=== PATIENT | female | born 1975 | race Caucasian/White ===

== ENCOUNTER 2016-10-21 10:26 | Inpatient (IN) | payer MEDICAID ==
[2016-10-21] VITALS (8 sets, daily range): BP systolic 98–120; BP diastolic 57–79; PULSE 99–142; RESP 18–24; TEMP 97.8–98.2; O2SAT 96–100
[~2016-10-21] VITALS: Ht 165.1 cm; Wt 76.7 kg
[2016-10-21] MEDS ORDERED: SODIUM CHLORIDE 0.9% FLUSH 10 ML FLUSH IVF PRN (10:45)
[2016-10-21] MEDS ORDERED: SODIUM CHLOR 0.9% 1000 ML INJ 1,000 ML IV ONE (10:45)
[2016-10-21 11:18] LABS: AUTOMATED NEUTROPHIL # 5.9 TH/MM3 (1.8-7.7); BASOPHIL % 0.5 % (0.0-2.0); EOSINOPHIL % 0.1 % (0.0-4.0); HEMATOCRIT 29.3 % (35.0-46.0); LYMPH % 11.6 % (9.0-44.0); LYMPHOCYTE # 0.9 TH/MM3 (1.0-4.8); MEAN CELL VOLUME 89.3 FL (80.0-100.0); MEAN CORPUSCULAR HEMOGLOBIN 29.3 PG (27.0-34.0); MEAN CORPUSCULAR HGB CONC 32.8 % (32.0-36.0); MONO % 12.9 % (0.0-8.0); NEUT % 74.9 % (16.0-70.0); PLATELET COUNT 169 TH/MM3 (150-450); RED BLOOD COUNT 3.28 MIL/MM3 (4.00-5.30); RED CELL DISTRIBUTION WIDTH 20.1 % (11.6-17.2); WHITE BLOOD COUNT 7.9 TH/MM3 (4.0-11.0)
[2016-10-21 11:22] LABS: HEMO FLAGS AUTO DIFF
[2016-10-21 11:27] LABS: APTT (PATIENT) 23.6 SEC (24.3-30.1); INTERNATIONAL NORMALIZED RATIO 1.2 RATIO; PROTHROMBIN TIME - PATIENT 12.8 SEC (9.8-11.6)
[2016-10-21 11:35] LABS: BLOOD GAS VENOUS HCO3 27 mmol/L (22-26); BLOOD GAS VENOUS O2 CONTENT 2.9 Vol % (9.0-17.0); BLOOD GAS VENOUS O2 HGB SAT 26 % (70-76); BLOOD GAS VENOUS PCO2 36 mmHg (44-48); BLOOD GAS VENOUS PO2 22 mmHg (35-40); BLOOD GAS VENOUS pH 7.49 (7.360-7.400); TEMP CORR TO 98.6
[2016-10-21 11:36] LABS: DRAW SITE RAC; FIO2 21 %; OXYGEN DEVICE RA; STAT YES
[2016-10-21 11:41] LABS: ALKALINE PHOSPHATASE 251 U/L (45-117); ALT (GPT) 86 U/L (10-53); ANION GAP 22 MEQ/L (5-15); AST (GOT) 265 U/L (15-37); BICARBONATE 25.2 MEQ/L (21.0-32.0); BLOOD UREA NITROGEN 9 MG/DL (7-18); CHLORIDE 81 MEQ/L (98-107); GLOMERULAR FILTRATION RATE 72 ML/MIN (>89); MAGNESIUM 1.7 MG/DL (1.5-2.5); SODIUM (NA) 128 MEQ/L (136-145); TOTAL BILIRUBIN ADULT 5.3 MG/DL (0.2-1.0)
--- NOTE | 2016-10-21 11:41 | PD ---
HPI Chief Complaint: Medical Clearance Time Seen by Provider: 10:36 Travel History International Travel<30 days: No Contact w/Intl Traveler<30days: No Traveled to known affect area: No History of Present Illness HPI Patient is a 41-year-old female presents emergency Department with vague tremors nausea and dizziness after quitting drinking 2 days ago. Patient states that she is a long-time alcoholic never been an severe withdrawals before but has noticed her skin is started changing yellow as well. Denies any abdominal pain shortness of breath blood in the stool or hematemesis. States she's been very dehydrated and unable to tolerate by mouth liquids. PFSH Past Medical History Herniated Disk: Yes Hypertension: Yes Tetanus Vaccination: Unknown Influenza Vaccination: No ?: Not : 1 Para: 1 Past Surgical History Section: Yes Social History Alcohol Use: Yes (daily - last drink 2 days ago) Tobacco Use: Yes Substance Use: No Allergies-Medications (Allergen,Severity, Reaction): Coded Allergies: No Known Allergies (Unverified , 10/21/16) Reported Meds & Prescriptions Reported Meds & Active Scripts Active No Active Prescriptions or Reported Medications Review of Systems Except as stated in HPI: all other systems reviewed are Neg Physical Exam Narrative GENERAL: Well-developed, overweight jaundiced. SKIN: Focused skin assessment warm/dry. HEAD: Atraumatic. Normocephalic. EYES: Pupils equal and round. No scleral icterus. No injection or drainage. ENT: No nasal bleeding or discharge. Mucous membranes pink and moist. NECK: Trachea midline. No JVD. CARDIOVASCULAR: Regular rate and rhythm. No murmur appreciated. RESPIRATORY: No accessory muscle use. Clear to auscultation. Breath sounds equal bilaterally. GASTROINTESTINAL: Abdomen soft, non-tender, nondistended. Hepatic and splenic margins not palpable. MUSCULOSKELETAL: No obvious deformities. No clubbing. No cyanosis. No edema. NEUROLOGICAL: Awake and alert. No obvious cranial nerve deficits. Motor grossly within normal limits. Normal speech. Minimal tremor seen, alert and awake and oriented 4, no confusion. PSYCHIATRIC: Appropriate mood and affect; insight and judgment normal. Data Data Last Documented VS Vital Signs Date Time Temp Pulse Resp B/P Pulse Ox O2 Delivery O2 Flow Rate FiO2 10/21/16 13:00 110 18 120/79 96 Room Air 10/21/16 10:28 97.8 Orders Electrocardiogram (10/21/16 10:42) Ckmb (Isoenzyme) Profile (10/21/16 10:42) Complete Blood Count With Diff (10/21/16 10:42) Comprehensive Metabolic Panel (10/21/16 10:42) Magnesium (Mg) (10/21/16 10:42) Prothrombin Time / Inr (Pt) (10/21/16 10:42) Act Partial Throm Time (Ptt) (10/21/16 10:42) Troponin I (10/21/16 10:42) Ecg Monitoring (10/21/16 10:42) Iv Access Insert/Monitor (10/21/16 10:42) Oximetry (10/21/16 10:42) Oxygen Administration (10/21/16 10:42) Sodium Chloride 0.9% Flush (Ns Flush) (10/21/16 10:45) Sodium Chlor 0.9% 1000 Ml Inj (Ns 1000 M (10/21/16 10:45) Resp Blood Gas Venous (10/21/16 ) Phosphorus (Po4) (10/21/16 11:00) Blood Gas Venous (Vbg) (10/21/16 11:34) Potassium Chlor 20 Meq Premix (Kcl 20 Me (10/21/16 13:45) Lorazepam Inj (Ativan Inj) (10/21/16 13:45) Admit To Inpatient (10/21/16 ) Vital Signs (Adult) Q4H (10/21/16 13:41) Activity Bed Rest (10/21/16 13:41) Signal Constructor / Telemetry .CONTINUOUS (10/21/16 13:41) Intake + Output LUZ ELENA.QSHIFT (10/21/16 13:41) Diet Npo (10/21/16 Lunch) Sodium Chlor 0.9% 1000 Ml Inj (Ns 1000 M (10/21/16 14:00) Sodium Chloride 0.9% Flush (Ns Flush) (10/21/16 13:45) Sodium Chloride 0.9% Flush (Ns Flush) (10/21/16 21:00) Acetaminophen (Tylenol) (10/21/16 13:45) Ondansetron Inj (Zofran Inj) (10/21/16 13:45) Scd Bilateral/Knee High LUZ ELENA.BID (10/21/16 13:41) Lencho Bilateral/Knee High LUZ ELENA.QSHIFT (10/21/16 13:41) Naloxone Inj (Narcan Inj) (10/21/16 13:45) Docusate Sodium-Senna (Aylin-Colace) (10/21/16 21:00) Magnesium Hydroxide Liq (Milk Of Magnesi (10/21/16 13:45) Sennosides (Senokot) (10/21/16 13:45) Bisacodyl Supp (Dulcolax Supp) (10/21/16 13:45) Lactulose Liq (Lactulose Liq) (10/21/16 13:45) Inpatient Certification (10/21/16 ) Alcohol Withdrawal Asmt-Ciwa Q4HX18 (10/21/16 13:41) Flumazenil Inj (Romazicon Inj) (10/21/16 13:45) Lorazepam (Ativan) (10/21/16 13:45) Lorazepam Inj (Ativan Inj) (10/21/16 13:45) Lorazepam (Ativan) (10/21/16 13:45) Lorazepam Inj (Ativan Inj) (10/21/16 13:45) Lorazepam Inj (Ativan Inj) (10/21/16 13:45) Lorazepam Inj (Ativan Inj) (10/21/16 13:45) Folic Acid (Folate) (10/22/16 09:00) Thiamine (Vit B1) (Vitamin B1) (10/22/16 09:00) Multivitamins-Minerals Therap (Theragran (10/22/16 09:00) Potassium Chloride (Kcl) (10/21/16 14:15) Admit Order (Ed Use Only) (10/21/16 ) Labs Laboratory Tests Test 10/21/16 10/21/16 11:00 11:34 White Blood Count 7.9 TH/MM3 Red Blood Count 3.28 MIL/MM3 Hemoglobin 9.6 GM/DL Hematocrit 29.3 % Mean Corpuscular Volume 89.3 FL Mean Corpuscular Hemoglobin 29.3 PG Mean Corpuscular Hemoglobin 32.8 % Concent Red Cell Distribution Width 20.1 % Platelet Count 169 TH/MM3 Mean Platelet Volume 8.4 FL Neutrophils (%) (Auto) 74.9 % Lymphocytes (%) (Auto) 11.6 % Monocytes (%) (Auto) 12.9 % Eosinophils (%) (Auto) 0.1 % Basophils (%) (Auto) 0.5 % Neutrophils # (Auto) 5.9 TH/MM3 Lymphocytes # (Auto) 0.9 TH/MM3 Monocytes # (Auto) 1.0 TH/MM3 Eosinophils # (Auto) 0.0 TH/MM3 Basophils # (Auto) 0.0 TH/MM3 CBC Comment AUTO DIFF Differential Total Cells 100 Counted Neutrophils % (Manual) 68 % Band Neutrophils % 8 % Lymphocytes % 10 % Monocytes % 11 % Eosinophils % 2 % Basophils % 1 % Neutrophils # (Manual) 6.0 TH/MM3 Nucleated Red Blood Cells 8 /100 WBC Differential Comment FINAL DIFF MANUAL Platelet Estimate NORMAL Platelet Morphology Comment NORMAL Target Cells 1+ Stomatocytes 1+ Prothrombin Time 12.8 SEC Prothromb Time International 1.2 RATIO Ratio Activated Partial 23.6 SEC Thromboplast Time Sodium Level 128 MEQ/L Potassium Level 2.3 MEQ/L Chloride Level 81 MEQ/L Carbon Dioxide Level 25.2 MEQ/L Anion Gap 22 MEQ/L Blood Urea Nitrogen 9 MG/DL Creatinine 0.87 MG/DL Estimat Glomerular Filtration 72 ML/MIN Rate Random Glucose 138 MG/DL Calcium Level 10.6 MG/DL Phosphorus Level 1.9 MG/DL Magnesium Level 1.7 MG/DL Iron Level 235 MCG/DL Total Iron Binding Capacity 223 MCG/DL Percent Iron Saturation GREATER THAN 99.0 % Ferritin 6636 NG/ML Total Bilirubin 5.3 MG/DL Aspartate Amino Transf 265 U/L (AST/SGOT) Alanine Aminotransferase 86 U/L (ALT/SGPT) Alkaline Phosphatase 251 U/L Total Creatine Kinase 19 U/L Troponin I LESS THAN 0.02 NG/ML Total Protein 7.5 GM/DL Albumin 3.9 GM/DL Vitamin B12 Level 869 PG/ML Blood Gas Puncture Site RAC Blood Gas Patient Temperature 98.6 Venous Blood pH 7.49 Venous Blood Partial Pressure 36 mmHg CO2 Venous Blood Partial Pressure 22 mmHg O2 Venous Blood HCO3 27 mmol/L Venous Blood Oxygen Saturation 26 % Venous Blood Oxygen Content 2.9 Vol % Venous Blood Base Excess 4.0 mmol/L Oxygen Delivery Device RA Blood Gas Inspired Oxygen 21 % MDM Medical Decision Making Medical Screen Exam Complete: Yes Emergency Medical Condition: Yes Interpretation(s) EKG shows sinus tachycardia with normal axis normal R-wave progression. Non- concerning ST segment T-wave abnormality, appears to be nonischemic. Intervals other than rate appear to be within normal limits. This is the nonischemic tachycardic EKG. Differential Diagnosis Acute liver failure, mild alcohol withdrawals, dehydration, alcoholic ketoacidosis, multiple electrolyte abnormalities. Narrative Course Patient roomed in the emergency department, workup significant for multiple electrolyte abnormalities, concern for dehydration and acute liver failure the patient will be placed on observation status. Patient was cussed with Dr. Cardozo for admission who is agreeable. Diagnosis Primary Impression: Dehydration Additional Impressions: Liver failure Hypokalemia Admitting Information Admitting Physician Requests: Admit Scripts No Active Prescriptions or Reported Meds Condition: Stable Kyree Egan MD Oct 21, 2016 11:41
[2016-10-21 11:44] LABS: CREATINE KINASE 19 U/L (26-192)
[2016-10-21 11:50] LABS: POTASSIUM 2.2 MEQ/L (3.5-5.1)
[2016-10-21 11:59] LABS: BANDS 8 % (0-6); BASOPHILS 1 % (0-2); CORRECTED NUCLEATED RBC 8 /100 WBC (0-0); EOSINOPHILS 2 % (0-4); PLATELET ESTIMATE SMEAR NORMAL (NORMAL); PLATELET MORPHOLOGY NORMAL (NORMAL); POLYS (SEG NEUTROPHILS) 68 % (16-70); SCAN/DIFF FINAL DIFF MANUAL; STOMATOCYTES 1+ (NORMAL); TARGET CELLS 1+ (NORMAL); WBC DIFF SAMPLE 100
[2016-10-21] MEDS ORDERED: LORazepam 2 MG/ML VIAL IV PUSH PRN ×3 (13:45)
[2016-10-21] MEDS ORDERED: LACTULOSE SYRUP 20 GM/30 ML CUP PO PRN (13:45)
[2016-10-21] MEDS ORDERED: FLUMAZENIL 0.5 MG/5 ML VIAL IV PUSH PRN (13:45)
[2016-10-21] MEDS ORDERED: MAGNESIUM HYDROXIDE SUSP 30 ML CUP PO PRN (13:45)
[2016-10-21] MEDS ORDERED: NALOXONE HCL 0.4 MG/ML AMP IV PRN (13:45)
[2016-10-21] MEDS ORDERED: BISACODYL 10 MG SUPP RECTAL PRN (13:45)
[2016-10-21] MEDS ORDERED: POTASSIUM CHLOR 20 MEQ PREMIX 100 ML IV ONE ×2 (13:45→19:45)
[2016-10-21] MEDS ORDERED: SODIUM CHLORIDE 0.9% FLUSH 10 ML FLUSH IV FLUSH PRN (13:45)
[2016-10-21] MEDS ORDERED: ONDANSETRON HCL 4 MG/2 ML VIAL IVP PRN (13:45)
[2016-10-21] MEDS ORDERED: ACETAMINOPHEN 325 MG TAB PO PRN (13:45)
[2016-10-21] MEDS ORDERED: LORazepam 2 MG TAB PO PRN (13:45)
[2016-10-21] MEDS ORDERED: SENNOSIDES 8.6 MG TAB PO PRN (13:45)
[2016-10-21] MEDS ORDERED: LORazepam 1 MG TAB PO PRN (13:45)
[2016-10-21] MEDS ORDERED: LORazepam 2 MG/ML VIAL IV PUSH ONE (13:45)
[2016-10-21] MEDS ORDERED: SODIUM CHLOR 0.9% 1000 ML INJ 1,000 ML IV SCH (14:00)
[2016-10-21] MEDS ORDERED: POTASSIUM CHLORIDE 10 MEQ CONTROLLED RELEASE TAB PO ONE (14:15)
--- NOTE | 2016-10-21 16:22 | EKG ---
Date Performed: 10/21/2016 Time Performed: 10:47:19 PTAGE: 41 years EKG: SINUS TACHYCARDIA NONSPECIFIC ST & T-WAVE ABNORMALITY ABNORMAL RHYTHM ECG PREVIOUS TRACING : 08/15/2016 23.26 DOCTOR: Jersey Herrera Interpretating Date/Time 10/21/2016 16:20:17
--- NOTE | 2016-10-21 16:23 | HHI.HP ---
[facility] Service [facility] Primary Care Physician No Primary Care Physician Admission Diagnosis Hypokalemia, Dehydration, Mild withdrawal, acute liver failure. Diagnoses: Chief Complaint: Nausea, vomiting, abdominal pain Travel History International Travel<30 Days: No Contact w/Intl Traveler <30 Da: No Traveled to Known Affected Are: No History of Present Illness This is a 41-year-old female with alcoholism and tobacco abuse who presented with abdominal pain, nausea, vomiting, tremors, generalized weakness, loss of appetite and diarrhea after not drinking for 2 days. Patient stated that she is alcoholic and has been drinking about half a gallon of [place] every day. She stated that she wanted to detox herself so has been off of alcohol for the past 2 days. She didn't develop symptoms of abdominal pain, nausea/vomiting, tremors, and diarrhea so went to the emergency department. In the ED patient was found to have hypokalemia and elevated LFTs. Otherwise patient had no other complaints. She stated that she smokes tobacco 1 pack per day for 20+ years. Review of Systems Constitutional: COMPLAINS OF: Fatigue, Change in appetite, DENIES: Diaphoretic episodes, Fever, Weight gain, Weight loss, Chills, Dizziness, Night Sweats Endocrine: DENIES: Abnorml menstrual pattern, Heat/cold intolerance, Polydipsia , Polyuria, Polyphagia Eyes: COMPLAINS OF: Blurred vision, DENIES: Diplopia, Eye inflammation, Eye pain, Vision loss, Photosensitivity, Double Vision Ears, nose, mouth, throat: DENIES: Tinnitus, Hearing loss, Vertigo, Nasal discharge, Oral lesions, Throat pain, Hoarseness, Ear Pain, Running Nose, Epistaxis, Sinus Pain, Toothache, Odynophagia Respiratory: DENIES: Apneas, Cough, Snoring, Wheezing, Hemoptysis, Sputum production, Shortness of breath Cardiovascular: DENIES: Chest pain, Palpitations, Syncope, Dyspnea on Exertion , PND, Lower Extremity Edema, Orthopnea, Claudication Gastrointestinal: COMPLAINS OF: Abdominal pain, Diarrhea, Nausea, Vomiting, Anorexia, DENIES: Black stools, Bloody stools, Constipation, Difficulty Swallowing Genitourinary: DENIES: Abnormal vaginal bleeding, Dysmenorrhea, Dyspareunia, Sexual dysfunction, Urinary frequency, Urinary incontinence, Urgency, Hematuria , Dysuria, Nocturia, Vaginal discharge Musculoskeletal: DENIES: Joint pain, Muscle aches, Stiffness, Joint Swelling, Back pain, Neck pain Integumentary: DENIES: Abnormal pigmentation, Pruritus, Rash, Nail changes, Breast masses, Breast skin changes, Nipple discharge Hematologic/lymphatic: DENIES: Bruising, Lymphadenopathy Immunologic/allergic: DENIES: Eczema, Urticaria Neurologic: DENIES: Abnormal gait, Headache, Localized weakness, Paresthesias, Seizures, Speech Problems, Tremor, Poor Balance Psychiatric: DENIES: Anxiety, Confusion, Mood changes, Depression, Hallucinations, Agitation, Suicidal Ideation, Homicidal Ideation, Delusions Past Family Social History Past Medical History Alcoholism Tobacco abuse Past Surgical History Multiple back surgeries Reported Medications No Active Prescriptions or Reported Medications Allergies: Coded Allergies: No Known Allergies (Unverified , 10/21/16) Active Ordered Medications Current Medications Sodium Chloride 2 ml 2 ml UNSCH PRN IVF FLUSH AFTER USING IV ACCESS; Start 03/28 at 10:45; Stop 10/21/16 at 14:04; Status DC Sodium Chloride 1,000 ml @ 999 mls/hr BOLUS ONCE IV Last administered on 10/21 11:08; Start 10/21/16 at 10:45; Stop 10/21/16 at 11:45; Status DC Potassium Chloride (KCl 20 Meq Premix Inj) 100 ml @ 50 mls/hr ONCE ONCE IV Last administered on 10/21/16 14:49; Start 10/21/16 at 13:45; Stop 10/21/16 at 15:44; Status DC Lorazepam 0.5 mg 0.5 mg ONCE ONCE IV PUSH Last administered on 10/21/16 14:48 ; Start 10/21/16 at 13:45; Stop 10/21/16 at 13:46; Status DC Sodium Chloride (NS 1000 ml Inj) 1,000 ml @ 150 mls/hr Q6H40M IV Last administered on 10/21/16 14:48; Start 10/21/16 at 14:00 Sodium Chloride (NS Flush) 2 ml UNSCH PRN IV FLUSH FLUSH AFTER USING IV ACCESS ; Start 10/21/16 at 13:45 Sodium Chloride (NS Flush) 2 ml BID IV FLUSH ; Start 10/21/16 at 21:00 Acetaminophen (Tylenol) 650 mg Q4H PRN PO TEMP > 100.4; Start 10/21/16 at 13:45 Ondansetron HCl (Zofran Inj) 4 mg Q6H PRN IVP NAUSEA OR VOMITING; Start at 13:45 Naloxone HCl (Narcan Inj) 0.4 mg UNSCH PRN IV SEE LABEL COMMENTS; Start at 13:45 Senna/Docusate Sodium (Aylin-Colace) 1 tab BID PO ; Start 10/21/16 at 21:00 Magnesium Hydroxide (Milk Of Magnesia Liq) 30 ml Q12H PRN PO MILD - MODERATE CONSTIPATION; Start 10/21/16 at 13:45 Sennosides (Senokot) 17.2 mg Q12H PRN PO MODERATE - SEVERE CONSTIPATION; Start 10/21/16 at 13:45 Bisacodyl (Dulcolax Supp) 10 mg DAILY PRN RECTAL SEVERE CONSITIPATION; Start at 13:45 Lactulose (Lactulose Liq) 30 ml DAILY PRN PO SEVERE CONSITIPATION; Start at 13:45 Flumazenil (Romazicon Inj) 0.2 mg Q1M PRN IV PUSH SEE LABEL COMMENTS; Start 03/28 at 13:45 Lorazepam (Ativan) 1 mg Q4H PRN PO CIWA 8 - 10; Start 10/21/16 at 13:45 Lorazepam (Ativan Inj) 1 mg Q4H PRN IV PUSH CIWA 8 - 10; Start 10/21/16 at 13: 45 Lorazepam (Ativan) 2 mg Q2H PRN PO CIWA 11-14; Start 10/21/16 at 13:45 Lorazepam (Ativan Inj) 2 mg Q2H PRN IV PUSH CIWA 11-14; Start 10/21/16 at 13:45 Lorazepam (Ativan Inj) 2 mg Q1H PRN IV PUSH CIWA 15-20; Start 10/21/16 at 13:45 Lorazepam (Ativan Inj) 2 mg Q15M PRN IV PUSH CIWA > 20; Start 10/21/16 at 13:45 Folic Acid (Folate) 1 mg DAILY PO ; Start 10/22/16 at 09:00; Stop 10/27/16 at 08 :59 Thiamine HCl (Vitamin B1) 100 mg DAILY PO ; Start 10/22/16 at 09:00 Multivitamins/ Minerals Therapeutic (Theragran M Tab) 1 tab DAILY PO ; Start at 09:00; Stop 10/27/16 at 08:59 Potassium Chloride (KCl) 30 meq ONCE ONCE PO Last administered on 10/21/16t 14 :48; Start 10/21/16 at 14:15; Stop 10/21/16 at 14:16; Status DC Family History Mother had a history of MN. Father had history of MN. Social History Patient lives with her at home. Smokes tobacco 1 pack per day for 20+ years. Denies any illicit drug use or any history of IV drug use. Physical Exam Vital Signs Vital Signs Date Time Temp Pulse Resp B/P Pulse Ox O2 Delivery O2 Flow Rate FiO2 10/21/16 14:49 118 18 98/57 99 Room Air 10/21/16 14:32 105 20 118/78 98 10/21/16 13:00 110 18 120/79 96 Room Air 10/21/16 10:48 100 Room Air 10/21/16 10:48 109 19 109/66 100 Room Air 10/21/16 10:42 129 19 10/21/16 10:42 109 19 109/66 100 Room Air 10/21/16 10:28 97.8 142 24 108/64 100 Room Air Physical Exam GENERAL: This is a well-nourished, well-developed patient, in no apparent distress. SKIN: No rashes, ecchymoses or lesions. Cool and dry. HEAD: Atraumatic. Normocephalic. No temporal or scalp tenderness. EYES: Pupils equal round and reactive. Extraocular motions intact. mild scleral icterus. No injection or drainage. ENT: Nose without bleeding, purulent drainage or septal hematoma. Throat without erythema, tonsillar hypertrophy or exudate. Uvula midline. Airway patent. NECK: Trachea midline. No JVD or lymphadenopathy. Supple, nontender, no meningeal signs. CARDIOVASCULAR: Regular rate and rhythm without murmurs, gallops, or rubs. RESPIRATORY: Clear to auscultation. Breath sounds equal bilaterally. No wheezes , rales, or rhonchi. GASTROINTESTINAL: Abdomen soft,+ mild diffused TTP, nondistended. No hepato- splenomegaly, or palpable masses. No guarding. MUSCULOSKELETAL: Extremities without clubbing, cyanosis, or edema. No joint tenderness, effusion, or edema noted. No calf tenderness. Negative Homans sign bilaterally. NEUROLOGICAL: Awake and alert. Cranial nerves II through XII intact. Motor and sensory grossly within normal limits. Five out of 5 muscle strength in all muscle groups. Normal speech. Laboratory Laboratory Tests Test 10/21/16 10/21/16 11:00 11:34 White Blood Count 7.9 Red Blood Count 3.28 Hemoglobin 9.6 Hematocrit 29.3 Mean Corpuscular Volume 89.3 Mean Corpuscular Hemoglobin 29.3 Mean Corpuscular Hemoglobin 32.8 Concent Red Cell Distribution Width 20.1 Platelet Count 169 Mean Platelet Volume 8.4 Neutrophils (%) (Auto) 74.9 Lymphocytes (%) (Auto) 11.6 Monocytes (%) (Auto) 12.9 Eosinophils (%) (Auto) 0.1 Basophils (%) (Auto) 0.5 Neutrophils # (Auto) 5.9 Lymphocytes # (Auto) 0.9 Monocytes # (Auto) 1.0 Eosinophils # (Auto) 0.0 Basophils # (Auto) 0.0 CBC Comment AUTO DIFF Differential Total Cells 100 Counted Neutrophils % (Manual) 68 Band Neutrophils % 8 Lymphocytes % 10 Monocytes % 11 Eosinophils % 2 Basophils % 1 Neutrophils # (Manual) 6.0 Nucleated Red Blood Cells 8 Differential Comment FINAL DIFF MANUAL Platelet Estimate NORMAL Platelet Morphology Comment NORMAL Target Cells 1+ Stomatocytes 1+ Prothrombin Time 12.8 Prothromb Time International 1.2 Ratio Activated Partial 23.6 Thromboplast Time Sodium Level 128 Potassium Level 2.2 Chloride Level 81 Carbon Dioxide Level 25.2 Anion Gap 22 Blood Urea Nitrogen 9 Creatinine 0.87 Estimat Glomerular Filtration 72 Rate Random Glucose 138 Calcium Level 10.6 Phosphorus Level 1.9 Magnesium Level 1.7 Total Bilirubin 5.3 Aspartate Amino Transf 265 (AST/SGOT) Alanine Aminotransferase 86 (ALT/SGPT) Alkaline Phosphatase 251 Total Creatine Kinase 19 Troponin I LESS THAN 0.02 Total Protein 7.5 Albumin 3.9 Blood Gas Puncture Site RAC Blood Gas Patient Temperature 98.6 Venous Blood pH 7.49 Venous Blood Partial Pressure 36 CO2 Venous Blood Partial Pressure 22 O2 Venous Blood HCO3 27 Venous Blood Oxygen Saturation 26 Venous Blood Oxygen Content 2.9 Venous Blood Base Excess 4.0 Oxygen Delivery Device RA Blood Gas Inspired Oxygen 21 Result Diagram: 10/21/16 1100 10/21/16 1100 Assessment and Plan Assessment and Plan 48-year-old alcoholic who presented with abdominal pain, nausea/vomiting, and diarrhea Alcohol withdrawal -Patient was given Ativan in the ED which improved her heart rate. -Will start CIWA protocol. -Will place on IV fluids, multivitamin, thiamine and folic acid. -Continue to monitor closely and adjust medication as needed. Tachycardia -Most lightly secondary to alcohol withdrawals. -Improved with Ativan. Continue treatment as above. -Monitor on telemetry. Hypokalemia K 2.2 -Asymptomatic. No tall T waves on EKG. -Patient given 20 mEq potassium IV in the ED. Magnesium is 1.7. -Will give K 30 mEq by mouth once. Recheck potassium adjust accordingly. -Monitor over telemetry. Anemia -No signs of active bleeding. -Will do anemia workup. -Will treat empirically with Protonix since patient does have abdominal pain with emesis.. -Continue to trend hemoglobin and monitor clinically. Elevated liver enzymes -Most likely secondary to alcoholic hepatitis. -INR is 1.2 and patient looks mildly jaundiced, but she felt she looks normal. -Will get a hepatitis panel and liver ultrasound. -Continue to trend LFTs. DVT prophylaxis Code Status Full code Discussed Condition With [facility] Phys[facility] Certification 2 Midnight Certification Type: Admission for Inpatient Services Order for Inpatient Services The services are ordered in accordance with Medicare regulations or non- Medicare payer requirements, as applicable. In the case of services not specified as inpatient-only, they are appropriately provided as inpatient services in accordance with the 2-midnight benchmark. Estimated LOS (days): 3 3 days is the estimated time the patient will need to remain in the hospital, assuming treatment plan goals are met and no additional complications. Post-Hospital Plan: Maria Dolores Griffith MD Oct 21, 2016 16:23
--- NOTE | 2016-10-21 17:25 | RADRPT ---
EXAM DATE/TIME: 10/21/2016 16:49 [facility] COMPARISON: No previous studies available for comparison. INDICATIONS : Increased lab values. MEDICAL HISTORY : Hypertension. Abdominal pain. Diarrhea. Nausea. Alcohol abuse. SURGICAL HISTORY : section. Herniated disk repair. ENCOUNTER: Initial ACUITY: 2 weeks PAIN SCORE: 0/10 LOCATION: Right upper quadrant MEASUREMENTS: LIVER: 17.6 cm length COMMON DUCT: 5 mm RIGHT KIDNEY: 11.8 x 6.3 x 6.1 cm SPLEEN: 10.5 cm length FINDINGS: LIVER: Liver demonstrates diffusely increased echogenicity without evidence for volume loss, intrahepat ic ductal dilatation or focal mass. The vein is patent with hepatopedal flow. COMMON DUCT: No intraluminal mass or stone visualized. GALLBLADDER: Isoechoic layering sludge in the gallbladder. No significant gallbladder wall thickening, pericholecy stic fluid, or sonographic Trimble sign. PANCREAS: The visualized portions are within normal limits. RIGHT KIDNEY: No hydronephrosis, stone or mass. SPLEEN: No focal lesion. CONCLUSION: 1. Diffusely increased hepatic echogenicity without evidence for volume loss consistent with hepatic steatosis. 2. Gallbladder sludge without evidence for cholecystitis. Ricardo De La Torre MD on October 21, 2016 at 17:21 Board Certified Radiologist. This report was verified electronically.
[2016-10-21 17:54] LABS: FERRITIN 6636 NG/ML (8-252); TRANSFERRIN IRON PROFILE 159 MG/DL (200-360)
[2016-10-21 18:06] LABS: POTASSIUM 2.3 MEQ/L (3.5-5.1)
[2016-10-21] MEDS: SODIUM CHLORIDE 0.9% FLUSH 10 ML FLUSH IV FLUSH SCH (18:08)
[2016-10-21] MEDS: PANTOPRAZOLE SODIUM 40 MG VIAL IV PUSH SCH (18:09)
[2016-10-21] MEDS ORDERED: MAGNESIUM SULFATE 1 GM PREMIX 100 ML IV ONE (19:45)
[2016-10-21] MEDS: DOCUSATE SODIUM 50 MG/SENNA 8.6 MG TAB PO SCH (21:31)
[2016-10-21] MEDS: NS + KCL 40 MEQ INJ 1,000 ML IV SCH (21:36)
[2016-10-22] VITALS (7 sets, daily range): BP systolic 97–120; BP diastolic 65–79; PULSE 102–124; RESP 16–18; TEMP 97.9–98.6; O2SAT 99–100
[2016-10-22] MEDS: NS + KCL 40 MEQ INJ 1,000 ML IV SCH ×3 (03:45→21:15)
[2016-10-22] MEDS: MULTIVITAMINS/MINERALS THERAPEUTIC TAB PO SCH (08:10)
[2016-10-22] MEDS: DOCUSATE SODIUM 50 MG/SENNA 8.6 MG TAB PO SCH ×2 (08:10→21:15)
[2016-10-22] MEDS: THIAMINE HCL 100 MG TAB PO SCH (08:10)
[2016-10-22] MEDS: FOLIC ACID 1 MG TAB PO SCH (08:10)
[2016-10-22] MEDS: SODIUM CHLORIDE 0.9% FLUSH 10 ML FLUSH IV FLUSH SCH ×2 (08:11→21:15)
[2016-10-22 10:05] LABS: HEMATOCRIT 23.4 % (35.0-46.0); MEAN CELL VOLUME 90.4 FL (80.0-100.0); MEAN CORPUSCULAR HEMOGLOBIN 28.1 PG (27.0-34.0); MEAN CORPUSCULAR HGB CONC 31.1 % (32.0-36.0); PLATELET COUNT 129 TH/MM3 (150-450); RED BLOOD COUNT 2.59 MIL/MM3 (4.00-5.30); RED CELL DISTRIBUTION WIDTH 19.8 % (11.6-17.2); REVIEW FLAG FINAL; WHITE BLOOD COUNT 4.6 TH/MM3 (4.0-11.0)
[2016-10-22 10:41] LABS: ALKALINE PHOSPHATASE 174 U/L (45-117); ALT (GPT) 69 U/L (10-53); ANION GAP 14 MEQ/L (5-15); AST (GOT) 256 U/L (15-37); BICARBONATE 28.5 MEQ/L (21.0-32.0); BLOOD UREA NITROGEN 10 MG/DL (7-18); CHLORIDE 94 MEQ/L (98-107); GLOMERULAR FILTRATION RATE 188 ML/MIN (>89); SODIUM (NA) 136 MEQ/L (136-145); TOTAL BILIRUBIN ADULT 2.5 MG/DL (0.2-1.0)
[2016-10-22 10:48] LABS: POTASSIUM 2.6 MEQ/L (3.5-5.1)
--- NOTE | 2016-10-22 10:54 | HHI.PR ---
Subjective Remarks Pt tells me that she feels much better today. Wants to eat and asks for orange juice. She is hopeful to leave hospital soon. Pt also wants assistance to quit drinking. She is willing to go to counseling. Pt states that has no insurance and is interested in patient assistance. Objective Vitals Vital Signs Date Time Temp Pulse Resp B/P Pulse Ox O2 Delivery O2 Flow Rate FiO2 10/22/16 08:00 98.1 105 17 120/79 99 10/22/16 04:00 98.0 102 18 97/66 100 10/22/16 00:00 98.1 116 16 107/77 100 10/21/16 20:45 Room Air 10/21/16 20:00 98.2 101 18 116/76 100 10/21/16 20:00 99 10/21/16 18:30 Room Air 10/21/16 17:43 97.9 108 18 114/71 100 10/21/16 14:49 118 18 98/57 99 Room Air 10/21/16 14:32 105 20 118/78 98 10/21/16 13:00 110 18 120/79 96 Room Air 10/21/16 10:48 100 Room Air 10/21/16 10:48 109 19 109/66 100 Room Air 10/21/16 10:42 129 19 10/21/16 10:42 109 19 109/66 100 Room Air I/O 10/21/16 10/21/16 10/21/16 10/22/16 10/22/16 10/22/16 07:00 15:00 23:00 07:00 15:00 23:00 Intake Total 1000 ml 220 ml 120 ml Balance 1000 ml 220 ml 120 ml Intake Oral 120 ml 120 ml IV Total 1000 ml 100 ml # Voids 3 2 # Bowel Movements 0 0 Result Diagram: 10/22/16 0932 10/21/16 1100 Imaging Last Impressions Liver Ultrasound 10/21/16 0000 Signed Impressions: Service Date/Time: Friday, October 21, 2016 16:49 - CONCLUSION: 1. Diffusely increased hepatic echogenicity without evidence for volume loss consistent with hepatic steatosis. 2. Gallbladder sludge without evidence for cholecystitis. Ricardo De La Torre MD Objective Remarks GENERAL: This is a well-nourished, well-developed patient, in no apparent distress. SKIN: No rashes, ecchymoses or lesions. Cool and dry. HEAD: Atraumatic. Normocephalic. EYES: Extraocular motions intact. ENT: Nose without bleeding. Airway patent. NECK: Trachea midline. Supple CARDIOVASCULAR: mildly tachycardic but no murmurs RESPIRATORY: Clear to auscultation. Breath sounds equal bilaterally. No wheezes , rales, or rhonchi. GASTROINTESTINAL: Abdomen soft, non tender, nondistended. No guarding. MUSCULOSKELETAL: Extremities without edema. No joint tenderness, effusion, or edema noted. No calf tenderness. Negative Homans sign bilaterally. NEUROLOGICAL: Awake and alert. Cranial nerves II through XII intact. Motor and sensory grossly within normal limits. Normal speech. no tremors noted this morning A/P Assessment and Plan 48-year-old alcoholic who presented with abdominal pain, nausea/vomiting, and diarrhea Alcohol withdrawal -Patient was given Ativan in the ED which improved her heart rate. -on CIWA protocol. No tremors on exam today -on IV fluids, multivitamin, thiamine and folic acid. -Continue to monitor closely and adjust medication as needed. Tachycardia -Most lightly secondary to alcohol withdrawals. -Improved with Ativan. Continue treatment as above. Hypokalemia K 2.3. no repeat labs available this morning. -Asymptomatic. No tall T waves on EKG. -s/p potassium replacement. K level pending today. Magnesium is 1.7. -Monitor over telemetry. Anemia -No signs of active bleeding. initial Hb was 9.6 but repeat this morning shows hb of 7.3. Iron studies are concerning w ferritin levels of 6636 and %sat >99. I will place a Hematology consult. Will check transferrin levels as well. Appreciate assistance and recs from hematology -on Protonix empirically since patient did have abdominal pain with emesis.. -Continue to trend hemoglobin and monitor clinically. Elevated liver enzymes -Most likely secondary to alcoholic hepatitis. -INR is 1.2 and patient looks mildly jaundiced, but she felt she looks normal. -hepatitis panel pending and liver ultrasound shows: " Diffusely increased hepatic echogenicity without evidence for volume loss consistent with hepatic steatosis. Gallbladder sludge without evidence for cholecystitis". -Continue to trend LFTs. GI consult in place -Pt has been extensively counseled on the importance of quitting drinking. She is willing to do so. I have placed a CM consult so they can provide pt w resources available in the community for pt to f/u w. Pt also stressed to establish w PCP. CM to assist w this as well. DVT prophylaxis: SCDs Discharge Planning consults to GI and hematology in place advanced diet to low fat diet d/c pending further work-up and Celeste Sahu MD Oct 22, 2016 10:54
[2016-10-22] MEDS ORDERED: POTASSIUM CHLORIDE 20 MEQ CONTROLLED RELEASE TAB PO ONE (11:00)
[2016-10-22] MEDS: POTASSIUM CHLOR 20 MEQ PREMIX 100 ML IV SCH ×2 (11:49→13:32)
[2016-10-22] MEDS: PANTOPRAZOLE SODIUM 40 MG VIAL IV PUSH SCH ×2 (16:12→21:15)
--- NOTE | 2016-10-22 16:43 | PD.CONS ---
HPI History of Present Illness This is a 41 year old female with a history of alcohol abuse, who reports she was drinking half a gallon of [place] every 2 days when she decided to stop cold turkey to stop cold turkey and detox herself. Two days after she quit drinking she began having tremors, nausea, vomiting, diarrhea, and generalized weakness and therefore she presented to the ER for further evaluations. She was found to have severe electrolyte and balances with a sodium of 128, potassium 2.2, glucose 138, calcium 10.6, and elevated LFTs with total bilirubin 5.3, AST is 265, ALT 86, alkaline phosphatase 251. Liver Ultrasound (10/21/16)-----> 1. Diffusely increased hepatic echogenicity without evidence for volume loss consistent with hepatic steatosis. 2. Gallbladder sludge without evidence for cholecystitis. GI was consulted for further evaluation of elevated LFTs and GI symptoms. The patient tells me that she has never tried to stop drinking on her own and has never been through delirium tremors in the past. She was having nausea and vomiting consisting of yellow bilious material with no hematemesis when she stopped drinking, but states that this has completely resolved. At that time she was also having multiple loose dark stools and again reports that the loose stools have resolved although her bowel movements continue to be very dark and tarry at times. She was having some lower abdominal cramping associated with the diarrhea, but states that she has not had this since she arrived to the ER. She has had decreased appetite and has lost about 15 pounds over the past 3 weeks. She denies any heartburn or reflux, hematemesis, constipation, or hematochezia. She denies any history of known liver cirrhosis or other liver disease in herself or other family members. She denies any history of peptic ulcer disease or prior GI bleeding. She has never had an EGD or colonoscopy. PFS Past Medical History Alcohol abuse Tobacco abuse Past Surgical History Back surgery Coded Allergies: No Known Allergies (Unverified , 10/21/16) Medications Allergies Coded Allergies Type Severity Reaction Last Updated Verified No Known Allergies 10/21/16 No Active Scripts Medications Dose Route/Sig Days Date Category No Active Prescriptions or Reported Medications Rx Family History Mother had a history of CT. Father had history of CT. Social History Smokes tobacco 1 pack per day since age 16 Was drinking 1/2 Gallon [place] every two days up until two days prior to this admission. Denies any illicit drug use or any history of IV drug use. Review of Systems Constitutional: COMPLAINS OF: Fatigue, Weight loss, Change in appetite, DENIES : Fever, Chills Respiratory: DENIES: Cough, Shortness of breath Cardiovascular: DENIES: Chest pain Gastrointestinal: COMPLAINS OF: Abdominal pain, Black stools, Diarrhea, Nausea , Vomiting, DENIES: Bloody stools, Constipation, Swelling of Abdomen, Heartburn , Hematemesis Musculoskeletal: COMPLAINS OF: Back pain Integumentary: COMPLAINS OF: Jaundice, DENIES: Abnormal pigmentation Hematologic/lymphatic: DENIES: Bruising Neurologic: DENIES: Headache Psychiatric: COMPLAINS OF: Anxiety, DENIES: Confusion GI Exam Vitals I&O Vital Signs Date Time Temp Pulse Resp B/P Pulse Ox O2 Delivery O2 Flow Rate FiO2 10/22/16 15:22 99 Room Air 10/22/16 15:11 103 10/22/16 12:00 98.2 105 18 108/75 99 10/22/16 08:00 98.1 105 17 120/79 99 10/22/16 04:00 98.0 102 18 97/66 100 10/22/16 00:00 98.1 116 16 107/77 100 10/21/16 20:45 Room Air 10/21/16 20:00 98.2 101 18 116/76 100 10/21/16 20:00 99 10/21/16 18:30 Room Air 10/21/16 17:43 97.9 108 18 114/71 100 I/O 10/21/16 10/21/16 10/21/16 10/22/16 10/22/16 10/22/16 07:00 15:00 23:00 07:00 15:00 23:00 Intake Total 1000 ml 220 ml 120 ml Balance 1000 ml 220 ml 120 ml Intake Oral 120 ml 120 ml IV Total 1000 ml 100 ml # Voids 3 2 # Bowel Movements 0 0 Imaging Last Impressions Liver Ultrasound 10/21/16 0000 Signed Impressions: Service Date/Time: Friday, October 21, 2016 16:49 - CONCLUSION: 1. Diffusely increased hepatic echogenicity without evidence for volume loss consistent with hepatic steatosis. 2. Gallbladder sludge without evidence for cholecystitis. Ricardo De La Torre MD Laboratory Test 10/22/16 09:32 White Blood Count 4.6 TH/MM3 Red Blood Count 2.59 MIL/MM3 Hemoglobin 7.3 GM/DL Hematocrit 23.4 % Mean Corpuscular Volume 90.4 FL Mean Corpuscular Hemoglobin 28.1 PG Mean Corpuscular Hemoglobin 31.1 % Concent Red Cell Distribution Width 19.8 % Platelet Count 129 TH/MM3 Mean Platelet Volume 8.2 FL Sodium Level 136 MEQ/L Potassium Level 2.6 MEQ/L Chloride Level 94 MEQ/L Carbon Dioxide Level 28.5 MEQ/L Anion Gap 14 MEQ/L Blood Urea Nitrogen 10 MG/DL Creatinine 0.38 MG/DL Estimat Glomerular Filtration 188 ML/MIN Rate Random Glucose 89 MG/DL Calcium Level 8.3 MG/DL Transferrin 138 MG/DL Total Bilirubin 2.5 MG/DL Aspartate Amino Transf 256 U/L (AST/SGOT) Alanine Aminotransferase 69 U/L (ALT/SGPT) Alkaline Phosphatase 174 U/L Total Protein 6.0 GM/DL Albumin 2.9 GM/DL Hepatitis A IgM Antibody NEGATIVE Hepatitis B Surface Antigen NEGATIVE Hepatitis B Core IgM Antibody NEGATIVE Hepatitis C Antibody NEGATIVE Physical Examination HEENT: Normocephalic; atraumatic; + jaundice. CHEST: Resp even/unlabored CARDIAC: RRR ABDOMEN: Soft, nondistended, nontender; no hepatosplenomegaly; bowel sounds are present in all four quadrants. EXTREMITIES: No clubbing, cyanosis, or edema. SKIN: + jaundice. BOOTH MANAGER: No focal deficits; alert and oriented times three. Assessment and Plan Plan ASSESSMENT: - Upper GIB, Melena. Reports dark stool for several days. No hx of GIB/PUD. Never had EGD. HH dropped from 9.6/29.3 to 7.3/23.4. Part of this is likely dilutional, but given her history of ETOH abuse and melena, will plan for EGD in am. Protonix 40mg IV BID. - Anemia with drop in Hgb. HH dropped from 9.6/29.3 to 7.3/23.4. PPI - Elevated LFTs with ETOH abuse, alcoholic hepatitis. Has been drinking 1/2 gallon [place] every 2 days up until 2 days prior to this admission. On admission, Total bilirubin 5.3, AST is 265, ALT 86, alkaline phosphatase 251.Hepatitis negative. Liver Ultrasound (10/21/16)-----> 1. Diffusely increased hepatic echogenicity without evidence for volume loss consistent with hepatic steatosis. 2. Gallbladder sludge without evidence for cholecystitis. DF was 8.98 on admission. The CBD is not dilated at 5mm. Ferritin 6636. Iron Saturation 99%. - Elevated Ferritin, Iron Saturation. Hfe gene. - Abn. Wt. Loss 15 lbs over past 3 weeks. - N/V/D. RESOLVED. States this started after 2 days of not drinking along with associated tremors/weakness. Her symptoms have resolved. - Abdominal pain. RESOLVED. - Severe electrolyte abnormalities. Correction per attending. - ETOH Abuse, DT's. Folic acid, Thiamine, Theragran M tab, Ativan per attending. PLAN: - Plan for egd in am - Obtain consents - NPO after MN - Increase protonix to 40mg IV BID - Cont. Thiamine, Folate, MVI - Monitor HH - Transfuse as necessary - Monitor CMP - AFP - FANNIE, ASMA, AMA - Ceruloplasmin, Alpha 1 Antitrypsin - Hfe gene - DT precautions per primary - Supportive care - Further recommendations to follow based on resulst of above - PT seen and examined by Dr. Mckenzie and myself and this note is written on his behalf Stefany Hong Oct 22, 2016 16:43
[2016-10-22 19:21] LABS: MAGNESIUM 1.8 MG/DL (1.5-2.5); POTASSIUM 3.8 MEQ/L (3.5-5.1)
--- NOTE | 2016-10-22 19:33 | MB ---
cc: BHARATI CUADRA MD DATE OF CONSULTATION 10/22/16 REASON FOR CONSULTATION Anemia and elevated ferritin. PATIENT PROFILE The patient is a 41-year white female. She is x1. She has a son. She was born in [place]. She has lived in [place], [place] for the past eight months. She smokes a pack of cigarettes per day and has done this for 22 years. She has one-fifth of [place] whiskey per day and has done this since her teens. She currently is not working. In the past, she had worked in manufacturing. HISTORY OF PRESENT ILLNESS The patient is a 41-year-old alcoholic female who decided to stop drinking two days prior to her admission. She had been a long time alcoholic and had never had withdrawal because she never started stopped drinking. She noted that her skin had become yellow. 48 hours after stopping drinking she had symptoms of withdrawal and she went to the emergency room. She had the following laboratory studies: On 10/21 hemoglobin 9.6, white count 7900, platelets 169,000. She had eight nucleated red blood cells. She had target cells and stomatocytes. On the following day, 10/22 - hemoglobin 7.3, white count 4600 and platelets 129,000. PT is 12.8, PTT is 23.6. On 10/22 sodium 136, potassium 2.6, bilirubin is 2.5, AST 256, ALT 69, alk phos 174, albumin is 2.9. A serum iron is 235, TIBC is 223 and saturation is greater than 99%. A serum ferritin is 6636. Imaging studies include an ultrasound of the liver. The liver is 17 cm. It shows diffuse increased hepatic echogenicity without evidence for volume loss consistent with hepatic steatosis. There is no history of hepatitis. She has no history of hemochromatosis. There is no family history of hemochromatosis. There is no history of taking oral iron or blood transfusions. PAST SURGICAL HISTORY 1. Herniated disk lumbosacral spine 2014 2. . PAST MEDICAL HISTORY 1. Alcoholism 2. Tobacco use 3. Hypertension in the past. MEDICATIONS Prior to admission none ALLERGIES None. FAMILY HISTORY Father of congestive heart failure. Mother of an [place]. Sister and brother living. No known history of iron overload. REVIEW OF SYSTEMS No change in vision or hearing. No chest pain, palpitations, no shortness of breath or cough. No abdominal or pelvic pain. No melena or hematochezia. No dysuria or frequency. Major problem has been weakness, tremulousness. She has lost weight. She has been drinking and not eating. PHYSICAL EXAMINATION GENERAL: A mildly jaundiced female. She is articulate and able to give a good history. VITAL SIGNS: Blood pressure 110/60, respiratory rate 18, pulse 110 afebrile. O2 sat is 99%. HEENT: Head is normocephalic. Conjunctivae are normal. Sclerae revealed icterus. Oropharynx unremarkable. No adenopathy. HEART: Regular rhythm. LUNGS: Clear. ABDOMEN: Soft. I cannot feel the liver OR the spleen. EXTREMITIES: Trace edema. MUSCULOSKELETAL: No bone pain. NEUROLOGIC: No weakness. Cognition, affect normal. SKIN: Slightly jaundiced. There is no focal weakness. ASSESSMENT The patient is a 41-year old female. She is alcoholic. She drinks at least a fifth a day. She has been doing this for 20 years or more. I believe that the anemia is due to the alcohol. She has a markedly elevated ferritin and iron saturation. I suspect that the reason for the elevated ferritin is the acute alcohol related liver injury. This can result in significantly elevated ferritin levels. It is highly unlikely that she has hemochromatosis. I will check the HFE gene but believe that this is due to exposure to alcohol and injury to the liver. In addition, she is a woman. She has had menstrual periods until the past several months and this would make severe iron load extremely rare from primary hemochromatosis. RECOMMENDATIONS 1. I spoke to her about the fact that if she continues to drink she will not live a long time. 2. I spoke to her about the potential problems associated with tobacco. 3. I have ordered an evaluation for hemochromatosis with looking at the HFE gene. I believe that this will be negative. 4. I would recommend that when she stops drinking her ferritins be checked in several months' time and I suspect that they will come down. If this is not the case then I would very much like to see her again as I believe that if she stops drinking we will see a fall in the ferritin over the next several months. MD ALEXANDRIA Kaur/ /6:50 PM /7:22 PM MTDD
[2016-10-23] VITALS (7 sets, daily range): BP systolic 96–122; BP diastolic 63–86; PULSE 98–124; RESP 16–20; TEMP 98–98.5; O2SAT 98–100
[2016-10-23] MEDS: NS + KCL 40 MEQ INJ 1,000 ML IV SCH ×3 (04:24→19:45)
[2016-10-23] MEDS: PANTOPRAZOLE SODIUM 40 MG VIAL IV PUSH SCH ×2 (07:59→21:52)
[2016-10-23] MEDS: SODIUM CHLORIDE 0.9% FLUSH 10 ML FLUSH IV FLUSH SCH ×2 (07:59→21:52)
[2016-10-23 08:02] LABS: AUTOMATED NEUTROPHIL # 2.7 TH/MM3 (1.8-7.7); BASOPHIL % 0.6 % (0.0-2.0); EOSINOPHIL # 0.1 TH/MM3 (0-0.4); LYMPH % 31.6 % (9.0-44.0); LYMPHOCYTE # 1.5 TH/MM3 (1.0-4.8); MEAN CELL VOLUME 90.9 FL (80.0-100.0); MEAN CORPUSCULAR HEMOGLOBIN 27.7 PG (27.0-34.0); MEAN CORPUSCULAR HGB CONC 30.4 % (32.0-36.0); MONO % 10.4 % (0.0-8.0); NEUT % 56.4 % (16.0-70.0); PLATELET COUNT 145 TH/MM3 (150-450); RED BLOOD COUNT 2.46 MIL/MM3 (4.00-5.30); RED CELL DISTRIBUTION WIDTH 20.2 % (11.6-17.2); WHITE BLOOD COUNT 4.8 TH/MM3 (4.0-11.0)
[2016-10-23 08:03] LABS: RETIC % 1.2 % (0.4-3.0)
[2016-10-23 08:06] LABS: HEMO FLAGS DIFF FINAL; REVIEW FLAG FINAL
[2016-10-23 08:11] LABS: HEMATOCRIT 22.4 % (35.0-46.0)
[2016-10-23 08:16] LABS: INTERNATIONAL NORMALIZED RATIO 1.1 RATIO
[2016-10-23 08:41] LABS: ALKALINE PHOSPHATASE 183 U/L (45-117); ALT (GPT) 76 U/L (10-53); ANION GAP 11 MEQ/L (5-15); AST (GOT) 249 U/L (15-37); BICARBONATE 25.3 MEQ/L (21.0-32.0); BLOOD UREA NITROGEN 7 MG/DL (7-18); CHLORIDE 104 MEQ/L (98-107); GLOMERULAR FILTRATION RATE 256 ML/MIN (>89); SODIUM (NA) 140 MEQ/L (136-145); TOTAL BILIRUBIN ADULT 1.6 MG/DL (0.2-1.0)
--- NOTE | 2016-10-23 09:05 | HHI.GIFU ---
Subjective Remarks Immediate postop note: EGD with biopsy Indication: Anemia, nausea vomiting Meds: MAC Findings: Esophagus Normal Stomach: mild gastritis. Biopsies taken Duodenum: normal Objective Vitals I&O Vital Signs Date Time Temp Pulse Resp B/P Pulse Ox O2 Delivery O2 Flow Rate FiO2 10/23/16 08:00 98.3 103 18 120/81 100 10/23/16 00:00 98.0 110 16 96/63 98 10/22/16 20:00 Room Air 10/22/16 20:00 97.9 113 16 100/68 99 10/22/16 20:00 124 10/22/16 16:00 98.6 110 18 110/65 99 10/22/16 15:22 99 Room Air 10/22/16 15:11 103 10/22/16 12:00 98.2 105 18 108/75 99 I/O 10/22/16 10/22/16 10/22/16 10/23/16 10/23/16 10/23/16 07:00 15:00 23:00 07:00 15:00 23:00 Intake Total 120 ml 720 ml 3263 ml 1052 ml Balance 120 ml 720 ml 3263 ml 1052 ml Intake Oral 120 ml 720 ml 240 ml 0 ml IV Total 3023 ml 1052 ml # Voids 2 2 2 1 # Bowel Movements 0 1 0 0 Laboratory Laboratory Tests Test 10/22/16 10/22/16 10/23/16 09:32 18:21 06:57 White Blood Count 4.6 4.8 Red Blood Count 2.59 2.46 Hemoglobin 7.3 6.8 Hematocrit 23.4 22.4 Mean Corpuscular Volume 90.4 90.9 Mean Corpuscular Hemoglobin 28.1 27.7 Mean Corpuscular Hemoglobin 31.1 30.4 Concent Red Cell Distribution Width 19.8 20.2 Platelet Count 129 145 Mean Platelet Volume 8.2 8.0 Sodium Level 136 140 Potassium Level 2.6 3.8 4.0 Chloride Level 94 104 Carbon Dioxide Level 28.5 25.3 Anion Gap 14 11 Blood Urea Nitrogen 10 7 Creatinine 0.38 0.29 Estimat Glomerular Filtration 188 256 Rate Random Glucose 89 87 Calcium Level 8.3 8.6 Transferrin 138 Total Bilirubin 2.5 1.6 Aspartate Amino Transf 256 249 (AST/SGOT) Alanine Aminotransferase 69 76 (ALT/SGPT) Alkaline Phosphatase 174 183 Total Protein 6.0 5.6 Albumin 2.9 2.7 Hepatitis A IgM Antibody NEGATIVE Hepatitis B Surface Antigen NEGATIVE Hepatitis B Core IgM Antibody NEGATIVE Hepatitis C Antibody NEGATIVE Magnesium Level 1.8 Tumor Marker Alpha Fetoprotein 3.3 Neutrophils (%) (Auto) 56.4 Lymphocytes (%) (Auto) 31.6 Monocytes (%) (Auto) 10.4 Eosinophils (%) (Auto) 1.0 Basophils (%) (Auto) 0.6 Neutrophils # (Auto) 2.7 Lymphocytes # (Auto) 1.5 Monocytes # (Auto) 0.5 Eosinophils # (Auto) 0.1 Basophils # (Auto) 0.0 CBC Comment DIFF FINAL Differential Comment Reticulocyte Count 1.2 Absolute Reticulocyte Count 30.0 Prothrombin Time 12.0 Prothromb Time International 1.1 Ratio Physical Exam HEENT: Pupils round and reactive to light; normocephalic; atraumatic; no jaundice. Throat is clear. NECK: Neck is supple, no JVD, no lymphadenopathy. CHEST: Chest is clear to auscultation and percussion. CARDIAC: Regular rate and rhythm with no murmur gallop or rubs. ABDOMEN: Soft, nondistended, nontender; no hepatosplenomegaly; bowel sounds are present in all four quadrants. EXTREMITIES: No clubbing, cyanosis, or edema. SKIN: Normal; no rash; no jaundice. WIRE DRAWING DIE MAKER: No focal deficits; alert and oriented times three. Assessment and Plan Plan ASSESSMENT: - Upper GIB, Melena. Reports dark stool for several days. No hx of GIB/PUD. Never had EGD. HH dropped from 9.6/29.3 to 7.3/23.4. Part of this is likely dilutional, but given her history of ETOH abuse and melena, will plan for EGD in am. Protonix 40mg IV BID. - Anemia with drop in Hgb. HH dropped from 9.6/29.3 to 7.3/23.4. PPI - Elevated LFTs with ETOH abuse, alcoholic hepatitis. Has been drinking 1/2 gallon [employer] Hard[employer] every 2 days up until 2 days prior to this admission. On admission, Total bilirubin 5.3, AST is 265, ALT 86, alkaline phosphatase 251.Hepatitis negative. Liver Ultrasound (10/21/16)-----> 1. Diffusely increased hepatic echogenicity without evidence for volume loss consistent with hepatic steatosis. 2. Gallbladder sludge without evidence for cholecystitis. DF was 8.98 on admission. The CBD is not dilated at 5mm. Ferritin 6636. Iron Saturation 99%. - Elevated Ferritin, Iron Saturation. Hfe gene. - Abn. Wt. Loss 15 lbs over past 3 weeks. - N/V/D. RESOLVED. States this started after 2 days of not drinking along with associated tremors/weakness. Her symptoms have resolved. - Abdominal pain. RESOLVED. - Severe electrolyte abnormalities. Correction per attending. - ETOH Abuse, DT's. Folic acid, Thiamine, Theragran M tab, Ativan per attending. PLAN: - EGD today negative for bleeding lesions. Mild gastritis. Biopsy taken from antrum - Await biopsy result - STEPHEN - Increase protonix to 40mg IV BID - Cont. Thiamine, Folate, MVI - Monitor HH - Transfuse as necessary - Monitor CMP - AFP - FANNIE, ASMA, AMA - Ceruloplasmin, Alpha 1 Antitrypsin - Hfe gene - DT precautions per primary Juan A Mckenzie MD Oct 23, 2016 09:05
[2016-10-23] MEDS: DOCUSATE SODIUM 50 MG/SENNA 8.6 MG TAB PO SCH ×2 (09:32→21:00)
[2016-10-23] MEDS: THIAMINE HCL 100 MG TAB PO SCH (09:32)
[2016-10-23] MEDS: MULTIVITAMINS/MINERALS THERAPEUTIC TAB PO SCH (09:32)
[2016-10-23] MEDS: FOLIC ACID 1 MG TAB PO SCH (09:32)
[2016-10-23] MEDS ORDERED: PROPOFOL 200 MG/20 ML AMP IV ONE (10:16)
[2016-10-23] MEDS ORDERED: diphenhydrAMINE HCL 25 MG CAP PO PRN ×2 (10:30→18:45)
[2016-10-23] MEDS ORDERED: ACETAMINOPHEN 325 MG TAB PO PRN ×2 (10:30→18:30)
[2016-10-23] MEDS ORDERED: SODIUM CHLOR 0.9% 250 ML INJ 250 ML IV ONE (10:30)
--- NOTE | 2016-10-23 11:24 | MR ---
cc: MILLIE JIMÉNEZ,BRICE Anaya JR., MD DATE Esophagogastroduodenoscopy with biopsy. INDICATION Anemia, heme-positive stool, nausea and vomiting. REFERRING PHYSICIAN Dr. Jiménez PROCEDURE After informed consent was obtained, the patient was placed in left side down position. She was sedated by the anesthesia service. After adequate sedation was achieved, the [employer]ax video gastroscope was inserted in the oropharynx and advanced to the esophagus, stomach and duodenum. It was then slowly withdrawn examining the mucosal surfaces carefully. Retroflex exam was performed in the fundus and cardia. The scope was then straightened and two biopsies were obtained from the gastric antrum. The scope was then withdrawn out the mouth and the procedure was terminated. She tolerated the procedure well and was returned to the recovery area in good condition. FINDINGS 1. The esophagus was normal. 2. The stomach showed some mild gastritis and biopsies were taken from the antrum. 3. The duodenum was normal. IMPRESSION No upper GI source for GI bleed. RECOMMENDATIONS 1. The patient should have a colonoscopy probably on Wednesday. 2. Continue her detox and precautions against delirium tremens. 3. Await the lab results and biopsy results. MD KIANNA Mcfarlane/VANESSA /9:14 AM /11:16 AM
--- NOTE | 2016-10-23 13:02 | PD.ONC.PN ---
Subjective Subjective Remarks Afebrile overnight. patient resting in room in nad. Had EGD this morning. Denies dizziness or dyspnea. Objective Data Date Time Temp Pulse Resp B/P Pulse Ox O2 Delivery O2 Flow Rate FiO2 10/23/16 12:00 98.4 106 18 104/70 100 10/23/16 09:25 106 18 130/91 100 10/23/16 09:15 89 18 109/77 100 10/23/16 09:05 98.5 104 18 110/81 100 10/23/16 08:00 98.3 103 18 120/81 100 10/23/16 00:00 98.0 110 16 96/63 98 10/22/16 20:00 Room Air 10/22/16 20:00 97.9 113 16 100/68 99 10/22/16 20:00 124 10/22/16 16:00 98.6 110 18 110/65 99 10/22/16 15:22 99 Room Air 10/22/16 15:11 103 10/23/16 10/23/16 10/23/16 06:59 14:59 22:59 Intake Total 1052 ml 300 ml Balance 1052 ml 300 ml Result Diagram: 10/23/16 0657 10/23/16 0657 Laboratory Results Laboratory Tests Test 10/22/16 10/23/16 18:21 06:57 Potassium Level 3.8 MEQ/L 4.0 MEQ/L Magnesium Level 1.8 MG/DL Tumor Marker Alpha Fetoprotein 3.3 NG/ML White Blood Count 4.8 TH/MM3 Red Blood Count 2.46 MIL/MM3 Hemoglobin 6.8 GM/DL Hematocrit 22.4 % Mean Corpuscular Volume 90.9 FL Mean Corpuscular Hemoglobin 27.7 PG Mean Corpuscular Hemoglobin 30.4 % Concent Red Cell Distribution Width 20.2 % Platelet Count 145 TH/MM3 Mean Platelet Volume 8.0 FL Neutrophils (%) (Auto) 56.4 % Lymphocytes (%) (Auto) 31.6 % Monocytes (%) (Auto) 10.4 % Eosinophils (%) (Auto) 1.0 % Basophils (%) (Auto) 0.6 % Neutrophils # (Auto) 2.7 TH/MM3 Lymphocytes # (Auto) 1.5 TH/MM3 Monocytes # (Auto) 0.5 TH/MM3 Eosinophils # (Auto) 0.1 TH/MM3 Basophils # (Auto) 0.0 TH/MM3 CBC Comment DIFF FINAL Differential Comment Reticulocyte Count 1.2 % Absolute Reticulocyte Count 30.0 MIL/L Prothrombin Time 12.0 SEC Prothromb Time International 1.1 RATIO Ratio Sodium Level 140 MEQ/L Chloride Level 104 MEQ/L Carbon Dioxide Level 25.3 MEQ/L Anion Gap 11 MEQ/L Blood Urea Nitrogen 7 MG/DL Creatinine 0.29 MG/DL Estimat Glomerular Filtration 256 ML/MIN Rate Random Glucose 87 MG/DL Calcium Level 8.6 MG/DL Total Bilirubin 1.6 MG/DL Aspartate Amino Transf 249 U/L (AST/SGOT) Alanine Aminotransferase 76 U/L (ALT/SGPT) Alkaline Phosphatase 183 U/L Total Protein 5.6 GM/DL Albumin 2.7 GM/DL Administered Medications Medications (Trade) Dose Ordered Sig/Ata Route PRN Reason Start Time Stop Time Status Last Admin Dose Admin Sodium Chloride (NS Flush) 2 ml UNSCH PRN IV FLUSH FLUSH AFTER USING IV ACCESS 10/21/16 13:45 10/22/16 21:15 Sodium Chloride (NS Flush) 2 ml BID IV FLUSH 10/21/16 21:00 10/23/16 07:59 Senna/Docusate Sodium (Aylin-Colace) 1 tab BID PO 10/21/16 21:00 10/23/16 09:32 Folic Acid (Folate) 1 mg DAILY PO 10/22/16 09:00 10/27/16 08:59 10/23/16 09:32 Thiamine HCl (Vitamin B1) 100 mg DAILY PO 10/22/16 09:00 10/23/16 09:32 Multivitamins/ Minerals Therapeutic 1 tab 1 tab DAILY PO 10/22/16 09:00 10/27/16 08:59 10/23/16 09:32 Potassium Chloride/Sodium Chloride (NS + KCl 40 Meq Inj) 1,000 ml @ 125 mls/hr Q8H IV 10/21/16 19:45 10/23/16 04:24 Pantoprazole Sodium (Protonix Inj) 40 mg BID IV PUSH 10/22/16 21:00 10/23/16 07:59 Objective Remarks GENERAL: Pleasant female upright in bed in nad. SKIN: Warm and dry. HEAD: Normocephalic. EYES: No injection or drainage. NECK: Supple, trachea midline. CARDIOVASCULAR: Regular rate and rhythm RESPIRATORY: Breath sounds equal bilaterally. No accessory muscle use. GASTROINTESTINAL: Abdomen non-tender, +hepatomegaly EXTREMITIES: No cyanosis MUSCULOSKELETAL: Adequate muscle tone. NEUROLOGICAL: No obvious focal deficit. Awake, alert, and oriented x3. Assessment/Plan Assessment 41y/o female with elevated ferritin and anemia. Plan 1. give 1 unit pRBC 2. elevated ferritin levels likely due to alcohol related liver injury-->expect labs to improve with cessation of alcohol 3. will arrange follow up in clinic with Dr. Li in three weeks-->fs faxed to npr Attending Statement The exam, history, and the medical decision-making described in the above note were completed with the assistance of the mid-level provider. I reviewed and agree with the findings presented. I attest that I had a [id number] encounter with the patient on the same day, and personally performed and documented my assessment and findings in the medical record. in spite of low hemoglobin she looks well. will give 1 unit and if stable will be able to go home in several days. I will follow as outpatient and expect hemoglobin to increase and ferritin to fall as long as she does not drink. Manju Hill Oct 23, 2016 13:02 Zackary Li MD Oct 23, 2016 15:35
--- NOTE | 2016-10-23 14:34 | HHI.PR ---
Subjective Remarks Patient states she is feeling better. Tolerating the diet post-EGD. Denies any chest pain, shortness of breath, nausea or vomiting. Denies any lightheadedness or dizziness at this time. Objective Vitals Vital Signs Date Time Temp Pulse Resp B/P Pulse Ox O2 Delivery O2 Flow Rate FiO2 10/23/16 13:55 105 10/23/16 12:00 100 Room Air 10/23/16 12:00 98.4 106 18 104/70 100 10/23/16 09:25 106 18 130/91 100 10/23/16 09:15 89 18 109/77 100 10/23/16 09:05 98.5 104 18 110/81 100 10/23/16 08:00 100 Room Air 10/23/16 08:00 98.3 103 18 120/81 100 10/23/16 00:00 98.0 110 16 96/63 98 10/22/16 20:00 Room Air 10/22/16 20:00 97.9 113 16 100/68 99 10/22/16 20:00 124 10/22/16 16:00 98.6 110 18 110/65 99 10/22/16 15:22 99 Room Air 10/22/16 15:11 103 I/O 10/22/16 10/22/16 10/22/16 10/23/16 10/23/16 10/23/16 06:59 14:59 22:59 06:59 14:59 22:59 Intake Total 120 ml 720 ml 3263 ml 1052 ml 300 ml Balance 120 ml 720 ml 3263 ml 1052 ml 300 ml Intake Oral 120 ml 720 ml 240 ml 0 ml IV Total 3023 ml 1052 ml Other 300 ml # Voids 2 2 2 1 # Bowel Movements 0 1 0 0 Result Diagram: 10/23/16 0657 10/23/16 0657 Imaging Last Impressions Liver Ultrasound 10/21/16 0000 Signed Impressions: Service Date/Time: Friday, October 21, 2016 16:49 - CONCLUSION: 1. Diffusely increased hepatic echogenicity without evidence for volume loss consistent with hepatic steatosis. 2. Gallbladder sludge without evidence for cholecystitis. Ricardo De La Torre MD Objective Remarks GENERAL: This is a well-nourished, well-developed patient SKIN: No rashes, ecchymoses or lesions. Cool and dry. HEAD: Atraumatic. Normocephalic. EYES: Extraocular motions intact. ENT: Nose without bleeding. Airway patent. NECK: Trachea midline. Supple CARDIOVASCULAR: Regular rate and rhythm but no murmurs RESPIRATORY: Clear to auscultation. Breath sounds equal bilaterally. No wheezes GASTROINTESTINAL: Abdomen soft, non tender, nondistended. No guarding. MUSCULOSKELETAL: Extremities without edema. . NEUROLOGICAL: Awake and alert. Cranial nerves II through XII intact. Motor and sensory grossly within normal limits. Normal speech. no tremors noted this morning A/P Assessment and Plan 48-year-old alcoholic who presented with abdominal pain, nausea/vomiting, and diarrhea Alcohol withdrawal -Patient was given Ativan in the ED which improved her heart rate. -on CIWA protocol. No tremors on exam today -on IV fluids, multivitamin, thiamine and folic acid. -Continue to monitor closely and adjust medication as needed. Tachycardia -Improving. Most lightly secondary to alcohol withdrawals. -Improved with Ativan. Continue treatment as above. Hypokalemia K 2.3. Now resolved. -Asymptomatic. No tall T waves on EKG. -s/p potassium replacement. Anemia -No signs of active bleeding. initial Hb was 9.6 but repeat this morning shows hb of 6.8. Iron studies are concerning w ferritin levels of 6636 and %sat >99. Hematology following, suspect etiology is related to alcohol intake.Transferrin levels low. Appreciate assistance and recs from hematology. Follow up with hematology in 3 weeks. -on Protonix empirically since patient did have abdominal pain with emesis.. -Continue to trend hemoglobin and monitor clinically. -Status post EGD showing gastritis. No active bleeding. Patient to have a colonoscopy on Wednesday per GI -Transfuse 1 unit of packed red blood cells now. Hold another unit. Elevated liver enzymes -Most likely secondary to alcoholic hepatitis. -hepatitis panel negative and liver ultrasound shows: " Diffusely increased hepatic echogenicity without evidence for volume loss consistent with hepatic steatosis. Gallbladder sludge without evidence for cholecystitis". -Continue to trend LFTs. GI consult in place -Pt has been extensively counseled on the importance of quitting drinking. She is willing to do so. I have placed a CM consult so they can provide pt w resources available in the community for pt to f/u w. Pt also stressed to establish w PCP. CM to assist w this as well. DVT prophylaxis: SCDs Discharge Planning Status post EGD showing gastritis. Currently getting 1 unit of packed red blood cells. Follow-up H&H posttransfusion. Per GI, patient should have a colonoscopy on Wednesday. On a regular diet at this time. Patient to follow-up with hematology in 3 weeks Celeste Jiménez MD Oct 23, 2016 14:34
[2016-10-23 15:02] LABS: ANA SCREEN POS (NEG)
[2016-10-24] VITALS (7 sets, daily range): BP systolic 121–141; BP diastolic 77–95; PULSE 92–108; RESP 18–24; TEMP 98–98.7; O2SAT 97–100
[2016-10-24 02:04] LABS: HEMATOCRIT 23.4 % (35.0-46.0); REVIEW FLAG FINAL
[2016-10-24] MEDS: NS + KCL 40 MEQ INJ 1,000 ML IV SCH ×2 (03:23→11:38)
[2016-10-24] MEDS: MULTIVITAMINS/MINERALS THERAPEUTIC TAB PO SCH (09:11)
[2016-10-24] MEDS: FOLIC ACID 1 MG TAB PO SCH (09:11)
[2016-10-24] MEDS: THIAMINE HCL 100 MG TAB PO SCH (09:11)
[2016-10-24] MEDS: DOCUSATE SODIUM 50 MG/SENNA 8.6 MG TAB PO SCH ×2 (09:11→22:28)
[2016-10-24] MEDS: SODIUM CHLORIDE 0.9% FLUSH 10 ML FLUSH IV FLUSH SCH ×2 (09:12→22:27)
[2016-10-24] MEDS: PANTOPRAZOLE SODIUM 40 MG VIAL IV PUSH SCH ×2 (09:14→22:28)
--- NOTE | 2016-10-24 10:54 | EKG ---
Date Performed: 10/23/2016 Time Performed: 02:52:20 PTAGE: 41 years EKG: Sinus tachycardia Possible septal infarct - age undetermined Lateral ST-T changes are nonsp ecific Abnormal ECG PREVIOUS TRACING : 10/21/2016 10.47 DOCTOR: Davin Flores Interpretating Date/Time 10/24/2016 10:51:53
[2016-10-24 12:36] LABS: AUTOMATED NEUTROPHIL # 5.7 TH/MM3 (1.8-7.7); BASOPHIL # 0.1 TH/MM3 (0-0.2); BASOPHIL % 0.7 % (0.0-2.0); EOSINOPHIL # 0.1 TH/MM3 (0-0.4); EOSINOPHIL % 1.1 % (0.0-4.0); HEMATOCRIT 28.6 % (35.0-46.0); HEMO FLAGS DIFF FINAL; LYMPHOCYTE # 2.2 TH/MM3 (1.0-4.8); MEAN CELL VOLUME 90.7 FL (80.0-100.0); MEAN CORPUSCULAR HEMOGLOBIN 28.7 PG (27.0-34.0); MEAN CORPUSCULAR HGB CONC 31.7 % (32.0-36.0); MONO % 9.5 % (0.0-8.0); NEUT % 63.7 % (16.0-70.0); PLATELET COUNT 246 TH/MM3 (150-450); RED BLOOD COUNT 3.15 MIL/MM3 (4.00-5.30)
[2016-10-24 12:59] LABS: ALT (GPT) 110 U/L (10-53); ANION GAP 8 MEQ/L (5-15); AST (GOT) 241 U/L (15-37); BICARBONATE 22.9 MEQ/L (21.0-32.0); BLOOD UREA NITROGEN 3 MG/DL (7-18); CHLORIDE 105 MEQ/L (98-107); GLOMERULAR FILTRATION RATE 125 ML/MIN (>89); POTASSIUM 4.8 MEQ/L (3.5-5.1); SODIUM (NA) 136 MEQ/L (136-145)
[2016-10-24 13:02] LABS: ALKALINE PHOSPHATASE 205 U/L (45-117); TOTAL BILIRUBIN ADULT 2.1 MG/DL (0.2-1.0)
--- NOTE | 2016-10-24 13:56 | HHI.PR ---
Subjective Remarks Follow-up anemia, alcohol withdrawal. Patient states that she feels good today. No complaints at this time. Denies lightheadedness, dizziness, chest pain, dyspnea. No nausea or vomiting. Has not noticed any blood in her stool. Objective Vitals Vital Signs Date Time Temp Pulse Resp B/P Pulse Ox O2 Delivery O2 Flow Rate FiO2 10/24/16 08:00 98.3 106 24 141/95 98 10/24/16 05:57 98.6 108 18 125/90 97 10/24/16 00:00 98.7 108 18 125/90 97 10/23/16 20:15 100 Room Air 10/23/16 20:00 98.3 98 20 122/83 100 10/23/16 20:00 124 10/23/16 19:08 98.3 103 20 122/86 100 10/23/16 16:00 100 Room Air 10/23/16 16:00 98.5 105 18 119/66 100 10/23/16 13:55 105 I/O 10/23/16 10/23/16 10/23/16 10/24/16 10/24/16 10/24/16 07:00 15:00 23:00 07:00 15:00 23:00 Intake Total 1052 ml 780 ml 1012 ml Output Total 800 ml Balance 1052 ml -20 ml 1012 ml Intake Oral 0 ml 480 ml IV Total 1052 ml 1012 ml Other 300 ml Output Urine Total 800 ml # Voids 1 2 2 # Bowel Movements 0 2 1 Result Diagram: 10/24/16 1200 10/24/16 1200 Imaging Last Impressions Liver Ultrasound 10/21/16 0000 Signed Impressions: Service Date/Time: Friday, October 21, 2016 16:49 - CONCLUSION: 1. Diffusely increased hepatic echogenicity without evidence for volume loss consistent with hepatic steatosis. 2. Gallbladder sludge without evidence for cholecystitis. Ricardo De La Torre MD Objective Remarks General: No acute distress. Heart: Regular rate and rhythm. No murmur. Lungs: Clear to auscultation bilaterally. No wheezes, rales, or rhonchi. Breathing is nonlabored. Abdomen: Soft, nontender, nondistended. Extremities: No lower extremity edema. Psych: Alert and oriented. Procedures 10/23/16 EGD Urinary Catheter: No Vascular Central Line Catheter: No A/P Problem List: (1) Anemia ICD Code: D64.9 Status: Acute (2) Elevated LFTs ICD Code: R79.89 Status: Acute (3) Alcohol withdrawal ICD Code: F10.239 Status: Acute (4) Tachycardia ICD Code: R00.0 Status: Acute (5) Hypokalemia ICD Code: E87.6 Status: Acute Assessment and Plan 1. Anemia: No signs of active bleeding. Hemoglobin improved following transfusion of PRBCs. Appreciate hematology recommendations. Follow-up as outpatient in 3 weeks. EGD showed gastritis, but no active bleed. GI recommending colonoscopy on Wednesday. Continue Protonix. Follow H&H. 2. Alcohol withdrawal: Continue CIWA protocol. Clinically improving. Continue IV fluids, multivitamin, thiamine, folic acid. 3. Hypokalemia: Resolved. Adjust IV fluids. 4. Elevated LFTs: Likely secondary to alcoholic hepatitis. Patient has been counseled to quit drinking alcohol. 5. DVT prophylaxis: SCDs. Avoid chemical prophylaxis secondary to anemia, possible GI bleed. Tad oMrrison MD Oct 24, 2016 13:56
[2016-10-24] MEDS: NS + KCL 20 MEQ INJ 1,000 ML IV SCH ×2 (14:41→22:27)
--- NOTE | 2016-10-24 15:24 | PD.ONC.PN ---
Subjective Subjective Remarks Afebrile overnight Excited to go home, feeling much better. No bleeding noted Denies chest pain, SOB Objective Data Date Time Temp Pulse Resp B/P Pulse Ox O2 Delivery O2 Flow Rate FiO2 10/24/16 12:00 98.3 92 20 136/93 100 10/24/16 08:00 98.3 106 24 141/95 98 10/24/16 08:00 98.3 106 24 141/95 98 10/24/16 05:57 98.6 108 18 125/90 97 10/24/16 00:00 98.7 108 18 125/90 97 10/23/16 20:15 100 Room Air 10/23/16 20:00 98.3 98 20 122/83 100 10/23/16 20:00 124 10/23/16 19:08 98.3 103 20 122/86 100 10/23/16 16:00 100 Room Air 10/23/16 16:00 98.5 105 18 119/66 100 Result Diagram: 10/24/16 1200 10/24/16 1200 Laboratory Results Laboratory Tests Test 10/23/16 10/23/16 10/24/16 10/24/16 16:00 17:14 01:46 12:00 Blood Type A POSITIVE A POSITIVE Antibody Screen NEGATIVE Crossmatch Leukocyte-Reduced Red Blood Cells Blood Bank Comment Hemoglobin 7.6 GM/DL 9.0 GM/DL Hematocrit 23.4 % 28.6 % White Blood Count 9.0 TH/MM3 Red Blood Count 3.15 MIL/MM3 Mean Corpuscular Volume 90.7 FL Mean Corpuscular Hemoglobin 28.7 PG Mean Corpuscular Hemoglobin 31.7 % Concent Red Cell Distribution Width 21.0 % Platelet Count 246 TH/MM3 Mean Platelet Volume 7.3 FL Neutrophils (%) (Auto) 63.7 % Lymphocytes (%) (Auto) 25.0 % Monocytes (%) (Auto) 9.5 % Eosinophils (%) (Auto) 1.1 % Basophils (%) (Auto) 0.7 % Neutrophils # (Auto) 5.7 TH/MM3 Lymphocytes # (Auto) 2.2 TH/MM3 Monocytes # (Auto) 0.9 TH/MM3 Eosinophils # (Auto) 0.1 TH/MM3 Basophils # (Auto) 0.1 TH/MM3 CBC Comment DIFF FINAL Differential Comment Sodium Level 136 MEQ/L Potassium Level 4.8 MEQ/L Chloride Level 105 MEQ/L Carbon Dioxide Level 22.9 MEQ/L Anion Gap 8 MEQ/L Blood Urea Nitrogen 3 MG/DL Creatinine 0.54 MG/DL Estimat Glomerular Filtration 125 ML/MIN Rate Random Glucose 98 MG/DL Calcium Level 9.0 MG/DL Total Bilirubin 2.1 MG/DL Aspartate Amino Transf 241 U/L (AST/SGOT) Alanine Aminotransferase 110 U/L (ALT/SGPT) Alkaline Phosphatase 205 U/L Total Protein 6.5 GM/DL Albumin 3.2 GM/DL Administered Medications Medications (Trade) Dose Ordered Sig/Ata Route PRN Reason Start Time Stop Time Status Last Admin Dose Admin Sodium Chloride (NS Flush) 2 ml UNSCH PRN IV FLUSH FLUSH AFTER USING IV ACCESS 10/21/16 13:45 10/22/16 21:15 Sodium Chloride (NS Flush) 2 ml BID IV FLUSH 10/21/16 21:00 10/24/16 09:12 Acetaminophen (Tylenol) 650 mg Q4H PRN PO TEMP > 100.4 10/21/16 13:45 10/23/16 18:36 Senna/Docusate Sodium (Aylin-Colace) 1 tab BID PO 10/21/16 21:00 10/24/16 09:11 Folic Acid (Folate) 1 mg DAILY PO 10/22/16 09:00 10/27/16 08:59 10/24/16 09:11 Thiamine HCl (Vitamin B1) 100 mg DAILY PO 10/22/16 09:00 10/24/16 09:11 Multivitamins/ Minerals Therapeutic (Theragran M Tab) 1 tab DAILY PO 10/22/16 09:00 10/27/16 08:59 10/24/16 09:11 Pantoprazole Sodium 40 mg 40 mg BID IV PUSH 10/22/16 21:00 10/24/16 09:14 Potassium Chloride/Sodium Chloride (NS + KCl 20 Meq Inj) 1,000 ml @ 84 mls/hr [id number] IV 10/24/16 14:00 10/24/16 14:41 Objective Remarks GENERAL: Pleasant female sitting up in chair at bedside in no distress. SKIN: Warm and dry. HEAD: Normocephalic. EYES: No injection or drainage. NECK: Supple, trachea midline. CARDIOVASCULAR: +S1/S2. No murmur noted. RESPIRATORY: Breath sounds equal bilaterally. No accessory muscle use. GASTROINTESTINAL: Abdomen soft, non-tender. +Hepatomegaly EXTREMITIES: No cyanosis. No edema. MUSCULOSKELETAL: Adequate muscle tone. NEUROLOGICAL: No obvious focal deficit. Awake, alert, and oriented x3. Assessment/Plan Problem List: (1) Anemia Status: Acute Plan: -- Will check stool for occult blood. -- Iron studies abnormal due to alcoholism/liver disease. Assessment 41y/o female with elevated ferritin and anemia. Plan 1. Obtain stool for occult blood. 2. Monitor CBC 3. Monitor for hemochromatosis results, followup on repeat ferritin as outpatient. Attending Statement The exam, history, and the medical decision-making described in the above note were completed with the assistance of the mid-level provider. I reviewed and agree with the findings presented. I attest that I had a [id number] encounter with the patient on the same day, and personally performed and documented my assessment and findings in the medical record. Marylu Waldrop Oct 24, 2016 15:24 Cm Lindquist MD Oct 25, 2016 10:00
--- NOTE | 2016-10-24 16:14 | HHI.GIFU ---
Subjective Remarks Pt sitting up in bed, getting ready to eat lunch. No bleeding, no complaints. (Paige Marin) Objective Vitals I&O Vital Signs Date Time Temp Pulse Resp B/P Pulse Ox O2 Delivery O2 Flow Rate FiO2 10/24/16 12:00 98.3 92 20 136/93 100 10/24/16 08:00 98.3 106 24 141/95 98 10/24/16 08:00 98.3 106 24 141/95 98 10/24/16 05:57 98.6 108 18 125/90 97 10/24/16 00:00 98.7 108 18 125/90 97 10/23/16 20:15 100 Room Air 10/23/16 20:00 98.3 98 20 122/83 100 10/23/16 20:00 124 10/23/16 19:08 98.3 103 20 122/86 100 I/O 10/23/16 10/23/16 10/23/16 10/24/16 10/24/16 10/24/16 07:00 15:00 23:00 07:00 15:00 23:00 Intake Total 1052 ml 780 ml 1012 ml Output Total 800 ml Balance 1052 ml -20 ml 1012 ml Intake Oral 0 ml 480 ml IV Total 1052 ml 1012 ml Other 300 ml Output Urine Total 800 ml # Voids 1 2 2 # Bowel Movements 0 2 1 Laboratory Laboratory Tests Test 10/23/16 10/24/16 10/24/16 17:14 01:46 12:00 Blood Type A POSITIVE Hemoglobin 7.6 9.0 Hematocrit 23.4 28.6 White Blood Count 9.0 Red Blood Count 3.15 Mean Corpuscular Volume 90.7 Mean Corpuscular Hemoglobin 28.7 Mean Corpuscular Hemoglobin 31.7 Concent Red Cell Distribution Width 21.0 Platelet Count 246 Mean Platelet Volume 7.3 Neutrophils (%) (Auto) 63.7 Lymphocytes (%) (Auto) 25.0 Monocytes (%) (Auto) 9.5 Eosinophils (%) (Auto) 1.1 Basophils (%) (Auto) 0.7 Neutrophils # (Auto) 5.7 Lymphocytes # (Auto) 2.2 Monocytes # (Auto) 0.9 Eosinophils # (Auto) 0.1 Basophils # (Auto) 0.1 CBC Comment DIFF FINAL Differential Comment Sodium Level 136 Potassium Level 4.8 Chloride Level 105 Carbon Dioxide Level 22.9 Anion Gap 8 Blood Urea Nitrogen 3 Creatinine 0.54 Estimat Glomerular Filtration 125 Rate Random Glucose 98 Calcium Level 9.0 Total Bilirubin 2.1 Aspartate Amino Transf 241 (AST/SGOT) Alanine Aminotransferase 110 (ALT/SGPT) Alkaline Phosphatase 205 Total Protein 6.5 Albumin 3.2 Imaging Last Impressions Liver Ultrasound 10/21/16 0000 Signed Impressions: Service Date/Time: Friday, October 21, 2016 16:49 - CONCLUSION: 1. Diffusely increased hepatic echogenicity without evidence for volume loss consistent with hepatic steatosis. 2. Gallbladder sludge without evidence for cholecystitis. Ricardo De La Torre MD Physical Exam HEENT: PERRL; normocephalic; atraumatic; mild icterus CHEST: CTA CARDIAC: RRR ABDOMEN: Soft, nondistended, nontender; no hepatosplenomegaly; bowel sounds are present in all four quadrants. EXTREMITIES: No clubbing, cyanosis, or edema. SKIN: Normal; no rash; mild jaundice. HEALTH SERVICES COORDINATOR: No focal deficits; alert and oriented times three. (Paige Marin [facility]) Assessment and Plan Plan ASSESSMENT: - Upper GIB, Melena. Reports dark stool for several days. No hx of GIB/PUD. Never had EGD. HH dropped from 9.6/29.3 to 7.3/23.4. Part of this is likely dilutional, but given her history of ETOH abuse and melena. s/p EGD no UGI source of bleeding. Protonix 40mg IV BID. - Anemia with drop in Hgb. HH dropped from 9.6/29.3 to 7.3/23.4 but 9.0 on rck - Elevated LFTs with ETOH abuse, alcoholic hepatitis. Has been drinking 1/2 gallon [place] every 2 days up until 2 days prior to this admission. On admission, Total bilirubin 5.3, AST is 265, ALT 86, alkaline phosphatase 251.Hepatitis negative. Liver Ultrasound (10/21/16)-----> 1. Diffusely increased hepatic echogenicity without evidence for volume loss consistent with hepatic steatosis. 2. Gallbladder sludge without evidence for cholecystitis. DF was 8.98 on admission. The CBD is not dilated at 5mm. Ferritin 6636. Iron Saturation 99%. FANNIE pos. not alpha 1 antitrypsin deficient. AFP 3.3 - Elevated Ferritin, Iron Saturation. Hfe gene pending. - Abn. Wt. Loss 15 lbs over past 3 weeks. - N/V/D. RESOLVED. States this started after 2 days of not drinking along with associated tremors/weakness. Her symptoms have resolved. - Abdominal pain. RESOLVED. - Severe electrolyte abnormalities. Correction per attending. - ETOH Abuse, DT's. Folic acid, Thiamine, Theragran M tab, Ativan per attending. PLAN: - Await biopsy result - STEPHEN - Increase protonix to 40mg IV BID - Cont. Thiamine, Folate, MVI - Monitor HH - Transfuse as necessary - Monitor CMP - ASMA, AMA - Ceruloplasmin - Hfe gene - DT precautions per primary - This pt seen by myself and Dr Pritchett and this note is written on his behalf (Paige Marin) Physician Comments patient was seen and examined, agree with above note and plan, most likely ETOH induce hepatitis but still waiting for the rest of lab work. (Quan Pritchett MD) Paige Marin Oct 24, 2016 16:14 Quan Pritchett MD Oct 24, 2016 17:44
[2016-10-24 19:19] LABS: HEMATOCRIT 26.3 % (35.0-46.0); REVIEW FLAG FINAL
[2016-10-25] VITALS (8 sets, daily range): BP systolic 122–136; BP diastolic 78–93; PULSE 65–128; RESP 18–20; TEMP 98.1–98.9; O2SAT 96–100
[2016-10-25] MEDS: DOCUSATE SODIUM 50 MG/SENNA 8.6 MG TAB PO SCH ×2 (09:00→21:00)
[2016-10-25] MEDS: SODIUM CHLORIDE 0.9% FLUSH 10 ML FLUSH IV FLUSH SCH ×2 (09:00→21:07)
[2016-10-25] MEDS: MULTIVITAMINS/MINERALS THERAPEUTIC TAB PO SCH (10:40)
[2016-10-25] MEDS: PANTOPRAZOLE SODIUM 40 MG VIAL IV PUSH SCH ×2 (10:40→21:06)
[2016-10-25] MEDS: THIAMINE HCL 100 MG TAB PO SCH (10:40)
[2016-10-25] MEDS: FOLIC ACID 1 MG TAB PO SCH (10:41)
[2016-10-25] MEDS: LORazepam 2 MG/ML VIAL IV PUSH PRN ×2 (10:52→21:06)
--- NOTE | 2016-10-25 11:24 | HHI.PR ---
Subjective Remarks Follow-up anemia, alcohol withdrawal. Patient has had tachycardia following exertion. Denies chest pain, dyspnea. Denies anxiety attacks. Objective Vitals Vital Signs Date Time Temp Pulse Resp B/P Pulse Ox O2 Delivery O2 Flow Rate FiO2 10/25/16 08:00 98.6 116 20 132/93 99 10/25/16 04:34 98.5 110 18 122/83 100 10/25/16 00:48 110 10/24/16 21:10 98.2 102 18 129/85 100 10/24/16 20:44 108 10/24/16 16:00 98.0 107 20 121/77 100 10/24/16 12:00 98.3 92 20 136/93 100 I/O 10/24/16 10/24/16 10/24/16 10/25/16 10/25/16 10/25/16 07:00 15:00 23:00 07:00 15:00 23:00 Intake Total 480 ml 895 ml Balance 480 ml 895 ml Intake Oral 480 ml IV Total 895 ml # Voids 2 4 3 # Bowel Movements 1 2 1 Result Diagram: 10/24/16 1852 10/24/16 1200 Imaging Last Impressions Liver Ultrasound 10/21/16 0000 Signed Impressions: Service Date/Time: Friday, October 21, 2016 16:49 - CONCLUSION: 1. Diffusely increased hepatic echogenicity without evidence for volume loss consistent with hepatic steatosis. 2. Gallbladder sludge without evidence for cholecystitis. Ricardo De La Torre MD Objective Remarks General: No acute distress. Heart: Tachycardic. No murmur. Lungs: Clear to auscultation bilaterally. No wheezes, rales, or rhonchi. Breathing is nonlabored. Abdomen: Soft, nontender, nondistended. Extremities: No lower extremity edema. Psych: Alert and oriented. Procedures 10/23/16 EGD Urinary Catheter: No Vascular Central Line Catheter: No A/P Problem List: (1) Anemia ICD Code: D64.9 Status: Acute (2) Elevated LFTs ICD Code: R79.89 Status: Acute (3) Alcohol withdrawal ICD Code: F10.239 Status: Acute (4) Tachycardia ICD Code: R00.0 Status: Acute (5) Hypokalemia ICD Code: E87.6 Status: Acute Assessment and Plan 1. Anemia: No signs of active bleeding. Hemoglobin improved following transfusion of PRBCs. Appreciate hematology recommendations. Follow-up as outpatient in 3 weeks. EGD showed gastritis, but no active bleed. GI recommending colonoscopy tomorrow. Continue Protonix. Follow H&H. 2. Alcohol withdrawal: Continue CIWA protocol. Clinically improving. Continue IV fluids, multivitamin, thiamine, folic acid. 3. Hypokalemia: Resolved. Adjust IV fluids. 4. Elevated LFTs: Likely secondary to alcoholic hepatitis. Patient has been counseled to quit drinking alcohol. 5. DVT prophylaxis: SCDs. Avoid chemical prophylaxis secondary to anemia, possible GI bleed. Tad Morrison MD Oct 25, 2016 11:24
[2016-10-25 11:37] LABS: AUTOMATED NEUTROPHIL # 3.7 TH/MM3 (1.8-7.7); BASOPHIL % 0.5 % (0.0-2.0); EOSINOPHIL # 0.1 TH/MM3 (0-0.4); EOSINOPHIL % 1.2 % (0.0-4.0); HEMATOCRIT 24.5 % (35.0-46.0); HEMO FLAGS DIFF FINAL; LYMPH % 22.6 % (9.0-44.0); LYMPHOCYTE # 1.3 TH/MM3 (1.0-4.8); MEAN CELL VOLUME 90.6 FL (80.0-100.0); MEAN CORPUSCULAR HEMOGLOBIN 29.9 PG (27.0-34.0); MONO % 11.8 % (0.0-8.0); NEUT % 63.9 % (16.0-70.0); PLATELET COUNT 201 TH/MM3 (150-450); RED BLOOD COUNT 2.71 MIL/MM3 (4.00-5.30); RED CELL DISTRIBUTION WIDTH 21.1 % (11.6-17.2); WHITE BLOOD COUNT 5.8 TH/MM3 (4.0-11.0)
[2016-10-25 11:58] LABS: ALT (GPT) 90 U/L (10-53); ANION GAP 7 MEQ/L (5-15); AST (GOT) 142 U/L (15-37); BICARBONATE 21.3 MEQ/L (21.0-32.0); BLOOD UREA NITROGEN 3 MG/DL (7-18); CHLORIDE 109 MEQ/L (98-107); GLOMERULAR FILTRATION RATE 134 ML/MIN (>89); POTASSIUM 3.9 MEQ/L (3.5-5.1); SODIUM (NA) 137 MEQ/L (136-145)
[2016-10-25 12:01] LABS: ALKALINE PHOSPHATASE 175 U/L (45-117); TOTAL BILIRUBIN ADULT 1.2 MG/DL (0.2-1.0)
[2016-10-25] MEDS: NS + KCL 20 MEQ INJ 1,000 ML IV SCH ×2 (13:49→21:18)
--- NOTE | 2016-10-25 14:37 | HHI.GIFU ---
Subjective Remarks pt sitting up in bed. No complaints. Asking to go home. (Paige Marin) Objective Vitals I&O Vital Signs Date Time Temp Pulse Resp B/P Pulse Ox O2 Delivery O2 Flow Rate FiO2 10/25/16 12:00 98.1 128 20 136/88 100 10/25/16 08:00 98.6 116 20 132/93 99 10/25/16 04:34 98.5 110 18 122/83 100 10/25/16 00:48 110 10/24/16 21:10 98.2 102 18 129/85 100 10/24/16 20:44 108 10/24/16 16:00 98.0 107 20 121/77 100 I/O 10/24/16 10/24/16 10/24/16 10/25/16 10/25/16 10/25/16 07:00 15:00 23:00 07:00 15:00 23:00 Intake Total 480 ml 895 ml Balance 480 ml 895 ml Intake Oral 480 ml IV Total 895 ml # Voids 2 4 3 # Bowel Movements 1 2 1 Laboratory Laboratory Tests Test 10/24/16 10/25/16 18:52 11:12 Hemoglobin 8.6 8.1 Hematocrit 26.3 24.5 White Blood Count 5.8 Red Blood Count 2.71 Mean Corpuscular Volume 90.6 Mean Corpuscular Hemoglobin 29.9 Mean Corpuscular Hemoglobin 33.0 Concent Red Cell Distribution Width 21.1 Platelet Count 201 Mean Platelet Volume 7.6 Neutrophils (%) (Auto) 63.9 Lymphocytes (%) (Auto) 22.6 Monocytes (%) (Auto) 11.8 Eosinophils (%) (Auto) 1.2 Basophils (%) (Auto) 0.5 Neutrophils # (Auto) 3.7 Lymphocytes # (Auto) 1.3 Monocytes # (Auto) 0.7 Eosinophils # (Auto) 0.1 Basophils # (Auto) 0.0 CBC Comment DIFF FINAL Differential Comment Sodium Level 137 Potassium Level 3.9 Chloride Level 109 Carbon Dioxide Level 21.3 Anion Gap 7 Blood Urea Nitrogen 3 Creatinine 0.51 Estimat Glomerular Filtration 134 Rate Random Glucose 118 Calcium Level 8.7 Total Bilirubin 1.2 Aspartate Amino Transf 142 (AST/SGOT) Alanine Aminotransferase 90 (ALT/SGPT) Alkaline Phosphatase 175 Total Protein 5.4 Albumin 2.6 Date/Time Procedure Status Source Growth 10/25/16 00:45 Stool Occult Blood ([facility]) Received Stool Stool Pending Imaging Last Impressions Liver Ultrasound 10/21/16 0000 Signed Impressions: Service Date/Time: Friday, October 21, 2016 16:49 - CONCLUSION: 1. Diffusely increased hepatic echogenicity without evidence for volume loss consistent with hepatic steatosis. 2. Gallbladder sludge without evidence for cholecystitis. Ricardo De La Torre MD Physical Exam HEENT: PERRL; normocephalic; atraumatic; mild icterus CHEST: CTA CARDIAC: RRR ABDOMEN: Soft, nondistended, nontender; no hepatosplenomegaly; bowel sounds are present in all four quadrants. EXTREMITIES: No clubbing, cyanosis, or edema. SKIN: Normal; no rash; mild jaundice. 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 (Paige Marin) Assessment and Plan Plan ASSESSMENT: - Upper GIB, Melena. Reports dark stool for several days. No hx of GIB/PUD. Never had EGD. HH dropped from 9.6/29.3 to 7.3/23.4. Part of this is likely dilutional, but given her history of ETOH abuse and melena. s/p EGD no UGI source of bleeding. Protonix 40mg IV BID. - Anemia with drop in Hgb. HH dropped from 9.6/29.3 to 7.3/23.4 but 9.0 on rck hemoccult pending - Elevated LFTs with ETOH abuse, alcoholic hepatitis. Has been drinking 1/2 gallon Munchkin every 2 days up until 2 days prior to this admission. On admission, Total bilirubin 5.3, AST is 265, ALT 86, alkaline phosphatase 251.Hepatitis negative. Liver Ultrasound (10/21/16)-----> 1. Diffusely increased hepatic echogenicity without evidence for volume loss consistent with hepatic steatosis. 2. Gallbladder sludge without evidence for cholecystitis. DF was 8.98 on admission. The CBD is not dilated at 5mm. Ferritin 6636. Iron Saturation 99%. FANNIE pos. not alpha 1 antitrypsin deficient. AFP 3.3 - Elevated Ferritin, Iron Saturation. Hfe gene pending. - Abn. Wt. Loss 15 lbs over past 3 weeks. - N/V/D. RESOLVED. States this started after 2 days of not drinking along with associated tremors/weakness. Her symptoms have resolved. - Abdominal pain. RESOLVED. - Severe electrolyte abnormalities. Correction per attending. - ETOH Abuse, DT's. Folic acid, Thiamine, Theragran M tab, Ativan per attending. PLAN: - await hemoccult - Await biopsy result - STEPHEN - IV protonix - Cont. Thiamine, Folate, MVI - Monitor HH - Transfuse as necessary - Monitor CMP - ASMA, AMA - Hfe gene - DT precautions per primary - This pt seen by myself and Dr Pritchett and this note is written on his behalf (Paige Marin) Plan patient was seen and examined, agree with above note and plan, await bx result ( Quan Pritchett MD) Paige Marin Oct 25, 2016 14:37 Quan Pritchett MD Oct 25, 2016 19:13
[2016-10-26] VITALS: BP 117/72; PULSE 113; RESP 20; TEMP 98.5; O2SAT 98
[2016-10-26 04:00] VITALS: BP 141/92; PULSE 105; RESP 17; TEMP 98; O2SAT 98
[2016-10-26 08:00] VITALS: BP 142/98; PULSE 109; RESP 18; TEMP 98.2; O2SAT 98
[2016-10-26] MEDS: DOCUSATE SODIUM 50 MG/SENNA 8.6 MG TAB PO SCH (09:00)
[2016-10-26 09:23] VITALS: PULSE 111
[2016-10-26] MEDS: FOLIC ACID 1 MG TAB PO SCH (09:26)
[2016-10-26] MEDS: PANTOPRAZOLE SODIUM 40 MG VIAL IV PUSH SCH (09:26)
[2016-10-26] MEDS: SODIUM CHLORIDE 0.9% FLUSH 10 ML FLUSH IV FLUSH SCH (09:26)
[2016-10-26] MEDS: MULTIVITAMINS/MINERALS THERAPEUTIC TAB PO SCH (09:26)
[2016-10-26] MEDS: THIAMINE HCL 100 MG TAB PO SCH (09:26)
[2016-10-26] MEDS: NS + KCL 20 MEQ INJ 1,000 ML IV SCH (09:27)
[2016-10-26] MEDS: LORazepam 2 MG/ML VIAL IV PUSH PRN (09:31)
[2016-10-26 11:53] LABS: HEMATOCRIT 26.5 % (35.0-46.0); REVIEW FLAG FINAL
--- NOTE | 2016-10-26 11:59 | HHI.PR ---
Subjective Remarks Follow-up anemia. Patient has no complaints at this time. She would like to go home today. Denies abdominal pain, nausea, vomiting. Objective Vitals Vital Signs Date Time Temp Pulse Resp B/P Pulse Ox O2 Delivery O2 Flow Rate FiO2 10/26/16 09:23 Room Air 10/26/16 09:23 111 10/26/16 08:00 98.2 109 18 142/98 98 10/26/16 04:09 Room Air 10/26/16 04:00 98.0 105 17 141/92 98 10/26/16 00:00 98.5 113 20 117/72 98 10/26/16 00:00 Room Air 10/25/16 20:28 114 10/25/16 20:00 98.9 114 20 126/78 96 10/25/16 20:00 Room Air 10/25/16 16:00 98.4 113 20 123/84 100 10/25/16 14:46 65 10/25/16 12:00 98.1 128 20 136/88 100 I/O 10/25/16 10/25/16 10/25/16 10/26/16 10/26/16 10/26/16 07:00 15:00 23:00 07:00 15:00 23:00 Intake Total 895 ml 1503 ml 675 ml 675 ml Balance 895 ml 1503 ml 675 ml 675 ml Intake Oral 480 ml IV Total 895 ml 1023 ml 675 ml 675 ml # Voids 3 3 1 1 # Bowel Movements 1 2 0 0 Result Diagram: 10/26/16 1119 10/25/16 1112 Imaging Last Impressions Liver Ultrasound 10/21/16 0000 Signed Impressions: Service Date/Time: Friday, October 21, 2016 16:49 - CONCLUSION: 1. Diffusely increased hepatic echogenicity without evidence for volume loss consistent with hepatic steatosis. 2. Gallbladder sludge without evidence for cholecystitis. Ricardo De La Torre MD Objective Remarks General: No acute distress. Heart: Tachycardic. No murmur. Lungs: Clear to auscultation bilaterally. No wheezes, rales, or rhonchi. Breathing is nonlabored. Abdomen: Soft, nontender, nondistended. Extremities: No lower extremity edema. Psych: Alert and oriented. Procedures 10/23/16 EGD Urinary Catheter: No Vascular Central Line Catheter: No A/P Problem List: (1) Anemia ICD Code: D64.9 Status: Acute (2) Elevated LFTs ICD Code: R79.89 Status: Acute (3) Alcohol withdrawal ICD Code: F10.239 Status: Acute (4) Tachycardia ICD Code: R00.0 Status: Acute (5) Hypokalemia ICD Code: E87.6 Status: Acute Assessment and Plan 1. Anemia: No signs of active bleeding. Hemoglobin improved following transfusion of PRBCs. Appreciate hematology recommendations. Follow-up as outpatient in 3 weeks. EGD showed gastritis, but no active bleed. Continue Protonix. H&H are stable. 2. Alcohol withdrawal: Continue CIWA protocol. Clinically improving. Continue IV fluids, multivitamin, thiamine, folic acid. 3. Hypokalemia: Resolved. 4. Elevated LFTs: Likely secondary to alcoholic hepatitis. Patient has been counseled to quit drinking alcohol. 5. DVT prophylaxis: SCDs. Avoid chemical prophylaxis secondary to anemia, possible GI bleed. Discharge Planning Discharge home when cleared by gastroenterology. Tad Morrison MD Oct 26, 2016 11:59
[2016-10-26 12:00] VITALS: BP 133/86; PULSE 119; RESP 20; TEMP 97.9; O2SAT 98
[2016-10-26 16:00] VITALS: BP 134/93; PULSE 127; RESP 20; TEMP 99.4; O2SAT 100
[2016-10-26] MEDS ORDERED: FOLI1TAB6 PO (19:10)
[2016-10-26] MEDS ORDERED: GNP100TA3 PO (19:10)
[2016-10-26] MEDS ORDERED: THERM PO (19:10)
--- NOTE | 2016-10-26 19:11 | HHI.DCPOC ---
Discharge Care Plan Diagnosis: (1) Elevated LFTs (2) Alcohol withdrawal (3) Tachycardia (4) Anemia (5) Hypokalemia Goals to Promote Your Health * To prevent worsening of your condition and complications * To maintain your health at the optimal level Directions to Meet Your Goals Take your medications as prescribed Follow your dietary instruction Follow activity as directed Keep your appointments as scheduled Take your immunizations and boosters as scheduled If your symptoms worsen call your PCP, if no PCP go to Urgent Care Center or Emergency Room Smoking is Dangerous to Your Health. Avoid second hand smoke Call the 24-hour hour crisis hotline for domestic abuse at Tad Morrison MD Oct 26, 2016 19:11
[2016-10-28 12:29] LABS: CRITICAL VALUE YES
== END 2016-10-26 19:37 | disposition home or self-care (01) | DRG 433 ==
LOC: NEPE 10:26 → NEDH 13:46 → N04B 17:18
PROVIDERS: ADMIT Family Medicine; ATTEND Family Medicine
PROC: 30233N1 Transfusion of Nonautologous Red Blood Cells into Peripheral Vein, Percutaneous Approach (ICD-10-PCS; 2016-10-23)
PROC: 0DB68ZX Excision of Stomach, Via Natural or Artificial Opening Endoscopic, Diagnostic (ICD-10-PCS; principal; 2016-10-23 08:30)
DX: K70.9 Alcoholic liver disease, unspecified (principal); F10.231 Alcohol dependence with withdrawal delirium; K70.10 Alcoholic hepatitis without ascites; E87.1 Hypo-osmolality and hyponatremia; D64.9 Anemia, unspecified; K92.1 Melena; E86.0 Dehydration; K76.0 Fatty (change of) liver, not elsewhere classified; I10 Essential (primary) hypertension; E87.6 Hypokalemia; F17.210 Nicotine dependence, cigarettes, uncomplicated; K29.70 Gastritis, unspecified, without bleeding
CPT/HCPCS: 36430; 76705; 76937; 80053; 80074; 81256; 82103; 82105; 82272; 82390; 82550; 82607; 82728; 82805; 83540; 83550; 83735; 84100; 84132; 84466; 84484; 85007; 85014; 85018; 85025; 85027; 85044; 85610; 85730; 86038; 86039; 86255; 86850; 86900; 86901; 86920; 88305; 88312; 93005; 96360; C9113; J2060; J3475; J3480; J7030; J7050; P9016

== ENCOUNTER 2017-03-10 20:22 | Inpatient (IN) | payer MEDICAID ==
[~2017-03-10 20:22] MED LIST: FOLI1TAB6 PO; THERM PO; THIA100 PO
[2017-03-10 20:25] VITALS: BP 115/91; PULSE 139; RESP 16; TEMP 99; O2SAT 98
[2017-03-10 21:47] VITALS: BP 138/88; PULSE 119; RESP 20; O2SAT 100
--- NOTE | 2017-03-10 21:53 | PD ---
HPI Chief Complaint: Abdominal Pain Time Seen by Provider: 21:49 Travel History International Travel<30 days: No Contact w/Intl Traveler<30days: No Traveled to known affect area: No History of Present Illness HPI 41 YO F presents to the ED for evaluation of ~24 hour history of N/V, CP and abdominal pain. Onset gradual. Waxing and waning. Rated 8/10 maximally. No alleviating or exacerbating factors reported. Patient endorses chills, has not measured a fever at home. She endorses palpitations, anxiety. She endorses constipation 3 days. She endorses hematuria times "a couple days." Denies melena or hematochezia. She denies dysuria. She is a daily alcohol drinker. She is a current smoker since teenage years. She denies cardiac history. She endorses family history of [place] in mom at 46 and dad at 62. No treatment attempt at home. PFSH Past Medical History Cancer: No Endocrine: No Genitourinary: Yes Herniated Disk: Yes Hypertension: Yes Immune Disorder: No Musculoskeletal: No Neurologic: No Psychiatric: No Reproductive: No Respiratory: No Tetanus Vaccination: Unknown Influenza Vaccination: No ?: Not : 1 Para: 1 Past Surgical History Section: Yes Gynecologic Surgery: Yes (cesarian) Other Surgery: Yes Social History Alcohol Use: Yes (daily - last drink 2 days ago) Tobacco Use: Yes (1 pck/day) Substance Use: No Allergies-Medications (Allergen,Severity, Reaction): Coded Allergies: No Known Allergies (Unverified Adverse Reaction, Unknown, 03/10/17) Reported Meds & Prescriptions Reported Meds & Active Scripts Active Review of Systems Except as stated in HPI: all other systems reviewed are Neg Physical Exam Narrative GENERAL: Well-nourished, well-developed white female in no acute distress. SKIN: Focused skin assessment warm/dry. HEAD: Normocephalic. EYES: No scleral icterus. No injection or drainage. Pupils 4 mm and reactive bilaterally. NECK: Supple, trachea midline. No JVD or lymphadenopathy. CARDIOVASCULAR: Regular rate and rhythm without murmurs, gallops, or rubs. RESPIRATORY: Breath sounds equal bilaterally. No accessory muscle use. GASTROINTESTINAL: Abdomen soft, nondistended. Tender to palpation in the left upper quadrant and epigastric region. MUSCULOSKELETAL: No cyanosis, or edema. BACK: Nontender without obvious deformity. No CVA tenderness. Data Data Last Documented VS Vital Signs Date Time Temp Pulse Resp B/P (MAP) Pulse Ox O2 Delivery O2 Flow Rate FiO2 03/10/17 22:46 109 20 129/97 (108) 98 Room Air 03/10/17 20:25 99.0 Orders Orders Complete Blood Count With Diff (03/10/17 20:32) Comprehensive Metabolic Panel (03/10/17 20:32) Lipase (03/10/17 20:32) Prothrombin Time / Inr (Pt) (03/10/17 20:32) Act Partial Throm Time (Ptt) (03/10/17 20:32) Urinalysis - C+S If Indicated (03/10/17 20:32) Electrocardiogram (03/10/17 20:32) Ed Urine Pregnancytest Poc (03/10/17 20:32) Iv Access Insert/Monitor (03/10/17 21:54) Ecg Monitoring (03/10/17 21:54) Oximetry (03/10/17 21:54) Ondansetron Inj (Zofran Inj) (03/10/17 22:00) Sodium Chlor 0.9% 1000 Ml Inj (Ns 1000 M (03/10/17 21:54) Sodium Chloride 0.9% Flush (Ns Flush) (03/10/17 22:00) Morphine Inj (Morphine Inj) (03/10/17 22:00) Urine Culture (03/10/17 21:32) Potassium Chloride (Kcl) (03/10/17 23:15) Potassium Chlor 20 Meq Premix (Kcl 20 Me (03/10/17 23:15) Labs Laboratory Tests Test 03/10/17 21:32 White Blood Count 14.8 TH/MM3 Red Blood Count 4.16 MIL/MM3 Hemoglobin 14.7 GM/DL Hematocrit 41.9 % Mean Corpuscular Volume 100.8 FL Mean Corpuscular Hemoglobin 35.3 PG Mean Corpuscular Hemoglobin Concent 35.0 % Red Cell Distribution Width 15.7 % Platelet Count 243 TH/MM3 Mean Platelet Volume 9.2 FL Neutrophils (%) (Auto) 82.8 % Lymphocytes (%) (Auto) 4.1 % Monocytes (%) (Auto) 12.7 % Eosinophils (%) (Auto) 0.0 % Basophils (%) (Auto) 0.4 % Neutrophils # (Auto) 12.3 TH/MM3 Lymphocytes # (Auto) 0.6 TH/MM3 Monocytes # (Auto) 1.9 TH/MM3 Eosinophils # (Auto) 0.0 TH/MM3 Basophils # (Auto) 0.1 TH/MM3 CBC Comment DIFF FINAL Differential Comment Prothrombin Time 10.7 SEC Prothromb Time International Ratio 1.0 RATIO Activated Partial Thromboplast Time 26.0 SEC Urine Color ORANGE Urine Turbidity HAZY Urine pH 6.5 Urine Specific [place] 1.028 Urine Protein 300 mg/dL Urine Glucose (UA) TRACE mg/dL Urine Ketones 150 mg/dL Urine Occult Blood TRACE Urine Nitrite NEG Urine Bilirubin NEG Urine Urobilinogen 4.0 MG/DL Urine Leukocyte Esterase TRACE Urine RBC 4 /hpf Urine WBC 6 /hpf Urine Squamous Epithelial Cells 21 /hpf Urine Amorphous Sediment RARE Urine Bacteria MANY /hpf Urine Hyaline Casts 157 /lpf Urine Mucus MANY /lpf Microscopic Urinalysis Comment CULTURE INDICATED Blood Urea Nitrogen 11 MG/DL Creatinine 1.24 MG/DL Random Glucose 309 MG/DL Total Protein 8.9 GM/DL Albumin 4.9 GM/DL Calcium Level 10.4 MG/DL Alkaline Phosphatase 168 U/L Aspartate Amino Transf (AST/SGOT) 81 U/L Alanine Aminotransferase (ALT/SGPT) 55 U/L Total Bilirubin 2.9 MG/DL Sodium Level 126 MEQ/L Potassium Level 2.8 MEQ/L Chloride Level 81 MEQ/L Carbon Dioxide Level 21.7 MEQ/L Anion Gap 23 MEQ/L Estimat Glomerular Filtration Rate 48 ML/MIN Lipase 2939 U/L [facility] Medical Decision Making Medical Screen Exam Complete: Yes Emergency Medical Condition: Yes Differential Diagnosis Pancreatitis versus cystitis versus urinary tract infection versus chest pain versus ACS versus PNA versus other Narrative Course 41 YO F presents to the ED for evaluation of ~24 hour history of N/V, CP and abdominal pain. Onset gradual. Waxing and waning. Rated 8/10 maximally. She endorses palpitations, anxiety. She endorses constipation 3 days. She endorses hematuria times "a couple days." She is a current smoker since teenage years. She denies cardiac history. She endorses family history of [place] in mom at 46 and dad at 62. Patient is afebrile, tachycardic on presentation. Abdomen tender to palpation in epigastric and left upper quadrant. IV was established. Patient was administered IV morphine, Zofran and 1 L normal saline. Lab work ordered and pending. Patient signed out to Dr. Michelle at end of shift. Please see his note for disposition. Antonieta Navarro Mar 10, 2017 21:53
[2017-03-10] MEDS ORDERED: SODIUM CHLOR 0.9% 1000 ML INJ 1,000 ML IV SCH (21:54)
[2017-03-10] MEDS ORDERED: MORPHINE SULFATE 8 MG/ML INJ IV PUSH ONE (22:00)
[2017-03-10] MEDS ORDERED: SODIUM CHLORIDE 0.9% FLUSH 10 ML FLUSH IV FLUSH PRN (22:00)
[2017-03-10] MEDS ORDERED: ONDANSETRON HCL 4 MG/2 ML VIAL IVP ONE (22:00)
[2017-03-10 22:37] LABS: AUTOMATED NEUTROPHIL # 12.3 TH/MM3 (1.8-7.7); BASOPHIL # 0.1 TH/MM3 (0-0.2); BASOPHIL % 0.4 % (0.0-2.0); HEMATOCRIT 41.9 % (35.0-46.0); HEMO FLAGS DIFF FINAL; LYMPH % 4.1 % (9.0-44.0); LYMPHOCYTE # 0.6 TH/MM3 (1.0-4.8); MEAN CELL VOLUME 100.8 FL (80.0-100.0); MEAN CORPUSCULAR HEMOGLOBIN 35.3 PG (27.0-34.0); MONO % 12.7 % (0.0-8.0); NEUT % 82.8 % (16.0-70.0); PLATELET COUNT 243 TH/MM3 (150-450); RED BLOOD COUNT 4.16 MIL/MM3 (4.00-5.30); RED CELL DISTRIBUTION WIDTH 15.7 % (11.6-17.2); WHITE BLOOD COUNT 14.8 TH/MM3 (4.0-11.0)
[2017-03-10 22:41] LABS: BACTERIA, URINE MANY /hpf; BLOOD, URINE TRACE (NEG); COMMENT (UR) CULTURE INDICATED; CULTURE IF INDICATED CULTURE INDICATED; GLUCOSE,URINE TRACE mg/dL (NEG); HYALINE CAST, URINE 157 /lpf (RARE); KETONE, URINE 150 mg/dL (NEG); MUCUS URINE MANY /lpf (OCC); NITRITE,URINE NEG (NEG); PH, URINE 6.5 (5.0-8.5); SQUAMOUS EPITHELIAL CELL URINE 21 /hpf (0-5)
[2017-03-10 22:42] LABS: URINE COLOR ORANGE (YELLW/STRAW)
[2017-03-10 22:46] VITALS: BP 129/97; PULSE 109; RESP 20; O2SAT 98
[2017-03-10 22:51] LABS: PROTHROMBIN TIME - PATIENT 10.7 SEC (9.8-11.6)
[2017-03-10 23:04] LABS: ALKALINE PHOSPHATASE 168 U/L (45-117); ALT (GPT) 55 U/L (10-53); ANION GAP 23 MEQ/L (5-15); AST (GOT) 81 U/L (15-37); BICARBONATE 21.7 MEQ/L (21.0-32.0); BLOOD UREA NITROGEN 11 MG/DL (7-18); CHLORIDE 81 MEQ/L (98-107); GLOMERULAR FILTRATION RATE 48 ML/MIN (>89); SODIUM (NA) 126 MEQ/L (136-145); TOTAL BILIRUBIN ADULT 2.9 MG/DL (0.2-1.0)
[2017-03-10 23:09] LABS: POTASSIUM 2.8 MEQ/L (3.5-5.1)
[2017-03-10] MEDS ORDERED: POTASSIUM CHLOR 20 MEQ PREMIX 100 ML IV ONE (23:15)
[2017-03-10] MEDS ORDERED: POTASSIUM CHLORIDE 20 MEQ CONTROLLED RELEASE TAB PO ONE (23:15)
--- NOTE | 2017-03-10 23:23 | PD ---
Physical Exam Narrative Patient was seen by me and my law office assistant. Data Data Last Documented VS Vital Signs Date Time Temp Pulse Resp B/P (MAP) Pulse Ox O2 Delivery O2 Flow Rate FiO2 03/10/17 22:46 109 20 129/97 (108) 98 Room Air 03/10/17 20:25 99.0 Orders Orders Complete Blood Count With Diff (03/10/17 20:32) Comprehensive Metabolic Panel (03/10/17 20:32) Lipase (03/10/17 20:32) Prothrombin Time / Inr (Pt) (03/10/17 20:32) Act Partial Throm Time (Ptt) (03/10/17 20:32) Urinalysis - C+S If Indicated (03/10/17 20:32) Electrocardiogram (03/10/17 20:32) Ed Urine Pregnancytest Poc (03/10/17 20:32) Iv Access Insert/Monitor (03/10/17 21:54) Ecg Monitoring (03/10/17 21:54) Oximetry (03/10/17 21:54) Ondansetron Inj (Zofran Inj) (03/10/17 22:00) Sodium Chlor 0.9% 1000 Ml Inj (Ns 1000 M (03/10/17 21:54) Sodium Chloride 0.9% Flush (Ns Flush) (03/10/17 22:00) Morphine Inj (Morphine Inj) (03/10/17 22:00) Urine Culture (03/10/17 21:32) Potassium Chloride (Kcl) (03/10/17 23:15) Potassium Chlor 20 Meq Premix (Kcl 20 Me (03/10/17 23:15) Labs Laboratory Tests Test 03/10/17 21:32 White Blood Count 14.8 TH/MM3 Red Blood Count 4.16 MIL/MM3 Hemoglobin 14.7 GM/DL Hematocrit 41.9 % Mean Corpuscular Volume 100.8 FL Mean Corpuscular Hemoglobin 35.3 PG Mean Corpuscular Hemoglobin Concent 35.0 % Red Cell Distribution Width 15.7 % Platelet Count 243 TH/MM3 Mean Platelet Volume 9.2 FL Neutrophils (%) (Auto) 82.8 % Lymphocytes (%) (Auto) 4.1 % Monocytes (%) (Auto) 12.7 % Eosinophils (%) (Auto) 0.0 % Basophils (%) (Auto) 0.4 % Neutrophils # (Auto) 12.3 TH/MM3 Lymphocytes # (Auto) 0.6 TH/MM3 Monocytes # (Auto) 1.9 TH/MM3 Eosinophils # (Auto) 0.0 TH/MM3 Basophils # (Auto) 0.1 TH/MM3 CBC Comment DIFF FINAL Differential Comment Prothrombin Time 10.7 SEC Prothromb Time International Ratio 1.0 RATIO Activated Partial Thromboplast Time 26.0 SEC Urine Color ORANGE Urine Turbidity HAZY Urine pH 6.5 Urine Specific [place] 1.028 Urine Protein 300 mg/dL Urine Glucose (UA) TRACE mg/dL Urine Ketones 150 mg/dL Urine Occult Blood TRACE Urine Nitrite NEG Urine Bilirubin NEG Urine Urobilinogen 4.0 MG/DL Urine Leukocyte Esterase TRACE Urine RBC 4 /hpf Urine WBC 6 /hpf Urine Squamous Epithelial Cells 21 /hpf Urine Amorphous Sediment RARE Urine Bacteria MANY /hpf Urine Hyaline Casts 157 /lpf Urine Mucus MANY /lpf Microscopic Urinalysis Comment CULTURE INDICATED Blood Urea Nitrogen 11 MG/DL Creatinine 1.24 MG/DL Random Glucose 309 MG/DL Total Protein 8.9 GM/DL Albumin 4.9 GM/DL Calcium Level 10.4 MG/DL Alkaline Phosphatase 168 U/L Aspartate Amino Transf (AST/SGOT) 81 U/L Alanine Aminotransferase (ALT/SGPT) 55 U/L Total Bilirubin 2.9 MG/DL Sodium Level 126 MEQ/L Potassium Level 2.8 MEQ/L Chloride Level 81 MEQ/L Carbon Dioxide Level 21.7 MEQ/L Anion Gap 23 MEQ/L Estimat Glomerular Filtration Rate 48 ML/MIN Lipase 2939 U/L [facility] Supervised Visit with ROB: Yes Interpretation(s) 23:19 PM. CBC WBC 14.8. Hemoglobin 14.7. MCV 1.8. 82 neutrophil. Sodium 126 with potassium 2.8. Chloride 81. Iodine gaffe 23. BUN 11. Creatinine 1.24. GFR 48. Glucose 309. Calcium 10.4. Total bili 2.9. AST 81. ALT 55. Alkaline phosphatase 168. Lipase 2939. UA positive for WBC RBC and bacteria. Narrative Course Normal saline solution 1 L IV bolus. Normal saline solution with 20 mEq KCl per liter at 1 25 cc an hour. KCl 40 mEq by mouth given. KCl 20 mEq IV given. Thiamine 100 mg IV. Diagnosis Primary Impression: Acute pancreatitis Qualified Codes: K85.20 - Alcohol induced acute pancreatitis without necrosis or infection Additional Impressions: Hypokalemia Hyponatremia Alcohol abuse UTI (urinary tract infection) Qualified Codes: N30.00 - Acute cystitis without hematuria Admitting Information Admitting Physician Requests: Admit Dusty Michelle MD Mar 10, 2017 23:23
[2017-03-10] MEDS ORDERED: THIAMINE INJ 100 MG in SODIUM CHLORIDE 0.9% INJ 100 ML IV ONE (23:30)
[2017-03-10] MEDS ORDERED: LORazepam 2 MG/ML VIAL IV PUSH PRN ×4 (23:30)
[2017-03-10] MEDS ORDERED: FAMOTIDINE 20 MG/2 ML VIAL IV PUSH ONE (23:30)
[2017-03-10] MEDS ORDERED: LORazepam 2 MG TAB PO PRN (23:30)
[2017-03-10] MEDS ORDERED: FLUMAZENIL 0.5 MG/5 ML VIAL IV PUSH PRN (23:30)
[2017-03-10] MEDS: NS + KCL 20 MEQ INJ 1,000 ML IV SCH (23:40)
[2017-03-10] MEDS: LORazepam 1 MG TAB PO PRN (23:45)
[2017-03-11] VITALS (9 sets, daily range): BP systolic 102–140; BP diastolic 67–95; PULSE 89–113; RESP 16–20; TEMP 96.4–98.6; O2SAT 99–100
[2017-03-11] MEDS ORDERED: SODIUM CHLORIDE 0.9% FLUSH 10 ML FLUSH IV FLUSH PRN
[2017-03-11] MEDS ORDERED: NALOXONE HCL 0.4 MG/ML AMP IV PUSH PRN
[2017-03-11] MEDS: POTASSIUM CHLOR 20 MEQ PREMIX 100 ML IV SCH ×2 (02:24→04:09)
[2017-03-11] MEDS: MORPHINE SULFATE 2 MG/ML INJ IV PUSH PRN ×3 (02:41→10:30)
[2017-03-11] MEDS: NS + KCL 20 MEQ INJ 1,000 ML IV SCH ×3 (05:46→23:41)
[2017-03-11 06:27] LABS: AUTOMATED NEUTROPHIL # 8.8 TH/MM3 (1.8-7.7); BASOPHIL # 0.1 TH/MM3 (0-0.2); BASOPHIL % 0.5 % (0.0-2.0); EOSINOPHIL % 0.4 % (0.0-4.0); HEMATOCRIT 37.1 % (35.0-46.0); HEMO FLAGS DIFF FINAL; LYMPH % 10.3 % (9.0-44.0); LYMPHOCYTE # 1.2 TH/MM3 (1.0-4.8); MEAN CELL VOLUME 99.8 FL (80.0-100.0); MEAN CORPUSCULAR HEMOGLOBIN 35.6 PG (27.0-34.0); MEAN CORPUSCULAR HGB CONC 35.7 % (32.0-36.0); MONO % 12.1 % (0.0-8.0); NEUT % 76.7 % (16.0-70.0); PLATELET COUNT 151 TH/MM3 (150-450); RED BLOOD COUNT 3.72 MIL/MM3 (4.00-5.30); RED CELL DISTRIBUTION WIDTH 15.3 % (11.6-17.2); WHITE BLOOD COUNT 11.4 TH/MM3 (4.0-11.0)
[2017-03-11 06:29] LABS: ANION GAP 14 MEQ/L (5-15); AST (GOT) 54 U/L (15-37); BICARBONATE 22.5 MEQ/L (21.0-32.0); BLOOD UREA NITROGEN 12 MG/DL (7-18); CHLORIDE 95 MEQ/L (98-107); GLOMERULAR FILTRATION RATE 72 ML/MIN (>89); POTASSIUM 4.4 MEQ/L (3.5-5.1); SODIUM (NA) 131 MEQ/L (136-145)
[2017-03-11 06:31] LABS: ALT (GPT) 35 U/L (10-53)
[2017-03-11 06:32] LABS: ALKALINE PHOSPHATASE 130 U/L (45-117); TOTAL BILIRUBIN ADULT 2.2 MG/DL (0.2-1.0)
[2017-03-11] MEDS: SODIUM CHLORIDE 0.9% FLUSH 10 ML FLUSH IV FLUSH SCH ×2 (10:30→21:20)
[2017-03-11] MEDS ORDERED: ACETAMINOPHEN/HYDROcodone 325 MG/5 MG TAB PO PRN (13:45)
--- NOTE | 2017-03-11 13:57 | HHI.HP ---
[facility] Primary Care Physician No Primary Care Physician Admission Diagnosis acute pancreatitis. Hyponatremia. Hypokalemia. Alcohol abuse. Diagnoses: Travel History International Travel<30 Days: No Contact w/Intl Traveler <30 Da: No Traveled to Known Affected Are: No History of Present Illness Mrs. Muhammad is a 41-year-old female. She came in secondary to abdominal pain. She is found to have pancreatitis. She says that she drinks daily. Presently she says she is drinking much less and she has drank in the past. The past she has had alcohol abuse in been admitted secondary to alcohol withdrawal before. She has no previous history of pancreatitis. Baseline medical history is that she takes no medications. She has had hypertension in the past but this could've been related to alcohol withdrawal and she currently does not have hypertension. She's had a in the past. Presently she is drinking alcohol daily and smokes 1 pack per day. No fevers. No other complaints today. Potassium and sodium are low. She has a urinary tract infection also. Review of Systems Constitutional: DENIES: Fatigue, Fever, Weight loss, Chills Eyes: DENIES: Diplopia, Eye inflammation, Eye pain, Vision loss Ears, nose, mouth, throat: DENIES: Tinnitus, Hearing loss, Vertigo, Nasal discharge Respiratory: DENIES: Apneas, Cough, Snoring, Wheezing Cardiovascular: DENIES: Chest pain, Palpitations, Syncope Gastrointestinal: COMPLAINS OF: Abdominal pain, DENIES: Black stools, Bloody stools Musculoskeletal: DENIES: Joint pain, Muscle aches, Stiffness, Joint Swelling Integumentary: DENIES: Abnormal pigmentation, Pruritus, Rash, Nail changes Hematologic/lymphatic: DENIES: Bruising, Lymphadenopathy Immunologic/allergic: DENIES: Eczema, Urticaria Neurologic: DENIES: Abnormal gait, Headache, Paresthesias Psychiatric: DENIES: Anxiety, Confusion, Hallucinations Past Family Social History Past Medical History History of hypertension Past Surgical History Reported Medications None Allergies: Coded Allergies: No Known Allergies (Unverified Allergy, Unknown, 03/10/17) Active Ordered Medications Administered Medications Medications (Trade) Dose Ordered Sig/Ata Route PRN Reason Start Time Stop Time Status Last Admin Dose Admin Potassium Chloride/Sodium Chloride 1,000 ml @ 125 mls/hr Q8H IV 03/10/17 23:30 03/11/17 05:46 Lorazepam (Ativan) 1 mg Q4H PRN PO CIWA 8 - 10 03/10/17 23:30 03/10/17 23:45 Lorazepam (Ativan Inj) 1 mg Q4H PRN IV PUSH CIWA 8 - 10 03/10/17 23:30 03/11/17 02:40 Sodium Chloride (NS Flush) 2 ml BID IV FLUSH 03/11/17 09:00 03/11/17 10:30 Morphine Sulfate (Morphine Inj) 2 mg Q3H PRN IV PUSH pain >5 03/11/17 00:00 03/11/17 10:30 Family History Myocardial infarction in father Diabetes mellitus and myocardial infarction in mother Social History Patient drinks daily Patient smokes 1 pack per day No illicit drug abuse reported Physical Exam Vital Signs Vital Signs Date Time Temp Pulse Resp B/P (MAP) Pulse Ox O2 Delivery O2 Flow Rate FiO2 03/11/17 12:00 96.4 103 18 131/90 (104) 100 03/11/17 10:34 96 135/91 (106) 03/11/17 07:37 89 16 130/80 (97) 100 Room Air 03/11/17 05:22 101 16 140/92 (108) 100 Room Air 03/11/17 03:12 98.0 109 18 137/86 (103) 99 Room Air 03/11/17 00:07 113 18 132/95 (107) 100 Room Air 03/10/17 22:46 109 20 129/97 (108) 98 Room Air 03/10/17 22:46 98 Room Air 03/10/17 21:47 119 20 138/88 (105) 100 Room Air 03/10/17 20:25 99.0 139 16 115/91 (99) 98 Room Air Physical Exam GENERAL: NAD, A&Ox3 HEAD: Normocephalic. NECK: Supple, trachea midline. No lymphadenopathy. EYES: No scleral icterus. No injection or drainage. CARDIOVASCULAR: Regular rate and rhythm without murmurs, gallops, or rubs. RESPIRATORY: Breath sounds equal bilaterally. No accessory muscle use. GASTROINTESTINAL: Abdomen soft, non-tender, nondistended. Epigastric and left upper quadrant abdominal tenderness without guarding. MUSCULOSKELETAL: No cyanosis, or edema. SKIN: Warm and dry. NEURO: No focal neurological deficitis. Laboratory Laboratory Tests Test 03/10/17 21:32 03/11/17 05:52 White Blood Count 14.8 11.4 Red Blood Count 4.16 3.72 Hemoglobin 14.7 13.2 Hematocrit 41.9 37.1 Mean Corpuscular Volume 100.8 99.8 Mean Corpuscular Hemoglobin 35.3 35.6 Mean Corpuscular Hemoglobin Concent 35.0 35.7 Red Cell Distribution Width 15.7 15.3 Platelet Count 243 151 Mean Platelet Volume 9.2 8.7 Neutrophils (%) (Auto) 82.8 76.7 Lymphocytes (%) (Auto) 4.1 10.3 Monocytes (%) (Auto) 12.7 12.1 Eosinophils (%) (Auto) 0.0 0.4 Basophils (%) (Auto) 0.4 0.5 Neutrophils # (Auto) 12.3 8.8 Lymphocytes # (Auto) 0.6 1.2 Monocytes # (Auto) 1.9 1.4 Eosinophils # (Auto) 0.0 0.0 Basophils # (Auto) 0.1 0.1 CBC Comment DIFF FINAL DIFF FINAL Differential Comment Prothrombin Time 10.7 Prothromb Time International Ratio 1.0 Activated Partial Thromboplast Time 26.0 Urine Color ORANGE Urine Turbidity HAZY Urine pH 6.5 Urine Specific [place] 1.028 Urine Protein 300 Urine Glucose (UA) TRACE Urine Ketones 150 Urine Occult Blood TRACE Urine Nitrite NEG Urine Bilirubin NEG Urine Urobilinogen 4.0 Urine Leukocyte Esterase TRACE Urine RBC 4 Urine WBC 6 Urine Squamous Epithelial Cells 21 Urine Amorphous Sediment RARE Urine Bacteria MANY Urine Hyaline Casts 157 Urine Mucus MANY Microscopic Urinalysis Comment CULTURE INDICATED Blood Urea Nitrogen 11 12 Creatinine 1.24 0.87 Random Glucose 309 121 Total Protein 8.9 7.3 Albumin 4.9 3.9 Calcium Level 10.4 9.2 Alkaline Phosphatase 168 130 Aspartate Amino Transf (AST/SGOT) 81 54 Alanine Aminotransferase (ALT/SGPT) 55 35 Total Bilirubin 2.9 2.2 Sodium Level 126 131 Potassium Level 2.8 4.4 Chloride Level 81 95 Carbon Dioxide Level 21.7 22.5 Anion Gap 23 14 Estimat Glomerular Filtration Rate 48 72 Lipase 2939 Date/Time Source Procedure Growth Status 03/10/17 21:32 Urine Random Urine Urine Culture - Preliminary RESULTS PENDING Resulted Result Diagram: 03/11/1752 03/11/1752 Caprini VTE Risk Assessment Caprini VTE Risk Assessment: No/Low Risk (score <= 1) Caprini Risk Assessment Model Point Value = 1 Point Value = 2 Point Value = 3 Point Value = 5 Age 41-60 Minor surgery BMI > 25 kg/m2 Swollen legs Varicose veins or History of unexplained or recurrent spontaneous Oral contraceptives or hormone replacement Sepsis (< 1 month) Serious lung disease, including pneumonia (< 1 month) Abnormal pulmonary function Acute myocardial infarction Congestive heart failure (< 1 month) History of inflammatory bowel disease Medical patient at bed rest Age 61-74 Arthroscopic surgery Major open surgery (> 45 min) Laparoscopic surgery (> 45 min) Malignancy Confined to bed (> 72 hours) Immobilizing plaster cast Central venous access Age >= 75 History of VTE Family history of VTE Factor V Leiden Prothrombin [id number] Lupus anticoagulant Anticardiolipin antibodies Elevated serum homocysteine Heparin-induced thrombocytopenia Other congenital or acquired thrombophilia Stroke (< 1 month) Elective arthroplasty Hip, pelvis, or leg fracture Acute spinal cord injury (< 1 month) Prophylaxis Regimen Total Risk Factor Score Risk Level Prophylaxis Regimen 0-1 Low Early ambulation 2 Moderate Order ONE of the following: *Sequential Compression Device (SCD) *Heparin 5000 units SQ BID 3-4 Higher Order ONE of the following medications: *Heparin 5000 units SQ TID *Enoxaparin/Lovenox 40 mg SQ daily (WT < 150 kg, CrCl > 30 mL/min) *Enoxaparin/Lovenox 30 mg SQ daily (WT < 150 kg, CrCl > 10-29 mL/min) *Enoxaparin/Lovenox 30 mg SQ BID (WT < 150 kg, CrCl > 30 mL/min) AND/OR *Sequential Compression Device (SCD) 5 or more Highest Order ONE of the following medications: *Heparin 5000 units SQ TID (Preferred with Epidurals) *Enoxaparin/Lovenox 40 mg SQ daily (WT < 150 kg, CrCl > 30 mL/min) *Enoxaparin/Lovenox 30 mg SQ daily (WT < 150 kg, CrCl > 10-29 mL/min) *Enoxaparin/Lovenox 30 mg SQ BID (WT < 150 kg, CrCl > 30 mL/min) AND *Sequential Compression Device (SCD) Assessment and Plan Problem List: (1) Acute pancreatitis ICD Code: K85.90 - Acute pancreatitis without necrosis or infection, unspecified Status: Acute (2) Hyponatremia ICD Code: E87.1 - Hypo-osmolality and hyponatremia Status: Acute (3) Hypokalemia ICD Code: E87.6 - Hypokalemia Status: Acute (4) UTI (urinary tract infection) ICD Code: N39.0 - Urinary tract infection, site not specified Status: Acute Assessment and Plan Assessment and plan 41-year-old female admitted secondary to acute pancreatitis with hypokalemia and hyponatremia and urinary tract infection Acute pancreatitis IV hydration Low-fat diet Follow pancreatic enzymes Avoid alcohol Hypokalemia Hyponatremia IV hydration Monitor electrolytes Replace as needed Urinary tract infection Rocephin Monitor urine cultures History of alcohol abuse Folic acid Thiamine Multivitamin Patient counseled to quit Monitor for withdraws Nicotine dependence Patient declines NicoDerm Patient counseled to quit DVT prophylaxis SCDs to stabilized Physician Certification 2 Midnight Certification Type: Admission for Inpatient Services Order for Inpatient Services The services are ordered in accordance with Medicare regulations or non- Medicare payer requirements, as applicable. In the case of services not specified as inpatient-only, they are appropriately provided as inpatient services in accordance with the 2-midnight benchmark. Estimated LOS (days): 2 days is the estimated time the patient will need to remain in the hospital, assuming treatment plan goals are met and no additional complications. Post-Hospital Plan: Home Problem Qualifiers (1) Acute pancreatitis: Qualified Codes: K85.20 - Alcohol induced acute pancreatitis without necrosis or infection (2) UTI (urinary tract infection): Qualified Codes: N30.00 - Acute cystitis without hematuria Santos Frias MD Mar 11, 2017 13:57
[2017-03-11] MEDS ORDERED: cefTRIAXone INJ 1,000 MG in SODIUM CHLORIDE 0.9% INJ 100 ML IV SCH (15:00)
--- NOTE | 2017-03-11 16:21 | EKG ---
Date Performed: 03/10/2017 Time Performed: 21:25:14 PTAGE: 41 years EKG: SINUS TACHYCARDIA MODERATE ST DEPRESSION ABNORMAL ECG Since PREVIOUS TRACING , no significant change noted PREVIOUS TRACIN10/23/2016 02.52 DOCTOR: Mariia Diaz Interpretating Date/Time 03/11/2017 16:19:02
[2017-03-11] MEDS: ONDANSETRON HCL 4 MG/2 ML VIAL IV PUSH PRN (16:38)
[2017-03-11] MEDS: ACETAMINOPHEN/HYDROcodone 325 MG/10 MG TAB PO PRN ×2 (16:51→21:17)
[2017-03-11] MEDS: LACTOBACILLUS ACIDOPHILUS TAB PO SCH (17:27)
[2017-03-11] MEDS: LORazepam 1 MG TAB PO PRN (21:17)
[2017-03-11] MEDS ORDERED: BISACODYL EC 5 MG TABEC PO ONE (21:45)
[2017-03-12] VITALS (8 sets, daily range): BP systolic 117–129; BP diastolic 70–93; PULSE 97–121; RESP 18–20; TEMP 98.2–98.9; O2SAT 98–100
[2017-03-12] MEDS: ACETAMINOPHEN/HYDROcodone 325 MG/10 MG TAB PO PRN (06:42)
[2017-03-12] MEDS: ONDANSETRON HCL 4 MG/2 ML VIAL IV PUSH PRN (06:42)
[2017-03-12 07:30] LABS: AUTOMATED NEUTROPHIL # 4.1 TH/MM3 (1.8-7.7); BASOPHIL % 0.5 % (0.0-2.0); EOSINOPHIL # 0.1 TH/MM3 (0-0.4); EOSINOPHIL % 1.7 % (0.0-4.0); HEMATOCRIT 30.2 % (35.0-46.0); LYMPH % 16.9 % (9.0-44.0); MEAN CELL VOLUME 100.9 FL (80.0-100.0); MEAN CORPUSCULAR HEMOGLOBIN 35.8 PG (27.0-34.0); MEAN CORPUSCULAR HGB CONC 35.4 % (32.0-36.0); MONO % 10.7 % (0.0-8.0); NEUT % 70.2 % (16.0-70.0); PLATELET COUNT 74 TH/MM3 (150-450); RED BLOOD COUNT 2.99 MIL/MM3 (4.00-5.30); RED CELL DISTRIBUTION WIDTH 15.6 % (11.6-17.2); WHITE BLOOD COUNT 5.8 TH/MM3 (4.0-11.0)
[2017-03-12 07:56] LABS: ALKALINE PHOSPHATASE 115 U/L (45-117); ALT (GPT) 26 U/L (10-53); ANION GAP 10 MEQ/L (5-15); AST (GOT) 88 U/L (15-37); BICARBONATE 24.4 MEQ/L (21.0-32.0); BLOOD UREA NITROGEN 7 MG/DL (7-18); CHLORIDE 100 MEQ/L (98-107); GLOMERULAR FILTRATION RATE 137 ML/MIN (>89); POTASSIUM 3.7 MEQ/L (3.5-5.1); SODIUM (NA) 134 MEQ/L (136-145); TOTAL BILIRUBIN ADULT 1.5 MG/DL (0.2-1.0)
[2017-03-12] MEDS: LACTOBACILLUS ACIDOPHILUS TAB PO SCH ×2 (08:10→11:33)
[2017-03-12] MEDS: NS + KCL 20 MEQ INJ 1,000 ML IV SCH (08:11)
[2017-03-12] MEDS: SODIUM CHLORIDE 0.9% FLUSH 10 ML FLUSH IV FLUSH SCH (08:11)
[2017-03-12 08:22] LABS: HEMO FLAGS AUTO DIFF
[2017-03-12] MEDS ORDERED: THIAMINE HCL 100 MG TAB PO SCH (09:00)
[2017-03-12] MEDS ORDERED: FOLIC ACID 1 MG TAB PO SCH (09:00)
[2017-03-12] MEDS ORDERED: MULTIVITAMIN TAB PO SCH (09:00)
[2017-03-12 09:20] LABS: PLATELET ESTIMATE SMEAR LOW (NORMAL); PLATELET MORPHOLOGY NORMAL (NORMAL); SCAN/DIFF AUTO DIFF CONFIRMED
[2017-03-12] MEDS ORDERED: BISACODYL 10 MG SUPP RECTAL PRN (11:15)
[2017-03-12] MEDS ORDERED: LACTULOSE SYRUP 20 GM/30 ML CUP PO PRN (11:15)
[2017-03-12] MEDS ORDERED: MAGNESIUM HYDROXIDE SUSP 30 ML CUP PO PRN (11:15)
[2017-03-12] MEDS ORDERED: SENNOSIDES 8.6 MG TAB PO PRN (11:15)
--- NOTE | 2017-03-12 11:48 | HHI.DCPOC ---
Discharge Care Plan Diagnosis: (1) Alcohol abuse (2) Acute pancreatitis (3) Elevated LFTs (4) Dehydration Goals to Promote Your Health * To prevent worsening of your condition and complications * To maintain your health at the optimal level Directions to Meet Your Goals Take your medications as prescribed Follow your dietary instruction Follow activity as directed Keep your appointments as scheduled Take your immunizations and boosters as scheduled If your symptoms worsen call your PCP, if no PCP go to Urgent Care Center or Emergency Room Smoking is Dangerous to Your Health. Avoid second hand smoke Call the 24-hour hour crisis hotline for domestic abuse at Ran Vincent MD Mar 12, 2017 11:48
--- NOTE | 2017-03-12 11:48 | HHI.PR ---
Subjective Remarks Patient reports she is feeling okay. She is tolerating a diet. Minimal abdominal discomfort. Objective Vitals Vital Signs Date Time Temp Pulse Resp B/P (MAP) Pulse Ox O2 Delivery O2 Flow Rate FiO2 03/12/17 11:42 98.9 107 20 117/70 (86) 99 03/12/17 08:30 121 03/12/17 08:26 98.4 115 20 129/93 (105) 100 03/12/17 05:48 98.5 112 18 121/84 (96) 98 03/12/17 04:14 104 03/12/17 00:12 98.2 104 18 124/84 (97) 99 03/12/17 00:00 111 03/11/17 20:46 97.8 106 18 102/72 (82) 99 03/11/17 20:30 100 03/11/17 16:00 98.6 101 20 135/87 (103) 100 03/11/17 12:00 96.4 103 18 131/90 (104) 100 I/O 03/11/17 03/11/17 03/11/17 03/12/17 03/12/17 03/12/17 07:00 15:00 23:00 07:00 15:00 23:00 Intake Total 1400 ml 235 ml 1557 ml Balance 1400 ml 235 ml 1557 ml Intake IV Total 1400 ml 235 ml 1557 ml # Voids 1 Result Diagram: 03/12/17 0604 03/12/17 0604 Objective Remarks GENERAL: This is a well-nourished, well-developed patient, in no apparent distress. CARDIOVASCULAR: Normal rate and regular rhythm without murmurs, gallops, or rubs. RESPIRATORY: Good respiratory efforts. Breath sounds equal and clear to auscultation bilaterally. GASTROINTESTINAL: Abdomen soft, non-distended, minimal tenderness to palpation diffusely. Normal active bowel sounds MUSCULOSKELETAL: Extremities without cyanosis, or edema. NEURO: Alert & Oriented x4 to person, place, time, situation. Moves all ext x4 PSYCH: Appropriate mood and affect. A/P Problem List: (1) Acute pancreatitis ICD Code: K85.90 - Acute pancreatitis without necrosis or infection, unspecified Status: Acute (2) Hyponatremia ICD Code: E87.1 - Hypo-osmolality and hyponatremia Status: Acute (3) Hypokalemia ICD Code: E87.6 - Hypokalemia Status: Acute (4) UTI (urinary tract infection) ICD Code: N39.0 - Urinary tract infection, site not specified Status: Acute Assessment and Plan 41-year-old female admitted with acute alcoholic pancreatitis and electrolyte disturbances including hypokalemia and hyponatremia. The patient was admitted and treated with IV fluid and supportive care including pain control. Patient was treated per [facility] protocol. Electrolytes were corrected. Lipase quickly improved. Patient had an abnormal urinalysis, urine culture grew lactobacillus. The patient is discharged in good condition. She was extensively counseled on alcohol cessation. Discharge home in good condition Follow up with: PCP Activity: Regular as tolerated Diet: Regular Meds: Per med rec. No new medications. Problem Qualifiers (1) Acute pancreatitis: Qualified Codes: K85.20 - Alcohol induced acute pancreatitis without necrosis or infection (2) UTI (urinary tract infection): Qualified Codes: N30.00 - Acute cystitis without hematuria Ran Vincent MD Mar 12, 2017 11:48
== END 2017-03-12 13:54 | disposition home or self-care (01) | DRG 439 ==
LOC: NEPE 20:22 → NEDA 23:51 → NEDH 03-11 04:06 → NEDA 03-11 11:22 → N05A 03-11 13:31
PROVIDERS: ADMIT Family Medicine; ATTEND Family Medicine
DX: K85.20 Alcohol induced acute pancreatitis without necrosis or infection (principal); E87.1 Hypo-osmolality and hyponatremia; N30.01 Acute cystitis with hematuria; E86.0 Dehydration; F10.10 Alcohol abuse, uncomplicated; R79.89 Other specified abnormal findings of blood chemistry; E87.6 Hypokalemia; F17.210 Nicotine dependence, cigarettes, uncomplicated; K59.00 Constipation, unspecified; F41.9 Anxiety disorder, unspecified; Z82.49 Family history of ischemic heart disease and other diseases of the circulatory system; R00.0 Tachycardia, unspecified
CPT/HCPCS: 80053; 81001; 83690; 84703; 85025; 85610; 85730; 87086; 93005; 96361; 96374; 96375; J0696; J2060; J2270; J2405; J3411; J3480; J7030

== ENCOUNTER 2017-05-13 17:58 | Inpatient (IN) | payer MEDICAID ==
[~2017-05-13] VITALS: Ht 165.1 cm; Wt 63.0 kg
[2017-05-13 18:00] VITALS: BP 115/81; PULSE 138; RESP 18; TEMP 99.4; O2SAT 100
[2017-05-13] MEDS ORDERED: SODIUM CHLOR 0.9% 1000 ML INJ 1,000 ML IV SCH ×2 (20:11→23:44)
[2017-05-13] MEDS ORDERED: SODIUM CHLORIDE 0.9% FLUSH 10 ML FLUSH IV FLUSH PRN ×2 (20:15→23:45)
[2017-05-13] MEDS ORDERED: ONDANSETRON HCL 4 MG/2 ML VIAL IVP ONE (20:15)
--- NOTE | 2017-05-13 20:40 | PD ---
HPI Chief Complaint: Abdominal Pain Time Seen by Provider: 20:05 Travel History International Travel<30 days: No Contact w/Intl Traveler<30days: No Traveled to known affect area: No History of Present Illness HPI Patient is a 41-year-old female that presented to emergency department for evaluation of nausea, vomiting, left upper quadrant pain. Patient states her symptoms started gradually 3 days ago. She reports being unable to tolerate any food or fluids. She states her pain is a 7 on a 10 reports it as sharp and aching. Additionally patient reports dark urine, but denies any dysuria. She reports a history of pancreatitis and feels this is what she is experiencing again at this time. She does endorse daily alcohol intake, she states she drinks whiskey on a daily basis. Denies any chest pain, shortness of breath, fever, chills, headache, change in bowel habits. There are no alleviating factors, include exacerbate symptoms. PFSH Past Medical History Gastrointestinal Disorders: Yes (pancreatitis) Genitourinary: Yes Herniated Disk: Yes Hypertension: Yes Tetanus Vaccination: Unknown Influenza Vaccination: No ?: Not LMP: >YR : 1 Para: 1 Past Surgical History Section: Yes Other Surgery: Yes Social History Alcohol Use: Yes (daily - last drink 4 days ago WHIS[place]) Tobacco Use: Yes (1 pck/day) Substance Use: Yes ([facility]) Allergies-Medications (Allergen,Severity, Reaction): Coded Allergies: No Known Allergies (Unverified Allergy, Unknown, 03/10/17) Reported Meds & Prescriptions Reported Meds & Active Scripts Active No Active Prescriptions or Reported Medications Review of Systems Except as stated in HPI: all other systems reviewed are Neg General / Constitutional: No: Fever HENT: No: Headaches Cardiovascular: No: Chest Pain or Discomfort Gastrointestinal: Positive: Nausea, Vomiting, Abdominal Pain Musculoskeletal: No: Myalgias Physical Exam Narrative GENERAL: Well-developed, well-nourished, alert female. Resting comfortably in no acute distress. SKIN: Warm and dry. HEAD: Atraumatic. Normocephalic. EYES: Pupils equal and round. No scleral icterus. No injection or drainage. ENT: No nasal bleeding or discharge. Mucous membranes pink and moist. NECK: Trachea midline. No JVD. CARDIOVASCULAR: Tachycardic RESPIRATORY: No accessory muscle use. Clear to auscultation. Breath sounds equal bilaterally. GASTROINTESTINAL: Abdomen soft, tender to palpation left upper quadrant and epigastric region. Positive bowel sounds, positive guarding, nondistended. Hepatic and splenic margins not palpable. MUSCULOSKELETAL: Extremities without clubbing, cyanosis, or edema. No obvious deformities. NEUROLOGICAL: Awake and alert. No obvious cranial nerve deficits. Motor grossly within normal limits. Five out of 5 muscle strength in the arms and legs. Normal speech. PSYCHIATRIC: Appropriate mood and affect; insight and judgment normal. Data Data Last Documented VS Vital Signs Date Time Temp Pulse Resp B/P (MAP) Pulse Ox O2 Delivery O2 Flow Rate FiO2 05/13/17 20:26 Room Air 05/13/17 18:00 99.4 138 18 100 Orders Orders Complete Blood Count With Diff (05/13/17 20:11) Comprehensive Metabolic Panel (05/13/17 20:11) Lipase (05/13/17 20:11) Urinalysis - C+S If Indicated (05/13/17 20:11) Ct Abd/Pel W Iv Contrast(Rout) (05/13/17 20:11) Iv Access Insert/Monitor (05/13/17 20:11) Ecg Monitoring (05/13/17 20:11) Oximetry (05/13/17 20:11) NPO (05/13/17 20:11) Ondansetron Inj (Zofran Inj) (05/13/17 20:15) Sodium Chlor 0.9% 1000 Ml Inj (Ns 1000 M (05/13/17 20:11) Sodium Chloride 0.9% Flush (Ns Flush) (05/13/17 20:15) Ed Urine Pregnancytest Poc (05/13/17 20:11) Influenzae A/B Antigen (05/13/17 20:11) Urine Culture (05/13/17 20:29) Sodium Chlor 0.9% 1000 Ml Inj (Ns 1000 M (05/13/17 22:00) Lactic Acid (05/13/17 21:48) Iohexol 350 Inj (Omnipaque 350 Inj) (05/13/17 22:09) Morphine Inj (Morphine Inj) (05/13/17 22:30) Admit Order (Ed Use Only) (05/13/17 22:44) Labs Laboratory Tests Test 05/13/17 20:24 05/13/17 20:29 05/13/17 22:31 White Blood Count 7.6 TH/MM3 Red Blood Count 3.89 MIL/MM3 Hemoglobin 13.2 GM/DL Hematocrit 37.7 % Mean Corpuscular Volume 96.8 FL Mean Corpuscular Hemoglobin 33.9 PG Mean Corpuscular Hemoglobin Concent 35.0 % Red Cell Distribution Width 18.7 % Platelet Count 91 TH/MM3 Mean Platelet Volume 10.1 FL Neutrophils (%) (Auto) 79.0 % Lymphocytes (%) (Auto) 10.0 % Monocytes (%) (Auto) 10.6 % Eosinophils (%) (Auto) 0.1 % Basophils (%) (Auto) 0.3 % Neutrophils # (Auto) 6.0 TH/MM3 Lymphocytes # (Auto) 0.8 TH/MM3 Monocytes # (Auto) 0.8 TH/MM3 Eosinophils # (Auto) 0.0 TH/MM3 Basophils # (Auto) 0.0 TH/MM3 CBC Comment AUTO DIFF Differential Comment AUTO DIFF CONFIRMED Blood Urea Nitrogen 6 MG/DL Creatinine 0.87 MG/DL Random Glucose 123 MG/DL Total Protein 8.4 GM/DL Albumin 4.2 GM/DL Calcium Level 10.2 MG/DL Alkaline Phosphatase 195 U/L Aspartate Amino Transf (AST/SGOT) 274 U/L Alanine Aminotransferase (ALT/SGPT) 72 U/L Total Bilirubin 4.1 MG/DL Sodium Level 128 MEQ/L Potassium Level 3.5 MEQ/L Chloride Level 83 MEQ/L Carbon Dioxide Level 24.4 MEQ/L Anion Gap 21 MEQ/L Estimat Glomerular Filtration Rate 72 ML/MIN Lipase 2074 U/L Urine Color DARK-BROWN Urine Turbidity HAZY Urine pH 6.0 Urine Specific Rentz 1.031 Urine Protein 300 mg/dL Urine Glucose (UA) TRACE mg/dL Urine Ketones 150 mg/dL Urine Occult Blood TRACE Urine Nitrite NEG Urine Bilirubin MOD Urine Urobilinogen 8.0 MG/DL Urine Leukocyte Esterase TRACE Urine RBC 4 /hpf Urine WBC 8 /hpf Urine Squamous Epithelial Cells 13 /hpf Urine Bacteria MANY /hpf Urine Hyaline Casts 71 /lpf Urine Mucus MANY /lpf Microscopic Urinalysis Comment CULTURE INDICATED Lactic Acid Level 4.2 mmol/L MDM Medical Decision Making Medical Screen Exam Complete: Yes Emergency Medical Condition: Yes Interpretation(s) Vital Signs Date Time Temp Pulse Resp B/P (MAP) Pulse Ox O2 Delivery O2 Flow Rate FiO2 05/13/17 20:26 Room Air 05/13/17 18:00 99.4 138 18 115/81 (92) 100 Differential Diagnosis Pancreatitis versus gastroenteritis versus metabolic abnormality versus viral syndrome versus other Narrative Course Patient is 41-year-old female percentage emergent evaluation of nausea, vomiting , abdominal pain. Patient reports a history of pancreatitis and her symptoms are similar to what she's experienced in the past. Patient is mildly tachycardic on arrival. Labs and imaging ordered and pending. IV access established, patient placed on monitor tech and continuous pulse oximetry. CBC with no acute findings Chemistry with sodium of 128 and anion gap 21, mild transaminitis, lipase is 2074 Lactic acid 4.2 Urinalysis is consistent with urinary tract infection. Reflex culture pending. Patient will be given Rocephin. CT scan of the abdomen and pelvis shows. Pancreatic inflammatory changes and some mild fluid raising possibility of acute pancreatitis. Enlarged fatty liver. Distended sludge filled gallbladder. Scuffs findings with my attending physician, patient was admitted to Dr. Huizar service. Admitting orders placed. She was made aware of findings and plan of care and she is agreeable to stay. She is currently resting comfortably in no distress. Sepsis Criteria SIRS Criteria (2 or more): Heart rate over 90 Diagnosis Primary Impression: Pancreatitis Qualified Codes: K85.90 - Acute pancreatitis without necrosis or infection, unspecified Additional Impressions: Transaminitis UTI (urinary tract infection) Qualified Codes: N39.0 - Urinary tract infection, site not specified; R31.9 - Hematuria, unspecified Lactic acidosis Admitting Information Admitting Physician Requests: Admit Scripts No Active Prescriptions or Reported Meds Condition: Vanda Clemons May 13, 2017 20:40
[2017-05-13 20:50] LABS: BACTERIA, URINE MANY /hpf; BILIRUBIN, URINE MOD (NEG); BLOOD, URINE TRACE (NEG); GLUCOSE,URINE TRACE mg/dL (NEG); HYALINE CAST, URINE 71 /lpf (RARE); KETONE, URINE 150 mg/dL (NEG); MUCUS URINE MANY /lpf (OCC); NITRITE,URINE NEG (NEG); SQUAMOUS EPITHELIAL CELL URINE 13 /hpf (0-5); URINE COLOR DARK-BROWN (YELLW/STRAW); URINE LEUKOCYTE ESTERASE TRACE (NEG)
[2017-05-13 20:56] LABS: BASOPHIL % 0.3 % (0.0-2.0); EOSINOPHIL % 0.1 % (0.0-4.0); HEMATOCRIT 37.7 % (35.0-46.0); HEMOGLOBIN 13.2 GM/DL (11.6-15.3); LYMPHOCYTE # 0.8 TH/MM3 (1.0-4.8); MEAN CELL VOLUME 96.8 FL (80.0-100.0); MEAN CORPUSCULAR HEMOGLOBIN 33.9 PG (27.0-34.0); MEAN PLATELET VOLUME 10.1 FL (7.0-11.0); MONO % 10.6 % (0.0-8.0); MONOCYTE # 0.8 TH/MM3 (0-0.9); PLATELET COUNT 91 TH/MM3 (150-450); RED BLOOD COUNT 3.89 MIL/MM3 (4.00-5.30); RED CELL DISTRIBUTION WIDTH 18.7 % (11.6-17.2); WHITE BLOOD COUNT 7.6 TH/MM3 (4.0-11.0)
[2017-05-13 21:32] LABS: ALKALINE PHOSPHATASE 195 U/L (45-117); ALT (GPT) 72 U/L (10-53); TOTAL BILIRUBIN ADULT 4.1 MG/DL (0.2-1.0); TOTAL PROTEIN 8.4 GM/DL (6.4-8.2)
[2017-05-13 21:37] LABS: ALBUMIN 4.2 GM/DL (3.4-5.0); AST (GOT) 274 U/L (15-37); BICARBONATE 24.4 MEQ/L (21.0-32.0); BLOOD UREA NITROGEN 6 MG/DL (7-18); CALCIUM 10.2 MG/DL (8.5-10.1); CHLORIDE 83 MEQ/L (98-107); CREATININE 0.87 MG/DL (0.50-1.00); GLOMERULAR FILTRATION RATE 72 ML/MIN (>89); GLUCOSE,RANDOM 123 MG/DL (74-106); SODIUM (NA) 128 MEQ/L (136-145)
[2017-05-13] MEDS ORDERED: SODIUM CHLOR 0.9% 1000 ML INJ 1,000 ML IV ONE ×2 (22:00→23:30)
[2017-05-13] MEDS ORDERED: IOHEXOL 350 MG/ML 10 ML VIAL (for RAD DIAG) IVCONTRAST ONE (22:09)
[2017-05-13] MEDS ORDERED: MORPHINE SULFATE 2 MG/ML INJ IV PUSH ONE ×2 (22:30→23:45)
--- NOTE | 2017-05-13 22:31 | RADRPT ---
EXAM DATE/TIME: 05/13/2017 22:02 [place] COMPARISON: No previous studies available for comparison. INDICATIONS : Abdominal pain with vomiting. IV CONTRAST: 100 cc Omnipaque 350 (iohexol) IV ORAL CONTRAST: No oral contrast ingested. RADIATION DOSE: 6.64 CTDIvol (mGy) MEDICAL HISTORY : Hypertension. SURGICAL HISTORY : section. ENCOUNTER: Initial ACUITY: 1 day PAIN SCALE: 5/10 LOCATION: abdomen TECHNIQUE: Volumetric scanning of the abdomen and pelvis was performed. Using automated exposure control and ad justment of the mA and/or kV according to patient size, radiation dose was kept as low as reasonably achievable to obtain optimal diagnostic quality images. DICOM format image data is available electro nically for review and comparison. FINDINGS: LOWER LUNGS: The visualized lower lungs are clear. LIVER: The liver is enlarged and demonstrates diffuse fatty infiltration. There is no dilation of the biliar y tree. The gallbladder is distended and contains sludge. No definite wall thickening is noted. SPLEEN: Normal size without lesion. PANCREAS: Mild peripancreatic fluid and inflammatory changes are noted suggesting possible acute pancreatitis. No pancreatic abscess or pseudocyst is noted. Correlation with amylase and lipase is recommended. KIDNEYS: Normal in size and shape. There is no mass, stone or hydronephrosis. ADRENAL GLANDS: Within normal limits. VASCULAR: There is no aortic aneurysm. BOWEL/MESENTERY: The stomach, small bowel, and colon demonstrate no acute abnormality. There is no free intraperitone al air or fluid. ABDOMINAL WALL: Within normal limits. RETROPERITONEUM: There is no lymphadenopathy. BLADDER: No wall thickening or mass. REPRODUCTIVE: An intrauterine device is noted within the endometrial cavity. INGUINAL: There is no lymphadenopathy or hernia. MUSCULOSKELETAL: There is a chronic moderate compression deformity involving T11. CONCLUSION: 1. Peripancreatic inflammatory changes and some fluid raising possibility of acute pancreatitis. Flori elation with amylase and lipase is recommended. 2. Enlarged fatty liver. 3. Distended sludge-filled gallbladder. Kyree Tavares MD on May 13, 2017 at 22:22 Board Certified Radiologist. This report was verified electronically.
[2017-05-13 23:27] VITALS: BP 126/80; PULSE 86; RESP 18; O2SAT 100
[2017-05-13] MEDS ORDERED: cefTRIAXone INJ 1,000 MG in SODIUM CHLORIDE 0.9% INJ 100 ML IV ONE (23:30)
[2017-05-13] MEDS ORDERED: LACTULOSE SYRUP 20 GM/30 ML CUP PO PRN (23:45)
[2017-05-13] MEDS ORDERED: MAGNESIUM HYDROXIDE SUSP 30 ML CUP PO PRN (23:45)
[2017-05-13] MEDS ORDERED: NALOXONE HCL 0.4 MG/ML AMP IV PUSH PRN (23:45)
[2017-05-13] MEDS ORDERED: BISACODYL 10 MG SUPP RECTAL PRN (23:45)
[2017-05-13] MEDS ORDERED: SENNOSIDES 8.6 MG TAB PO PRN (23:45)
[2017-05-13] MEDS ORDERED: ONDANSETRON HCL 4 MG/2 ML VIAL IV PUSH ONE (23:45)
[2017-05-13] MEDS ORDERED: FLUMAZENIL 0.5 MG/5 ML VIAL IV PUSH PRN (23:45)
[2017-05-13] MEDS ORDERED: LORazepam 2 MG TAB PO PRN (23:45)
[2017-05-13] MEDS ORDERED: LORazepam 2 MG/ML VIAL IV PUSH PRN ×4 (23:45)
[2017-05-13] MEDS ORDERED: LORazepam 1 MG TAB PO PRN (23:45)
[2017-05-14 00:10] VITALS: BP 110/80; PULSE 85; RESP 16; TEMP 98.6; O2SAT 100
[2017-05-14] MEDS: MORPHINE SULFATE 4 MG/ML INJ IV PUSH PRN ×7 (01:52→23:21)
[2017-05-14] MEDS: ONDANSETRON HCL 4 MG/2 ML VIAL IVP PRN ×3 (01:52→16:28)
--- NOTE | 2017-05-14 04:06 | HHI.HP ---
HPI Service [facility] Primary Care Physician No Primary Care Physician Admission Diagnosis PANCREATITIS Diagnoses: Travel History International Travel<30 Days: No Contact w/Intl Traveler <30 Da: No Traveled to Known Affected Are: No History of Present Illness 41-year-old female with a past medical history significant for alcohol abuse presents to the emergency department for evaluation of abdominal pain. The patient reports the pain started 4 days ago and has consistently worsened. She reports nausea with associated nonbloody nonbilious emesis. She denies diarrhea. Denies fever/chills. Endorses associated anorexia. No chest pain/ shortness of breath. Vital signs: Temperature 99.4, pulse 138, respirations 18 , BP 1:15/81, pulse ox 100% on room air. UA consistent with urinary tract infection. Review of Systems Except as stated in HPI: all other systems reviewed are Neg Past Family Social History Past Medical History None Past Surgical History None Reported Medications None Allergies: Coded Allergies: No Known Allergies (Unverified Allergy, Unknown, 03/10/17) Family History Both parents with coronary artery disease and diabetes mellitus. Social History Smokes approximately one pack per day. Drinks for "stiff" drinks daily. Positive marijuana. Denies other drugs. Physical Exam Vital Signs Vital Signs Date Time Temp Pulse Resp B/P (MAP) Pulse Ox O2 Delivery O2 Flow Rate FiO2 05/14/17 00:10 98.6 85 16 110/80 (90) 100 05/13/17 23:27 86 18 126/80 (95) 100 Room Air 05/13/17 20:26 Room Air 05/13/17 18:00 99.4 138 18 115/81 (92) 100 Physical Exam GENERAL: female lying in bed SKIN: No rashes, ecchymoses or lesions. Cool and dry. HEAD: Atraumatic. Normocephalic. No temporal or scalp tenderness. EYES: Pupils equal round and reactive. Extraocular motions intact. No scleral icterus. No injection or drainage. ENT: Nose without bleeding, purulent drainage or septal hematoma. Throat without erythema, tonsillar hypertrophy or exudate. Uvula midline. Airway patent. NECK: Trachea midline. No JVD or lymphadenopathy. Supple, nontender, no meningeal signs. CARDIOVASCULAR: Regular rate and rhythm without murmurs, gallops, or rubs. RESPIRATORY: Clear to auscultation. Breath sounds equal bilaterally. No wheezes , rales, or rhonchi. GASTROINTESTINAL: Abdomen soft, tender to palpation worse in the epigastric region, nondistended. No hepato-splenomegaly, or palpable masses. MUSCULOSKELETAL: Extremities without clubbing, cyanosis, or edema. No joint tenderness, effusion, or edema noted. No calf tenderness. NEUROLOGICAL: Awake and alert. Cranial nerves II through XII intact. Motor and sensory grossly within normal limits. Normal speech. Laboratory Laboratory Tests Test 05/13/17 20:24 05/13/17 20:29 05/13/17 22:31 White Blood Count 7.6 Red Blood Count 3.89 Hemoglobin 13.2 Hematocrit 37.7 Mean Corpuscular Volume 96.8 Mean Corpuscular Hemoglobin 33.9 Mean Corpuscular Hemoglobin Concent 35.0 Red Cell Distribution Width 18.7 Platelet Count 91 Mean Platelet Volume 10.1 Neutrophils (%) (Auto) 79.0 Lymphocytes (%) (Auto) 10.0 Monocytes (%) (Auto) 10.6 Eosinophils (%) (Auto) 0.1 Basophils (%) (Auto) 0.3 Neutrophils # (Auto) 6.0 Lymphocytes # (Auto) 0.8 Monocytes # (Auto) 0.8 Eosinophils # (Auto) 0.0 Basophils # (Auto) 0.0 CBC Comment AUTO DIFF Differential Comment AUTO DIFF CONFIRMED Blood Urea Nitrogen 6 Creatinine 0.87 Random Glucose 123 Total Protein 8.4 Albumin 4.2 Calcium Level 10.2 Alkaline Phosphatase 195 Aspartate Amino Transf (AST/SGOT) 274 Alanine Aminotransferase (ALT/SGPT) 72 Total Bilirubin 4.1 Sodium Level 128 Potassium Level 3.5 Chloride Level 83 Carbon Dioxide Level 24.4 Anion Gap 21 Estimat Glomerular Filtration Rate 72 Lipase 2074 Urine Color DARK-BROWN Urine Turbidity HAZY Urine pH 6.0 Urine Specific [place] 1.031 Urine Protein 300 Urine Glucose (UA) TRACE Urine Ketones 150 Urine Occult Blood TRACE Urine Nitrite NEG Urine Bilirubin MOD Urine Urobilinogen 8.0 Urine Leukocyte Esterase TRACE Urine RBC 4 Urine WBC 8 Urine Squamous Epithelial Cells 13 Urine Bacteria MANY Urine Hyaline Casts 71 Urine Mucus MANY Microscopic Urinalysis Comment CULTURE INDICATED Lactic Acid Level 4.2 Date/Time Source Procedure Growth Status 05/13/17 20:32 Nasal Washing Influenza Types A,B Antigen (SAMI) - Final NEGATIVE FOR FLU A AND B ANTIGEN.... Complete 05/13/17 20:29 Urine Random Urine Urine Culture Pending Worksheet Result Diagram: 05/13/17202305/13/172023 Caprini VTE Risk Assessment Caprini VTE Risk Assessment: No/Low Risk (score <= 1) Caprini Risk Assessment Model Point Value = 1 Point Value = 2 Point Value = 3 Point Value = 5 Age 41-60 Minor surgery BMI > 25 kg/m2 Swollen legs Varicose veins or History of unexplained or recurrent spontaneous Oral contraceptives or hormone replacement Sepsis (< 1 month) Serious lung disease, including pneumonia (< 1 month) Abnormal pulmonary function Acute myocardial infarction Congestive heart failure (< 1 month) History of inflammatory bowel disease Medical patient at bed rest Age 61-74 Arthroscopic surgery Major open surgery (> 45 min) Laparoscopic surgery (> 45 min) Malignancy Confined to bed (> 72 hours) Immobilizing plaster cast Central venous access Age >= 75 History of VTE Family history of VTE Factor V Leiden Prothrombin [id number] Lupus anticoagulant Anticardiolipin antibodies Elevated serum homocysteine Heparin-induced thrombocytopenia Other congenital or acquired thrombophilia Stroke (< 1 month) Elective arthroplasty Hip, pelvis, or leg fracture Acute spinal cord injury (< 1 month) Prophylaxis Regimen Total Risk Factor Score Risk Level Prophylaxis Regimen 0-1 Low Early ambulation 2 Moderate Order ONE of the following: *Sequential Compression Device (SCD) *Heparin 5000 units SQ BID 3-4 Higher Order ONE of the following medications: *Heparin 5000 units SQ TID *Enoxaparin/Lovenox 40 mg SQ daily (WT < 150 kg, CrCl > 30 mL/min) *Enoxaparin/Lovenox 30 mg SQ daily (WT < 150 kg, CrCl > 10-29 mL/min) *Enoxaparin/Lovenox 30 mg SQ BID (WT < 150 kg, CrCl > 30 mL/min) AND/OR *Sequential Compression Device (SCD) 5 or more Highest Order ONE of the following medications: *Heparin 5000 units SQ TID (Preferred with Epidurals) *Enoxaparin/Lovenox 40 mg SQ daily (WT < 150 kg, CrCl > 30 mL/min) *Enoxaparin/Lovenox 30 mg SQ daily (WT < 150 kg, CrCl > 10-29 mL/min) *Enoxaparin/Lovenox 30 mg SQ BID (WT < 150 kg, CrCl > 30 mL/min) AND *Sequential Compression Device (SCD) Assessment and Plan Assessment and Plan Assessment/plan: 1. Pancreatitis Nothing by mouth IV fluid hydration Morphine for pain By mouth challenge once clinically improved 2. UTI UA consistent with urinary tract infection Urine culture pending Rocephin 3. Alcohol abuse Patient with hyponatremia and transaminitis consistent with alcohol abuse Cessation counseling provided [facility] protocol 4. Elevated lactic acid Lactic acid 4.2, patient without other signs/symptoms of sepsis Repeat lactic acid pending FEN NPO NS at 150 cc/hr Physician Certification 2 Midnight Certification Type: Admission for Inpatient Services Order for Inpatient Services The services are ordered in accordance with Medicare regulations or non- Medicare payer requirements, as applicable. In the case of services not specified as inpatient-only, they are appropriately provided as inpatient services in accordance with the 2-midnight benchmark. Estimated LOS (days): 2 2 days is the estimated time the patient will need to remain in the hospital, assuming treatment plan goals are met and no additional complications. Post-Hospital Plan: Not yet determined Hattie Huizar MD May 14, 2017 04:06
[2017-05-14 04:25] VITALS: BP 120/79; PULSE 106; RESP 17; TEMP 97.1; O2SAT 100
[2017-05-14 04:34] LABS: AUTOMATED NEUTROPHIL # 2.3 TH/MM3 (1.8-7.7); EOSINOPHIL % 0.4 % (0.0-4.0); HEMOGLOBIN 11.4 GM/DL (11.6-15.3); LYMPH % 29.5 % (9.0-44.0); LYMPHOCYTE # 1.2 TH/MM3 (1.0-4.8); MEAN CELL VOLUME 97.7 FL (80.0-100.0); MEAN CORPUSCULAR HEMOGLOBIN 33.8 PG (27.0-34.0); MEAN CORPUSCULAR HGB CONC 34.6 % (32.0-36.0); MONOCYTE # 0.5 TH/MM3 (0-0.9); NEUT % 56.1 % (16.0-70.0); PLATELET COUNT 57 TH/MM3 (150-450); RED BLOOD COUNT 3.38 MIL/MM3 (4.00-5.30); RED CELL DISTRIBUTION WIDTH 19.2 % (11.6-17.2)
[2017-05-14 04:54] LABS: LACTIC ACID SEPSIS PROTOCOL 2.1 mmol/L (0.4-2.0)
[2017-05-14 05:08] LABS: ALBUMIN 3.4 GM/DL (3.4-5.0); ALKALINE PHOSPHATASE 149 U/L (45-117); ALT (GPT) 49 U/L (10-53); AST (GOT) 171 U/L (15-37); BICARBONATE 30.9 MEQ/L (21.0-32.0); BLOOD UREA NITROGEN 5 MG/DL (7-18); CALCIUM 8.4 MG/DL (8.5-10.1); CHLORIDE 93 MEQ/L (98-107); CREATININE 0.82 MG/DL (0.50-1.00); GLOMERULAR FILTRATION RATE 77 ML/MIN (>89); GLUCOSE,RANDOM 93 MG/DL (74-106); SODIUM (NA) 135 MEQ/L (136-145); TOTAL BILIRUBIN ADULT 3.2 MG/DL (0.2-1.0); TOTAL PROTEIN 6.6 GM/DL (6.4-8.2)
[2017-05-14] MEDS ORDERED: POTASSIUM CHLORIDE 10 MEQ CONTROLLED RELEASE TAB PO ONE (06:00)
[2017-05-14 08:00] VITALS: BP 106/80; PULSE 87; RESP 15; TEMP 97.3; O2SAT 100
[2017-05-14] MEDS ORDERED: POTASSIUM CHLORIDE 20 MEQ CONTROLLED RELEASE TAB PO ONE (08:30)
[2017-05-14] MEDS: SODIUM CHLORIDE 0.9% FLUSH 10 ML FLUSH IV FLUSH SCH ×2 (09:00→19:52)
[2017-05-14] MEDS: DOCUSATE SODIUM 50 MG/SENNA 8.6 MG TAB PO SCH ×2 (09:01→19:52)
[2017-05-14] MEDS: D5-1/2 NS + KCL 20 MEQ INJ 1,000 ML IV SCH ×2 (09:05→19:52)
[2017-05-14 12:00] VITALS: BP 96/76; PULSE 87; RESP 15; TEMP 97.7; O2SAT 100
--- NOTE | 2017-05-14 15:11 | HHI.PR ---
Subjective Remarks Patient reports nausea better however has had continued abdominal pain with left -sided radiation. She does admit to taking more heavily whiskey during the past 3 days. She has had a history of alcohol withdraw. She's also had previous liver problems however denies a history of liver cirrhosis. Objective Vitals Vital Signs Date Time Temp Pulse Resp B/P (MAP) Pulse Ox O2 Delivery O2 Flow Rate FiO2 05/14/17 12:00 97.7 87 15 96/76 (83) 100 05/14/17 09:30 22 05/14/17 08:00 97.3 87 15 106/80 (89) 100 05/14/17 04:25 97.1 106 17 120/79 (93) 100 05/14/17 00:10 98.6 85 16 110/80 (90) 100 05/13/17 23:27 86 18 126/80 (95) 100 Room Air 05/13/17 20:26 Room Air 05/13/17 18:00 99.4 138 18 115/81 (92) 100 I/O 05/13/17 05/13/17 05/13/17 05/14/17 05/14/17 05/14/17 07:00 15:00 23:00 07:00 15:00 23:00 Intake Total 4100 ml 0 ml Balance 4100 ml 0 ml Intake Oral 0 ml 0 ml IV Total 4100 ml # Voids 2 3 # Bowel Movements 0 0 Result Diagram: 05/14/17 0419 05/14/17 0419 Other Results Microbiology Date/Time Source Procedure Growth Status 05/13/17 20:32 Nasal Washing Influenza Types A,B Antigen (SAMI) - Final NEGATIVE FOR FLU A AND B ANTIGEN.... Complete 05/13/17 20:29 Urine Random Urine Urine Culture - Final 50-100,000 CFU/ML MIXED WENCESLAO... Complete Objective Remarks GENERAL: This is a well-nourished, well-developed patient, in no apparent distress. CARDIOVASCULAR: Regular rate and rhythm RESPIRATORY: Clear to auscultation. Breath sounds equal bilaterally. No wheezes , rales, or rhonchi. GASTROINTESTINAL: Abdomen soft, epigastric tenderness left upper quadrant tenderness with no rebound guarding with normoactive bowel sounds. MUSCULOSKELETAL: Extremities without clubbing, cyanosis, or edema. NEURO: Alert & Oriented x4 to person, place, time, situation. Moves all ext x4 A/P Problem List: (1) Pancreatitis ICD Code: K85.90 - Acute pancreatitis without necrosis or infection, unspecified Status: Acute Discharge Planning 1. Acute Pancreatitis likely due to alcohol abuse Nothing by mouth except for water today and attempt to advance a clear liquids in the morning if clinically improved. Continue with supportive care with hyperhydration. IV fluid hydration Morphine for pain 2. Abnormal Urinalysis with likely contaminants in the final urine culture. No UTI. Will discontinue antibiotics. 3. Alcohol abuse Patient with hyponatremia and transaminitis consistent with alcohol abuse and likely liver dysfunction. Cessation counseling provided. Case management to give information on outpatient follow-up and referral for counseling CIWA protocol with Ativan when necessary 4. Elevated lactic acid Lactic acid 4.2 on admission likely due to her history of chronic liver disease and acute exacerbation of this due to alcohol abuse. No signs of infection or sepsis at this time. 5. DVT prophylaxis -SCDs. Problem Qualifiers (1) Pancreatitis: Qualified Codes: K85.20 - Alcohol induced acute pancreatitis without necrosis or infection Rin Kowalski MD May 14, 2017 15:11
[2017-05-14] MEDS ORDERED: PANTOPRAZOLE SOD 40 MG DELAYED RELEASE TAB PO ONE (15:30)
[2017-05-14 16:00] VITALS: BP 103/75; PULSE 76; RESP 16; TEMP 96.8; O2SAT 100
[2017-05-14] MEDS: MAGNESIUM OXIDE 400 MG TAB PO SCH (19:52)
[2017-05-14 20:25] VITALS: BP 106/74; PULSE 85; RESP 16; TEMP 96.7; O2SAT 100
[2017-05-15 00:30] VITALS: BP 126/68; PULSE 90; RESP 16; TEMP 96.5; O2SAT 100
[2017-05-15] MEDS: D5-1/2 NS + KCL 20 MEQ INJ 1,000 ML IV SCH ×2 (04:28→15:20)
[2017-05-15 05:47] LABS: BICARBONATE 31.6 MEQ/L (21.0-32.0); CALCIUM 8.6 MG/DL (8.5-10.1); CREATININE 0.61 MG/DL (0.50-1.00)
[2017-05-15] MEDS: MORPHINE SULFATE 2 MG/ML INJ IV PUSH PRN ×2 (05:51→11:19)
[2017-05-15 08:00] VITALS: BP 115/78; PULSE 94; RESP 16; TEMP 97.7; O2SAT 97
[2017-05-15] MEDS ORDERED: POTASSIUM CHLORIDE 20 MEQ CONTROLLED RELEASE TAB PO ONE (08:30)
[2017-05-15] MEDS: MAGNESIUM SULFATE 1 GM PREMIX 100 ML IV SCH ×2 (08:51→10:20)
[2017-05-15] MEDS: PANTOPRAZOLE SOD 40 MG DELAYED RELEASE TAB PO SCH (08:52)
[2017-05-15] MEDS: DOCUSATE SODIUM 50 MG/SENNA 8.6 MG TAB PO SCH ×2 (08:52→20:00)
[2017-05-15] MEDS: MAGNESIUM OXIDE 400 MG TAB PO SCH ×2 (08:52→20:00)
[2017-05-15] MEDS: SODIUM CHLORIDE 0.9% FLUSH 10 ML FLUSH IV FLUSH SCH ×2 (08:53→20:00)
[2017-05-15] MEDS ORDERED: cefTRIAXone INJ 1,000 MG in SODIUM CHLORIDE 0.9% INJ 100 ML IV SCH (09:00)
[2017-05-15 11:57] LABS: ALBUMIN 2.8 GM/DL (3.4-5.0); ALKALINE PHOSPHATASE 128 U/L (45-117); ALT (GPT) 37 U/L (10-53); AST (GOT) 163 U/L (15-37); BICARBONATE 29.8 MEQ/L (21.0-32.0); BLOOD UREA NITROGEN 3 MG/DL (7-18); CALCIUM 8.6 MG/DL (8.5-10.1); CHLORIDE 93 MEQ/L (98-107); CREATININE 0.56 MG/DL (0.50-1.00); GLOMERULAR FILTRATION RATE 120 ML/MIN (>89); GLUCOSE,RANDOM 133 MG/DL (74-106); SODIUM (NA) 131 MEQ/L (136-145); TOTAL PROTEIN 5.5 GM/DL (6.4-8.2)
[2017-05-15 12:00] VITALS: BP 105/69; PULSE 87; RESP 16; TEMP 97.6; O2SAT 100
--- NOTE | 2017-05-15 15:19 | HHI.PR ---
Subjective Remarks DENIES ANY NEW PAIN WOOBLY ON HER FEET DW RN AND PT GET PT AND OT TO EVAL AND TREAT AM LABS ALL IN THE ROOM WREAKED OF TOBACCO Objective Vitals Vital Signs Date Time Temp Pulse Resp B/P (MAP) Pulse Ox O2 Delivery O2 Flow Rate FiO2 05/15/17 08:00 97.7 94 16 115/78 (90) 97 05/15/17 05:56 20 05/15/17 00:30 96.5 90 16 126/68 (87) 100 05/14/17 23:26 20 05/14/17 20:25 96.7 85 16 106/74 (85) 100 05/14/17 16:00 96.8 76 16 103/75 (84) 100 I/O 05/14/17 05/14/17 05/14/17 05/15/17 05/15/17 05/15/17 07:00 15:00 23:00 07:00 15:00 23:00 Intake Total 4100 ml 0 ml 1440 ml 1211 ml 200 ml Balance 4100 ml 0 ml 1440 ml 1211 ml 200 ml Intake Oral 0 ml 0 ml 240 ml 60 ml IV Total 4100 ml 1200 ml 1151 ml 200 ml # Voids 2 3 3 3 # Bowel Movements 0 0 0 0 Result Diagram: 05/14/17 0419 05/15/17 1041 Other Results Laboratory Tests Test 05/13/17 20:24 05/13/17 20:29 05/13/17 22:31 05/14/17 04:19 White Blood Count 7.6 TH/MM3 4.0 TH/MM3 Red Blood Count 3.89 MIL/MM3 3.38 MIL/MM3 Hemoglobin 13.2 GM/DL 11.4 GM/DL Hematocrit 37.7 % 33.0 % Mean Corpuscular Volume 96.8 FL 97.7 FL Mean Corpuscular Hemoglobin 33.9 PG 33.8 PG Mean Corpuscular Hemoglobin Concent 35.0 % 34.6 % Red Cell Distribution Width 18.7 % 19.2 % Platelet Count 91 TH/MM3 57 TH/MM3 Mean Platelet Volume 10.1 FL 9.0 FL Neutrophils (%) (Auto) 79.0 % 56.1 % Lymphocytes (%) (Auto) 10.0 % 29.5 % Monocytes (%) (Auto) 10.6 % 13.0 % Eosinophils (%) (Auto) 0.1 % 0.4 % Basophils (%) (Auto) 0.3 % 1.0 % Neutrophils # (Auto) 6.0 TH/MM3 2.3 TH/MM3 Lymphocytes # (Auto) 0.8 TH/MM3 1.2 TH/MM3 Monocytes # (Auto) 0.8 TH/MM3 0.5 TH/MM3 Eosinophils # (Auto) 0.0 TH/MM3 0.0 TH/MM3 Basophils # (Auto) 0.0 TH/MM3 0.0 TH/MM3 CBC Comment AUTO DIFF AUTO DIFF Differential Comment AUTO DIFF CONFIRMED AUTO DIFF CONFIRMED Blood Urea Nitrogen 6 MG/DL 5 MG/DL Creatinine 0.87 MG/DL 0.82 MG/DL Random Glucose 123 MG/DL 93 MG/DL Total Protein 8.4 GM/DL 6.6 GM/DL Albumin 4.2 GM/DL 3.4 GM/DL Calcium Level 10.2 MG/DL 8.4 MG/DL Alkaline Phosphatase 195 U/L 149 U/L Aspartate Amino Transf (AST/SGOT) 274 U/L 171 U/L Alanine Aminotransferase (ALT/SGPT) 72 U/L 49 U/L Total Bilirubin 4.1 MG/DL 3.2 MG/DL Sodium Level 128 MEQ/L 135 MEQ/L Potassium Level 3.5 MEQ/L 2.7 MEQ/L Chloride Level 83 MEQ/L 93 MEQ/L Carbon Dioxide Level 24.4 MEQ/L 30.9 MEQ/L Anion Gap 21 MEQ/L 11 MEQ/L Estimat Glomerular Filtration Rate 72 ML/MIN 77 ML/MIN Lipase 2074 U/L Urine Color DARK-BROWN Urine Turbidity HAZY Urine pH 6.0 Urine Specific [place] 1.031 Urine Protein 300 mg/dL Urine Glucose (UA) TRACE mg/dL Urine Ketones 150 mg/dL Urine Occult Blood TRACE Urine Nitrite NEG Urine Bilirubin MOD Urine Urobilinogen 8.0 MG/DL Urine Leukocyte Esterase TRACE Urine RBC 4 /hpf Urine WBC 8 /hpf Urine Squamous Epithelial Cells 13 /hpf Urine Bacteria MANY /hpf Urine Hyaline Casts 71 /lpf Urine Mucus MANY /lpf Microscopic Urinalysis Comment CULTURE INDICATED Lactic Acid Level 4.2 mmol/L 2.1 mmol/L Platelet Estimate LOW Platelet Morphology Comment NORMAL Magnesium Level 1.6 MG/DL Test 05/14/17 08:35 05/15/17 04:42 05/15/17 10:41 Lactic Acid Level 1.2 mmol/L Blood Urea Nitrogen 4 MG/DL 3 MG/DL Creatinine 0.61 MG/DL 0.56 MG/DL Random Glucose 99 MG/DL 133 MG/DL Calcium Level 8.6 MG/DL 8.6 MG/DL Sodium Level 132 MEQ/L 131 MEQ/L Potassium Level 3.2 MEQ/L 3.6 MEQ/L Chloride Level 94 MEQ/L 93 MEQ/L Carbon Dioxide Level 31.6 MEQ/L 29.8 MEQ/L Anion Gap 6 MEQ/L 8 MEQ/L Estimat Glomerular Filtration Rate 109 ML/MIN 120 ML/MIN Lipase 441 U/L Total Protein 5.5 GM/DL Albumin 2.8 GM/DL Alkaline Phosphatase 128 U/L Aspartate Amino Transf (AST/SGOT) 163 U/L Alanine Aminotransferase (ALT/SGPT) 37 U/L Total Bilirubin 2.0 MG/DL Imaging Last Impressions Abdomen/Pelvis CT 05/13/172010 Signed Impressions: Service Date/Time: May 22:02 - CONCLUSION: 1. Peripancreatic inflammatory changes and some fluid raising possibility of acute pancreatitis. Correlation with amylase and lipase is recommended. 2. Enlarged fatty liver. 3. Distended sludge-filled gallbladder. Kyree Tavares MD Objective Remarks GENERAL: AWAKE AND ALERT TALKATIVE AND COOPERATIVE SKIN: Warm and dry. HEAD: Atraumatic. Normocephalic. EYES: Pupils equal and round. No scleral icterus. No injection or drainage. EOMI ENT: No nasal bleeding or discharge. Mucous membranes pink and moist. TONGUE MIDLINE NECK: Trachea midline. No JVD. SUPPLE CARDIOVASCULAR: Regular rate and rhythm. S1, S2 NO S3 OR S4 RESPIRATORY: No accessory muscle use. Clear to auscultation. Breath sounds equal bilaterally. GASTROINTESTINAL: Abdomen soft, non-tender, nondistended. Hepatic and splenic margins not palpable. NONTENDER AT THIS TIME MUSCULOSKELETAL: Extremities without clubbing, cyanosis, or edema. No obvious deformities. NEUROLOGICAL: Awake and alert. No obvious cranial nerve deficits. Motor grossly within normal limits. 4 out of 5 muscle strength in the arms and legs. Normal speech. PSYCHIATRIC: INAppropriate mood and affect; insight and judgment ABnormal. Procedures NONE Medications and IVs Current Medications Ondansetron HCl (Zofran Inj) 4 mg ONCE ONCE IVP Last administered on 05/13/17at 21:01; Start 05/13/17 at 20:15; Stop 05/13/17 at 20:16; Status DC Sodium Chloride 1,000 ml @ 1,000 mls/hr Q1H IV Last administered on 05/13/17at 21:04; Start 05/13/17 at 20:11; Stop 05/13/17 at 21:10; Status DC Sodium Chloride (NS Flush) 2 ml UNSCH PRN IV FLUSH FLUSH AFTER USING IV ACCESS ; Start 05/13/17 at 20:15; Stop 05/13/17 at 23:59; Status DC Sodium Chloride 1,000 ml @ 999 mls/hr BOLUS ONCE IV Last administered on at 23:25; Start 05/13/17 at 22:00; Stop 05/13/17 at 23:00; Status DC Iohexol (Omnipaque 350 Inj) 100 ml STK-MED ONCE IVCONTRAST Last administered on 05/13/17at 22:09; Start 05/13/17 at 22:09; Stop 05/13/17 at 22:10; Status DC Morphine Sulfate (Morphine Inj) 2 mg ONCE ONCE IV PUSH Last administered on 05/13/17at 22:33; Start 05/13/17 at 22:30; Stop 05/13/17 at 22:31; Status DC Sodium Chloride 1,000 ml @ 999 mls/hr BOLUS ONCE IV Last administered on at 23:38; Start 05/13/17 at 23:30; Stop 05/14/17 at 00:30; Status DC Ceftriaxone Sodium 1000 mg/ Sodium Chloride 100 ml @ 200 mls/hr ONCE ONCE IV Last administered on 05/14/17at 01:26; Start 05/13/17 at 23:30; Stop 05/13/17 at 23: 59; Status DC Morphine Sulfate (Morphine Inj) 2 mg ONCE ONCE IV PUSH Last administered on 05/13/17at 23:45; Start 05/13/17 at 23:45; Stop 05/13/17 at 23:46; Status DC Ondansetron HCl (Zofran Inj) 4 mg ONCE ONCE IV PUSH Last administered on at 23:44; Start 05/13/17 at 23:45; Stop 05/13/17 at 23:46; Status DC Sodium Chloride 1,000 ml @ 150 mls/hr Q6H40M IV Last administered on 05/13/17at 23:44; Start 05/13/17 at 23:44; Stop 05/14/17 at 08:23; Status DC Sodium Chloride (NS Flush) 2 ml UNSCH PRN IV FLUSH FLUSH AFTER USING IV ACCESS ; Start 05/13/17 at 23:45 Sodium Chloride (NS Flush) 2 ml BID IV FLUSH ; Start 05/14/17 at 09:00 Ondansetron HCl (Zofran Inj) 4 mg Q6H PRN IVP NAUSEA OR VOMITING Last administered on 05/14/17at 16:28; Start 05/13/17 at 23:45 Naloxone HCl (Narcan Inj) 0.4 mg UNSCH PRN IV PUSH SEE LABEL COMMENTS; Start at 23:45 Senna/Docusate Sodium (Aylin-Colace) 1 tab BID PO Last administered on 05/15/17at 08:52; Start 05/14/17 at 09:00 Magnesium Hydroxide (Milk Of Magnesia Liq) 30 ml Q12H PRN PO Mild constipation ; Start 05/13/17 at 23:45 Sennosides (Senokot) 17.2 mg Q12H PRN PO Moderate constipation; Start 05/13/17 at 23:45 Bisacodyl (Dulcolax Supp) 10 mg DAILY PRN RECTAL SEVERE CONSITIPATION; Start at 23:45 Lactulose (Lactulose Liq) 30 ml DAILY PRN PO SEVERE CONSITIPATION; Start at 23:45 Flumazenil (Romazicon Inj) 0.2 mg Q1M PRN IV PUSH SEE LABEL COMMENTS; Start 05/13/17 at 23:45 Lorazepam (Ativan) 1 mg Q4H PRN PO CIWA 8 - 10; Start 05/13/17 at 23:45 Lorazepam (Ativan Inj) 1 mg Q4H PRN IV PUSH CIWA 8 - 10; Start 05/13/17 at 23:45 Lorazepam (Ativan) 2 mg Q2H PRN PO CIWA 11-14; Start 05/13/17 at 23:45 Lorazepam (Ativan Inj) 2 mg Q2H PRN IV PUSH CIWA 11-14; Start 05/13/17 at 23:45 Lorazepam (Ativan Inj) 2 mg Q1H PRN IV PUSH CIWA 15-20; Start 05/13/17 at 23:45 Lorazepam (Ativan Inj) 2 mg Q15M PRN IV PUSH CIWA > 20; Start 05/13/17 at 23:45 Morphine Sulfate (Morphine Inj) 2 mg Q3H PRN IV PUSH pain 1-5 Last administered on 05/15/17at 11:19; Start 05/14/17 at 01:45 Morphine Sulfate (Morphine Inj) 4 mg Q3HR PRN IV PUSH pain 6-10 Last administered on 05/14/17at 23:21; Start 05/14/17 at 01:45 Ceftriaxone Sodium 1000 mg/ Sodium Chloride 100 ml @ 200 mls/hr Q24H IV ; Start 05/15/17 at 09:00; Stop 05/15/17 at 09:00; Status DC Potassium Chloride (KCl) 50 meq ONCE ONCE PO Last administered on 05/14/17at 06: 34; Start 05/14/17 at 06:00; Stop 05/14/17 at 06:01; Status DC Potassium Chloride (KCl) 60 meq ONCE ONCE PO Last administered on 05/14/17at 09: 01; Start 05/14/17 at 08:30; Stop 05/14/17 at 08:31; Status DC Potassium Chloride/Dextrose/ Sod Cl 1,000 ml @ 100 mls/hr Q10H IV Last administered on 05/15/17at 04:28; Start 05/14/17 at 09:20 Magnesium Oxide (Mag-Ox) 400 mg BID PO Last administered on 05/15/17at 08:52; Start 05/14/17 at 21:00; Stop 05/17/17 at 09:01 Pantoprazole Sodium (Protonix) 40 mg ONCE ONCE PO Last administered on at 16:28; Start 05/14/17 at 15:30; Stop 05/14/17 at 15:31; Status DC Pantoprazole Sodium (Protonix) 40 mg DAILY PO Last administered on 05/15/17at 08: 52; Start 05/15/17 at 09:00 Potassium Chloride (KCl) 80 meq ONCE ONCE PO Last administered on 05/15/17at 08: 52; Start 05/15/17 at 08:30; Stop 05/15/17 at 08:31; Status DC Magnesium Sulfate/ Dextrose 100 ml @ 100 mls/hr Q1H IV Last administered on 05/15/17at 10:20; Start 05/15/17 at 08:30; Stop 05/15/17 at 10:29; Status DC A/P Problem List: (1) Pancreatitis ICD Code: K85.90 - Acute pancreatitis without necrosis or infection, unspecified Status: Acute Assessment and Plan 1. Acute Pancreatitis likely due to alcohol abuse Nothing by mouth except for water today and attempt to advance a clear liquids in the morning if clinically improved. Continue with supportive care with hyperhydration. IV fluid hydration Morphine for pain 2. Abnormal Urinalysis with likely contaminants in the final urine culture. No UTI. Will discontinue antibiotics. 3. Alcohol abuse Patient with hyponatremia and transaminitis consistent with alcohol abuse and likely liver dysfunction. Cessation counseling provided. Case management to give information on outpatient follow-up and referral for counseling [place] protocol with Ativan when necessary 4. Elevated lactic acid Lactic acid 4.2 on admission likely due to her history of chronic liver disease and acute exacerbation of this due to alcohol abuse. No signs of infection or sepsis at this time. 5. DVT prophylaxis -SCDs. Discharge Planning AM LABS IF TOLERATES DIET DC NEXT 24 TO 48 HOURS Problem Qualifiers (1) Pancreatitis: Qualified Codes: K85.20 - Alcohol induced acute pancreatitis without necrosis or infection Devin Hoang DO May 15, 2017 15:19
[2017-05-15] MEDS: MORPHINE SULFATE 4 MG/ML INJ IV PUSH PRN ×2 (20:01→23:46)
[2017-05-15 20:15] VITALS: BP 99/74; PULSE 85; RESP 17; TEMP 96.8; O2SAT 100
[2017-05-15] MEDS: ONDANSETRON HCL 4 MG/2 ML VIAL IVP PRN (23:46)
[2017-05-16 00:15] VITALS: BP 118/79; PULSE 108; RESP 18; TEMP 98.1; O2SAT 100
[2017-05-16] MEDS: D5-1/2 NS + KCL 20 MEQ INJ 1,000 ML IV SCH ×2 (01:25→10:40)
[2017-05-16] MEDS: MORPHINE SULFATE 4 MG/ML INJ IV PUSH PRN ×2 (05:50→10:38)
[2017-05-16 05:59] LABS: AUTOMATED NEUTROPHIL # 1.9 TH/MM3 (1.8-7.7); BASOPHIL % 0.8 % (0.0-2.0); EOSINOPHIL # 0.1 TH/MM3 (0-0.4); EOSINOPHIL % 1.6 % (0.0-4.0); HEMATOCRIT 29.4 % (35.0-46.0); HEMOGLOBIN 10.2 GM/DL (11.6-15.3); LYMPH % 31.9 % (9.0-44.0); MEAN CELL VOLUME 98.8 FL (80.0-100.0); MEAN CORPUSCULAR HEMOGLOBIN 34.2 PG (27.0-34.0); MEAN CORPUSCULAR HGB CONC 34.6 % (32.0-36.0); MEAN PLATELET VOLUME 9.3 FL (7.0-11.0); MONO % 7.9 % (0.0-8.0); MONOCYTE # 0.3 TH/MM3 (0-0.9); NEUT % 57.8 % (16.0-70.0); PLATELET COUNT 55 TH/MM3 (150-450); RED BLOOD COUNT 2.98 MIL/MM3 (4.00-5.30); RED CELL DISTRIBUTION WIDTH 19.2 % (11.6-17.2); WHITE BLOOD COUNT 3.2 TH/MM3 (4.0-11.0)
[2017-05-16 06:31] LABS: ALBUMIN 2.9 GM/DL (3.4-5.0); AMYLASE 16 U/L (25-115); AST (GOT) 191 U/L (15-37); BICARBONATE 28.4 MEQ/L (21.0-32.0); BLOOD UREA NITROGEN LESS THAN 1 MG/DL (7-18); CALCIUM 8.1 MG/DL (8.5-10.1); CHLORIDE 98 MEQ/L (98-107); CREATININE 0.46 MG/DL (0.50-1.00); GLOMERULAR FILTRATION RATE 150 ML/MIN (>89); GLUCOSE,RANDOM 98 MG/DL (74-106); MAGNESIUM 1.9 MG/DL (1.5-2.5); SODIUM (NA) 134 MEQ/L (136-145)
[2017-05-16 06:40] LABS: ALKALINE PHOSPHATASE 143 U/L (45-117); ALT (GPT) 40 U/L (10-53); PHOSPHORUS 0.9 MG/DL (2.5-4.9); TOTAL BILIRUBIN ADULT 1.6 MG/DL (0.2-1.0); TOTAL PROTEIN 5.9 GM/DL (6.4-8.2)
[2017-05-16 08:00] VITALS: BP 110/80; PULSE 92; RESP 16; TEMP 98.3; O2SAT 100
[2017-05-16] MEDS ORDERED: LEVOTHYROXINE SODIUM 50 MCG TAB PO ONE (08:30)
[2017-05-16] MEDS: SODIUM CHLORIDE 0.9% FLUSH 10 ML FLUSH IV FLUSH SCH (09:00)
[2017-05-16] MEDS: MAGNESIUM OXIDE 400 MG TAB PO SCH (09:03)
[2017-05-16] MEDS: DOCUSATE SODIUM 50 MG/SENNA 8.6 MG TAB PO SCH (09:03)
[2017-05-16] MEDS: PANTOPRAZOLE SOD 40 MG DELAYED RELEASE TAB PO SCH (09:03)
[2017-05-16 11:47] LABS: HEMOGLOBIN A1C 4.9 % (4.3-6.0)
[2017-05-16 12:00] VITALS: BP 105/75; PULSE 83; RESP 16; TEMP 97.2; O2SAT 100
--- NOTE | 2017-05-16 14:41 | HHI.PR ---
Subjective Remarks DENIES ANY NEW PAIN WOOBLY ON HER FEET DW RN AND PT GET PT AND OT TO EVAL AND TREAT AM LABS ALL IN THE ROOM WREAKED OF TOBACCO 2-4 TOLERATED A DIET WANTS TO GO HOME DW RN AND PT NEEDS PCP FOR FOLLOW UP HAS HYPOTHYROIDISM NEEDS SYNTHROID PAIN CONTROL DW RN AND PATIENT AND FAMILY START ON SYNTHROID Objective Vitals Vital Signs Date Time Temp Pulse Resp B/P (MAP) Pulse Ox O2 Delivery O2 Flow Rate FiO2 05/16/17 08:00 98.3 92 16 110/80 (90) 100 05/16/17 00:15 98.1 108 18 118/79 (92) 100 05/15/17 20:15 96.8 85 17 99/74 (82) 100 I/O 05/15/17 05/15/17 05/15/17 05/16/17 05/16/17 05/16/17 07:00 15:00 23:00 07:00 15:00 23:00 Intake Total 1211 ml 200 ml 940 ml 1807 ml Balance 1211 ml 200 ml 940 ml 1807 ml Intake Oral 60 ml 940 ml 360 ml IV Total 1151 ml 200 ml 1447 ml # Voids 3 5 2 # Bowel Movements 0 0 0 Result Diagram: 05/16/17 0533 05/16/17 0533 Other Results Laboratory Tests Test 05/13/17 20:24 05/13/17 20:29 05/13/17 22:31 05/14/17 04:19 White Blood Count 7.6 TH/MM3 4.0 TH/MM3 Red Blood Count 3.89 MIL/MM3 3.38 MIL/MM3 Hemoglobin 13.2 GM/DL 11.4 GM/DL Hematocrit 37.7 % 33.0 % Mean Corpuscular Volume 96.8 FL 97.7 FL Mean Corpuscular Hemoglobin 33.9 PG 33.8 PG Mean Corpuscular Hemoglobin Concent 35.0 % 34.6 % Red Cell Distribution Width 18.7 % 19.2 % Platelet Count 91 TH/MM3 57 TH/MM3 Mean Platelet Volume 10.1 FL 9.0 FL Neutrophils (%) (Auto) 79.0 % 56.1 % Lymphocytes (%) (Auto) 10.0 % 29.5 % Monocytes (%) (Auto) 10.6 % 13.0 % Eosinophils (%) (Auto) 0.1 % 0.4 % Basophils (%) (Auto) 0.3 % 1.0 % Neutrophils # (Auto) 6.0 TH/MM3 2.3 TH/MM3 Lymphocytes # (Auto) 0.8 TH/MM3 1.2 TH/MM3 Monocytes # (Auto) 0.8 TH/MM3 0.5 TH/MM3 Eosinophils # (Auto) 0.0 TH/MM3 0.0 TH/MM3 Basophils # (Auto) 0.0 TH/MM3 0.0 TH/MM3 CBC Comment AUTO DIFF AUTO DIFF Differential Comment AUTO DIFF CONFIRMED AUTO DIFF CONFIRMED Blood Urea Nitrogen 6 MG/DL 5 MG/DL Creatinine 0.87 MG/DL 0.82 MG/DL Random Glucose 123 MG/DL 93 MG/DL Total Protein 8.4 GM/DL 6.6 GM/DL Albumin 4.2 GM/DL 3.4 GM/DL Calcium Level 10.2 MG/DL 8.4 MG/DL Alkaline Phosphatase 195 U/L 149 U/L Aspartate Amino Transf (AST/SGOT) 274 U/L 171 U/L Alanine Aminotransferase (ALT/SGPT) 72 U/L 49 U/L Total Bilirubin 4.1 MG/DL 3.2 MG/DL Sodium Level 128 MEQ/L 135 MEQ/L Potassium Level 3.5 MEQ/L 2.7 MEQ/L Chloride Level 83 MEQ/L 93 MEQ/L Carbon Dioxide Level 24.4 MEQ/L 30.9 MEQ/L Anion Gap 21 MEQ/L 11 MEQ/L Estimat Glomerular Filtration Rate 72 ML/MIN 77 ML/MIN Lipase 2074 U/L Urine Color DARK-BROWN Urine Turbidity HAZY Urine pH 6.0 Urine Specific [place] 1.031 Urine Protein 300 mg/dL Urine Glucose (UA) TRACE mg/dL Urine Ketones 150 mg/dL Urine Occult Blood TRACE Urine Nitrite NEG Urine Bilirubin MOD Urine Urobilinogen 8.0 MG/DL Urine Leukocyte Esterase TRACE Urine RBC 4 /hpf Urine WBC 8 /hpf Urine Squamous Epithelial Cells 13 /hpf Urine Bacteria MANY /hpf Urine Hyaline Casts 71 /lpf Urine Mucus MANY /lpf Microscopic Urinalysis Comment CULTURE INDICATED Lactic Acid Level 4.2 mmol/L 2.1 mmol/L Platelet Estimate LOW Platelet Morphology Comment NORMAL Magnesium Level 1.6 MG/DL Test 05/14/17 08:35 05/15/17 04:42 05/15/17 10:41 05/16/17 05:33 Lactic Acid Level 1.2 mmol/L Blood Urea Nitrogen 4 MG/DL 3 MG/DL LESS THAN 1 MG/DL Creatinine 0.61 MG/DL 0.56 MG/DL 0.46 MG/DL Random Glucose 99 MG/DL 133 MG/DL 98 MG/DL Calcium Level 8.6 MG/DL 8.6 MG/DL 8.1 MG/DL Sodium Level 132 MEQ/L 131 MEQ/L 134 MEQ/L Potassium Level 3.2 MEQ/L 3.6 MEQ/L 4.0 MEQ/L Chloride Level 94 MEQ/L 93 MEQ/L 98 MEQ/L Carbon Dioxide Level 31.6 MEQ/L 29.8 MEQ/L 28.4 MEQ/L Anion Gap 6 MEQ/L 8 MEQ/L 8 MEQ/L Estimat Glomerular Filtration Rate 109 ML/MIN 120 ML/MIN 150 ML/MIN Lipase 441 U/L 258 U/L Total Protein 5.5 GM/DL 5.9 GM/DL Albumin 2.8 GM/DL 2.9 GM/DL Alkaline Phosphatase 128 U/L 143 U/L Aspartate Amino Transf (AST/SGOT) 163 U/L 191 U/L Alanine Aminotransferase (ALT/SGPT) 37 U/L 40 U/L Total Bilirubin 2.0 MG/DL 1.6 MG/DL White Blood Count 3.2 TH/MM3 Red Blood Count 2.98 MIL/MM3 Hemoglobin 10.2 GM/DL Hematocrit 29.4 % Mean Corpuscular Volume 98.8 FL Mean Corpuscular Hemoglobin 34.2 PG Mean Corpuscular Hemoglobin Concent 34.6 % Red Cell Distribution Width 19.2 % Platelet Count 55 TH/MM3 Mean Platelet Volume 9.3 FL Neutrophils (%) (Auto) 57.8 % Lymphocytes (%) (Auto) 31.9 % Monocytes (%) (Auto) 7.9 % Eosinophils (%) (Auto) 1.6 % Basophils (%) (Auto) 0.8 % Neutrophils # (Auto) 1.9 TH/MM3 Lymphocytes # (Auto) 1.0 TH/MM3 Monocytes # (Auto) 0.3 TH/MM3 Eosinophils # (Auto) 0.1 TH/MM3 Basophils # (Auto) 0.0 TH/MM3 CBC Comment AUTO DIFF Differential Comment AUTO DIFF CONFIRMED Platelet Estimate LOW Platelet Morphology Comment NORMAL Red Cell Morphology Comment NORMAL Phosphorus Level 0.9 MG/DL Magnesium Level 1.9 MG/DL Amylase Level 16 U/L Free Thyroxine 1.00 NG/DL Thyroid Stimulating Hormone 3rd Gen 13.500 uIU/ML Imaging Last Impressions Abdomen/Pelvis CT 05/13/172010 Signed Impressions: Service Date/Time: May 22:02 - CONCLUSION: 1. Peripancreatic inflammatory changes and some fluid raising possibility of acute pancreatitis. Correlation with amylase and lipase is recommended. 2. Enlarged fatty liver. 3. Distended sludge-filled gallbladder. Kyree Tavares MD Objective Remarks GENERAL: AWAKE AND ALERT TALKATIVE AND COOPERATIVE SKIN: Warm and dry. HEAD: Atraumatic. Normocephalic. EYES: Pupils equal and round. No scleral icterus. No injection or drainage. EOMI ENT: No nasal bleeding or discharge. Mucous membranes pink and moist. TONGUE MIDLINE NECK: Trachea midline. No JVD. SUPPLE CARDIOVASCULAR: Regular rate and rhythm. S1, S2 NO S3 OR S4 RESPIRATORY: No accessory muscle use. Clear to auscultation. Breath sounds equal bilaterally. GASTROINTESTINAL: Abdomen soft, non-tender, nondistended. Hepatic and splenic margins not palpable. NONTENDER AT THIS TIME MUSCULOSKELETAL: Extremities without clubbing, cyanosis, or edema. No obvious deformities. NEUROLOGICAL: Awake and alert. No obvious cranial nerve deficits. Motor grossly within normal limits. 5 out of 5 muscle strength in the arms and legs. Normal speech. PSYCHIATRIC: INAppropriate mood and affect; insight and judgment ABnormal. Procedures NONE Medications and IVs Current Medications Ondansetron HCl (Zofran Inj) 4 mg ONCE ONCE IVP Last administered on 05/13/17at 21:01; Start 05/13/17 at 20:15; Stop 05/13/17 at 20:16; Status DC Sodium Chloride 1,000 ml @ 1,000 mls/hr Q1H IV Last administered on 05/13/17at 21:04; Start 05/13/17 at 20:11; Stop 05/13/17 at 21:10; Status DC Sodium Chloride (NS Flush) 2 ml UNSCH PRN IV FLUSH FLUSH AFTER USING IV ACCESS ; Start 05/13/17 at 20:15; Stop 05/13/17 at 23:59; Status DC Sodium Chloride 1,000 ml @ 999 mls/hr BOLUS ONCE IV Last administered on at 23:25; Start 05/13/17 at 22:00; Stop 05/13/17 at 23:00; Status DC Iohexol (Omnipaque 350 Inj) 100 ml STK-MED ONCE IVCONTRAST Last administered on 05/13/17at 22:09; Start 05/13/17 at 22:09; Stop 05/13/17 at 22:10; Status DC Morphine Sulfate (Morphine Inj) 2 mg ONCE ONCE IV PUSH Last administered on 05/13/17at 22:33; Start 05/13/17 at 22:30; Stop 05/13/17 at 22:31; Status DC Sodium Chloride 1,000 ml @ 999 mls/hr BOLUS ONCE IV Last administered on at 23:38; Start 05/13/17 at 23:30; Stop 05/14/17 at 00:30; Status DC Ceftriaxone Sodium 1000 mg/ Sodium Chloride 100 ml @ 200 mls/hr ONCE ONCE IV Last administered on 05/14/17at 01:26; Start 05/13/17 at 23:30; Stop 05/13/17 at 23: 59; Status DC Morphine Sulfate (Morphine Inj) 2 mg ONCE ONCE IV PUSH Last administered on 05/13/17at 23:45; Start 05/13/17 at 23:45; Stop 05/13/17 at 23:46; Status DC Ondansetron HCl (Zofran Inj) 4 mg ONCE ONCE IV PUSH Last administered on at 23:44; Start 05/13/17 at 23:45; Stop 05/13/17 at 23:46; Status DC Sodium Chloride 1,000 ml @ 150 mls/hr Q6H40M IV Last administered on 05/13/17at 23:44; Start 05/13/17 at 23:44; Stop 05/14/17 at 08:23; Status DC Sodium Chloride (NS Flush) 2 ml UNSCH PRN IV FLUSH FLUSH AFTER USING IV ACCESS ; Start 05/13/17 at 23:45 Sodium Chloride (NS Flush) 2 ml BID IV FLUSH ; Start 05/14/17 at 09:00 Ondansetron HCl (Zofran Inj) 4 mg Q6H PRN IVP NAUSEA OR VOMITING Last administered on 05/15/17at 23:46; Start 05/13/17 at 23:45 Naloxone HCl (Narcan Inj) 0.4 mg UNSCH PRN IV PUSH SEE LABEL COMMENTS; Start at 23:45 Senna/Docusate Sodium (Aylin-Colace) 1 tab BID PO Last administered on 05/16/17at 09:03; Start 05/14/17 at 09:00 Magnesium Hydroxide (Milk Of Magnesia Liq) 30 ml Q12H PRN PO Mild constipation ; Start 05/13/17 at 23:45 Sennosides (Senokot) 17.2 mg Q12H PRN PO Moderate constipation; Start 05/13/17 at 23:45 Bisacodyl (Dulcolax Supp) 10 mg DAILY PRN RECTAL SEVERE CONSITIPATION; Start at 23:45 Lactulose (Lactulose Liq) 30 ml DAILY PRN PO SEVERE CONSITIPATION; Start at 23:45 Flumazenil (Romazicon Inj) 0.2 mg Q1M PRN IV PUSH SEE LABEL COMMENTS; Start 05/13/17 at 23:45 Lorazepam (Ativan) 1 mg Q4H PRN PO CIWA 8 - 10; Start 05/13/17 at 23:45 Lorazepam (Ativan Inj) 1 mg Q4H PRN IV PUSH CIWA 8 - 10; Start 05/13/17 at 23:45 Lorazepam (Ativan) 2 mg Q2H PRN PO CIWA 11-14; Start 05/13/17 at 23:45 Lorazepam (Ativan Inj) 2 mg Q2H PRN IV PUSH CIWA 11-14; Start 05/13/17 at 23:45 Lorazepam (Ativan Inj) 2 mg Q1H PRN IV PUSH CIWA 15-20; Start 05/13/17 at 23:45 Lorazepam (Ativan Inj) 2 mg Q15M PRN IV PUSH CIWA > 20; Start 05/13/17 at 23:45 Morphine Sulfate (Morphine Inj) 2 mg Q3H PRN IV PUSH pain 1-5 Last administered on 05/15/17at 11:19; Start 05/14/17 at 01:45 Morphine Sulfate (Morphine Inj) 4 mg Q3HR PRN IV PUSH pain 6-10 Last administered on 05/16/17at 10:38; Start 05/14/17 at 01:45 Ceftriaxone Sodium 1000 mg/ Sodium Chloride 100 ml @ 200 mls/hr Q24H IV ; Start 05/15/17 at 09:00; Stop 05/15/17 at 09:00; Status DC Potassium Chloride (KCl) 50 meq ONCE ONCE PO Last administered on 05/14/17at 06: 34; Start 05/14/17 at 06:00; Stop 05/14/17 at 06:01; Status DC Potassium Chloride (KCl) 60 meq ONCE ONCE PO Last administered on 05/14/17at 09: 01; Start 05/14/17 at 08:30; Stop 05/14/17 at 08:31; Status DC Potassium Chloride/Dextrose/ Sod Cl 1,000 ml @ 100 mls/hr Q10H IV Last administered on 05/16/17at 10:40; Start 05/14/17 at 09:20 Magnesium Oxide (Mag-Ox) 400 mg BID PO Last administered on 05/16/17at 09:03; Start 05/14/17 at 21:00; Stop 05/17/17 at 09:01 Pantoprazole Sodium (Protonix) 40 mg ONCE ONCE PO Last administered on at 16:28; Start 05/14/17 at 15:30; Stop 05/14/17 at 15:31; Status DC Pantoprazole Sodium (Protonix) 40 mg DAILY PO Last administered on 05/16/17at 09: 03; Start 05/15/17 at 09:00 Potassium Chloride (KCl) 80 meq ONCE ONCE PO Last administered on 05/15/17at 08: 52; Start 05/15/17 at 08:30; Stop 05/15/17 at 08:31; Status DC Magnesium Sulfate/ Dextrose 100 ml @ 100 mls/hr Q1H IV Last administered on 05/15/17at 10:20; Start 05/15/17 at 08:30; Stop 05/15/17 at 10:29; Status DC Levothyroxine Sodium (Synthroid) 50 mcg ONCE ONCE PO Last administered on at 09:03; Start 05/16/17 at 08:30; Stop 05/16/17 at 08:31; Status DC Levothyroxine Sodium (Synthroid) 50 mcg DAILY@0600 PO ; Start 05/17/17 at 06:00 A/P Problem List: (1) Pancreatitis ICD Code: K85.90 - Acute pancreatitis without necrosis or infection, unspecified Status: Acute Assessment and Plan 1. Acute Pancreatitis likely due to alcohol abuse Nothing by mouth except for water today and attempt to advance a clear liquids in the morning if clinically improved. Continue with supportive care with hyperhydration. IV fluid hydration Morphine for pain TOLERATING A DIET DC TO HOME 2. Abnormal Urinalysis with likely contaminants in the final urine culture. No UTI. Will discontinue antibiotics. 3. Alcohol abuse Patient with hyponatremia and transaminitis consistent with alcohol abuse and likely liver dysfunction. Cessation counseling provided. Case management to give information on outpatient follow-up and referral for counseling [facility] protocol with Ativan when necessary 4. Elevated lactic acid Lactic acid 4.2 on admission likely due to her history of chronic liver disease and acute exacerbation of this due to alcohol abuse. No signs of infection or sepsis at this time. 5. DVT prophylaxis -SCDs. HYPOTHYROIDISM ON LABS PLACE ON SYNTHROID FOR REPLACEMENT TOLERATING A DIET DC TO HOME TODAY MAYITO RN AND PT AND FAMILY STOP SMOKING STOP ALCOHOL Discharge Planning DC TO HOME Problem Qualifiers (1) Pancreatitis: Qualified Codes: K85.20 - Alcohol induced acute pancreatitis without necrosis or infection Devin Hoang DO May 16, 2017 14:41
[2017-05-16] MEDS ORDERED: MAGN400T2 PO (14:44)
[2017-05-16] MEDS ORDERED: PANT40TA3 PO (14:44)
[2017-05-16] MEDS ORDERED: LEVO.05 PO (14:44)
[2017-05-16] MEDS ORDERED: OXYC-392 PO (14:47)
--- NOTE | 2017-05-16 14:48 | HHI.DS ---
Discharge Summary Admission Date May 13, 2017 at 22:46 Discharge Date: May 16, 2017 Admitting Diagnosis PANCREATITIS (1) Pancreatitis ICD Code: K85.90 - Acute pancreatitis without necrosis or infection, unspecified Diagnosis: Principal Status: Acute (2) Hypothyroidism ICD Code: E03.9 - Hypothyroidism, unspecified Diagnosis: Secondary (3) Transaminitis ICD Code: R74.0 - Nonspecific elevation of levels of transaminase and lactic acid dehydrogenase [LDH] Diagnosis: Principal Status: Acute (4) Elevated LFTs ICD Code: R79.89 - Other specified abnormal findings of blood chemistry Diagnosis: Principal Status: Acute (5) Hypokalemia ICD Code: E87.6 - Hypokalemia Diagnosis: Secondary Status: Acute (6) Alcohol withdrawal ICD Code: F10.239 - Alcohol dependence with withdrawal, unspecified Diagnosis: Principal Status: Acute Procedures NONE Brief History - From Admission 41-year-old female with a past medical history significant for alcohol abuse presents to the emergency department for evaluation of abdominal pain. The patient reports the pain started 4 days ago and has consistently worsened. She reports nausea with associated nonbloody nonbilious emesis. She denies diarrhea. Denies fever/chills. Endorses associated anorexia. No chest pain/ shortness of breath. Vital signs: Temperature 99.4, pulse 138, respirations 18 , BP 1:15/81, pulse ox 100% on room air. UA consistent with urinary tract infection. CBC/BMP: 05/16/17 0533 05/16/17 0533 Significant Findings Laboratory Tests Test 05/13/17 20:24 05/13/17 20:29 05/13/17 22:31 05/14/17 04:19 Red Blood Count 3.89 MIL/MM3 (4.00-5.30) 3.38 MIL/MM3 (4.00-5.30) Red Cell Distribution Width 18.7 % (11.6-17.2) 19.2 % (11.6-17.2) Platelet Count 91 TH/MM3 (150-450) 57 TH/MM3 (150-450) Neutrophils (%) (Auto) 79.0 % (16.0-70.0) Monocytes (%) (Auto) 10.6 % (0.0-8.0) 13.0 % (0.0-8.0) Lymphocytes # (Auto) 0.8 TH/MM3 (1.0-4.8) Blood Urea Nitrogen 6 MG/DL (7-18) 5 MG/DL (7-18) Random Glucose 123 MG/DL (74-106) Total Protein 8.4 GM/DL (6.4-8.2) Calcium Level 10.2 MG/DL (8.5-10.1) 8.4 MG/DL (8.5-10.1) Alkaline Phosphatase 195 U/L (45-117) 149 U/L (45-117) Aspartate Amino Transf (AST/SGOT) 274 U/L (15-37) 171 U/L (15-37) Alanine Aminotransferase (ALT/SGPT) 72 U/L (10-53) Total Bilirubin 4.1 MG/DL (0.2-1.0) 3.2 MG/DL (0.2-1.0) Sodium Level 128 MEQ/L (136-145) 135 MEQ/L (136-145) Chloride Level 83 MEQ/L (98-107) 93 MEQ/L (98-107) Anion Gap 21 MEQ/L (5-15) Estimat Glomerular Filtration Rate 72 ML/MIN (>89) 77 ML/MIN (>89) Lipase 2074 U/L (73-393) Urine Color DARK-BROWN (YELLW/STRAW) Urine Turbidity HAZY (CLEAR) Urine Protein 300 mg/dL (NEG-TRACE) Urine Ketones 150 mg/dL (NEG) Urine Occult Blood TRACE (NEG) Urine Bilirubin MOD (NEG) Urine Urobilinogen 8.0 MG/DL (LESS THAN Urine Leukocyte Esterase TRACE (NEG) Urine RBC 4 /hpf (0-3) Urine WBC 8 /hpf (0-5) Urine Bacteria MANY /hpf (NONE) Urine Mucus MANY /lpf (OCC) Lactic Acid Level 4.2 mmol/L (0.4-2.0) 2.1 mmol/L (0.4-2.0) Hemoglobin 11.4 GM/DL (11.6-15.3) Hematocrit 33.0 % (35.0-46.0) Platelet Estimate LOW (NORMAL) Potassium Level 2.7 MEQ/L (3.5-5.1) Test 05/14/17 08:35 05/15/17 04:42 05/15/17 10:41 05/16/17 05:33 Blood Urea Nitrogen 4 MG/DL (7-18) 3 MG/DL (7-18) LESS THAN 1 MG/DL (7-18) Sodium Level 132 MEQ/L (136-145) 131 MEQ/L (136-145) 134 MEQ/L (136-145) Potassium Level 3.2 MEQ/L (3.5-5.1) Chloride Level 94 MEQ/L (98-107) 93 MEQ/L (98-107) Lipase 441 U/L (73-393) Random Glucose 133 MG/DL (74-106) Total Protein 5.5 GM/DL (6.4-8.2) 5.9 GM/DL (6.4-8.2) Albumin 2.8 GM/DL (3.4-5.0) 2.9 GM/DL (3.4-5.0) Alkaline Phosphatase 128 U/L (45-117) 143 U/L (45-117) Aspartate Amino Transf (AST/SGOT) 163 U/L (15-37) 191 U/L (15-37) Total Bilirubin 2.0 MG/DL (0.2-1.0) 1.6 MG/DL (0.2-1.0) White Blood Count 3.2 TH/MM3 (4.0-11.0) Red Blood Count 2.98 MIL/MM3 (4.00-5.30) Hemoglobin 10.2 GM/DL (11.6-15.3) Hematocrit 29.4 % (35.0-46.0) Mean Corpuscular Hemoglobin 34.2 PG (27.0-34.0) Red Cell Distribution Width 19.2 % (11.6-17.2) Platelet Count 55 TH/MM3 (150-450) Platelet Estimate LOW (NORMAL) Creatinine 0.46 MG/DL (0.50-1.00) Calcium Level 8.1 MG/DL (8.5-10.1) Phosphorus Level 0.9 MG/DL (2.5-4.9) Amylase Level 16 U/L (25-115) Thyroid Stimulating Hormone 3rd Gen 13.500 uIU/ML (0.358-3.740) Imaging Last Impressions Abdomen/Pelvis CT 05/13/172010 Signed Impressions: Service Date/Time: May 22:02 - CONCLUSION: 1. Peripancreatic inflammatory changes and some fluid raising possibility of acute pancreatitis. Correlation with amylase and lipase is recommended. 2. Enlarged fatty liver. 3. Distended sludge-filled gallbladder. Kyree Tavares MD PE at Discharge GENERAL: AWAKE AND ALERT TALKATIVE AND COOPERATIVE SKIN: Warm and dry. HEAD: Atraumatic. Normocephalic. EYES: Pupils equal and round. No scleral icterus. No injection or drainage. EOMI ENT: No nasal bleeding or discharge. Mucous membranes pink and moist. TONGUE MIDLINE NECK: Trachea midline. No JVD. SUPPLE CARDIOVASCULAR: Regular rate and rhythm. S1, S2 NO S3 OR S4 RESPIRATORY: No accessory muscle use. Clear to auscultation. Breath sounds equal bilaterally. GASTROINTESTINAL: Abdomen soft, non-tender, nondistended. Hepatic and splenic margins not palpable. NONTENDER AT THIS TIME MUSCULOSKELETAL: Extremities without clubbing, cyanosis, or edema. No obvious deformities. NEUROLOGICAL: Awake and alert. No obvious cranial nerve deficits. Motor grossly within normal limits. 5 out of 5 muscle strength in the arms and legs. Normal speech. PSYCHIATRIC: INAppropriate mood and affect; insight and judgment ABnormal. Hospital Course 41-year-old female with a past medical history significant for alcohol abuse presents to the emergency department for evaluation of abdominal pain. The patient reports the pain started 4 days ago and has consistently worsened. She reports nausea with associated nonbloody nonbilious emesis. She denies diarrhea. Denies fever/chills. Endorses associated anorexia. No chest pain/ shortness of breath. Vital signs: Temperature 99.4, pulse 138, respirations 18 , BP 1:15/81, pulse ox 100% on room air. UA consistent with urinary tract infection.- NO GROWTH DENIES ANY NEW PAIN WOOBLY ON HER FEET DW RN AND PT GET PT AND OT TO EVAL AND TREAT AM LABS ALL IN THE ROOM WREAKED OF TOBACCO 2-4 TOLERATED A DIET WANTS TO GO HOME DW RN AND PT NEEDS PCP FOR FOLLOW UP HAS HYPOTHYROIDISM NEEDS SYNTHROID PAIN CONTROL MAYITO RN AND PATIENT AND FAMILY START ON SYNTHROID Pt Condition on Discharge: Good Discharge Disposition: Discharge Home Discharge Time: <= 30 minutes Discharge Instructions DIET: Follow Instructions for: Heart Healthy Diet, Low Fat Diet Speech Therapy-Diet Recommends: Regular Activities you can perform: Regular-No Restrictions Other Activity Instructions: NO ALCOHOL NO TOBACCO Follow up Referrals: Clinic - 1 Week PCP Follow-up - 1 Week New Medications: Oxycodone (Oxycodone) 5 Mg Tab 5 MG PO Q6HR for Pain Management, #10 TAB 0 Refills Levothyroxine (Synthroid) 50 Mcg Tab 50 MCG PO DAILY@0600 for Thyroid, #30 TAB Magnesium Oxide (Magnesium Oxide) 400 Mg Tab 400 MG PO BID for Nutritional Supplement, #60 TAB Pantoprazole (Pantoprazole) 40 Mg Tab 40 MG PO DAILY for Manage Heartburn, #30 TAB Devin Hoang DO May 16, 2017 14:48
[2017-05-17] MEDS ORDERED: LEVOTHYROXINE SODIUM 50 MCG TAB PO SCH (06:00)
== END 2017-05-16 17:44 | disposition home or self-care (01) | DRG 439 ==
LOC: NEPD 17:58 → NEDA 22:46 → N06B 05-14 00:08
PROVIDERS: ADMIT Internal Medicine; ATTEND Internal Medicine
DX: K85.20 Alcohol induced acute pancreatitis without necrosis or infection (principal); E87.2 Acidosis; K70.10 Alcoholic hepatitis without ascites; E87.1 Hypo-osmolality and hyponatremia; F10.239 Alcohol dependence with withdrawal, unspecified; K70.0 Alcoholic fatty liver; I10 Essential (primary) hypertension; R74.0 Nonspecific elevation of levels of transaminase and lactic acid dehydrogenase [LDH]; R63.0 Anorexia; R00.0 Tachycardia, unspecified; E03.9 Hypothyroidism, unspecified; E87.6 Hypokalemia; F12.90 Cannabis use, unspecified, uncomplicated; F17.210 Nicotine dependence, cigarettes, uncomplicated
CPT/HCPCS: 74177; 80048; 80053; 81001; 82150; 83036; 83605; 83690; 83735; 84100; 84439; 84443; 84703; 85025; 87086; 87804; 96361; 96374; 96375; J0696; J2270; J2405; J3475; J3480; J7030; Q9967

== ENCOUNTER 2017-08-04 07:51 | Inpatient (IN) | payer MEDICAID ==
[~2017-08-04 07:51] MED LIST changes: -FOLI1TAB6 PO; +LEVO.05 PO; +MAGN400T2 PO; +OXYC-392 PO; +PANT40TA3 PO; -THERM PO; -THIA100 PO
[2017-08-04 07:56] VITALS: BP 137/95; PULSE 130; RESP 20; TEMP 98.5; O2SAT 100
[2017-08-04] MEDS ORDERED: SODIUM CHLORIDE 0.9% FLUSH 10 ML FLUSH IV FLUSH PRN ×2 (08:00→09:45)
--- NOTE | 2017-08-04 08:06 | PD ---
HPI Chief Complaint: GI Complaint Time Seen by Provider: 08:04 Travel History International Travel<30 days: No Contact w/Intl Traveler<30days: No Traveled to known affect area: No History of Present Illness HPI 42-year-old female patient with previous history of alcohol use, pancreatitis, presents to the ER today because she states that she is having left upper quadrant abdominal pains for 2 days with nausea and vomiting, states that it started a day after she went out and had too much to drink. She states the pain is currently an 8 or 9 out of 10. She states that hurts laying on that side. She denies any diarrhea although she thinks she may have had some subjective fevers. She denies any other issues. Modifying Factors: None Associated Signs & Symptoms: Left upper quadrant abdominal pain, nausea and vomiting Risk Factors: Pancreatitis, history of alcohol use PFSH Past Medical History Cancer: No Endocrine: No Gastrointestinal Disorders: Yes (pancreatitis) Genitourinary: Yes Herniated Disk: Yes Hypertension: Yes Immune Disorder: No Musculoskeletal: No Neurologic: No Psychiatric: No Reproductive: No Respiratory: No : 1 Para: 1 Past Surgical History Section: Yes Gynecologic Surgery: Yes (cesarian) Other Surgery: Yes Social History Alcohol Use: Yes (daily - last drink 4 days ago [place]) Tobacco Use: Yes (1 pck/day) Substance Use: Yes ([facility]) Allergies-Medications (Allergen,Severity, Reaction): Coded Allergies: No Known Allergies (Unverified Allergy, Unknown, 03/10/17) Reported Meds & Prescriptions Reported Meds & Active Scripts Active Synthroid (Levothyroxine Sodium) 50 Mcg Tab 50 Mcg PO DAILY@0600 Pantoprazole (Pantoprazole Sodium) 40 Mg Tab 40 Mg PO DAILY Magnesium Oxide 400 Mg Tab 400 Mg PO BID Review of Systems Except as stated in HPI: all other systems reviewed are Neg Physical Exam Narrative GENERAL: Well-developed middle-age female patient currently and mild distress. Awake and oriented 3. SKIN: Focused skin assessment warm/dry. HEAD: Atraumatic. Normocephalic. EYES: Pupils equal and round. No scleral icterus. No injection or drainage. ENT: No nasal bleeding or discharge. Mucous membranes pink and moist. NECK: Trachea midline. No JVD. Supple. CARDIOVASCULAR: Regular rate and rhythm. No murmur appreciated. RESPIRATORY: No accessory muscle use. Clear to auscultation. Breath sounds equal bilaterally. GASTROINTESTINAL: Abdomen soft, mild left upper quadrant tenderness without guarding or rebound, nondistended. Hepatic and splenic margins not palpable. MUSCULOSKELETAL: No obvious deformities. No clubbing. No cyanosis. No edema. NEUROLOGICAL: Awake and alert. No obvious cranial nerve deficits. Motor grossly within normal limits. Normal speech. PSYCHIATRIC: Appropriate mood and affect; insight and judgment normal. Data Data Last Documented VS Vital Signs Date Time Temp Pulse Resp B/P (MAP) Pulse Ox O2 Delivery O2 Flow Rate FiO2 08/04/17 08:07 128 17 130/95 (107) 99 Room Air 08/04/17 07:56 98.5 Orders Orders Complete Blood Count With Diff (08/04/17 08:00) Comprehensive Metabolic Panel (08/04/17 08:00) Lipase (08/04/17 08:00) Iv Access Insert/Monitor (08/04/17 08:00) Ecg Monitoring (08/04/17 08:00) Oximetry (08/04/17 08:00) Sodium Chloride 0.9% Flush (Ns Flush) (08/04/17 08:00) Sodium Chlor 0.9% 1000 Ml Inj (Ns 1000 M (08/04/17 08:15) Ondansetron Inj (Zofran Inj) (08/04/17 08:15) Morphine Inj (Morphine Inj) (08/04/17 09:15) Admit Order (Ed Use Only) (08/04/17 09:30) Labs Laboratory Tests Test 08/04/17 08:09 White Blood Count 8.9 TH/MM3 Red Blood Count 5.81 MIL/MM3 Hemoglobin 19.7 GM/DL Hematocrit 58.1 % Mean Corpuscular Volume 100.0 FL Mean Corpuscular Hemoglobin 33.9 PG Mean Corpuscular Hemoglobin Concent 33.9 % Red Cell Distribution Width 22.5 % Platelet Count 140 TH/MM3 Mean Platelet Volume 8.1 FL Neutrophils (%) (Auto) 79.6 % Lymphocytes (%) (Auto) 7.4 % Monocytes (%) (Auto) 12.5 % Eosinophils (%) (Auto) 0.0 % Basophils (%) (Auto) 0.5 % Neutrophils # (Auto) 7.0 TH/MM3 Lymphocytes # (Auto) 0.7 TH/MM3 Monocytes # (Auto) 1.1 TH/MM3 Eosinophils # (Auto) 0.0 TH/MM3 Basophils # (Auto) 0.0 TH/MM3 CBC Comment DIFF FINAL Differential Comment Blood Urea Nitrogen 8 MG/DL Creatinine 0.92 MG/DL Random Glucose 161 MG/DL Total Protein 8.9 GM/DL Albumin 4.8 GM/DL Calcium Level 10.4 MG/DL Alkaline Phosphatase 136 U/L Aspartate Amino Transf (AST/SGOT) 72 U/L Alanine Aminotransferase (ALT/SGPT) 59 U/L Total Bilirubin 3.8 MG/DL Sodium Level 133 MEQ/L Potassium Level 4.1 MEQ/L Chloride Level 99 MEQ/L Carbon Dioxide Level 12.7 MEQ/L Anion Gap 21 MEQ/L Estimat Glomerular Filtration Rate 67 ML/MIN Lipase 543 U/L MDM Medical Decision Making Medical Screen Exam Complete: Yes Emergency Medical Condition: Yes Medical Record Reviewed: Yes Interpretation(s) Laboratory Tests Test 08/04/17 08:09 Red Blood Count 5.81 MIL/MM3 (4.00-5.30) Hemoglobin 19.7 GM/DL (11.6-15.3) Hematocrit 58.1 % (35.0-46.0) Red Cell Distribution Width 22.5 % (11.6-17.2) Platelet Count 140 TH/MM3 (150-450) Neutrophils (%) (Auto) 79.6 % (16.0-70.0) Lymphocytes (%) (Auto) 7.4 % (9.0-44.0) Monocytes (%) (Auto) 12.5 % (0.0-8.0) Lymphocytes # (Auto) 0.7 TH/MM3 (1.0-4.8) Monocytes # (Auto) 1.1 TH/MM3 (0-0.9) Random Glucose 161 MG/DL (74-106) Total Protein 8.9 GM/DL (6.4-8.2) Calcium Level 10.4 MG/DL (8.5-10.1) Alkaline Phosphatase 136 U/L (45-117) Aspartate Amino Transf (AST/SGOT) 72 U/L (15-37) Alanine Aminotransferase (ALT/SGPT) 59 U/L (10-53) Total Bilirubin 3.8 MG/DL (0.2-1.0) Sodium Level 133 MEQ/L (136-145) Carbon Dioxide Level 12.7 MEQ/L (21.0-32.0) Anion Gap 21 MEQ/L (5-15) Estimat Glomerular Filtration Rate 67 ML/MIN (>89) Lipase 543 U/L (73-393) Differential Diagnosis Gastritis versus gastroenteritis versus pancreatitis versus dehydration versus metabolic issues Narrative Course Lab work shows some signs of hemoconcentration with elevated hemoglobin and liver enzymes, and she is tachycardic which makes me suspect underlying dehydration. IV fluids, morphine, Zofran was given in the ER. At this point, lab work returns did not show significant metabolic issues. Lipase is elevated. My plan would be to admit her for further treatment. Case was discussed with Dr. Gregory for admission. Diagnosis Primary Impression: Acute pancreatitis Additional Impressions: Tachycardia Dehydration Admitting Information Admitting Physician Requests: it Shelly Mcgee MD Aug 04, 2017 08:06
[2017-08-04 08:07] VITALS: BP 130/95; PULSE 128; RESP 17; O2SAT 99
[2017-08-04] MEDS ORDERED: SODIUM CHLOR 0.9% 1000 ML INJ 1,000 ML IV ONE (08:15)
[2017-08-04] MEDS ORDERED: ONDANSETRON HCL 4 MG/2 ML VIAL IV PUSH ONE (08:15)
[2017-08-04 08:25] LABS: BASOPHIL % 0.5 % (0.0-2.0); HEMATOCRIT 58.1 % (35.0-46.0); HEMOGLOBIN 19.7 GM/DL (11.6-15.3); LYMPH % 7.4 % (9.0-44.0); LYMPHOCYTE # 0.7 TH/MM3 (1.0-4.8); MEAN CORPUSCULAR HEMOGLOBIN 33.9 PG (27.0-34.0); MEAN CORPUSCULAR HGB CONC 33.9 % (32.0-36.0); MEAN PLATELET VOLUME 8.1 FL (7.0-11.0); MONO % 12.5 % (0.0-8.0); MONOCYTE # 1.1 TH/MM3 (0-0.9); NEUT % 79.6 % (16.0-70.0); PLATELET COUNT 140 TH/MM3 (150-450); RED BLOOD COUNT 5.81 MIL/MM3 (4.00-5.30); RED CELL DISTRIBUTION WIDTH 22.5 % (11.6-17.2); WHITE BLOOD COUNT 8.9 TH/MM3 (4.0-11.0)
[2017-08-04 08:47] LABS: ALT (GPT) 59 U/L (10-53)
[2017-08-04 08:49] LABS: ALKALINE PHOSPHATASE 136 U/L (45-117); TOTAL BILIRUBIN ADULT 3.8 MG/DL (0.2-1.0); TOTAL PROTEIN 8.9 GM/DL (6.4-8.2)
[2017-08-04 08:56] LABS: ALBUMIN 4.8 GM/DL (3.4-5.0); AST (GOT) 72 U/L (15-37); BICARBONATE 12.7 MEQ/L (21.0-32.0); BLOOD UREA NITROGEN 8 MG/DL (7-18); CALCIUM 10.4 MG/DL (8.5-10.1); CHLORIDE 99 MEQ/L (98-107); CREATININE 0.92 MG/DL (0.50-1.00); GLOMERULAR FILTRATION RATE 67 ML/MIN (>89); GLUCOSE,RANDOM 161 MG/DL (74-106); SODIUM (NA) 133 MEQ/L (136-145)
[2017-08-04] MEDS ORDERED: MORPHINE SULFATE 2 MG/ML SYRINGE IV PUSH ONE (09:15)
[2017-08-04] MEDS ORDERED: NALOXONE HCL 0.4 MG/ML AMP IV PUSH PRN (09:45)
--- NOTE | 2017-08-04 10:23 | RADRPT ---
EXAM DATE/TIME: 08/04/2017 09:46 [facility] COMPARISON: No previous studies available for comparison. INDICATIONS : Pancreatitis. MEDICAL HISTORY : Pancreatitis. Hypertension. Thyroid disease. Herniated disc. Substance use. Tobacco use. SURGICAL HISTORY : Herniated disc lumbar surgery. Blood transfusions. ENCOUNTER: Initial ACUITY: 2 days PAIN SCORE: 9/10 LOCATION: Bilateral upper quadrant MEASUREMENTS: LIVER: 17.9 cm length COMMON DUCT: 5 mm RIGHT KIDNEY: 11.3 x 4.4 x 5.0 cm SPLEEN: 9.8 cm length FINDINGS: LIVER: Slightly increased echotexture without focal lesion or ductal dilatation. COMMON DUCT: No intraluminal mass or stone visualized. GALLBLADDER: Contains some questionable debris within the dependent portion of the gallbladder.. PANCREAS: The visualized portions are within normal limits. RIGHT KIDNEY: No hydronephrosis, stone or mass. SPLEEN: No focal lesion. CONCLUSION: Normal examination except for possible small stones in the dependent portion of the gallbladder. Mild ly fatty liver. Davin Up MD on August 04, 2017 at 10:20 Board Certified Radiologist. This report was verified electronically.
[2017-08-04] MEDS: SODIUM CHLOR 0.9% 1000 ML INJ 1,000 ML IV SCH ×2 (10:30→20:45)
[2017-08-04 10:33] VITALS: BP 118/81; PULSE 117; RESP 17; O2SAT 98
[2017-08-04 14:00] VITALS: BP 128/78; PULSE 106; RESP 16; TEMP 98.3; O2SAT 97
--- NOTE | 2017-08-04 14:40 | HHI.HP ---
HPI Service [facility] Primary Care Physician No Primary Care Physician Admission Diagnosis Acute pancreatitis/dehydration/tachycardia Diagnoses: Travel History International Travel<30 Days: No Contact w/Intl Traveler <30 Da: No Traveled to Known Affected Are: No History of Present Illness History from patient, ER physician to medication, and review medical records. abdominal pain, started yesterday and vomiting as well 5x last night and 3x today had food at [employer] and had a few drinks also had some fever stayed in bed all day yesterday vomitus had some specks of black and green color, but not coffee ground altagracia vomiting no diarrhea constipated 2 days now did have some acid reflux like symptoms as well Patient was admitted to our hospital in early May 2017 with acute pancreatitis as well. Since then, patient reported that she has significantly cut down on her alcohol intake. Review of Systems Except as stated in HPI: all other systems reviewed are Neg Past Family Social History Past Medical History childhood asthma pancreatitis in may 2017 gerd hypothyroidism Past Surgical History back sx c section Allergies: Coded Allergies: No Known Allergies (Unverified Allergy, Unknown, 03/10/17) Family History mom- dm, massive [place] dad - htn, etoh abuse, from CHF, smoker Social History smokes about a pack a day etoh used to drink every day now drink only about twice a week- since may admission here no drugs Physical Exam Vital Signs Vital Signs Date Time Temp Pulse Resp B/P (MAP) Pulse Ox O2 Delivery O2 Flow Rate FiO2 08/04/17 13:45 08/04/17 10:33 117 17 118/81 (93) 98 Room Air 08/04/17 10:30 17 08/04/17 08:07 128 17 130/95 (107) 99 Room Air 08/04/17 07:56 98.5 130 20 137/95 (109) 100 Physical Exam GENERAL: This is a well-nourished, well-developed patient, in no apparent distress. SKIN: No rashes, ecchymoses or lesions. Cool and dry. HEAD: Atraumatic. Normocephalic. No temporal or scalp tenderness. EYES: No scleral icterus. No injection or drainage. ENT: Nose without bleeding, purulent drainage or septal hematoma. Airway patent. NECK: Trachea midline. No JVD Supple, nontender, no meningeal signs. CARDIOVASCULAR: Regular rate and rhythm without murmurs, gallops, or rubs. RESPIRATORY: Clear to auscultation. Breath sounds equal bilaterally. No wheezes , rales, or rhonchi. GASTROINTESTINAL: Abdomen soft, nondistended. No guarding. Tenderness at right upper quadrant and epigastric area MUSCULOSKELETAL: Extremities without clubbing, cyanosis, or edema. . No calf tenderness NEUROLOGICAL: Awake and alert. Motor and sensory grossly within normal limits. Normal speech. Laboratory Laboratory Tests Test 08/04/17 08:09 White Blood Count 8.9 Red Blood Count 5.81 Hemoglobin 19.7 Hematocrit 58.1 Mean Corpuscular Volume 100.0 Mean Corpuscular Hemoglobin 33.9 Mean Corpuscular Hemoglobin Concent 33.9 Red Cell Distribution Width 22.5 Platelet Count 140 Mean Platelet Volume 8.1 Neutrophils (%) (Auto) 79.6 Lymphocytes (%) (Auto) 7.4 Monocytes (%) (Auto) 12.5 Eosinophils (%) (Auto) 0.0 Basophils (%) (Auto) 0.5 Neutrophils # (Auto) 7.0 Lymphocytes # (Auto) 0.7 Monocytes # (Auto) 1.1 Eosinophils # (Auto) 0.0 Basophils # (Auto) 0.0 CBC Comment DIFF FINAL Differential Comment Blood Urea Nitrogen 8 Creatinine 0.92 Random Glucose 161 Total Protein 8.9 Albumin 4.8 Calcium Level 10.4 Alkaline Phosphatase 136 Aspartate Amino Transf (AST/SGOT) 72 Alanine Aminotransferase (ALT/SGPT) 59 Total Bilirubin 3.8 Sodium Level 133 Potassium Level 4.1 Chloride Level 99 Carbon Dioxide Level 12.7 Anion Gap 21 Estimat Glomerular Filtration Rate 67 Lipase 543 Result Diagram: 08/04/17 0809 08/04/17 0809 Imaging Last 48 hours Impressions Liver Ultrasound 08/04/17 0000 Signed Impressions: Service Date/Time: Friday, August 04, 2017 09:46 - CONCLUSION: Normal examination except for possible small stones in the dependent portion of the gallbladder. Mildly fatty liver. MD Ana Vines VTE Risk Assessment Caprini VTE Risk Assessment: Mod/High Risk (score >= 2) Caprini Risk Assessment Model Point Value = 1 Point Value = 2 Point Value = 3 Point Value = 5 Age 41-60 Minor surgery BMI > 25 kg/m2 Swollen legs Varicose veins or History of unexplained or recurrent spontaneous Oral contraceptives or hormone replacement Sepsis (< 1 month) Serious lung disease, including pneumonia (< 1 month) Abnormal pulmonary function Acute myocardial infarction Congestive heart failure (< 1 month) History of inflammatory bowel disease Medical patient at bed rest Age 61-74 Arthroscopic surgery Major open surgery (> 45 min) Laparoscopic surgery (> 45 min) Malignancy Confined to bed (> 72 hours) Immobilizing plaster cast Central venous access Age >= 75 History of VTE Family history of VTE Factor V Leiden Prothrombin [id number] Lupus anticoagulant Anticardiolipin antibodies Elevated serum homocysteine Heparin-induced thrombocytopenia Other congenital or acquired thrombophilia Stroke (< 1 month) Elective arthroplasty Hip, pelvis, or leg fracture Acute spinal cord injury (< 1 month) Prophylaxis Regimen Total Risk Factor Score Risk Level Prophylaxis Regimen 0-1 Low Early ambulation 2 Moderate Order ONE of the following: *Sequential Compression Device (SCD) *Heparin 5000 units SQ BID 3-4 Higher Order ONE of the following medications: *Heparin 5000 units SQ TID *Enoxaparin/Lovenox 40 mg SQ daily (WT < 150 kg, CrCl > 30 mL/min) *Enoxaparin/Lovenox 30 mg SQ daily (WT < 150 kg, CrCl > 10-29 mL/min) *Enoxaparin/Lovenox 30 mg SQ BID (WT < 150 kg, CrCl > 30 mL/min) AND/OR *Sequential Compression Device (SCD) 5 or more Highest Order ONE of the following medications: *Heparin 5000 units SQ TID (Preferred with Epidurals) *Enoxaparin/Lovenox 40 mg SQ daily (WT < 150 kg, CrCl > 30 mL/min) *Enoxaparin/Lovenox 30 mg SQ daily (WT < 150 kg, CrCl > 10-29 mL/min) *Enoxaparin/Lovenox 30 mg SQ BID (WT < 150 kg, CrCl > 30 mL/min) AND *Sequential Compression Device (SCD) Assessment and Plan Assessment and Plan Impression: Acute pancreatitis Elevated LFTs Rule out CBD stone Chronic alcohol abuse. Has cut down significantly since May 2017. Prior history of pancreatitis in May 2017 GERD Hypothyroidism Plan: Clear liquid diet. Ultrasound of the abdomen. We will follow Lisseth's criteria. Patient is counseled in detail regarding alcohol cessation. She is extremely pleasant and seems compliant patient. She has now cut down her alcohol intake from daily use used to twice a week or so. Resume home meds. Patient was diagnosed with hypothyroidism in her last admission and was started on Synthroid on May 16, 2017. We will repeat thyroid function tests now. Patient is advised in detail regarding finding a PCP who can follow her TFTs and adjust her thyroid medications. Also informed of significance of untreated or overtreated thyroid problems. DVT prophylaxis with ambulation. GI prophylaxis with pantoprazole. Discussed Condition With patient, ER MD, nursing staff Ama Gregory MD Aug 04, 2017 14:40
[2017-08-04] MEDS ORDERED: THIAMINE HCL 100 MG TAB PO ONE (14:45)
[2017-08-04 16:00] VITALS: BP 130/82; PULSE 98; RESP 18; TEMP 97.9; O2SAT 98
[2017-08-04] MEDS: ONDANSETRON HCL 4 MG/2 ML VIAL IV PUSH PRN (16:02)
[2017-08-04] MEDS: MORPHINE SULFATE 2 MG/ML SYRINGE IV PUSH PRN ×2 (16:02→20:45)
[2017-08-04 16:04] LABS: FREE T4 0.99 NG/DL (0.76-1.46)
[2017-08-04 20:13] VITALS: BP 128/80; PULSE 104; RESP 18; TEMP 98.4; O2SAT 97
[2017-08-04] MEDS: SODIUM CHLORIDE 0.9% FLUSH 10 ML FLUSH IV FLUSH SCH (20:45)
[2017-08-04] MEDS: MAGNESIUM OXIDE 400 MG TAB PO SCH (20:45)
[2017-08-05 04:00] VITALS: BP 135/85; PULSE 101; RESP 21; TEMP 98.2; O2SAT 98
[2017-08-05 04:47] LABS: BASOPHIL % 0.3 % (0.0-2.0); EOSINOPHIL % 0.1 % (0.0-4.0); HEMATOCRIT 47.1 % (35.0-46.0); HEMOGLOBIN 16.2 GM/DL (11.6-15.3); LYMPH % 14.9 % (9.0-44.0); LYMPHOCYTE # 1.2 TH/MM3 (1.0-4.8); MEAN CELL VOLUME 100.2 FL (80.0-100.0); MEAN CORPUSCULAR HEMOGLOBIN 34.5 PG (27.0-34.0); MEAN CORPUSCULAR HGB CONC 34.4 % (32.0-36.0); MEAN PLATELET VOLUME 8.4 FL (7.0-11.0); MONO % 12.3 % (0.0-8.0); NEUT % 72.4 % (16.0-70.0); PLATELET COUNT 77 TH/MM3 (150-450); RED CELL DISTRIBUTION WIDTH 22.2 % (11.6-17.2); WHITE BLOOD COUNT 8.2 TH/MM3 (4.0-11.0)
[2017-08-05 05:11] LABS: ALBUMIN 3.4 GM/DL (3.4-5.0); ALKALINE PHOSPHATASE 87 U/L (45-117); ALT (GPT) 38 U/L (10-53); AST (GOT) 42 U/L (15-37); BICARBONATE 19.7 MEQ/L (21.0-32.0); BLOOD UREA NITROGEN 9 MG/DL (7-18); CALCIUM 8.9 MG/DL (8.5-10.1); CHLORIDE 100 MEQ/L (98-107); CREATININE 0.74 MG/DL (0.50-1.00); GLOMERULAR FILTRATION RATE 86 ML/MIN (>89); GLUCOSE,RANDOM 82 MG/DL (74-106); SODIUM (NA) 135 MEQ/L (136-145); TOTAL BILIRUBIN ADULT 1.9 MG/DL (0.2-1.0); TOTAL PROTEIN 6.3 GM/DL (6.4-8.2)
[2017-08-05] MEDS: MORPHINE SULFATE 2 MG/ML SYRINGE IV PUSH PRN ×4 (05:29→20:32)
[2017-08-05] MEDS: LEVOTHYROXINE SODIUM 50 MCG TAB PO SCH (05:30)
[2017-08-05] MEDS: ONDANSETRON HCL 4 MG/2 ML VIAL IV PUSH PRN ×2 (05:30→20:31)
[2017-08-05] MEDS: SODIUM CHLOR 0.9% 1000 ML INJ 1,000 ML IV SCH ×2 (05:33→16:00)
[2017-08-05 07:39] VITALS: BP 138/81; PULSE 86; RESP 16; TEMP 98.3; O2SAT 97
[2017-08-05 07:48] VITALS: PULSE 95
[2017-08-05] MEDS: PANTOPRAZOLE SOD 40 MG DELAYED RELEASE TAB PO SCH (08:24)
[2017-08-05] MEDS: SODIUM CHLORIDE 0.9% FLUSH 10 ML FLUSH IV FLUSH SCH ×2 (08:24→20:32)
[2017-08-05] MEDS: THIAMINE HCL 100 MG TAB PO SCH (08:25)
[2017-08-05] MEDS: MAGNESIUM OXIDE 400 MG TAB PO SCH ×2 (08:25→20:31)
[2017-08-05 11:14] VITALS: BP 140/86; PULSE 72; RESP 16; TEMP 97.6; O2SAT 99
[2017-08-05 12:30] LABS: INTERNATIONAL NORMALIZED RATIO 1.2 RATIO; PROTHROMBIN TIME - PATIENT 11.8 SEC (9.8-11.6)
--- NOTE | 2017-08-05 12:34 | PD.CONS ---
HPI History of Present Illness This is a 42 year old slim female was in her usual state of health until her admission date of 08/04/2017 wi Patient states that she had eaten at the [employer] on 08/03/2017 and did consume some alcohol. When she was awakened the next morning, she had acute onset of nausea and vomiting multiple times uncontrolled. Patient also noted some low-grade fever but denied any diarrhea. Patient also noted vomitus had specks of black and green colored but no obvious coffee-ground emesis. Aggregating factors possibly secondary to her high fatty meal and alcohol intake. Patient currently denies any dysphasia but did note some dyspepsia during her nausea and vomiting episode. Patient does note she takes an occasional Tums or an acid but has had nothing recently. Patient also notes constipation now on day 3, and states that she usually does not have any problems with her bowel movements. Denies any obvious bleeding. Patient does note some left upper quadrant and upper abdominal pain that started approximately 24 hours ago after the nausea and vomiting and continues now, scale 7 out of 10 before pain meds. Currently patient is awake and answers simple questions appropriately. On admission hemoglobin was 19.7 and this a.m. 16.2 after IV hydration. According to old records back in February 2017 patient did have some anemia in the 9-10 range and had EGD during that admission showing some gastritis but no obvious bleeding. Current labs show alkaline phosphatase 136 on admission now 87, elevated LFTs with AST 72 ALT 59 , total bilirubin 3.1 on admission, lipase 543. (Patito Shaikh) PFSH Past Medical History childhood asthma pancreatitis, 2 gerd hypothyroidism Anemia Tobacco dependence Alcohol dependence Past Surgical History back sx c section EGD (Patito Shaikh) Coded Allergies: No Known Allergies (Unverified Allergy, Unknown, 03/10/17) Medications Administered Medications Medications (Trade) Dose Ordered Sig/Ata Route PRN Reason Start Time Stop Time Status Last Admin Dose Admin Sodium Chloride 1,000 ml @ 100 mls/hr Q10H IV 08/04/17 09:31 08/05/17 05:33 Levothyroxine Sodium (Synthroid) 50 mcg DAILY@0600 PO 08/05/17 06:00 08/05/17 05:30 Magnesium Oxide (Mag-Ox) 400 mg BID PO 4/25/18 21:00 08/05/17 08:25 Pantoprazole Sodium (Protonix) 40 mg DAILY PO 08/05/17 09:00 08/05/17 08:24 Morphine Sulfate (Morphine Inj) 2 mg Q4H PRN IV PUSH pain >5 08/04/17 14:45 08/05/17 08:24 Thiamine HCl (Vitamin B1) 100 mg DAILY PO 08/05/17 09:00 08/05/17 08:25 Ondansetron HCl (Zofran Inj) 4 mg Q6HR PRN IV PUSH nausea 08/04/17 14:45 08/05/17 05:30 Family History mom- dm, massive [place] dad - htn, etoh abuse, from CHF, smoker No family history of colon cancer Social History smokes about a pack a day since the age of 16, has cut back mild amount etoh used to drink every day, chronic high volume of alcohol in the past and continues to drink nail once or twice a week now drink only about twice a week- since may admission here no drugs (Patito Shaikh) Review of Systems Gastrointestinal: COMPLAINS OF: Abdominal pain, Constipation, Nausea, Vomiting (Patito Shaikh) GI Exam Vitals I&O Vital Signs Date Time Temp Pulse Resp B/P (MAP) Pulse Ox O2 Delivery O2 Flow Rate FiO2 08/05/17 11:14 97.6 72 16 140/86 (104) 99 08/05/17 07:48 95 08/05/17 07:39 98.3 86 16 138/81 (100) 97 08/05/17 04:00 98.2 101 21 135/85 (102) 98 08/04/17 20:13 98.4 104 18 128/80 (96) 97 08/04/17 16:00 97.9 98 18 130/82 (98) 98 08/04/17 14:00 98.3 106 16 128/78 (95) 97 08/04/17 13:45 I/O 08/04/17 08/04/17 08/04/17 08/05/17 08/05/17 08/05/17 07:00 15:00 23:00 07:00 15:00 23:00 Intake Total 1000 ml 480 ml 1000 ml Balance 1000 ml 480 ml 1000 ml Intake Oral 480 ml IV Total 1000 ml 1000 ml # Voids 2 # Bowel Movements 0 Imaging Last Impressions Liver Ultrasound 08/04/17 0000 Signed Impressions: Service Date/Time: Friday, August 04, 2017 09:46 - CONCLUSION: Normal examination except for possible small stones in the dependent portion of the gallbladder. Mildly fatty liver. Davin Up MD Laboratory Test 08/04/17 15:51 08/05/17 04:05 08/05/17 11:42 Total Triiodothyronine 39 NG/DL White Blood Count 8.2 TH/MM3 Red Blood Count 4.70 MIL/MM3 Hemoglobin 16.2 GM/DL Hematocrit 47.1 % Mean Corpuscular Volume 100.2 FL Mean Corpuscular Hemoglobin 34.5 PG Mean Corpuscular Hemoglobin Concent 34.4 % Red Cell Distribution Width 22.2 % Platelet Count 77 TH/MM3 Mean Platelet Volume 8.4 FL Neutrophils (%) (Auto) 72.4 % Lymphocytes (%) (Auto) 14.9 % Monocytes (%) (Auto) 12.3 % Eosinophils (%) (Auto) 0.1 % Basophils (%) (Auto) 0.3 % Neutrophils # (Auto) 6.0 TH/MM3 Lymphocytes # (Auto) 1.2 TH/MM3 Monocytes # (Auto) 1.0 TH/MM3 Eosinophils # (Auto) 0.0 TH/MM3 Basophils # (Auto) 0.0 TH/MM3 CBC Comment AUTO DIFF Differential Comment AUTO DIFF CONFIRMED Blood Urea Nitrogen 9 MG/DL Creatinine 0.74 MG/DL Random Glucose 82 MG/DL Total Protein 6.3 GM/DL Albumin 3.4 GM/DL Calcium Level 8.9 MG/DL Alkaline Phosphatase 87 U/L Aspartate Amino Transf (AST/SGOT) 42 U/L Alanine Aminotransferase (ALT/SGPT) 38 U/L Total Bilirubin 1.9 MG/DL Sodium Level 135 MEQ/L Potassium Level 3.4 MEQ/L Chloride Level 100 MEQ/L Carbon Dioxide Level 19.7 MEQ/L Anion Gap 15 MEQ/L Estimat Glomerular Filtration Rate 86 ML/MIN Physical Examination HEENT: Pupils round and reactive to light; normocephalic; atraumatic; oral cavity clear speech is clear NECK: Neck is supple, no JVD, no lymphadenopathy. CHEST: Chest , essentially clear with no obvious rhonchi CARDIAC: Regular rate and rhythm ABDOMEN: Soft, round, no obvious bloating, mid/upper and left upper quadrant abdominal pain and some guarding to light palpation,bowel sounds are present in all four quadrants. EXTREMITIES: No clubbing, cyanosis, or edema. SKIN: Normal; no rash; no jaundice. INTAKE SPECIALIST: No focal deficits; alert and oriented times three. (Patito Shaikh) Assessment and Plan Assessment: (1) Acute pancreatitis ICD Codes: K85.90 - Acute pancreatitis without necrosis or infection, unspecified Status: Acute (2) Elevated LFTs ICD Codes: R79.89 - Other specified abnormal findings of blood chemistry Status: Acute Plan 42-year-old female presented with acute onset of nausea and vomiting approximately 24 hours ago after eating the night before at the [employer]. Did consume alcohol during her meal. According to the old records and patient she has drank chronically a good bit of her life, smoker three quarters to a pack a day, and has had pancreatitis for her third episode since February 2017. Patient did have EGD for possible GI bleed and anemia back in February 2017 but no obvious bleed found and patient did have gastritis noted. Initial hemoglobin on admission 19.7, this a.m. 16.2 after hydration. Elevated LFTs on admission 72/59, now AST 42 ALT 38. Patient does complain of upper and mid abdominal pain and abdominal pain in the left upper quadrant with some guarding, pain scale 7 out of 10 before medication. Constipation no BM in 3 days which is not her usual normal trend. Discussed increased fiber and hydration to her diet and add fiber supplements if needed. Liver ultrasound 08/04/2017 showed normal exam except for possible small stones in the dependent portion of gallbladder mild fatty liver. Discussed dietary regimen with low-fat diet, heart healthy. Plan Sips of water and clear liquids for now MRCP IV hydration Encouraged mobility in the bed and dangle to maintain strengthening Monitor labs, Discussed alcohol abstinence Further recommendations will be based on findings of test results and symptom management Patient was seen per myself and Dr. Sr, note was written on his behalf (Patito Shaikh) Physician Comments Patient seen and examined Agree with above Continue with current supportive care Monitor labs Patient presenting with abdominal pain nausea and vomiting is found to have acute pancreatitis based on lab work and MRCP she is also noted to have cholelithiasis with elevated liver function tests The MRCP does not show any choledocholithiasis at this point but most likely the patient passed a stone and she has what we would refer to as gallstone pancreatitis I would recommend surgical evaluation for cholecystectomy at some point in time (Titi Sr MD) Patito Shaikh Aug 05, 2017 12:34 Titi Sr MD Aug 05, 2017 19:29
[2017-08-05 16:00] VITALS: BP 143/85; PULSE 88; RESP 16; TEMP 98.2; O2SAT 100
--- NOTE | 2017-08-05 18:36 | RADRPT ---
EXAM DATE/TIME: 08/05/2017 17:56 [place] COMPARISON: US ABDOMEN - LIVER, August 04, 2017, 9:46. CT ABDOMEN & PELVIS W CONTRAST, May 13, 2017, 22:02. INDICATIONS : Pancreatitis. MEDICAL HISTORY : Hypothyroidism. Hypertension. SURGICAL HISTORY : section. Herniated disc. ENCOUNTER: Initial ACUITY: 1 day PAIN SCORE: 0/10 LOCATION: Right upper quadrant TECHNIQUE: Multiplanar, multisequence magnetic resonance imaging of the abdomen was performed. High-resolution 3D dataset was utilized to reconstruct maximum-intensity projection (MIP) images. FINDINGS: INTRAHEPATIC BILE DUCTS: Within normal limits. No significant anatomical variant is present. EXTRAHEPATIC BILE DUCTS: The common bile duct measures 3 mm No stone or filling defect is identified. GALLBLADDER: Multiple tiny, gravel-like stones are seen dependently in the gallbladder lumen. No duct stone is dem onstrated. No ductal dilatation. LIVER: Fatty. 19.2 cm craniocaudal. No concerning liver lesion is identified on this non-contrast exam. PANCREAS: There is edema and small fluid surrounding the pancreas, especially in the head region. Pancreatic du ct caliber is normal. No loculated or drainable fluid demonstrated. OTHER: The remaining visualized structures demonstrate no acute abnormality on this non-contrast exam. CONCLUSION: 1. Acute pancreatitis. 2. Cholelithiasis; multiple small gravel-like stones in the gallbladder but no duct stone or ductal d ilatation. Also no evidence of gallbladder wall thickening. 3. Fatty and mildly enlarged liver. Roger Anderson MD on August 05, 2017 at 18:29 Board Certified Radiologist. This report was verified electronically.
[2017-08-05 20:29] VITALS: BP 138/95; PULSE 77; RESP 21; TEMP 98.4; O2SAT 99
--- NOTE | 2017-08-05 22:47 | HHI.PR ---
Subjective Remarks Patient says the nausea is improving, would like to try full liquid diet. Denies any chest pain or shortness of breath. Objective Vital Signs Date Time Temp Pulse Resp B/P (MAP) Pulse Ox O2 Delivery O2 Flow Rate FiO2 08/05/17 20:29 98.4 77 21 138/95 (109) 99 08/05/17 16:00 98.2 88 16 143/85 (104) 100 08/05/17 11:14 97.6 72 16 140/86 (104) 99 08/05/17 07:48 95 08/05/17 07:39 98.3 86 16 138/81 (100) 97 08/05/17 04:00 98.2 101 21 135/85 (102) 98 I/O 08/04/17 08/04/17 08/04/17 08/05/17 08/05/17 08/05/17 07:00 15:00 23:00 07:00 15:00 23:00 Intake Total 1000 ml 480 ml 1000 ml 1240 ml Balance 1000 ml 480 ml 1000 ml 1240 ml Intake Oral 480 ml 240 ml IV Total 1000 ml 1000 ml 1000 ml # Voids 2 4 # Bowel Movements 0 1 Result Diagram: 08/05/17 0405 08/05/17 040 Objective Remarks GENERAL: patient sitting up in bed. Appears comfortable. SKIN: Warm and dry. HEAD: Normocephalic. EYES: No scleral icterus. No injection or drainage. NECK: Supple, trachea midline. No JVD or lymphadenopathy. CARDIOVASCULAR: Regular rate and rhythm without murmurs, gallops, or rubs. RESPIRATORY: Breath sounds equal bilaterally. No accessory muscle use. GASTROINTESTINAL: Abdomen soft, nondistended. tender to moderate palpation in the epigastrium. No rebound or guarding. MUSCULOSKELETAL: No cyanosis, or edema. BACK: Nontender without obvious deformity. No CVA tenderness. A/P Assessment and Plan //Acute recurrent pancreatitis. //Hyperbilirubinemia //Transaminitis Bilirubin elevated on admission, improving today to 1.9, however could be dilutional. -Due to pancreatitis with elevated bilirubin, have consulted GI. = MRCP ordered by GI shows acute pancreatitis, cholelithiasis = Continue IV fluids. Advance diet as per GI recommendations. Appreciate GI assistance. = Patient would likely benefit from cholecystectomy as outpatient once pancreatitis has calmed down. //Chronic alcohol use. Cessation counseling provided //Hypothyroidism. Continue home medications. //GERD. Continue PPI Discharge Planning pending GI clearance. Basil Trujillo MD Aug 05, 2017 22:47
[2017-08-06] VITALS: BP 128/83; PULSE 91; RESP 16; TEMP 99; O2SAT 99
[2017-08-06] MEDS: NS + KCL 20 MEQ INJ 1,000 ML IV SCH ×3 (00:07→10:54)
[2017-08-06] MEDS: ONDANSETRON HCL 4 MG/2 ML VIAL IV PUSH PRN ×3 (03:42→14:23)
[2017-08-06] MEDS: MORPHINE SULFATE 2 MG/ML SYRINGE IV PUSH PRN ×3 (03:42→14:23)
[2017-08-06 04:08] LABS: HEMOGLOBIN 16.1 GM/DL (11.6-15.3); MEAN CELL VOLUME 99.1 FL (80.0-100.0); MEAN CORPUSCULAR HEMOGLOBIN 33.9 PG (27.0-34.0); MEAN CORPUSCULAR HGB CONC 34.2 % (32.0-36.0); MEAN PLATELET VOLUME 7.7 FL (7.0-11.0); PLATELET COUNT 67 TH/MM3 (150-450); RED BLOOD COUNT 4.74 MIL/MM3 (4.00-5.30); RED CELL DISTRIBUTION WIDTH 21.4 % (11.6-17.2); WHITE BLOOD COUNT 6.6 TH/MM3 (4.0-11.0)
[2017-08-06 04:38] LABS: ALBUMIN 3.4 GM/DL (3.4-5.0); AST (GOT) 83 U/L (15-37); BLOOD UREA NITROGEN 3 MG/DL (7-18); CALCIUM 8.8 MG/DL (8.5-10.1); CHLORIDE 99 MEQ/L (98-107); CREATININE 0.59 MG/DL (0.50-1.00); GLOMERULAR FILTRATION RATE 112 ML/MIN (>89); GLUCOSE,RANDOM 73 MG/DL (74-106); MAGNESIUM 1.8 MG/DL (1.5-2.5); SODIUM (NA) 136 MEQ/L (136-145)
[2017-08-06 04:39] LABS: ALT (GPT) 46 U/L (10-53)
[2017-08-06 04:41] LABS: ALKALINE PHOSPHATASE 81 U/L (45-117); TOTAL BILIRUBIN ADULT 2.1 MG/DL (0.2-1.0); TOTAL PROTEIN 6.2 GM/DL (6.4-8.2)
[2017-08-06] MEDS: LEVOTHYROXINE SODIUM 50 MCG TAB PO SCH (05:34)
[2017-08-06 06:00] VITALS: BP 134/93; PULSE 71; RESP 16; TEMP 98; O2SAT 98
[2017-08-06 07:15] VITALS: BP 156/97; PULSE 17; RESP 16; TEMP 98.3; O2SAT 98
[2017-08-06] MEDS: PANTOPRAZOLE SOD 40 MG DELAYED RELEASE TAB PO SCH (08:35)
[2017-08-06] MEDS: MAGNESIUM OXIDE 400 MG TAB PO SCH (08:35)
[2017-08-06] MEDS: THIAMINE HCL 100 MG TAB PO SCH (08:35)
[2017-08-06] MEDS: SODIUM CHLORIDE 0.9% FLUSH 10 ML FLUSH IV FLUSH SCH (09:00)
[2017-08-06] MEDS ORDERED: NS + KCL 20 MEQ INJ 1,000 ML IV SCH (09:31)
[2017-08-06] MEDS: POTASSIUM CHLOR 10 MEQ PREMIX 100 ML IV SCH ×3 (10:30→16:56)
--- NOTE | 2017-08-06 11:59 | PD.CONS ---
cc: Garrett Meadows MD [facility] Service General Surgery Consult Requested By Dr. Sr Reason for Consult Evaluation for laparoscopic cholecystectomy Primary Care Physician No Primary Care Physician History of Present Illness This is a 42 year old female with a past medical history of several episodes of alcohol induced pancreatitis, GERD and hypothyroidism. The patient came to the ED with complains of abdominal pain with associated nausea and vomiting on August 04. An MRCP was obtained which shows acute pancreatitis. She was recently admitted in May and diagnosed with acute pancreatis. A CT abdomen /pelvis was obtained at that time which showed a distended gallbladder with sludge. Her WBC has remained stable. Her platelet count has decreased since admission to 67,000. Her liver enzymes remain elevated. The patient does report a past history of heavy alcohol consumption but has cut back to 1-2 drinks a week. A General Surgery consultation has been requested for evaluation of laparoscopic cholecystectomy. Review of Systems Constitutional: COMPLAINS OF: Fatigue, DENIES: Weight loss, Change in appetite , Night Sweats Endocrine: DENIES: Polydipsia, Polyuria, Polyphagia Eyes: DENIES: Diplopia, Eye inflammation Ears, nose, mouth, throat: DENIES: Hearing loss Respiratory: DENIES: Apneas Cardiovascular: DENIES: Chest pain Gastrointestinal: COMPLAINS OF: Abdominal pain (LUQ), Nausea, Vomiting Genitourinary: DENIES: Urinary frequency Musculoskeletal: DENIES: Joint pain Integumentary: DENIES: Abnormal pigmentation Hematologic/lymphatic: DENIES: Bruising Immunologic/allergic: DENIES: Eczema Neurologic: DENIES: Headache, Localized weakness Psychiatric: DENIES: Confusion, Mood changes, Depression Past Family Social History Past Medical History Several episodes of pancreatitis GERD Hypothyroidism Past Surgical History Back surgery x1 Reported Medications Protonix Synthroid Allergies: Coded Allergies: No Known Allergies (Unverified Allergy, Unknown, 03/10/17) Active Ordered Medications Current Medications Medications (Trade) Dose Ordered Sig/Ata Route Start Time Stop Time Status Last Admin (NS Flush) 2 ml UNSCH PRN IV FLUSH 08/04/17 09:45 (NS Flush) 2 ml BID IV FLUSH 08/04/17 21:00 (Narcan Inj) 0.4 mg UNSCH PRN IV PUSH 08/04/17 09:45 (Synthroid) 50 mcg DAILY@0600 PO 08/05/17 06:00 08/06/17 05:34 (Mag-Ox) 400 mg BID PO 08/04/17 21:00 08/06/17 08:35 (Protonix) 40 mg DAILY PO 08/05/17 09:00 08/06/17 08:35 (Morphine Inj) 2 mg Q4H PRN IV PUSH 08/04/17 14:45 08/06/17 08:41 (Vitamin B1) 100 mg DAILY PO 08/05/17 09:00 08/06/17 08:35 (Zofran Inj) 4 mg Q6HR PRN IV PUSH 08/04/17 14:45 08/06/17 08:42 Potassium Chloride/Sodium Chloride 1,000 ml @ 100 mls/hr Q10H IV 08/05/17 23:30 08/06/17 09:30 Potassium Chloride 100 ml @ 100 mls/hr Q1H IV 08/06/17 10:30 08/06/17 13:29 Family History Mother had her gallbladder removed Social History + tobacco use--- about 1 ppd + ETOH use--- reports she has drastically cut down over the past few months but still consumes ETOH 1-2 times weekly Denies illicit drug use Lives her locally with her family. She is unemployed. She is originally from [place]. Physical Exam Vital Signs Vital Signs Date Time Temp Pulse Resp B/P (MAP) Pulse Ox O2 Delivery O2 Flow Rate FiO2 08/06/17 07:15 98.3 17 16 156/97 (116) 98 08/06/17 06:00 98.0 71 16 134/93 (107) 98 08/06/17 00:00 99.0 91 16 128/83 (98) 99 08/05/17 20:29 98.4 77 21 138/95 (109) 99 08/05/17 16:00 98.2 88 16 143/85 (104) 100 Physical Exam GENERAL: Thin 42 year old female resting in bed in no acute distress; She looks much older than her stated age. SKIN: Warm and dry. HEAD: Atraumatic. Normocephalic. EYES: Pupils equal and round. No scleral icterus. No injection or drainage. ENT: No nasal bleeding or discharge. Mucous membranes pink and moist. NECK: Trachea midline. CARDIOVASCULAR: Regular rate and rhythm. RESPIRATORY: No accessory muscle use. Clear to auscultation. Breath sounds equal bilaterally. GASTROINTESTINAL: Abdomen soft, non-distended; LUQ tenderness with palpation; no RUQ tenderness. MUSCULOSKELETAL: Extremities without clubbing, cyanosis, or edema. No obvious deformities. NEUROLOGICAL: Awake and alert. No obvious cranial nerve deficits. Motor grossly within normal limits. Five out of 5 muscle strength in the arms and legs. Normal speech. PSYCHIATRIC: Appropriate mood and affect; insight and judgment normal. Laboratory Laboratory Tests Test 08/05/17 11:42 08/06/17 03:40 Prothrombin Time 11.8 Prothromb Time International Ratio 1.2 White Blood Count 6.6 Red Blood Count 4.74 Hemoglobin 16.1 Hematocrit 47.0 Mean Corpuscular Volume 99.1 Mean Corpuscular Hemoglobin 33.9 Mean Corpuscular Hemoglobin Concent 34.2 Red Cell Distribution Width 21.4 Platelet Count 67 Mean Platelet Volume 7.7 Blood Urea Nitrogen 3 Creatinine 0.59 Random Glucose 73 Total Protein 6.2 Albumin 3.4 Calcium Level 8.8 Magnesium Level 1.8 Alkaline Phosphatase 81 Aspartate Amino Transf (AST/SGOT) 83 Alanine Aminotransferase (ALT/SGPT) 46 Total Bilirubin 2.1 Sodium Level 136 Potassium Level 3.2 Chloride Level 99 Carbon Dioxide Level 23.0 Anion Gap 14 Estimat Glomerular Filtration Rate 112 Lipase 841 Result Diagram: 08/06/17 0340 08/06/17 0340 Imaging Last 48 hours Impressions Cholangiopancreatography MRI 08/05/17 0000 Signed Impressions: Service Date/Time: July 17:56 - CONCLUSION: 1. Acute pancreatitis. 2. Cholelithiasis; multiple small gravel-like stones in the gallbladder but no duct stone or ductal dilatation. Also no evidence of gallbladder wall thickening. 3. Fatty and mildly enlarged liver. Roger Anderson MD Assessment and Plan Assessment and Plan 42 year old female with acute pancreatitis--- ETOH related; elevated liver enzymes; gallbladder sludge and small stones on CT/MRCP -Advance diet as tolerated -Explained that patient needs to be completely abstinence of ETOH -Would recommend complete resolution of acute pancreatitis before any surgical procedure -Patient has no RUQ pain or symptoms of cholelithiasis -Patient can follow up in the office in a few weeks -Office information given to the patient -General Surgery clear for DC Discussed Condition With Alicia Gonzalez Ms./First Jann MURCIA Aug 06, 2017 11:59
[2017-08-06 12:00] VITALS: BP 143/85; PULSE 81; RESP 20; TEMP 98.2; O2SAT 99
--- NOTE | 2017-08-06 15:07 | HHI.GIFU ---
Subjective Remarks Patient is getting out of bed with assistance and wants to ambulate some and move around No obvious abdominal pain but does have some mid abdomen tenderness to light palpation Hoping to go home soon Mild nausea this a.m. but no vomiting (Patito Shaikh) Objective Vitals I&O Vital Signs Date Time Temp Pulse Resp B/P (MAP) Pulse Ox O2 Delivery O2 Flow Rate FiO2 08/06/17 12:00 98.2 81 20 143/85 (104) 99 08/06/17 07:15 98.3 17 16 156/97 (116) 98 08/06/17 06:00 98.0 71 16 134/93 (107) 98 08/06/17 00:00 99.0 91 16 128/83 (98) 99 08/05/17 20:29 98.4 77 21 138/95 (109) 99 08/05/17 16:00 98.2 88 16 143/85 (104) 100 I/O 08/05/17 08/05/17 08/05/17 08/06/17 08/06/17 08/06/17 07:00 15:00 23:00 07:00 15:00 23:00 Intake Total 1000 ml 1240 ml 664 ml Balance 1000 ml 1240 ml 664 ml Intake Oral 240 ml 240 ml IV Total 1000 ml 1000 ml 424 ml # Voids 4 2 # Bowel Movements 1 Laboratory Laboratory Tests Test 08/06/17 03:40 White Blood Count 6.6 Red Blood Count 4.74 Hemoglobin 16.1 Hematocrit 47.0 Mean Corpuscular Volume 99.1 Mean Corpuscular Hemoglobin 33.9 Mean Corpuscular Hemoglobin Concent 34.2 Red Cell Distribution Width 21.4 Platelet Count 67 Mean Platelet Volume 7.7 Blood Urea Nitrogen 3 Creatinine 0.59 Random Glucose 73 Total Protein 6.2 Albumin 3.4 Calcium Level 8.8 Magnesium Level 1.8 Alkaline Phosphatase 81 Aspartate Amino Transf (AST/SGOT) 83 Alanine Aminotransferase (ALT/SGPT) 46 Total Bilirubin 2.1 Sodium Level 136 Potassium Level 3.2 Chloride Level 99 Carbon Dioxide Level 23.0 Anion Gap 14 Estimat Glomerular Filtration Rate 112 Lipase 841 Imaging Last Impressions Cholangiopancreatography MRI 08/05/17 0000 Signed Impressions: Service Date/Time: July 17:56 - CONCLUSION: 1. Acute pancreatitis. 2. Cholelithiasis; multiple small gravel-like stones in the gallbladder but no duct stone or ductal dilatation. Also no evidence of gallbladder wall thickening. 3. Fatty and mildly enlarged liver. Roger Anderson MD Liver Ultrasound 08/04/17 0000 Signed Impressions: Service Date/Time: Friday, August 04, 2017 09:46 - CONCLUSION: Normal examination except for possible small stones in the dependent portion of the gallbladder. Mildly fatty liver. Davin Up MD Physical Exam HEENT: Normocephalic, atraumatic, minimal scleral icterus NECK: Neck is supple, no JVD, no lymphadenopathy. CHEST: Chest is clear to auscultation and percussion. No obvious shortness of breath CARDIAC: Regular rate and rhythm ABDOMEN: Soft, nondistended, mild mid abdominal discomfort to light palpation, liver edge nonpalpable bowel sounds are present in all four quadrants. EXTREMITIES: No clubbing, cyanosis, or edema. SKIN: Normal; no rash; no jaundice. PSYCHOLOGY CLINICIAN: No focal deficits; alert and oriented times three. Mild anxiety (Patito Shaikh) Assessment and Plan Assessment: (1) Acute pancreatitis ICD Codes: K85.90 - Acute pancreatitis without necrosis or infection, unspecified Status: Acute (2) Elevated LFTs ICD Codes: R79.89 - Other specified abnormal findings of blood chemistry Status: Acute Plan 42-year-old female presented with acute onset of nausea and vomiting approximately 24 hours ago after eating the night before at the [employer]. Did consume alcohol during her meal. According to the old records and patient she has drank chronically a good bit of her life, smoker three quarters to a pack a day, and has had pancreatitis for her third episode since February 2017. Patient did have EGD for possible GI bleed and anemia back in February 2017 but no obvious bleed found and patient did have gastritis noted. Initial hemoglobin on admission 19.7, this a.m. 16.2 after hydration. Elevated LFTs on admission 72/59, now AST 42 ALT 38. Patient does complain of upper and mid abdominal pain and abdominal pain in the left upper quadrant with some guarding, pain scale 7 out of 10 before medication. Constipation no BM in 3 days which is not her usual normal trend. Discussed increased fiber and hydration to her diet and add fiber supplements if needed. Liver ultrasound 08/04/2017 showed normal exam except for possible small stones in the dependent portion of gallbladder mild fatty liver. Discussed dietary regimen with low-fat diet, heart healthy. 08/06/2017 patient was seen per general surgery and possible cholecystectomy. Plan to reevaluate her in the office in a few weeks to 2 months after patient's pancreatitis is resolved, or controlled. Discussed again with patient the need for abstinence of alcohol. Plan Diet advance as tolerate IV hydration continue for now Encouraged mobility in the bed and dangle to maintain strengthening Monitor labs, Alcohol abstinence Will follow up with GI after pancreatitis symptoms and labs are controlled, plan will be in several weeks up to 2 months Further recommendations will be based on findings of test results and symptom management Patient was seen per myself and Dr. Sr, note was written on his behalf (Patito Shaikh) Physician Comments Patient seen and examined Continue with current supportive care Monitor labs Resolving pancreatitis most likely gallstone pancreatitis with possible alcohol related injury also Patient advised to stop alcohol Patient will need cholecystectomy at some point in the near future Not much to add from a GI perspective We will sign off (Titi Sr MD) Patito Shaikh Aug 06, 2017 15:07 Titi Sr MD Aug 06, 2017 17:43
[2017-08-06 16:00] VITALS: BP 150/91; PULSE 74; RESP 18; TEMP 98.5; O2SAT 98
[2017-08-06] MEDS ORDERED: POTASSIUM CHLORIDE 20 MEQ CONTROLLED RELEASE TAB PO ONE (17:45)
--- NOTE | 2017-08-06 17:56 | HHI.PR ---
Subjective Remarks Patient says the nausea is improving, would like to try full liquid diet. Denies any chest pain or shortness of breath. Objective Vital Signs Date Time Temp Pulse Resp B/P (MAP) Pulse Ox O2 Delivery O2 Flow Rate FiO2 08/06/17 16:00 98.5 74 18 150/91 (110) 98 08/06/17 12:00 98.2 81 20 143/85 (104) 99 08/06/17 07:15 98.3 17 16 156/97 (116) 98 08/06/17 06:00 98.0 71 16 134/93 (107) 98 08/06/17 00:00 99.0 91 16 128/83 (98) 99 08/05/17 20:29 98.4 77 21 138/95 (109) 99 I/O 08/05/17 08/05/17 08/05/17 08/06/17 08/06/17 08/06/17 07:00 15:00 23:00 07:00 15:00 23:00 Intake Total 1000 ml 1240 ml 664 ml Balance 1000 ml 1240 ml 664 ml Intake Oral 240 ml 240 ml IV Total 1000 ml 1000 ml 424 ml # Voids 4 2 # Bowel Movements 1 Result Diagram: 08/06/17 0340 08/06/17 0340 Objective Remarks GENERAL: patient sitting up in bed. Appears comfortable. SKIN: Warm and dry. HEAD: Normocephalic. EYES: No scleral icterus. No injection or drainage. NECK: Supple, trachea midline. No JVD or lymphadenopathy. CARDIOVASCULAR: Regular rate and rhythm without murmurs, gallops, or rubs. RESPIRATORY: Breath sounds equal bilaterally. No accessory muscle use. GASTROINTESTINAL: Abdomen soft, , nontender, nondistended. MUSCULOSKELETAL: No cyanosis, or edema. BACK: Nontender without obvious deformity. No CVA tenderness. A/P Assessment and Plan //Acute recurrent pancreatitis. //Hyperbilirubinemia //Transaminitis Bilirubin elevated on admission, improving today to 1.9, however could be dilutional. -Due to pancreatitis with elevated bilirubin, have consulted GI. = MRCP ordered by GI shows acute pancreatitis, cholelithiasis = Continue IV fluids. Advance diet as per GI recommendations. Appreciate GI assistance. = Patient would likely benefit from cholecystectomy as outpatient once pancreatitis has calmed down. = 08/06. Patient cleared by general surgery for discharge. Follow-up with general surgery and GI as outpatient. Patient will stop drinking. Patient agrees to follow up with primary care. //Hypokalemia. Follow-up with primary care. Patient agrees. Primary care within several days to recheck labs. //Chronic alcohol use. Cessation counseling provided //Hypothyroidism. Continue home medications. //Thrombocytopenia.. This is chronic, has been as low as 55 in May. Platelets 67. Likely secondary to alcoholism. No signs of bleeding. Hemoglobin is stable. Advised patient to stop drinking. //GERD. Continue PPI Discharge Planning discharge home. Follow-up with primary care, general surgery as outpatient. Basil Trujillo MD Aug 06, 2017 17:56
[2017-08-06] MEDS ORDERED: THIA100 PO (17:57)
--- NOTE | 2017-08-06 18:02 | HHI.DS ---
Discharge Summary Admission Date Aug 04, 2017 at 09:31 Discharge Date: Aug 06, 2017 Admitting Diagnosis Acute pancreatitis/dehydration/tachycardia (1) Acute pancreatitis ICD Code: K85.90 - Acute pancreatitis without necrosis or infection, unspecified Status: Acute (2) Elevated LFTs ICD Code: R79.89 - Other specified abnormal findings of blood chemistry Status: Acute (3) Hypokalemia ICD Code: E87.6 - Hypokalemia Status: Acute Procedures no invasive procedures. Brief History - From Admission History from patient, ER physician to medication, and review medical records. abdominal pain, started yesterday and vomiting as well 5x last night and 3x today had food at [employer] and had a few drinks also had some fever stayed in bed all day yesterday vomitus had some specks of black and green color, but not coffee ground altagracia vomiting no diarrhea constipated 2 days now did have some acid reflux like symptoms as well Patient was admitted to our hospital in early May 2017 with acute pancreatitis as well. Since then, patient reported that she has significantly cut down on her alcohol intake. CBC/BMP: 08/06/17 0340 08/06/17 0340 Significant Findings Laboratory Tests Test 08/04/17 08:09 08/04/17 15:51 08/05/17 04:05 08/05/17 11:42 Red Blood Count 5.81 MIL/MM3 (4.00-5.30) Hemoglobin 19.7 GM/DL (11.6-15.3) 16.2 GM/DL (11.6-15.3) Hematocrit 58.1 % (35.0-46.0) 47.1 % (35.0-46.0) Red Cell Distribution Width 22.5 % (11.6-17.2) 22.2 % (11.6-17.2) Platelet Count 140 TH/MM3 (150-450) 77 TH/MM3 (150-450) Neutrophils (%) (Auto) 79.6 % (16.0-70.0) 72.4 % (16.0-70.0) Lymphocytes (%) (Auto) 7.4 % (9.0-44.0) Monocytes (%) (Auto) 12.5 % (0.0-8.0) 12.3 % (0.0-8.0) Lymphocytes # (Auto) 0.7 TH/MM3 (1.0-4.8) Monocytes # (Auto) 1.1 TH/MM3 (0-0.9) 1.0 TH/MM3 (0-0.9) Random Glucose 161 MG/DL (74-106) Total Protein 8.9 GM/DL (6.4-8.2) 6.3 GM/DL (6.4-8.2) Calcium Level 10.4 MG/DL (8.5-10.1) Alkaline Phosphatase 136 U/L (45-117) Aspartate Amino Transf (AST/SGOT) 72 U/L (15-37) 42 U/L (15-37) Alanine Aminotransferase (ALT/SGPT) 59 U/L (10-53) Total Bilirubin 3.8 MG/DL (0.2-1.0) 1.9 MG/DL (0.2-1.0) Sodium Level 133 MEQ/L (136-145) 135 MEQ/L (136-145) Carbon Dioxide Level 12.7 MEQ/L (21.0-32.0) 19.7 MEQ/L (21.0-32.0) Anion Gap 21 MEQ/L (5-15) Estimat Glomerular Filtration Rate 67 ML/MIN (>89) 86 ML/MIN (>89) Lipase 543 U/L (73-393) Total Triiodothyronine 39 NG/DL (60-181) Mean Corpuscular Volume 100.2 FL (80.0-100.0) Mean Corpuscular Hemoglobin 34.5 PG (27.0-34.0) Potassium Level 3.4 MEQ/L (3.5-5.1) Prothrombin Time 11.8 SEC (9.8-11.6) Test 08/06/17 03:40 Hemoglobin 16.1 GM/DL (11.6-15.3) Hematocrit 47.0 % (35.0-46.0) Red Cell Distribution Width 21.4 % (11.6-17.2) Platelet Count 67 TH/MM3 (150-450) Blood Urea Nitrogen 3 MG/DL (7-18) Random Glucose 73 MG/DL (74-106) Total Protein 6.2 GM/DL (6.4-8.2) Aspartate Amino Transf (AST/SGOT) 83 U/L (15-37) Total Bilirubin 2.1 MG/DL (0.2-1.0) Potassium Level 3.2 MEQ/L (3.5-5.1) Lipase 841 U/L (73-393) Imaging Last Impressions Cholangiopancreatography MRI 08/05/17 0000 Signed Impressions: Service Date/Time: July 17:56 - CONCLUSION: 1. Acute pancreatitis. 2. Cholelithiasis; multiple small gravel-like stones in the gallbladder but no duct stone or ductal dilatation. Also no evidence of gallbladder wall thickening. 3. Fatty and mildly enlarged liver. Roger Anderson MD Liver Ultrasound 08/04/17 0000 Signed Impressions: Service Date/Time: Friday, August 04, 2017 09:46 - CONCLUSION: Normal examination except for possible small stones in the dependent portion of the gallbladder. Mildly fatty liver. Davin Up MD Hospital Course //Acute recurrent pancreatitis. //Hyperbilirubinemia //Transaminitis Bilirubin elevated on admission, improving today to 1.9, however could be dilutional. -Due to pancreatitis with elevated bilirubin, have consulted GI. = MRCP ordered by GI shows acute pancreatitis, cholelithiasis = Continue IV fluids. Advance diet as per GI recommendations. Appreciate GI assistance. = Patient would likely benefit from cholecystectomy as outpatient once pancreatitis has calmed down. = 08/06. Patient cleared by general surgery for discharge. Follow-up with general surgery and GI as outpatient. Patient will stop drinking. Patient agrees to follow up with primary care. //Hypokalemia. Follow-up with primary care. Patient agrees. Primary care within several days to recheck labs. //Chronic alcohol use. Cessation counseling provided //Hypothyroidism. Continue home medications. //Thrombocytopenia.. This is chronic, has been as low as 55 in May. Platelets 67. Likely secondary to alcoholism. No signs of bleeding. Hemoglobin is stable. Advised patient to stop drinking. //GERD. Continue PPI Discharge Planning discharge home. Follow-up with primary care, general surgery as outpatient. Pt Condition on Discharge: Good Discharge Disposition: Discharge Home Discharge Time: > 30 minutes Discharge Instructions DIET: Follow Instructions for: Low Fat Diet Activities you can perform: Regular-No Restrictions Follow up Referrals: Gastroenterology - 1 Week with Titi Sr MD PCP Follow-up - 3-5 Days Surgical - 1 Week with Alicia Mullen/[employer] New Medications: Thiamine HCl (Gnp Vitamin B-1) 100 Mg Tab 100 MG PO DAILY for vitamin for 30 Days, #30 TAB Continued Medications: Levothyroxine (Synthroid) 50 Mcg Tab 50 MCG PO DAILY@0600 for Thyroid, #30 TAB Magnesium Oxide (Magnesium Oxide) 400 Mg Tab 400 MG PO BID for Nutritional Supplement, #60 TAB Pantoprazole (Pantoprazole) 40 Mg Tab 40 MG PO DAILY for Manage Heartburn, #30 TAB Basil Trujillo MD Aug 06, 2017 18:02
== END 2017-08-06 18:39 | disposition home or self-care (01) | DRG 440 ==
LOC: NEPE 07:51 → INTOOBSV 09:31 → NEDA 09:31 → N07B 13:49 → OBSVTOIN 08-06 18:24
PROVIDERS: ADMIT Internal Medicine; ATTEND Internal Medicine
DX: K85.90 Acute pancreatitis without necrosis or infection, unspecified (principal); D69.6 Thrombocytopenia, unspecified; K76.0 Fatty (change of) liver, not elsewhere classified; E03.9 Hypothyroidism, unspecified; E86.0 Dehydration; R00.0 Tachycardia, unspecified; K59.00 Constipation, unspecified; K80.20 Calculus of gallbladder without cholecystitis without obstruction; K21.9 Gastro-esophageal reflux disease without esophagitis; I10 Essential (primary) hypertension; E80.6 Other disorders of bilirubin metabolism; R50.9 Fever, unspecified; R79.89 Other specified abnormal findings of blood chemistry; R74.8 Abnormal levels of other serum enzymes; R74.0 Nonspecific elevation of levels of transaminase and lactic acid dehydrogenase [LDH]; E87.6 Hypokalemia; F17.210 Nicotine dependence, cigarettes, uncomplicated; F10.20 Alcohol dependence, uncomplicated
CPT/HCPCS: 74181; 76377; 76705; 80053; 83690; 83735; 84439; 84443; 84480; 85025; 85027; 85610; J2270; J2405; J3480; J7030

== ENCOUNTER 2017-12-11 22:41 | Inpatient (IN) ==
[2017-12-11] MEDS ORDERED: Famotidine PF Inj 20 MG/2 ML Vial IV.PUSH ONE (23:45)
[2017-12-11] MEDS ORDERED: Ketorolac Inj 30 MG/ML (IVP) Vial IV.PUSH ONE (23:45)
[2017-12-11] MEDS ORDERED: Sod Chloride 0.9% Inj 1,000 ML IV.SIG ONE (23:45)
[2017-12-11] MEDS ORDERED: Morphine Inj 4 MG/ML Vial IV.PUSH ONE (23:45)
--- NOTE | 2017-12-11 23:52 | ED ---
HPI General Chief Complaint: Abdominal Pain Stated Complaint: Pancreas Time Seen by Provider: 12/11/17 23:39 Source: patient Mode of arrival: ambulatory Limitations: no limitations History of Present Illness HPI narrative: The patient is a 42-year-old female who presents to the emergency department for abdominal pain. The patient states her abdominal pain [place] The patient initially had nausea and vomiting that was followed by epigastric abdominal pain. The epigastric abdominal pain is stabbing, aching, radiates to the back, similar to her previous episodes of pancreatitis. The patient does admit to drinking alcohol earlier today. The patient has had several episodes of pancreatitis in the past, states that one time she was told that possibly could be secondary to a gallstone, however, cannot afford surgery at that time. She denies any diarrhea or previous abdominal surgeries. She denies any fever, chills, or sweats. Symptoms are moderate. There are currently no alleviating factors. MD complaint: abdominal pain Onset (ago): hour(s) Pain Consistency: constant Location: epigastric Severity: moderate Severity scale (1-10): 7 Quality: aching Radiation: back Migration to: no migration Relieving factors: nothing Exacerbating factors: nothing Context: history of similar episodes Associated symptoms: nausea and vomiting Related Data Home Medications Medication Instructions Recorded Confirmed levothyroxine mcg PO DAILY 11/11/17 Allergies Allergy/AdvReac Type Severity Reaction Status Date / Time No Known Allergies Allergy Verified 11/11/17 08:28 Review of Systems ROS: all other systems reviewed are negative FORMERLY [facility], [facility] Medical History Medical History ETOH abuse (Acute) Pancreatitis (Acute) Hypothyroidism (Acute) Herniated disc (Acute) Surgical History Surgical History No history of previous surgery (Acute) Social History Social History Substance History: No History of Abuse Smoking Status: Current every day smoker Tobacco Type: Cigarettes How Often Do You Have a Drink Containing Alcohol: Monthly or less Recent Travel in [facility] within the Last 8 Weeks: No Recent Out of Country Travel within the Last 8 Weeks: No Exam Narrative Exam Narrative: GENERAL: Awake, alert, pleasant 42-year-old female who appears her stated age and appears in mild discomfort. SKIN: Focused skin assessment warm/dry. HEAD: Atraumatic. Normocephalic. EYES: Pupils equal and round. No scleral icterus. No injection or drainage. ENT: No nasal bleeding or discharge. Dry mucous membranes. NECK: Trachea midline. No JVD. CARDIOVASCULAR: Regular, tachycardic with a heart rate of 115. RESPIRATORY: No accessory muscle use. Clear to auscultation. Breath sounds equal bilaterally. GASTROINTESTINAL: Abdomen soft, epigastric tenderness. No guarding or rigidity. Negative Trimble's. Negative McBurney's. Back: No CVA tenderness. MUSCULOSKELETAL: No obvious deformities. No clubbing. No cyanosis. No edema. NEUROLOGICAL: Awake and alert. No obvious cranial nerve deficits. Motor grossly within normal limits. Normal speech. PSYCHIATRIC: Appropriate mood and affect; insight and judgment normal. Course Initial Documented Vital Signs Temperature 97.7 F 12/11/17 22:43 Pulse Rate 134 H 12/11/17 22:43 Respiratory Rate 20 12/11/17 22:43 Blood Pressure 146/74 H 12/11/17 22:43 Pulse Oximetry 97 12/11/17 22:43 Last Documented Vital Signs Temperature 97.7 F 12/11/17 22:43 Pulse Rate 87 12/12/17 00:03 Respiratory Rate 16 12/12/17 00:03 Blood Pressure 120/82 12/12/17 00:03 Pulse Oximetry 100 12/12/17 00:03 Medical Decision Making MDM Narrative Medical decision making narrative: IV was established, labs are drawn and sent, and the patient was placed on cardiac telemetry monitoring and continuous pulse oximetry monitoring. The patient was administered morphine, Toradol, Zofran, and IV fluids. Lipase level was sent to lab. Patient's white count was elevated at 14.5. Creatinine mildly elevated at 1.06. Patient's platelets were 75. Lipase was elevated greater than 6000. CT the abdomen and pelvis was performed which does reveal cholelithiasis but no dilatation of the biliary tree. The patient's pancreatitis most likely is related to alcohol use. The patient will be admitted to the medical service for IV fluids and pain control. I discussed the patient with Dr. Moss who agrees with admission. Medical Screen Exam Complete: Yes Emergency Medical Condition: Yes Differential Diagnosis Differential Diagnosis: Differential diagnosis includes pancreatitis, gastritis , peptic ulcer disease, cholecystitis, choledocholithiasis, cholangitis. Lab Data Lab results narrative: LFTs are elevated, bilirubin is elevated, lipase is elevated greater than 6000. Result diagrams: 12/12/17 00:15 12/12/17 00:15 Lab Results 12/12/17 12/12/17 12/12/17 Range/Units 00:15 00:15 00:15 WBC 14.5 H (4.0-11.0) th/mm3 RBC 4.27 (4.00-5.30) mil/mm3 Hgb 15.5 H (11.6-15.3) gm/dL Hct 46.3 H (35.0-46.0) % MCV 108.4 H (80.0-100.0) fL MCH 36.3 H (27.0-34.0) pg MCHC 33.4 (32.0-36.0) % RDW 14.7 (11.6-17.2) % Plt Count 75 L (150-450) th/mm3 MPV 9.2 (7.0-11.0) fL Prelim Diff (Auto) Slide review pending Neut % (Auto) 83.4 H (16.0-70.0) % Lymph % (Auto) 3.7 L (9.0-44.0) % Kendall % (Auto) 12.7 H (0.0-8.0) % Eos % (Auto) 0.0 (0.0-4.0) % Baso % (Auto) 0.2 (0.0-2.0) % Neut # (Auto) 12.1 H (1.8-7.7) th/mm3 Lymph # (Auto) 0.5 L (1.0-4.8) th/mm3 Kendall # (Auto) 1.8 H (0.0-0.9) th/mm3 Eos # (Auto) 0.0 (0.0-0.4) th/mm3 Baso # (Auto) 0.0 (0.0-0.2) th/mm3 WBC Differential . Diff Scan Auto diff confirmed Differential Comment . Platelet Estimate Low L (Normal) Platelet Morphology Enlarged H (Normal) PT 10.9 (9.8-11.6) sec INR 1.1 Ratio APTT 27.0 (24.3-30.1) sec Sodium 133 L (136-145) meq/L Potassium 4.0 (3.5-5.1) meq/L Chloride 89 L (98-107) meq/L Carbon Dioxide 8.0 L (21.0-32.0) meq/L Anion Gap 36 H (5-15) meq/L BUN 7 (7-18) mg/dL Creatinine 1.06 H (0.50-1.00) mg/dL Estimated GFR 57 L (>89) mL/min Random Glucose 178 H (74-106) mg/dL Lactic Acid (0.4-2.0) mmol/L Calcium 8.8 (8.5-10.1) mg/dL Total Bilirubin 5.4 H (0.2-1.0) mg/dL AST 242 H (15-37) U/L ALT 164 H (10-53) U/L Alkaline Phosphatase 152 H (45-117) U/L Total Protein 9.0 H (6.4-8.2) g/dL Albumin 4.9 (3.4-5.0) g/dL Lipase 6258 H (73-393) U/L 12/12/17 Range/Units 00:15 WBC (4.0-11.0) th/mm3 RBC (4.00-5.30) mil/mm3 Hgb (11.6-15.3) gm/dL Hct (35.0-46.0) % MCV (80.0-100.0) fL MCH (27.0-34.0) pg MCHC (32.0-36.0) % RDW (11.6-17.2) % Plt Count (150-450) th/mm3 MPV (7.0-11.0) fL Prelim Diff (Auto) Neut % (Auto) (16.0-70.0) % Lymph % (Auto) (9.0-44.0) % Kendall % (Auto) (0.0-8.0) % Eos % (Auto) (0.0-4.0) % Baso % (Auto) (0.0-2.0) % Neut # (Auto) (1.8-7.7) th/mm3 Lymph # (Auto) (1.0-4.8) th/mm3 Kendall # (Auto) (0.0-0.9) th/mm3 Eos # (Auto) (0.0-0.4) th/mm3 Baso # (Auto) (0.0-0.2) th/mm3 WBC Differential Diff Scan Differential Comment Platelet Estimate (Normal) Platelet Morphology (Normal) PT (9.8-11.6) sec INR Ratio APTT (24.3-30.1) sec Sodium (136-145) meq/L Potassium (3.5-5.1) meq/L Chloride (98-107) meq/L Carbon Dioxide (21.0-32.0) meq/L Anion Gap (5-15) meq/L BUN (7-18) mg/dL Creatinine (0.50-1.00) mg/dL Estimated GFR (>89) mL/min Random Glucose (74-106) mg/dL Lactic Acid 3.7 H (0.4-2.0) mmol/L Calcium (8.5-10.1) mg/dL Total Bilirubin (0.2-1.0) mg/dL AST (15-37) U/L ALT (10-53) U/L Alkaline Phosphatase (45-117) U/L Total Protein (6.4-8.2) g/dL Albumin (3.4-5.0) g/dL Lipase (73-393) U/L Imaging Data Radiologist's impression: Abdomen/Pelvis CT 12/12/17 01:13 CONCLUSION: 1. No acute abnormality. 2. Hepatic steatosis. 3. Cholelithiasis. 4. 2.8 cm left adnexal cyst likely ovarian in nature. 5. Old T11 compression fracture. Discharge Plan Discharge Disposition Patient Disposition: 30 Still Patient Discharge Condition Condition: Stable Discharge Details Diagnosis: Pancreatitis, ETOH abuse Physicians Team ED Provider: Chema Lomeli Primary Care Provider: Primary Care DanyiHannah Rxs /Orders / Referrals /Forms Prescriptions: No Action levothyroxine 25 mcg Tablet PO DAILY RF: 0 Status ED Status: Pending Admission
[2017-12-12 00:31] LABS: Baso % (Auto) 0.2 % (0.0-2.0); Hematocrit 46.3 % (35.0-46.0); Hemoglobin 15.5 gm/dL (11.6-15.3); Lymph # (Auto) 0.5 th/mm3 (1.0-4.8); Lymph % (Auto) 3.7 % (9.0-44.0); Mean Corpuscular HGB Conc 33.4 % (32.0-36.0); Mean Corpuscular Hemoglobin 36.3 pg (27.0-34.0); Mean Corpuscular Volume 108.4 fL (80.0-100.0); Mean Platelet Volume 9.2 fL (7.0-11.0); Mono # (Auto) 1.8 th/mm3 (0.0-0.9); Mono % (Auto) 12.7 % (0.0-8.0); Neut # (Auto) 12.1 th/mm3 (1.8-7.7); Neut % (Auto) 83.4 % (16.0-70.0); Platelet Count 75 th/mm3 (150-450); Red Blood Count 4.27 mil/mm3 (4.00-5.30); Red Cell Distribution Width 14.7 % (11.6-17.2); White Blood Count 14.5 th/mm3 (4.0-11.0)
[2017-12-12 00:57] LABS: INR 1.1 Ratio; Prothrombin Time 10.9 sec (9.8-11.6)
[2017-12-12 01:01] LABS: Alkaline Phosphatase 152 U/L (45-117); Lipase 6258 U/L (73-393)
[2017-12-12 01:05] LABS: Alanine Aminotransferase 164 U/L (10-53); Albumin 4.9 g/dL (3.4-5.0); Anion Gap 36 meq/L (5-15); Aspartate Aminotransferase 242 U/L (15-37); Blood Urea Nitrogen 7 mg/dL (7-18); Calcium 8.8 mg/dL (8.5-10.1); Chloride 89 meq/L (98-107); Glomerular Filtration Rate 57 mL/min (>89); Glucose,Random 178 mg/dL (74-106); Sodium 133 meq/L (136-145)
--- NOTE | 2017-12-12 01:52 | CT ---
EXAM DATE: 12/12/2017 1:42 AM EDT AGE/SEX: 42 years / Female INDICATIONS: Abdomen pain with history of pancreatitis. CLINICAL DATA: This is the patient's initial encounter. Patient reports that signs and symptoms have been present for 1 day and indicates a pain score of 7/10. MEDICAL/SURGICAL HISTORY: Pancreatitis. Hyperthyroidism. Alcohol abuse None. ORAL CONTRAST: No oral contrast ingested. RADIATION DOSE: 5.37 CTDI (mGy) COMPARISON: [facility] [place], CT ABDOMEN & PELVIS W CONTRAST, 05/13/2017. . TECHNIQUE: Multiple contiguous axial images were obtained through the abdomen and pelvis following b olus infusion of 74 ml Visipaque 320 (iodixanol) nonionic water-soluble contrast as a single exam d ose. No oral contrast ingested. Using automated exposure control and adjustment of the mA and/or kV according to patient size, radiation dose was kept as low as reasonably achievable to obtain optimal diagnostic quality images. DICOM format image data is available electronically for review and compar rola. FINDINGS: Lower Lungs: The visualized lower lungs are clear. Liver: The liver has a homogeneously low density without space-occupying lesion. There is no dilation of the biliary tree. A tiny calcified gallstones seen within an otherwise normal-appearing gallbladd er. Spleen: Homogeneous density without enlargement. Pancreas: Unremarkable without mass or calcification. Kidneys: Normal in size and shape. No evidence of mass or hydronephrosis. Adrenal Glands: Unremarkable. Aorta: The aorta and proximal iliac vessels are grossly unremarkable without aneurysmal dilation. Bowel/Mesentery: The bowel loops are grossly unremarkable. The cecum and sigmoid colon have a normal configuration. Abdominal Wall: Intact. Retroperitoneum: No evidence of adenopathy in the retrocrural, para-aortic, or deep pelvic regions. Bladder: Contours are smooth. Reproductive Organs: An IUD is noted. 2.8 cm cyst is seen within the left adnexa. Hounsfield units a re 22. No free fluid.. Inguinal: The inguinal region is unremarkable without evidence of adenopathy. Bony Structures: Prior T11 compression fracture. Stable in appearance.. CONCLUSION: 1. No acute abnormality. 2. Hepatic steatosis. 3. Cholelithiasis. 4. 2.8 cm left adnexal cyst likely ovarian in nature. 5. Old T11 compression fracture. Electronically signed by: Trav Hernandez MD 12/12/2017 1:50 AM EDT
[2017-12-12] MEDS ORDERED: Haloperidol Inj 5 MG/ML Ampul IV.PUSH PRN (02:12)
[2017-12-12] MEDS ORDERED: LORazepam 1 MG Tablet PO PRN (02:12)
[2017-12-12] MEDS ORDERED: Pantoprazole Inj 40 MG Vial IV.PUSH ONE (02:13)
[2017-12-12] MEDS ORDERED: Bisacodyl 10 MG Supp RECTAL PRN (02:14)
[2017-12-12] MEDS ORDERED: Acetaminophen 325 MG Tablet PO PRN (02:14)
--- NOTE | 2017-12-12 03:09 | P.HPIM ---
History of Present Illness Primary Care Physician: No Primary Care Physician History of Present Illness: This is a 42-year-old female with a PMH of Alcohol Abuse, Recurrent Pancreatitis and Tobacco Abuse who presented to the ER w/ complaints of severe abdominal pain, nausea and vomiting. States abdominal pain is severe, stabbing , 10/10, non-radiating, associated w/ nausea/vomiting. Admits to drinking alcohol, states she drinks "one Solo cup full of whiskey", notes withdrawal symptoms when not drinking. On arrival, BP 146/74, HR 134, O2 sat 97% on RA, Afebrile. CBC 14.5. Platelets 75. INR 1.1. Creatinine 1.06. Lactic acid 3.7. LFTs elevated. Lipase 6258. CT Abdomen/Pelvis with no acute abnormality , hepatic steatosis, cholelithiasis. - Diagnosis (1) Pancreatitis (2) Alcohol abuse (3) Leukocytosis (4) Lactic acidosis Inpatient Certification: I certify that the inpatient services were ordered in accordance with Medicare regulations governing the order. This includes certification that hospital inpatient services are reasonable and necessary and in the case of services not specified as inpatient-only under 42 CFR 419.22(n), that they are appropriately provided as inpatient services in accordance to with the 2-midnight benchmark under 43 CFR 412.3(e) Estimated Total Length of Stay (Days): 2 Plans for Post Hospital Care: Not yet determined Review of Systems PAST FAMILY HISTORY: Reviewed. No h/o DM or CAD All other systems reviewed negative except as stated in HPI [facility] - History History Provided By: Patient - Medical History Medical History: Medical History (Last Reviewed 12/11/17 @ 22:47 by Meseret Aguayo) ETOH abuse (Acute) Pancreatitis (Acute) Hypothyroidism (Acute) Herniated disc (Acute) - Surgical History Surgical History: Surgical History (Last Updated 12/11/17 @ 22:47 by Meseret Aguayo) No history of previous surgery - Tobacco History Tobacco Use In Past 30 Days: Yes Smoking Status: Current every day smoker Tobacco Type: Cigarettes - Alcohol History How Often Do You Have a Drink Containing Alcohol: Monthly or less - Substance Use History Substance History: No History of Abuse - Travel History Recent Travel in the [place] Within the Last 8 Weeks: No Recent Travel Out of the Country Within the Last 8 Weeks: No - Immunization History Tetanus Immunization: <5 Years Medications and Allergies Active Medications: Active Medications Acetaminophen (Tylenol) 650 mg PO Q4H PRN PRN Reason: Temp > 100.4 Al Hydroxide/Mg Hydroxide (Milk Of Magnesia Liq) 30 ml PO Q12H PRN PRN Reason: Mild Constipation Bisacodyl (Dulcolax Supp) 10 mg RECTAL DAILY PRN PRN Reason: SEVERE CONSITIPATION Flumazenil (Romazecon Inj) 0.2 mg IV.PUSH Q1M PRN PRN Reason: OVERSEDATION Folic Acid (Folic Acid) 1 mg PO DAILY [facility] Stop: 12/17/17 08:59 Haloperidol Lactate (Haldol Inj) 1 mg IV.PUSH Q15M PRN PRN Reason: for severe agitation Thiamine HCl 100 mg/ Sodium (Chloride) 101 mls @ 100 mls/hr IV.SIG DAILY [facility] Stop: 12/15/17 08:59 Sodium Chloride (Ns Inj) 1,000 mls @ 100 mls/hr IV.CONT .Q10H ERROL Lactulose (Lactulose Liq) 30 ml PO DAILY PRN PRN Reason: SEVERE CONSITIPATION Lorazepam (Ativan) 1 mg PO Q4H PRN PRN Reason: for CIWA 8-10 Lorazepam (Ativan) 2 mg PO Q2H PRN PRN Reason: for CIWA 11-14 Lorazepam (Ativan Inj) 2 mg IV.PUSH Q2H PRN PRN Reason: for CIWA 11-14 Lorazepam (Ativan Inj) 2 mg IV.PUSH Q1H PRN PRN Reason: for CIWA 15-20 Lorazepam (Ativan Inj) 2 mg IV.PUSH Q15M PRN PRN Reason: for CIWA > 20 Lorazepam (Ativan Inj) 1 mg IV.PUSH Q4H PRN PRN Reason: for CIWA 8-10 Morphine Sulfate (Morphine Inj) 2 mg IV.PUSH Q4H PRN PRN Reason: PAIN 6-10 Multivitamins/Minerals (Theragran-M) 1 tab PO DAILY [facility] Stop: 12/17/17 08:59 Ondansetron HCl (Zofran Inj) 4 mg IV.PUSH Q6H PRN PRN Reason: NAUSEA OR VOMITING Pantoprazole Sodium (Protonix Inj) 40 mg IV.PUSH Q12H [facility] Senna/Docusate Sodium (Aylin-Colace) 1 tab PO BID ERROL Sennosides (Senokot) 17.2 mg PO Q12H PRN PRN Reason: Moderate Constipation Sodium Chloride (Ns Flush) 2 ml IV.FLUSH PRN PRN PRN Reason: FLUSH AFTER USING IV ACCESS Thiamine HCl (Vitamin B1) 100 mg PO DAILY ERROL Allergies Allergy/AdvReac Type Severity Reaction Status Date / Time No Known Allergies Allergy Verified 11/11/17 08:28 Home Medications Medication Instructions Recorded Confirmed Type levothyroxine mcg PO DAILY 11/11/17 History Exam Vital signs: Vital Signs 12/11/17 22:43 12/12/17 00:03 Temperature 97.7 F Pulse Rate 134 H 87 Respiratory Rate 20 16 Blood Pressure 146/74 H 120/82 Pulse Oximetry 97 100 Intake & Output 12/11/17 12/11/17 12/12/17 06:59 18:59 06:59 Weight 63.503 kg Narrative: PE: GENERAL: Middle-aged white female in no acute distress, appears much older than stated age. SKIN: Focused skin assessment warm and dry. HEENT: PERRLA, EOMI. No scleral icterus or conjunctival pallor. No lid lag or facial droop. CARDIOVASCULAR: Regular rate and rhythm. No obvious murmurs to auscultation. No chest tenderness to palpation. RESPIRATORY: No obvious rhonchi or wheezing. Clear to auscultation. Breath sounds equal bilaterally. GASTROINTESTINAL: Abdomen soft, epigastric tenderness to palpation, nondistended. BS normal. MUSCULOSKELETAL: Extremities without clubbing, cyanosis, or edema. No obvious deformities. NEUROLOGICAL: Awake, alert and oriented x4. No focal neurologic deficits. Moving both upper and lower extremities spontaneously. PSYCHIATRIC: Appropriate mood and affect. Insight and judgment normal. Results - Labs CBC & Chem 7: 12/12/17 00:15 12/12/17 00:15 Labs: Short CBC 12/12/17 Range/Units 00:15 WBC 14.5 H (4.0-11.0) th/mm3 Hgb 15.5 H (11.6-15.3) gm/dL Hct 46.3 H (35.0-46.0) % Plt Count 75 L (150-450) th/mm3 BMP 12/12/17 00:15 Sodium 133 L Potassium 4.0 Chloride 89 L Carbon Dioxide 8.0 L BUN 7 Creatinine 1.06 H Calcium 8.8 Liver Function 12/12/17 Range/Units 00:15 Total Bilirubin 5.4 H (0.2-1.0) mg/dL AST 242 H (15-37) U/L ALT 164 H (10-53) U/L Alkaline Phosphatase 152 H (45-117) U/L Albumin 4.9 (3.4-5.0) g/dL - Imaging Impressions Abdomen/Pelvis CT 12/12/17 01:13 CONCLUSION: 1. No acute abnormality. 2. Hepatic steatosis. 3. Cholelithiasis. 4. 2.8 cm left adnexal cyst likely ovarian in nature. 5. Old T11 compression fracture. Caprini VTE Risk Assessment Caprini VTE Risk Assessment: No/Low Risk (score <= 1) Caprini Risk Assessment Model: Point Value = 1 Point Value = 2 Point Value = 3 Point Value = 5 Age 41-60 Minor surgery BMI > 25 kg/m2 Swollen legs Varicose veins or History of unexplained or recurrent spontaneous Oral contraceptives or hormone replacement Sepsis (< 1 month) Serious lung disease, including pneumonia (< 1 month) Abnormal pulmonary function Acute myocardial infarction Congestive heart failure (< 1 month) History of inflammatory bowel disease Medical patient at bed rest Age 61-74 Arthroscopic surgery Major open surgery (> 45 min) Laparoscopic surgery (> 45 min) Malignancy Confined to bed (> 72 hours) Immobilizing plaster cast Central venous access Age >= 75 History of VTE Family history of VTE Factor V Leiden Prothrombin [id number] Lupus anticoagulant Anticardiolipin antibodies Elevated serum homocysteine Heparin-induced thrombocytopenia Other congenital or acquired thrombophilia Stroke (< 1 month) Elective arthroplasty Hip, pelvis, or leg fracture Acute spinal cord injury (< 1 month) Prophylaxis Regimen: Total Risk Factor Score Risk Level Prophylaxis Regimen 0-1 Low Early ambulation 2 Moderate Order ONE of the following: *Sequential Compression Device (SCD) *Heparin 5000 units SQ BID 3-4 Higher Order ONE of the following medications: *Heparin 5000 units SQ TID *Enoxaparin/Lovenox 40 mg SQ daily (WT < 150 kg, CrCl > 30 mL/min) *Enoxaparin/Lovenox 30 mg SQ daily (WT < 150 kg, CrCl > 10-29 mL/min) *Enoxaparin/Lovenox 30 mg SQ BID (WT < 150 kg, CrCl > 30 mL/min) AND/OR *Sequential Compression Device (SCD) 5 or more Highest Order ONE of the following medications: *Heparin 5000 units SQ TID (Preferred with Epidurals) *Enoxaparin/Lovenox 40 mg SQ daily (WT < 150 kg, CrCl > 30 mL/min) *Enoxaparin/Lovenox 30 mg SQ daily (WT < 150 kg, CrCl > 10-29 mL/min) *Enoxaparin/Lovenox 30 mg SQ BID (WT < 150 kg, CrCl > 30 mL/min) AND *Sequential Compression Device (SCD) Assessment and Plan - Assessment (1) Pancreatitis Code(s): K85.90 - Acute pancreatitis without necrosis or infection, unspecified Status: Acute (2) Alcohol abuse Code(s): F10.10 - Alcohol abuse, uncomplicated Status: Acute (3) Leukocytosis Code(s): D72.829 - Elevated white blood cell count, unspecified Status: Acute (4) Lactic acidosis Code(s): E87.2 - Acidosis Status: Acute - Plan A/P: 1. Pancreatitis: secondary to Alcohol Abuse, Lipase 6258. NPO, Protonix IV, IVF for hydration, analgesics/antiemetics as needed, repeat Lipase. 2. Alcohol Abuse: High risk for withdrawal, CIWA, Seizure Precautions, MVT/ Thiamine/Folate replacement. 3. Lactic Acidosis: Lactic Acid 3.7, no evidence of sepsis, likely combination of alcohol abuse and dehydration from pancreatitis, repeat Lactic Acid. IVF for hydration. 4. Renal Insufficiency: Creatinine 1.06, IVF for hydration, check U/a, monitor I/O, repeat labs in am. 5. DVT Prophylaxis: SCD/Teds 6. Social work for d/c planning as needed. 7. Case discussed w/ ER physician at length, labs/records/imaging reviewed by me. (1) Pancreatitis Qualifiers: Chronicity: acute Pancreatitis type: unspecified pancreatitis type Acute pancreatitis complication: unspecified Qualified Code(s): K85.90 - Acute pancreatitis without necrosis or infection, unspecified
[2017-12-12] MEDS: Sod Chloride 0.9% Inj 1,000 ML IV.CONT SCH ×3 (03:12→23:30)
[2017-12-12] MEDS: Morphine Sulfate Inj 2 MG/ML Vial IV.PUSH PRN ×5 (05:25→21:11)
[2017-12-12] MEDS: Multivitamin/Minerals Therapeutic Tablet PO SCH (08:38)
[2017-12-12] MEDS: Senna/Docusate Sodium 8.6/50 MG Tablet PO SCH ×2 (08:39→21:11)
[2017-12-12] MEDS: Folic Acid 1 MG Tablet PO SCH (08:39)
[2017-12-12] MEDS: Thiamine Inj 100 MG in Sodium Chlor 0.9% Inj 100 ML IV.SIG SCH (08:46)
[2017-12-12] MEDS: Pantoprazole Inj 40 MG Vial IV.PUSH SCH (21:11)
[2017-12-12 21:46] LABS: Bacteria,Urine Occasional /hpf; Bilirubin,Urine Negative (Negative); Clarity,Urine Clear (Clear); Color,Urine Amber (Yellw/Straw); Glucose,Urine (UA) 50 mg/dL (Negative); Hyaline Casts,Urine 1 /lpf (0-3); Leukocyte Esterase,Urine Negative (Negative); Mucus,Urine Few /lpf (Occasional); Nitrite,Urine Negative (Negative); Specific Gravity,Urine 1.017 (1.002-1.035); Squamous Epithelial Cell,Urine 1 /hpf (0-5); Urobilinogen,Urine 4 or Greater mg/dL (Less than 2)
[2017-12-13] MEDS: Morphine Sulfate Inj 2 MG/ML Vial IV.PUSH PRN ×2 (02:39→09:02)
[2017-12-13 05:17] LABS: Baso % (Auto) 0.1 % (0.0-2.0); Eos % (Auto) 0.1 % (0.0-4.0); Hematocrit 43.2 % (35.0-46.0); Hemoglobin 14.5 gm/dL (11.6-15.3); Lymph # (Auto) 0.4 th/mm3 (1.0-4.8); Lymph % (Auto) 4.4 % (9.0-44.0); Mean Corpuscular HGB Conc 33.5 % (32.0-36.0); Mean Corpuscular Hemoglobin 36.3 pg (27.0-34.0); Mean Corpuscular Volume 108.6 fL (80.0-100.0); Mean Platelet Volume 9.4 fL (7.0-11.0); Mono % (Auto) 10.2 % (0.0-8.0); Neut # (Auto) 8.2 th/mm3 (1.8-7.7); Neut % (Auto) 85.2 % (16.0-70.0); Platelet Count 44 th/mm3 (150-450); Red Blood Count 3.98 mil/mm3 (4.00-5.30); Red Cell Distribution Width 14.4 % (11.6-17.2); White Blood Count 9.6 th/mm3 (4.0-11.0)
[2017-12-13 05:29] LABS: Alanine Aminotransferase 105 U/L (10-53); Albumin 3.9 g/dL (3.4-5.0); Alkaline Phosphatase 125 U/L (45-117); Anion Gap 24 meq/L (5-15); Aspartate Aminotransferase 147 U/L (15-37); Blood Urea Nitrogen 10 mg/dL (7-18); Calcium 8.6 mg/dL (8.5-10.1); Carbon Dioxide 7.9 meq/L (21.0-32.0); Chloride 102 meq/L (98-107); Glomerular Filtration Rate 50 mL/min (>89); Glucose,Random 126 mg/dL (74-106); Lipase 1165 U/L (73-393); Potassium 3.9 meq/L (3.5-5.1); Sodium 134 meq/L (136-145); Total Protein 7.3 g/dL (6.4-8.2)
[2017-12-13] MEDS: Multivitamin/Minerals Therapeutic Tablet PO SCH (09:04)
[2017-12-13] MEDS: Folic Acid 1 MG Tablet PO SCH (09:04)
[2017-12-13] MEDS: Thiamine Inj 100 MG in Sodium Chlor 0.9% Inj 100 ML IV.SIG SCH (09:04)
[2017-12-13] MEDS: Senna/Docusate Sodium 8.6/50 MG Tablet PO SCH ×2 (09:04→20:12)
[2017-12-13] MEDS: Pantoprazole Inj 40 MG Vial IV.PUSH SCH ×2 (09:04→20:12)
[2017-12-13 09:41] LABS: Platelet Morphology Normal (Normal)
--- NOTE | 2017-12-13 10:04 | P.PNIM ---
Subjective Interval history: Lipase has improved from 6000 down to 1000. Advance diet and continue monitoring lipase. No complaints of DT symptoms. Physical Exam Vital signs: Vital Signs 12/12/17 12:00 12/12/17 19:00 12/12/17 20:00 Temperature 97.2 F L 97.4 F L 97.3 F L Pulse Rate 108 H 112 H 124 H Respiratory Rate 18 16 18 Blood Pressure 126/83 119/85 119/90 Pulse Oximetry 100 100 100 12/12/17 21:18 12/13/17 00:00 12/13/17 02:41 Temperature 98.2 F Pulse Rate 126 H Respiratory Rate 18 16 18 Blood Pressure 104/71 Pulse Oximetry 100 12/13/17 04:00 12/13/17 05:15 12/13/17 08:00 Temperature 97.4 F L 98.2 F Pulse Rate 126 H 128 H Respiratory Rate 18 18 18 Blood Pressure 116/84 114/80 Pulse Oximetry 100 100 Intake & Output 12/12/17 12/13/17 12/13/17 18:59 06:59 18:59 Intake Total 1401 / 1401 1959 / 1959 Balance 1401 / 1401 1959 / 1959 Intake: IV 1101 / 1101 1000 / 1000 NS Inj 1,000 ML @ 100 mls/hr IV 1000 / 1000 1000 / 1000 .CONT .Q10H ERROL Rx#:[id number] Thiamine Inj 100 MG In NS Inj 101 / 101 100 ML @ 100 mls/hr IV.SIG DAILY ERROL Rx#:[id number] Oral 300 / 300 960 / 960 Other: # Voids 2 Date of Last Bowel Movement 12/10/17 12/10/17 Narrative: GENERAL: NAD, A&Ox3, no tremors HEAD: Normocephalic. NECK: Supple, trachea midline. No lymphadenopathy. EYES: No scleral icterus. No injection or drainage. CARDIOVASCULAR: Regular rate and rhythm without murmurs, gallops, or rubs. RESPIRATORY: Breath sounds equal bilaterally. No accessory muscle use. GASTROINTESTINAL: Abdomen soft, non-tender, nondistended. MUSCULOSKELETAL: No cyanosis, or edema. SKIN: Warm and dry. NEURO: No focal neurological deficits. Results - Labs CBC & Chem 7: 12/13/17 04:14 12/13/17 04:14 Laboratory Results - last 24 hr 12/12/17 12/12/1718 09:51 21:15 04:14 WBC 9.6 RBC 3.98 L Hgb 14.5 Hct 43.2 MCV 108.6 H MCH 36.3 H MCHC 33.5 RDW 14.4 Plt Count 44 L D MPV 9.4 Prelim Diff (Auto) Slide review pending Neut % (Auto) 85.2 H Lymph % (Auto) 4.4 L [place] % (Auto) 10.2 H Eos % (Auto) 0.1 Baso % (Auto) 0.1 Neut # (Auto) 8.2 H Lymph # (Auto) 0.4 L [place] # (Auto) 1.0 H Eos # (Auto) 0.0 Baso # (Auto) 0.0 WBC Differential . Diff Scan Auto diff confirmed Differential Comment . Platelet Estimate Low L Platelet Morphology Normal Sodium Potassium Chloride Carbon Dioxide Anion Gap BUN Creatinine Estimated GFR Random Glucose Lactic Acid 0.6 Calcium Total Bilirubin AST ALT Alkaline Phosphatase Total Protein Albumin Lipase Urine Color Babs Urine Clarity Clear Urine pH 6.0 Ur Specific [place] 1.017 Urine Protein 100 H Urine Glucose (UA) 50 Urine Ketones 80 or greater H Urine Occult Blood Moderate H Urine Nitrate Negative Urine Bilirubin Negative Urine Urobilinogen 4 or greater Ur Leukocyte Esterase Negative Urine RBC 2 Urine WBC Less than 1 Ur Squamous Epith Cells 1 Urine Bacteria Occasional H Hyaline Casts 1 Urine Mucus Few H Micro UA Comment Culture not ind Ur Microscopic Review Not Reportable Urine Culture Comments Culture not ind 12/13/17 04:14 WBC RBC Hgb Hct MCV MCH MCHC RDW Plt Count MPV Prelim Diff (Auto) Neut % (Auto) Lymph % (Auto) [place] % (Auto) Eos % (Auto) Baso % (Auto) Neut # (Auto) Lymph # (Auto) [place] # (Auto) Eos # (Auto) Baso # (Auto) WBC Differential Diff Scan Differential Comment Platelet Estimate Platelet Morphology Sodium 134 L Potassium 3.9 Chloride 102 D Carbon Dioxide 7.9 L Anion Gap 24 H BUN 10 Creatinine 1.20 H Estimated GFR 50 L Random Glucose 126 H Lactic Acid Calcium 8.6 Total Bilirubin 5.4 H AST 147 H ALT 105 H Alkaline Phosphatase 125 H Total Protein 7.3 D Albumin 3.9 D Lipase 1165 H Urine Color Urine Clarity Urine pH Ur Specific [place] Urine Protein Urine Glucose (UA) Urine Ketones Urine Occult Blood Urine Nitrate Urine Bilirubin Urine Urobilinogen Ur Leukocyte Esterase Urine RBC Urine WBC Ur Squamous Epith Cells Urine Bacteria Hyaline Casts Urine Mucus Micro UA Comment Ur Microscopic Review Urine Culture Comments Assessment and Plan - Assessment (1) Pancreatitis Code(s): K85.90 - Acute pancreatitis without necrosis or infection, unspecified Status: Acute (2) Alcohol abuse Code(s): F10.10 - Alcohol abuse, uncomplicated Status: Acute (3) Leukocytosis Code(s): D72.829 - Elevated white blood cell count, unspecified Status: Acute (4) Lactic acidosis Code(s): E87.2 - Acidosis Status: Acute - Plan 42-year-old female admitted secondary to acute pancreatitis Acute Pancreatitis Improving through time Advance diet Continue monitoring lipase Continue IV hydration Continue Protonix Continue antiemetics Continue pain treatments as needed Alcohol abuse Continue monitoring for DTs Continue CIWA protocol Continue multivitamin, thiamine, folic acid Renal insufficiency IV Hydration Related to dehydration DVT prophylaxis SCDs (1) Pancreatitis Qualifiers: Chronicity: acute Pancreatitis type: unspecified pancreatitis type Acute pancreatitis complication: unspecified Qualified Code(s): K85.90 - Acute pancreatitis without necrosis or infection, unspecified
[2017-12-13] MEDS: Sod Chloride 0.9% Inj 1,000 ML IV.CONT SCH ×3 (14:31→20:12)
[2017-12-14 01:00] VITALS: TEMP 98.3; O2SAT 100
[2017-12-14] MEDS: Sod Chloride 0.9% Inj 1,000 ML IV.CONT SCH (06:20)
[2017-12-14 07:10] LABS: Baso % (Auto) 0.1 % (0.0-2.0); Eos # (Auto) 0.1 th/mm3 (0.0-0.4); Eos % (Auto) 1.5 % (0.0-4.0); Hematocrit 40.2 % (35.0-46.0); Hemoglobin 13.9 gm/dL (11.6-15.3); Lymph # (Auto) 0.4 th/mm3 (1.0-4.8); Lymph % (Auto) 8.9 % (9.0-44.0); Mean Corpuscular HGB Conc 34.6 % (32.0-36.0); Mean Corpuscular Hemoglobin 36.7 pg (27.0-34.0); Mean Corpuscular Volume 106.2 fL (80.0-100.0); Mean Platelet Volume 9.3 fL (7.0-11.0); Mono # (Auto) 0.8 th/mm3 (0.0-0.9); Mono % (Auto) 16.4 % (0.0-8.0); Neut # (Auto) 3.6 th/mm3 (1.8-7.7); Neut % (Auto) 73.1 % (16.0-70.0); Platelet Count 27 th/mm3 (150-450); Red Blood Count 3.79 mil/mm3 (4.00-5.30); Red Cell Distribution Width 14.2 % (11.6-17.2); White Blood Count 4.9 th/mm3 (4.0-11.0)
[2017-12-14 07:41] LABS: Alanine Aminotransferase 129 U/L (10-53); Albumin 3.2 g/dL (3.4-5.0); Alkaline Phosphatase 125 U/L (45-117); Anion Gap 16 meq/L (5-15); Aspartate Aminotransferase 189 U/L (15-37); Blood Urea Nitrogen 7 mg/dL (7-18); Carbon Dioxide 15.3 meq/L (21.0-32.0); Chloride 105 meq/L (98-107); Glomerular Filtration Rate 67 mL/min (>89); Glucose,Random 91 mg/dL (74-106); Lipase 226 U/L (73-393); Sodium 136 meq/L (136-145); Total Protein 6.6 g/dL (6.4-8.2)
[2017-12-14 07:57] LABS: Potassium 3.7 meq/L (3.5-5.1)
[2017-12-14 08:42] LABS: Eosinophils 1 % (0-4); Lymphocytes 6 % (9-44); Monocytes 12 % (0-8)
[2017-12-14 08:43] LABS: Platelet Morphology Normal (Normal); Toxic Vacuolation Present
[2017-12-14] MEDS: Folic Acid 1 MG Tablet PO SCH (09:16)
[2017-12-14] MEDS: Multivitamin/Minerals Therapeutic Tablet PO SCH (09:16)
[2017-12-14] MEDS: Senna/Docusate Sodium 8.6/50 MG Tablet PO SCH (09:16)
[2017-12-14] MEDS: Pantoprazole Inj 40 MG Vial IV.PUSH SCH (09:16)
[2017-12-14] MEDS: Thiamine Inj 100 MG in Sodium Chlor 0.9% Inj 100 ML IV.SIG SCH (09:19)
--- NOTE | 2017-12-14 09:46 | P.DS ---
Date of admission: 12/12/17 02:12 Primary care physician: No Primary Care Physician Brief History from admission: This is a 42-year-old female with a PMH of Alcohol Abuse, Recurrent Pancreatitis and Tobacco Abuse who presented to the ER w/ complaints of severe abdominal pain, nausea and vomiting. States abdominal pain is severe, stabbing , 10/10, non-radiating, associated w/ nausea/vomiting. Admits to drinking alcohol, states she drinks "one Solo cup full of whiskey", notes withdrawal symptoms when not drinking. On arrival, BP 146/74, HR 134, O2 sat 97% on RA, Afebrile. CBC 14.5. Platelets 75. INR 1.1. Creatinine 1.06. Lactic acid 3.7. LFTs elevated. Lipase 6258. CT Abdomen/Pelvis with no acute abnormality , hepatic steatosis, cholelithiasis. DS: Diagnosis - Discharge Diagnosis (1) Pancreatitis Status: Acute (2) Alcohol abuse Status: Acute (3) Leukocytosis Status: Acute (4) Lactic acidosis Status: Acute DS: Medications - Discharge Medications Prescriptions: hydrocodone-acetaminophen 1 tab PO Q4H PRN #20 tab PRN Reason: Pain 3 to 6 promethazine 12.5 mg PO Q6H PRN #20 tab PRN Reason: Nausea DS: Summary Hospital Course: Mrs. Muhammad is a 42-year-old female. She was admitted secondary to alcohol-related acute pancreatitis. With IV hydration and through time this has improved. She is now on a regular diet and pancreatic enzymes have trended back towards within normal limits. She is medically stable and cleared for discharge with Phenergan and [place] for pain control. She is advised to avoid alcohol. - Time Spent with Patient Total time spent providing and/or coordinating discharge services: Less than 30 minutes - Quality: VTE Deep Vein Thrombosis/Pulmonary Embolism Present on Admission: No Exam Vital signs: Vital Signs 12/13/17 12:00 12/13/17 16:00 12/13/17 20:00 Temperature 97.1 F L 98.3 F 97.5 F L Pulse Rate 124 H 117 H 117 H Respiratory Rate 18 18 16 Blood Pressure 117/80 116/84 144/82 H Pulse Oximetry 100 100 99 12/13/17 20:42 12/13/17 23:43 12/14/17 00:00 Temperature 98.3 F Pulse Rate 119 H Respiratory Rate 18 18 16 Blood Pressure 113/76 Pulse Oximetry 100 12/14/17 06:04 12/14/17 06:43 Temperature Pulse Rate Respiratory Rate 18 18 Blood Pressure Pulse Oximetry Intake & Output 12/13/17 12/14/17 12/14/17 18:59 06:59 18:59 Intake Total 1701 / 1701 1999 Balance 1701 / 1701 1999 Intake: IV 1101 / 1101 1999 NS Inj 1,000 ML @ 100 mls/hr IV 1000 / 1000 1999 .CONT .Q10H ERROL Rx#:[id number] Thiamine Inj 100 MG In NS Inj 101 / 101 100 ML @ 100 mls/hr IV.SIG DAILY ERROL Rx#:[id number] Oral 600 / 600 1999 Other: # Voids 3 4 Date of Last Bowel Movement 12/10/17 12/10/17 Results Procedures completed during hospitalization: None Labs on day of discharge: Labs from last 24 hours 12/14/17 12/14/17 04:53 04:53 WBC 4.9 RBC 3.79 L Hgb 13.9 Hct 40.2 MCV 106.2 H MCH 36.7 H MCHC 34.6 RDW 14.2 Plt Count 27 L D MPV 9.3 Prelim Diff (Auto) Slide review pending Neut % (Auto) 73.1 H Lymph % (Auto) 8.9 L [place] % (Auto) 16.4 H Eos % (Auto) 1.5 Baso % (Auto) 0.1 Neut # (Auto) 3.6 Lymph # (Auto) 0.4 L [place] # (Auto) 0.8 Eos # (Auto) 0.1 Baso # (Auto) 0.0 WBC Differential Manual diff final Seg Neuts % (Manual) 63 Band Neuts % (Manual) 17 H Lymphocytes % (Manual) 6 L Monocytes % (Manual) 12 H Eosinophils % (Manual) 1 Basophils % (Manual) 1 Abs Neuts (Manual) 3.9 Differential Comment . Toxic Vacuolation Present H Platelet Estimate Low L Platelet Morphology Normal Sodium 136 Potassium 3.7 Chloride 105 Carbon Dioxide 15.3 L Anion Gap 16 H BUN 7 Creatinine 0.92 Estimated GFR 67 L Random Glucose 91 Calcium 9.0 Total Bilirubin 4.2 H AST 189 H ALT 129 H Alkaline Phosphatase 125 H Total Protein 6.6 D Albumin 3.2 L D Lipase 226 - Impressions ITS Impressions Abdomen/Pelvis CT 12/12/17 01:13 CONCLUSION: 1. No acute abnormality. 2. Hepatic steatosis. 3. Cholelithiasis. 4. 2.8 cm left adnexal cyst likely ovarian in nature. 5. Old T11 compression fracture. Discharge Plan - Discharge Disposition Patient Disposition: Discharge Home - Discharge Condition Condition: Stable - Discharge Order Discharge Orders: Discharge Order (Routine); Ordered 12/14/17 Ordered By: Santos Frias - Discharge Details Anticipated Discharge Date: 12/14/17 - Physicians Team Primary Care Provider: Primary Care Danyi,No Attending Provider: Santos Frias
[2017-12-14 10:13] VITALS: BP 116/78; PULSE 121; RESP 16
== END 2017-12-14 13:14 | disposition home or self-care (01) ==
LOC: NEPE 22:41 → NEDA 12-12 02:12 → N06 12-12 04:01
PROVIDERS: ADMIT Hospitalist; ATTEND Hospitalist

== ENCOUNTER 2018-01-26 21:18 | Inpatient (IN) ==
--- NOTE | 2018-01-26 21:32 | ED ---
HPI General Chief Complaint: Head Injury Stated Complaint: Head Injury Time Seen by Provider: 01/26/18 21:25 Source: patient Mode of arrival: ambulatory Limitations: no limitations History of Present Illness HPI Narrative: Patient states that while she was on her break while at work at [employer], she does not recall feeling any presyncopal type symptoms such as lightheadedness dizziness headache visual changes chest pain shortness of breath back pain abdominal pain... Patient does not recall the entirety of the episode. Workers heard a loud sound and attempted to open the door she was laying down against it, it pushed the door open and call 911 and get the patient to turn over. According to witnesses the patient was not shaking or to having any tonic-clonic type of activity, she was just simply on the floor had her eyes open and was scanning around looking confused for approximately 10-15 seconds. Patient is now fully a/o x4 MD complaint: Reports fall Onset (ago): minute(s) Fall from: standing Fall witnessed: no Place fall occurred: work Loss of consciousness: yes Prolonged down time: no Symptoms prior to fall: Reports none Location of injury: Reports head Related Data Home Medications Medication Instructions Recorded Confirmed levothyroxine 75 mcg PO DAILY 11/11/17 01/26/18 Allergies Allergy/AdvReac Type Severity Reaction Status Date / Time No Known Allergies Allergy Verified 11/11/17 08:28 Review of Systems ROS: all other systems reviewed are negative PMFSH History History Provided By: Patient Medical History Medical History ETOH abuse (Acute) Pancreatitis (Acute) Hypothyroidism (Acute) Herniated disc (Acute) Surgical History Surgical History No history of previous surgery (Acute) Social History Social History Substance History: No History of Abuse Second Hand Smoke Exposure: Yes Smoking Status: Current every day smoker Tobacco Type: Cigarettes How Often Do You Have a Drink Containing Alcohol: 2 to 4 times a month Recent Travel in [facility] within the Last 8 Weeks: No Recent Out of Country Travel within the Last 8 Weeks: No Exam Narrative Exam Narrative: GENERAL: female in no acute distress, has a pressure dressing around her hEAD SKIN: Warm and dry....rt temporal region has some active bleeding, hair is matted in dry blood making it difficult to assess size of wounds. HEAD: Normocephalic. EYES: Pupils equal and round. No scleral icterus. No injection or drainage. ENT: No nasal bleeding or discharge. Mucous membranes pink and moist. NECK: Trachea midline. No JVD. CARDIOVASCULAR: Regular rate and rhythm. no rubs or gallops RESPIRATORY: No accessory muscle use. Clear to auscultation. Breath sounds equal bilaterally. GASTROINTESTINAL: Abdomen soft, non-tender, nondistended. No rebound or guarding MUSCULOSKELETAL: Extremities without clubbing, cyanosis, or edema. No obvious deformities. NEUROLOGICAL: Awake and alert. No obvious cranial nerve deficits. Motor grossly within normal limits. Five out of 5 muscle strength in the arms and legs. Normal speech. PSYCHIATRIC: Appropriate mood and affect; insight and judgment normal. Procedures Laceration Laceration 1: Site: scalp Side (If applicable): right Size (cm): 2 Description: stellate Depth: simple, single layer Anesthetic used: lidocaine 1% Anesthesia technique:: local infiltration Pre-repair:: wound explored and irrigated extensively Skin layer closed with: micaela Number of sutures:: 5 Course Initial Documented Vital Signs Temperature 97 F L 01/26/18 21:26 Pulse Rate 86 01/26/18 21:26 Respiratory Rate 18 01/26/18 21:26 Blood Pressure 121/83 01/26/18 21:26 Pulse Oximetry 100 01/26/18 21:26 Last Documented Vital Signs Temperature 97 F L 01/26/18 21:26 Pulse Rate 98 H 01/26/18 21:40 Respiratory Rate 20 01/26/18 21:40 Blood Pressure 121/83 01/26/18 21:26 Pulse Oximetry 98 01/26/18 21:40 Medical Decision Making [facility] Narrative Medical decision making narrative: Lab interpretation: No leukocytosis, no anemia, however some megaloblastic ptosis noted Medical Screen Exam Complete: Yes Emergency Medical Condition: Yes Differential Diagnosis Differential Diagnosis: Syncope versus seizure versus ICH versus dehydration versus anemia Medical Records Medical records reviewed: Yes I reviewed the patient's medical records. Lab Data Lab results reviewed: Yes I reviewed the patient's lab results. Result diagrams: 01/26/18 21:30 01/26/18 21:30 POC Results POC Urine Results Negative Lab Results 1001/26/18 01/26/18 Range/Units 21:30 21:30 21:30 WBC 8.7 (4.0-11.0) th/mm3 RBC 3.96 L (4.00-5.30) mil/mm3 Hgb 15.1 (11.6-15.3) gm/dL Hct 42.9 (35.0-46.0) % MCV 108.3 H (80.0-100.0) fL MCH 38.0 H (27.0-34.0) pg MCHC 35.1 (32.0-36.0) % RDW 19.0 H (11.6-17.2) % Plt Count 147 L (150-450) th/mm3 MPV 8.5 (7.0-11.0) fL Neut % (Auto) 60.0 (16.0-70.0) % Lymph % (Auto) 27.6 (9.0-44.0) % [place] % (Auto) 9.8 H (0.0-8.0) % Eos % (Auto) 1.7 (0.0-4.0) % Baso % (Auto) 0.9 (0.0-2.0) % Neut # (Auto) 5.2 (1.8-7.7) th/mm3 Lymph # (Auto) 2.4 (1.0-4.8) th/mm3 [place] # (Auto) 0.9 (0.0-0.9) th/mm3 Eos # (Auto) 0.1 (0.0-0.4) th/mm3 Baso # (Auto) 0.1 (0.0-0.2) th/mm3 WBC Differential . Differential Comment Auto diff final Sodium (136-145) meq/L Potassium (3.5-5.1) meq/L Chloride (98-107) meq/L Carbon Dioxide (21.0-32.0) meq/L Anion Gap (5-15) meq/L BUN (7-18) mg/dL Creatinine (0.50-1.00) mg/dL Estimated GFR (>89) mL/min POC Glucose (68-110) mg/dl Random Glucose (74-106) mg/dL Calcium (8.5-10.1) mg/dL Troponin I (0.02-0.05) ng/mL B-Natriuretic Peptide 13 (0-100) pg/mL Serum Alcohol Less than 3 (0-5) mg/dL 01/26/18 01/26/18 Range/Units 21:30 21:34 WBC (4.0-11.0) th/mm3 RBC (4.00-5.30) mil/mm3 Hgb (11.6-15.3) gm/dL Hct (35.0-46.0) % MCV (80.0-100.0) fL MCH (27.0-34.0) pg MCHC (32.0-36.0) % RDW (11.6-17.2) % Plt Count (150-450) th/mm3 MPV (7.0-11.0) fL Neut % (Auto) (16.0-70.0) % Lymph % (Auto) (9.0-44.0) % [place] % (Auto) (0.0-8.0) % Eos % (Auto) (0.0-4.0) % Baso % (Auto) (0.0-2.0) % Neut # (Auto) (1.8-7.7) th/mm3 Lymph # (Auto) (1.0-4.8) th/mm3 [place] # (Auto) (0.0-0.9) th/mm3 Eos # (Auto) (0.0-0.4) th/mm3 Baso # (Auto) (0.0-0.2) th/mm3 WBC Differential Differential Comment Sodium 134 L (136-145) meq/L Potassium 2.9 L* (3.5-5.1) meq/L Chloride 97 L (98-107) meq/L Carbon Dioxide 20.1 L (21.0-32.0) meq/L Anion Gap 17 H (5-15) meq/L BUN 8 (7-18) mg/dL Creatinine 0.71 (0.50-1.00) mg/dL Estimated GFR Greater than 89 (>89) mL/min POC Glucose 165 H (68-110) mg/dl Random Glucose 156 H (74-106) mg/dL Calcium 9.1 (8.5-10.1) mg/dL Troponin I Less than 0.02 L (0.02-0.05) ng/mL B-Natriuretic Peptide (0-100) pg/mL Serum Alcohol (0-5) mg/dL Imaging Data Radiologist's impression: Head CT 01/26/18 21:25 CONCLUSION: 1. Right-sided scalp hematoma with scattered subarachnoid hemorrhage bilaterally extending into the left middle cranial fossa. Probable small amount of subdural hemorrhage anteriorly at the interhemispheric fissure and also in the middle cranial fossa without significant mass effect. Small hemorrhagic contusions in the left temporal lobe and possibly also anterior right frontal lobe. . Discharge Plan Discharge Disposition Patient Disposition: 30 Still Patient Discharge Condition Condition: Fair Discharge Details Diagnosis: Laceration of scalp, Intracranial hemorrhage, Acute hypokalemia Physicians Team ED Provider: Nathan Villa Primary Care Provider: Primary Care Hannah Ivory Rxs /Orders / Referrals /Forms Prescriptions: No Action levothyroxine 25 mcg Tablet 75 mcg PO DAILY RF: 0 Status ED Status: With Doctor Addendum entered and electronically signed by Nathan Villa 01/26/18 23: 14: EKG shows normal sinus rhythm, 80 bpm, normal intervals, motion artifact, no evidence of any ST elevation VA pattern.
[2018-01-26] MEDS ORDERED: Sod Chloride 0.9% Inj 1,000 ML IV.SIG ONE ×2 (21:50→22:38)
[2018-01-26 22:00] LABS: Baso # (Auto) 0.1 th/mm3 (0.0-0.2); Baso % (Auto) 0.9 % (0.0-2.0); Eos # (Auto) 0.1 th/mm3 (0.0-0.4); Eos % (Auto) 1.7 % (0.0-4.0); Hematocrit 42.9 % (35.0-46.0); Hemoglobin 15.1 gm/dL (11.6-15.3); Lymph # (Auto) 2.4 th/mm3 (1.0-4.8); Lymph % (Auto) 27.6 % (9.0-44.0); Mean Corpuscular HGB Conc 35.1 % (32.0-36.0); Mean Corpuscular Volume 108.3 fL (80.0-100.0); Mean Platelet Volume 8.5 fL (7.0-11.0); Mono # (Auto) 0.9 th/mm3 (0.0-0.9); Mono % (Auto) 9.8 % (0.0-8.0); Neut # (Auto) 5.2 th/mm3 (1.8-7.7); Platelet Count 147 th/mm3 (150-450); Red Blood Count 3.96 mil/mm3 (4.00-5.30); White Blood Count 8.7 th/mm3 (4.0-11.0)
[2018-01-26 22:22] LABS: Anion Gap 17 meq/L (5-15); Blood Urea Nitrogen 8 mg/dL (7-18); Calcium 9.1 mg/dL (8.5-10.1); Carbon Dioxide 20.1 meq/L (21.0-32.0); Chloride 97 meq/L (98-107); Glomerular Filtration Rate Greater Than 89 mL/min (>89); Glucose,Random 156 mg/dL (74-106); Sodium 134 meq/L (136-145)
[2018-01-26 22:30] LABS: Potassium 2.9 meq/L (3.5-5.1)
--- NOTE | 2018-01-26 22:44 | CT ---
EXAM DATE: 01/26/2018 9:30 PM EDT AGE/SEX: 42 years / Female INDICATIONS: Syncopal episode. Found on floor. Laceration to right side of head. CLINICAL DATA: This is the patient's initial encounter. Patient reports that signs and symptoms have been present for 1 day and indicates a pain score of 0/10. MEDICAL/SURGICAL HISTORY: Pancreatitis. ETOH abuse. None. RADIATION DOSE: 38.69 CTDI (mGy) COMPARISON: No prior exams available for comparison. TECHNIQUE: CT of the head without contrast. Using automated exposure control and adjustment of the mA and/or kV according to patient size, radiation dose was kept as low as reasonably achievable to ob tain optimal diagnostic quality images. DICOM format image data is available electronically for revi ew and comparison. FINDINGS: There is a right-sided scalp hematoma. There is some scattered subarachnoid hemorrhage near the verte x, slightly more on the left side. There is some focal hemorrhage at the anterior interhemispheric fi ssure measuring up to 14 mm in thickness, possibly small amount of subdural hemorrhage or hemorrhagic contusion. This is not associated with significant mass effect. There is no midline shift. There is also some extra-axial hemorrhage in the left middle cranial fossa with probable small hemorr hagic contusions. No definite skull fracture identified. Visualized paranasal sinuses are clear. CONCLUSION: 1. Right-sided scalp hematoma with scattered subarachnoid hemorrhage bilaterally extending into the left middle cranial fossa. Probable small amount of subdural hemorrhage anteriorly at the interhemisp heric fissure and also in the middle cranial fossa without significant mass effect. Small hemorrhagic contusions in the left temporal lobe and possibly also anterior right frontal lobe. . Electronically signed by: Thuan Fabian MD 01/26/2018 10:43 PM EDT
--- NOTE | 2018-01-26 23:40 | P.HPCC ---
History of Present Illness Primary Care Physician: No Primary Care Physician History of Present Illness: 42-year-old very pleasant female states that while she was on her break at work at [employer], fainted and hit her head against the concrete floor. She does not recall feeling any presyncopal type symptoms such as lightheadedness dizziness headache visual changes chest pain shortness of breath back pain abdominal pain... Patient does not recall the entirety of the episode. Workers heard a loud sound and attempted to open the door she was laying down against it, it pushed the door open and call 911 and get the patient to turn over. According to witnesses the patient was not shaking or having any tonic-clonic type of activity, she was just simply on the floor had her eyes open and was staring around looking confused for approximately 10-15 seconds. Inpatient Certification: I certify that the inpatient services were ordered in accordance with Medicare regulations governing the order. This includes certification that hospital inpatient services are reasonable and necessary and in the case of services not specified as inpatient-only under 42 CFR 419.22(n), that they are appropriately provided as inpatient services in accordance to with the 2-midnight benchmark under 43 CFR 412.3(e) Review of Systems All other systems reviewed negative except as stated in HPI PMFSH - History History Provided By: Patient - Medical History Medical History: Medical History (Last Reviewed 01/26/18 @ 23:12 by Nathan Villa) ETOH abuse (Acute) Pancreatitis (Acute) Hypothyroidism (Acute) Herniated disc (Acute) - Surgical History Surgical History: Surgical History (Last Reviewed 01/26/18 @ 23:12 by Nathan Villa) No history of previous surgery - Tobacco History Second Hand Smoke Exposure: Yes Tobacco Use In Past 30 Days: Yes Smoking Status: Current every day smoker Tobacco Type: Cigarettes - Alcohol History How Often Do You Have a Drink Containing Alcohol: 2 to 4 times a month - Substance Use History Substance History: No History of Abuse - Travel History Recent Travel in the [place] Within the Last 8 Weeks: No Recent Travel Out of the Country Within the Last 8 Weeks: No - Immunization History Tetanus Immunization: Unsure Medications and Allergies Active Medications: Current Medications Acetaminophen (Tylenol) 650 mg PO Q6H PRN PRN Reason: PAIN 1-5 AND/OR FEVER >101F Al Hydroxide/Mg Hydroxide (Milk Of Magnesia Liq) 30 ml PO Q12H PRN PRN Reason: Mild Constipation Albuterol (Duoneb Neb (Prn)) 1 ampul NEB Q2HR NEB PRN PRN Reason: WHEEZING Bisacodyl (Dulcolax Supp) 10 mg RECTAL DAILY PRN PRN Reason: SEVERE CONSITIPATION Chlorhexidine Gluconate (Chlorhexidine 2% Cloth) 3 pack TOPICAL DAILY@0400 ERROL Stop: 02/01/18 03:59 Chlorhexidine Gluconate (Chlorhexidine 2% Cloth) 3 pack TOPICAL DAILY@0400 PRN PRN Reason: Extra cloth needed Stop: 02/01/18 03:59 Levetiracetam 500 mg/ Sodium (Chloride) 105 mls @ 400 mls/hr IV.SIG Q12H ERROL Sodium Chloride (Ns Inj) 1,000 mls @ 84 mls/hr IV.CONT .[id number] ERROL Magnesium Sulfate 4 gm/ Sodium (Chloride) 100 mls @ 50 mls/hr IV.SIG UNSCH PRN PRN Reason: For Magnesium 0.9 - 1.1 mg/dL Magnesium Sulfate 2 gm/ Sodium (Chloride) 100 mls @ 50 mls/hr IV.SIG UNSCH PRN PRN Reason: For Magnesium 1.2 - 1.6 mg/dL Potassium Chloride (Kcl 40 Meq Premix Inj) 40 meq in 100 mls @ 25 mls/hr IV.SIG Q2H PRN PRN Reason: For Potassium 2.8 - 3.2 mEq/L Potassium Chloride (Kcl 20 Meq Premix Inj) 20 meq in 100 mls @ 50 mls/hr IV.SIG Q2H PRN PRN Reason: For Potassium 3.3 - 3.5 mEq/L Potassium Chloride (Kcl 40 Meq Premix Inj) 40 meq in 100 mls @ 25 mls/hr IV.SIG UNSCH PRN PRN Reason: For Potassium 3.3 - 3.5 mEq/L Potassium Chloride (Kcl 20 Meq Premix Inj) 20 meq in 100 mls @ 50 mls/hr IV.SIG Q2H PRN PRN Reason: For Potassium 2.8 - 3.2 mEq/L Potassium Phosphate 30 mmol/ (Sodium Chloride) 260 mls @ 42 mls/hr IV.SIG UNSCH PRN PRN Reason: SEE LABEL COMMENTS Sodium Phosphate 30 mmol/ (Sodium Chloride) 260 mls @ 42 mls/hr IV.SIG UNSCH PRN PRN Reason: For Phosphorus < 2.5 mg/dL Lactulose (Lactulose Liq) 30 ml PO DAILY PRN PRN Reason: SEVERE CONSITIPATION Levothyroxine Sodium (Synthroid) 75 mcg PO DAILY@0600 ERROL Magnesium Oxide (Mag-Ox) 800 mg PO UNSCH PRN PRN Reason: For Magnesium 1.2 - 1.6 mg/dL Morphine Sulfate (Morphine Inj) 2 mg IV.PUSH Q2H PRN PRN Reason: PAIN SCALE 6 TO 10 Ondansetron HCl (Zofran Inj) 4 mg IV.PUSH Q6H PRN PRN Reason: NAUSEA OR VOMITING Potassium Bicarb/Potassium Chloride (K-Lyte Cl Eff) 50 meq PO UNSCH PRN PRN Reason: For Potassium 3.3 - 3.5 mEq/L Potassium Phosphate (K-Phos Original) 2,000 mg PO Q4H PRN PRN Reason: Phosphorus Less Than 2.5 mg/dL Potassium Phosphate (K-Phos Original) 2,000 mg PO UNSCH PRN PRN Reason: SEE LABEL COMMENTS Senna/Docusate Sodium (Aylin-Colace) 1 tab PO BID ERROL Sennosides (Senokot) 17.2 mg PO Q12H PRN PRN Reason: Moderate Constipation Sodium Chloride (Ns Flush) 2 ml IV.FLUSH BID ERROL Sodium Chloride (Ns Flush) 2 ml IV.FLUSH PRN PRN PRN Reason: FLUSH AFTER USING IV ACCESS Allergies Allergy/AdvReac Type Severity Reaction Status Date / Time No Known Allergies Allergy Verified 11/11/17 08:28 Home Medications Medication Instructions Recorded Confirmed Type levothyroxine 75 mcg PO DAILY 11/11/17 01/26/18 History Results - Labs CBC & Chem 7: 01/26/18 21:30 01/26/18 21:30 Labs: Short CBC 01/26/18 Range/Units 21:30 WBC 8.7 (4.0-11.0) th/mm3 Hgb 15.1 (11.6-15.3) gm/dL Hct 42.9 (35.0-46.0) % Plt Count 147 L (150-450) th/mm3 BMP 01/26/18 21:30 Sodium 134 L Potassium 2.9 L* Chloride 97 L Carbon Dioxide 20.1 L BUN 8 Creatinine 0.71 Calcium 9.1 Cardiac Enzymes 01/26/18 Range/Units 21:30 Troponin I Less than 0.02 L (0.02-0.05) ng/mL - Imaging Impressions Head CT 01/26/18 21:25 CONCLUSION: 1. Right-sided scalp hematoma with scattered subarachnoid hemorrhage bilaterally extending into the left middle cranial fossa. Probable small amount of subdural hemorrhage anteriorly at the interhemispheric fissure and also in the middle cranial fossa without significant mass effect. Small hemorrhagic contusions in the left temporal lobe and possibly also anterior right frontal lobe. . Exam Vital signs: Vital Signs 01/26/18 21:26 01/26/18 21:38 01/26/18 21:40 Temperature 97 F L Pulse Rate 86 95 H 98 H Respiratory Rate 18 20 Blood Pressure 121/83 Pulse Oximetry 100 98 98 Intake & Output 01/26/18 01/26/18 01/27/18 06:59 18:59 06:59 Weight 63.957 kg - Constitutional no acute distress - Routine HEENT Exam Head: Present: normocephalic Eye: Present: EOMI, PERRL ENT: Present: mucous membranes moist Comments: Laceration edema in the right temporal area - Routine Neck Exam Present: supple, full ROM. Absent: JVD, carotid bruit - Routine Respiratory Exam Absent: accessory muscle use, rhonchi, stridor, wheezes, crackles - Routine Cardiovascular Exam Present: RRR, S1, S2 - Routine Abdominal Exam Present: soft, normoactive bowel sounds. Absent: tenderness, distended - Routine Extremities Exam Absent: cyanosis, clubbing, edema - Routine Skin Exam Present: intact. Absent: cyanosis, erythema - Routine Neurological Exam Present: alert, oriented X3, moving all extremities, normal tone, vision grossly intact Septic Shock Reassessment Septic shock perfusion: reassessment completed Caprini VTE Risk Assessment Caprini VTE Risk Assessment: No/Low Risk (score <= 1) Caprini Risk Assessment Model: Point Value = 1 Point Value = 2 Point Value = 3 Point Value = 5 Age 41-60 Minor surgery BMI > 25 kg/m2 Swollen legs Varicose veins or History of unexplained or recurrent spontaneous Oral contraceptives or hormone replacement Sepsis (< 1 month) Serious lung disease, including pneumonia (< 1 month) Abnormal pulmonary function Acute myocardial infarction Congestive heart failure (< 1 month) History of inflammatory bowel disease Medical patient at bed rest Age 61-74 Arthroscopic surgery Major open surgery (> 45 min) Laparoscopic surgery (> 45 min) Malignancy Confined to bed (> 72 hours) Immobilizing plaster cast Central venous access Age >= 75 History of VTE Family history of VTE Factor V Leiden Prothrombin [id number] Lupus anticoagulant Anticardiolipin antibodies Elevated serum homocysteine Heparin-induced thrombocytopenia Other congenital or acquired thrombophilia Stroke (< 1 month) Elective arthroplasty Hip, pelvis, or leg fracture Acute spinal cord injury (< 1 month) Prophylaxis Regimen: Total Risk Factor Score Risk Level Prophylaxis Regimen 0-1 Low Early ambulation 2 Moderate Order ONE of the following: *Sequential Compression Device (SCD) *Heparin 5000 units SQ BID 3-4 Higher Order ONE of the following medications: *Heparin 5000 units SQ TID *Enoxaparin/Lovenox 40 mg SQ daily (WT < 150 kg, CrCl > 30 mL/min) *Enoxaparin/Lovenox 30 mg SQ daily (WT < 150 kg, CrCl > 10-29 mL/min) *Enoxaparin/Lovenox 30 mg SQ BID (WT < 150 kg, CrCl > 30 mL/min) AND/OR *Sequential Compression Device (SCD) 5 or more Highest Order ONE of the following medications: *Heparin 5000 units SQ TID (Preferred with Epidurals) *Enoxaparin/Lovenox 40 mg SQ daily (WT < 150 kg, CrCl > 30 mL/min) *Enoxaparin/Lovenox 30 mg SQ daily (WT < 150 kg, CrCl > 10-29 mL/min) *Enoxaparin/Lovenox 30 mg SQ BID (WT < 150 kg, CrCl > 30 mL/min) AND *Sequential Compression Device (SCD) Assessment and Plan - Assessment and Plan Plan: Right-sided scalp hematoma Traumatic subarachnoid hemorrhage bilaterally Small subdural hemorrhage Small hemorrhagic contusions in the left temporal lobe and anterior right frontal lobe -Keppra seizure prophylaxis -Neuro checks per ICU protocol -Neurosurgical consultation -No intervention indicated at this time -Fall and seizure precaution Syncope -Telemetry -Neurology consultation Anemia -Microcytic anemia -B12 and folic acid level -TSH -Transfuse if hemoglobin less than 7 Hypothyroidism -Levothyroxine Hypokalemia and hyponatremia -Electrolyte replacement per ICU protocol -TSH and cortisol level DVT GI prophylaxis -Teds SCDs -No pharmacological DVT prophylaxis due to acute intracranial bleed -GI prophylaxis not indicated 35 minutes of critical care
[2018-01-26] MEDS ORDERED: Bisacodyl 10 MG Supp RECTAL PRN (23:42)
[2018-01-26] MEDS ORDERED: Potassium Chlor 40 mEq Premix 40 MEQ/100 ML PIGGYBACK IV.SIG PRN ×2 (23:47)
[2018-01-26] MEDS ORDERED: Potassium Chloride 25 MEQ Effervescent Tablet PO PRN (23:47)
[2018-01-26] MEDS ORDERED: Potassium Phosphate Inj 30 MMOL in Sodium Chlor 0.9% Inj 250 ML IV.SIG PRN (23:47)
[2018-01-26] MEDS ORDERED: Magnesium Oxide 400 MG Tablet PO PRN (23:47)
[2018-01-26] MEDS ORDERED: Magnesium Sulfate Inj 2 GM in Sodium Chlor 0.9% Inj 96 ML IV.SIG PRN (23:47)
[2018-01-26] MEDS ORDERED: Potassium Phosphate 500 MG Soluble Tablet PO PRN ×2 (23:47)
[2018-01-26] MEDS ORDERED: Potassium Chlor 20 mEq Premix 20 MEQ/100 ML PIGGYBACK IV.SIG PRN (23:47)
[2018-01-26] MEDS ORDERED: Sodium Phosphate Inj 30 MMOL in Sodium Chlor 0.9% Inj 250 ML IV.SIG PRN (23:47)
[2018-01-26] MEDS ORDERED: Magnesium Sulfate Inj 4 GM in Sodium Chlor 0.9% Inj 92 ML IV.SIG PRN (23:47)
[2018-01-27] MEDS: Sod Chloride 0.9% Inj 1,000 ML IV.CONT SCH ×2 (00:58→16:45)
[2018-01-27] MEDS: Morphine Sulfate Inj 2 MG/ML Vial IV.PUSH PRN ×5 (01:02→16:45)
[2018-01-27] MEDS ORDERED: Chlorhexidine Gluconate 2% 1 Pack (2 Cloths) TOPICAL PRN (04:00)
[2018-01-27 04:53] LABS: Baso % (Auto) 0.6 % (0.0-2.0); Eos % (Auto) 0.2 % (0.0-4.0); Hematocrit 39.7 % (35.0-46.0); Hemoglobin 13.6 gm/dL (11.6-15.3); Lymph # (Auto) 0.7 th/mm3 (1.0-4.8); Lymph % (Auto) 8.7 % (9.0-44.0); Mean Corpuscular HGB Conc 34.2 % (32.0-36.0); Mean Corpuscular Hemoglobin 37.6 pg (27.0-34.0); Mean Corpuscular Volume 110.1 fL (80.0-100.0); Mean Platelet Volume 9.2 fL (7.0-11.0); Mono # (Auto) 0.6 th/mm3 (0.0-0.9); Mono % (Auto) 7.5 % (0.0-8.0); Neut # (Auto) 6.3 th/mm3 (1.8-7.7); Platelet Count 118 th/mm3 (150-450); Red Cell Distribution Width 18.8 % (11.6-17.2); White Blood Count 7.6 th/mm3 (4.0-11.0)
[2018-01-27 04:59] LABS: Activated Partial Thrombo Time 22.5 sec (24.3-30.1); INR 1.1 Ratio; Prothrombin Time 11.3 sec (9.8-11.6)
[2018-01-27 05:17] LABS: Albumin 3.6 g/dL (3.4-5.0); Anion Gap 14 meq/L (5-15); Blood Urea Nitrogen 7 mg/dL (7-18); Calcium 8.3 mg/dL (8.5-10.1); Carbon Dioxide 22.5 meq/L (21.0-32.0); Chloride 102 meq/L (98-107); Glomerular Filtration Rate Greater Than 89 mL/min (>89); Glucose,Random 100 mg/dL (74-106); Magnesium 1.8 mg/dL (1.5-2.5); Potassium 3.2 meq/L (3.5-5.1); Sodium 138 meq/L (136-145)
[2018-01-27 05:18] LABS: Alanine Aminotransferase 56 U/L (10-53); Aspartate Aminotransferase 82 U/L (15-37)
[2018-01-27] MEDS: Levothyroxine 75 MCG Tablet PO SCH (05:26)
[2018-01-27 05:43] LABS: Alkaline Phosphatase 89 U/L (45-117); Phosphorus 3.1 mg/dL (2.5-4.9); Total Protein 6.4 g/dL (6.4-8.2); Vitamin B12 363 pg/mL (193-986)
[2018-01-27] MEDS: Chlorhexidine Gluconate 2% 1 Pack (2 Cloths) TOPICAL SCH (06:19)
[2018-01-27] MEDS: Potassium Chlor 20 mEq Premix 20 MEQ/100 ML PIGGYBACK IV.SIG PRN ×4 (07:32→15:30)
--- NOTE | 2018-01-27 10:17 | P.PN ---
Subjective Interval history: Follow-up intracranial hemorrhage and syncope. Complains of mild headache. LMP 3 weeks ago Physical Exam Vital signs: Vital Signs 01/26/18 21:26 01/26/18 21:38 01/26/18 21:40 Temperature 97 F L Pulse Rate 86 95 H 98 H Respiratory Rate 18 20 Blood Pressure 121/83 Pulse Oximetry 100 98 98 01/27/18 00:00 01/27/18 01:04 01/27/18 02:00 Temperature 98.4 F Pulse Rate 82 80 Respiratory Rate 22 15 Blood Pressure 159/80 H 114/79 Pulse Oximetry 100 01/27/18 03:00 01/27/18 04:00 01/27/18 05:00 Temperature 98.6 F Pulse Rate 95 H 86 90 Respiratory Rate 18 Blood Pressure 118/79 99/61 L 131/76 Pulse Oximetry 98 01/27/18 05:28 01/27/18 06:00 01/27/18 08:00 Temperature Pulse Rate 89 Respiratory Rate 20 Blood Pressure 131/72 Pulse Oximetry 100 Intake & Output 01/26/18 01/27/18 01/27/18 18:59 06:59 18:59 Intake Total 1105 / 1105 100 / 100 Output Total 400 / 400 Balance 705 / 705 100 / 100 Weight 61.6 kg Intake: IV 1105 / 1105 100 / 100 KCl 20 mEq Premix Inj 20 meq In 100 / 100 100 ml @ 50 mls/hr IV.SIG Q2H PRN Rx#:[id number] NS Inj 1,000 ML @ Wide Open IV. 1000 / 1000 SIG BOLUS ONE Rx#:[id number] Keppra Inj 500 MG In NS Inj 100 105 / 105 ML @ 400 mls/hr IV.SIG Q12H ERROL Rx#:[id number] Output: Urine 400 / 400 Other: # Voids 1 Weight On Admission 61.6 kg Narrative: GENERAL: Well-developed, well-nourished patient who is critically ill SKIN: Warm and dry. HEAD: Stapled laceration over right temporal with dry blood EYES: Pupils equal and round. ENT: No nasal bleeding or discharge. Mucous membranes pink and moist. NECK: Trachea midline. No JVD. CARDIOVASCULAR: Regular rate and rhythm. RESPIRATORY: No accessory muscle use. Clear to auscultation. Breath sounds equal bilaterally. GASTROINTESTINAL: Abdomen soft, non-tender, nondistended. MUSCULOSKELETAL: Extremities without clubbing, cyanosis, or edema. No obvious deformities. NEUROLOGICAL: Awake and alert. No obvious cranial nerve deficits. Motor grossly within normal limits. Five out of 5 muscle strength in the arms and legs. Normal speech. PSYCHIATRIC: Appropriate mood and affect; insight and judgment normal. Results - Labs CBC & Chem 7: 01/27/18 03:22 01/27/18 03:22 Laboratory Results - last 24 hr 01/26/18 01/26/18 01/26/18 21:30 21:30 21:30 WBC 8.7 RBC 3.96 L Hgb 15.1 Hct 42.9 MCV 108.3 H MCH 38.0 H MCHC 35.1 RDW 19.0 H Plt Count 147 L MPV 8.5 Neut % (Auto) 60.0 Lymph % (Auto) 27.6 Mills % (Auto) 9.8 H Eos % (Auto) 1.7 Baso % (Auto) 0.9 Neut # (Auto) 5.2 Lymph # (Auto) 2.4 Mills # (Auto) 0.9 Eos # (Auto) 0.1 Baso # (Auto) 0.1 WBC Differential . Differential Comment Auto diff final PT INR APTT Sodium Potassium Chloride Carbon Dioxide Anion Gap BUN Creatinine Estimated GFR POC Glucose Random Glucose Calcium Phosphorus Magnesium Total Bilirubin AST ALT Alkaline Phosphatase Troponin I B-Natriuretic Peptide 13 Total Protein Albumin Vitamin B12 Folate Nasal Screen MRSA (PCR) Serum Alcohol Less than 3 01/26/18 01/26/18 01/27/18 21:30 21:34 00:30 WBC RBC Hgb Hct MCV MCH MCHC RDW Plt Count MPV Neut % (Auto) Lymph % (Auto) Mills % (Auto) Eos % (Auto) Baso % (Auto) Neut # (Auto) Lymph # (Auto) Mills # (Auto) Eos # (Auto) Baso # (Auto) WBC Differential Differential Comment PT INR APTT Sodium 134 L Potassium 2.9 L* Chloride 97 L Carbon Dioxide 20.1 L Anion Gap 17 H BUN 8 Creatinine 0.71 Estimated GFR Greater than 89 POC Glucose 165 H Random Glucose 156 H Calcium 9.1 Phosphorus Magnesium Total Bilirubin AST ALT Alkaline Phosphatase Troponin I Less than 0.02 L B-Natriuretic Peptide Total Protein Albumin Vitamin B12 Folate Nasal Screen MRSA (PCR) Not detected Serum Alcohol 01/27/18 01/27/18 01/27/18 03:22 03:22 03:22 WBC 7.6 RBC 3.60 L Hgb 13.6 Hct 39.7 MCV 110.1 H MCH 37.6 H MCHC 34.2 RDW 18.8 H Plt Count 118 L MPV 9.2 Neut % (Auto) 83.0 H Lymph % (Auto) 8.7 L Mills % (Auto) 7.5 Eos % (Auto) 0.2 Baso % (Auto) 0.6 Neut # (Auto) 6.3 Lymph # (Auto) 0.7 L Mills # (Auto) 0.6 Eos # (Auto) 0.0 Baso # (Auto) 0.0 WBC Differential . Differential Comment Auto diff final PT 11.3 INR 1.1 APTT 22.5 L Sodium 138 Potassium 3.2 L Chloride 102 Carbon Dioxide 22.5 Anion Gap 14 BUN 7 Creatinine 0.53 Estimated GFR Greater than 89 POC Glucose Random Glucose 100 Calcium 8.3 L D Phosphorus 3.1 Magnesium 1.8 Total Bilirubin 3.8 H AST 82 H ALT 56 H Alkaline Phosphatase 89 Troponin I Less than 0.02 L B-Natriuretic Peptide Total Protein 6.4 Albumin 3.6 Vitamin B12 363 Folate 12.0 Nasal Screen MRSA (PCR) Serum Alcohol - Imaging Impressions ITS Impressions Head CT 01/26/18 21:25 CONCLUSION: 1. Right-sided scalp hematoma with scattered subarachnoid hemorrhage bilaterally extending into the left middle cranial fossa. Probable small amount of subdural hemorrhage anteriorly at the interhemispheric fissure and also in the middle cranial fossa without significant mass effect. Small hemorrhagic contusions in the left temporal lobe and possibly also anterior right frontal lobe. . - Procedures Scalp laceration repair Assessment and Plan - Plan Right-sided scalp hematoma Traumatic subarachnoid hemorrhage bilaterally Small subdural hemorrhage Small hemorrhagic contusions in the left temporal lobe and anterior right frontal lobe -Keppra seizure prophylaxis -Neuro checks per ICU protocol -Neurosurgical consultation -Fall and seizure precaution Syncope -Telemetry -Neurology consultation. Syncope workup which will include echocardiogram, EEG , CTA of the head and neck and MRI of the head. Follow-up UDS and TSH Anemia -Macrocytic anemia -MMA -B12 and folic acid within normal limits -Transfuse if hemoglobin less than 7 Hypothyroidism -Levothyroxine. Follow-up TSH Hypokalemia and hyponatremia -Electrolyte replacement per ICU protocol -Follow-up cortisol level Chronic transaminitis with a history of alcohol abuse. Counseled. [facility] protocol FEN -Currently n.p.o. diet per neurosurgery DVT GI prophylaxis -Teds SCDs -No pharmacological DVT prophylaxis due to acute intracranial bleed -GI prophylaxis not indicated Discharge Planning: Patient is critically ill with intracranial hemorrhage. She will be kept in the ICU for close monitoring high likelihood of decompensation. Critical care time spent 35 minutes
--- NOTE | 2018-01-27 11:00 | MB ---
cc: Juarez Logan MD DATE: 01/27/2018 HISTORY OF PRESENT ILLNESS: A 42-year-old right-handed woman with a history of, she tells me pancreatitis about a month and a half ago, hypothyroidism. She was at work and ready to leave work. She remembers sitting and the next thing she knows she woke up on the floor and somebody had told her she had a seizure. No incontinence or tongue biting. She did not have any warning. No chest pain or palpitations. No lightheadedness. Evidently workers heard a loud sound; attempted to open the door, she was lying down against, pushed the door open and called 911. She was not shaking or having any seizure activity, just sitting on the floor looking confused for about 10 seconds. Evidently, she tells me that a woman in the work said that she had a seizure. CAT scan showed a right-sided scalp hematoma, probable small amount of subdural hemorrhage, small hemorrhagic contusion in the left temporal lobe, possibly right frontal lobe. Herself; she does not remember exactly what happened. When she woke up, she did not have a terrible headache, but seemed to get a headache that she went in the ambulance and then evidently vomited in the ambulance. She did not vomit when she first woke up. REVIEW OF SYSTEMS: She denies any prior headache, chest pain, palpitations. No history of hypertension, diabetes, hypercholesterolemia, AK, CABG, stent, angioplasty, A-Fib, Coumadin, renal, hepatic or pulmonary disease, lupus, ulcer, cancer, prior seizure, stroke. No odd smells, taste age, venus vu, never woke up wet the bed or bit her tongue. SOCIAL HISTORY: She is a smoker in the past, but quit. Drinks 4 days a week; whiskey, several shots, although it had not drunk in the day when she was working. No drugs. Lives with her and child. FAMILY HISTORY: Negative for cancer, seizure or stroke. Just started her job 2 days prior, was working at a computer sitting most of the day. She does not think she just stood up beforehand, but she is not quite sure; the last thing she remembers is sitting at the computer. PAST MEDICAL HISTORY: Alcohol use, pancreatitis, hypothyroidism. She was just admitted on 08/04/2017 with abdominal pain, vomiting; had had a few drinks at [employer], had some fever. She had seen GI. She had an MRCP, showed acute pancreatitis, distended gallbladder with sludge; platelet count was low, had recurrent pancreatitis. Surgery did not recommend a cholecystectomy. She had an abdominal CT in May of this year that showed inflammation of the pancreas, enlarged fatty liver. She had a history of anemia and elevated ferritin. Denies depression or anxiety. MEDICATIONS AT HOME: She is on thyroid medicine only; does not take Xanax she tells me also. PHYSICAL EXAMINATION: VITAL SIGNS: Blood pressure initially 121/83, low is 99/61, sinus rhythm, afebrile. NECK: There were no carotid bruits. HEART: Regular rate and rhythm. I did not detect a murmur. NEUROLOGIC: There was no huddleston sign. NEUROLOGIC: Pupils are equal. Visual valverde are full. Extraocular movements intact without nystagmus. Face is symmetric with normal sensation. Tongue was midline. No drift or asterixis. She has normal strength in upper and lower extremities bilaterally. Toes downgoing bilaterally. Pinprick is intact throughout. DTRs are 1 plus and symmetric throughout. No tremor. She says she feels a little nervous says she does not feel like she needs a drink. She is awake and oriented. Speech is fluent. Hearing was intact. LABORATORY DATA: CBC: Platelet count is 147. Alcohol level was negative. BMP: Initially potassium was 2.9, came up to normal. Rest of BMP is normal. LFTs are mildly elevated ALT of 56, AST of 82. Troponin was negative. B12 and folate normal. Coags were normal. Her platelet count in the past had been as low as 55 in May of this year, it has come up; although in July it was 67. She had a blood gas that looked venous back in October. Her BMP had been normal recently. Her iron level was high at 235. Ferritin was 6000 in October. LFTs have been as high as 274 in May and chronically elevated in 2016. Ceruloplasmin was normal. Alpha-1 antitrypsin was essentially normal. Amylase was low at 16. Lipase was high at 841. AFP has been normal. B12 normal. Thyroid was normal in July of this year. UA had some protein and ketones in May of this year. FANNIE was negative in October last year, 1:80 only. Hepatitis screen has been negative. Hemochromatosis study was done. I cannot pull up the interpretation. Evidently gene results were negative. Antismooth muscle antibodies have been negative. IMAGING: She had a CAT scan of her brain yesterday. It showed a right-sided scalp hematoma, some subarachnoid hemorrhage near the vertex, a little more than the left. Focal hemorrhage anterior interhemispheric fissure, small amount of subdural hemorrhage or hemorrhagic contusion. No midline shift; small hemorrhagic contusions left temporal lobe, possibly right anterior frontal lobe. Review of those films does show some blood on the left, subarachnoid and also right frontal region, cannot tell for sure in the temporal lobes. IMPRESSION: It is possible she had a seizure from alcohol withdrawal and then fell and hit her head and had a secondary traumatic event. We should try to get some eye witness report from her work. I told for now to hold off driving until further notice, not to swim alone, take a bath alone, climb heights, ride a bicycle motorcycle any other dangerous activities if she were to have a seizure. We will check a CTA, although I think aneurysm is unlikely and we will check an MRI of the brain and EEG, some standing blood pressures, some additional blood work. MD TAMELA Gil/med , 09:31 AM , 09:45 AM
[2018-01-27] MEDS: Senna/Docusate Sodium 8.6/50 MG Tablet PO SCH ×2 (12:18→20:26)
[2018-01-27] MEDS ORDERED: LORazepam 1 MG Tablet PO PRN (12:38)
[2018-01-27] MEDS ORDERED: Haloperidol Inj 5 MG/ML Ampul IV.PUSH PRN (12:38)
[2018-01-27 12:52] LABS: Free T4 (Free Thyroxine) 1.13 ng/dL (0.76-1.46); Thyroid Stimulating Hormone 0.889 uIU/mL (0.358-3.740)
--- NOTE | 2018-01-27 16:16 | MR ---
EXAM DATE: 01/27/2018 1:55 PM EDT AGE/SEX: 42 years / Female INDICATIONS: Seizures. Hemorrhage. CLINICAL DATA: This is the patient's subsequent encounter. Patient reports that signs and symptoms h ave been present for 2 days and indicates a pain score of 4/10. MEDICAL/SURGICAL HISTORY: Pancreatitis. Hypothyroidism. None. [place] [facility]. . TECHNIQUE: Multiplanar, multisequence examination of the brain was performed without and with 6.5 ml Gadavist (gadobutrol) contrast as a single exam dose. FINDINGS: The examination demonstrates subarachnoid hemorrhage in the bilateral frontal sulci and left high par ietal sulci, a small amount of interhemispheric blood in the right frontal region, as well as subdura l hemorrhage bilaterally most pronounced on the left extending from the left frontal through the occi pital regions. A maximal transverse thickness of approximately 3.5 mm is noted. There is no midline s hift or mass effect. There is a right temporal subdural hemorrhage measuring 1.9 mm in maximal thickn ess. There is a left temporal hemorrhagic contusion with a small amount of associated edema seen best on axial image 8 of series 9 measuring 2.6 cm in AP dimension. In the right frontal region abutting the falx is a 1.4 x 2 cm mass which is isointense to jenkins matter on T1-weighted images, heterogeneous ly hypointense on T2-weighted images, and demonstrates avid enhancement. A meningioma is suspected. N o additional masses are seen. No evidence for infarct. CONCLUSION: 1. Right frontal meningioma. 2. Intra-axial and extra-axial hemorrhage identified as described above. 3. No mass effect or midline shift. Electronically signed by: Omer Gutierrez MD 01/27/2018 4:15 PM EDT
[2018-01-27] MEDS ORDERED: Gadobutrol PF 7.5 MMOL/7.5 ML Vial (for RAD) IV.SIG ONE (16:20)
[2018-01-27 16:32] LABS: Amphetamine Screen,Urine Neg (Neg); Barbiturate Screen,Urine Neg (Neg); Cannabinoid Screen,Urine Pos (Neg); Cocaine Screen,Urine Neg (Neg)
[2018-01-27] MEDS: Folic Acid 1 MG Tablet PO SCH (16:46)
[2018-01-27] MEDS: Multivitamin/Minerals Therapeutic Tablet PO SCH (16:46)
[2018-01-27 17:03] LABS: Opiate Screen,Urine Pos (Neg)
--- NOTE | 2018-01-27 17:07 | ECHRPT ---
Indication: CVA/TIA CONCLUSIONS Normal left ventricular size. Wall thickness is normal. No regional wall motion abnormalities are pr esent.the left ventricular systolic function is normal with an estimated ejection fraction in the range of 55- 60%. Trace mitral valve regurgitation. There is trace tricuspid valve regurgitation. The estimated pulmonary arterial pressure is 22 mmHg. BP: / HR: Rhythm: Sinus MEASUREMENTS (Male / Female) Normal Values Technical Quality:Good 2D ECHO LV Diastolic Diameter PLAX 4.3 cm 4.2 - 5.9 / 3.9 - 5.3 cm LV Systolic Diameter PLAX 3.4 cm IVS Diastolic Thickness 1.2 cm 0.6 - 1.0 / 0.6 - 0.9 cm LVPW Diastolic Thickness 0.8 cm 0.6 - 1.0 / 0.6 - 0.9 cm LV Relative Wall Thickness 0.5 RV Internal Dim ED PLAX 1.6 cm M-MODE Aortic Root Diameter MM 2.9 cm AV Cusp Separation MM 1.9 cm DOPPLER Mitral E Point Velocity 89.8 cm/s Mitral A Point Velocity 47.4 cm/s Mitral E to A Ratio 1.9 TR Peak Velocity 173.7 cm/s TR Peak Gradient 12.1 mmHg Right Atrial Pressure 10.0 mmHg Pulmonary Artery Systolic Pressu 22.1 mmHg Right Ventricular Systolic Press 22.1 mmHg FINDINGS LEFT VENTRICLE Normal left ventricular size. Wall thickness is normal. No regional wall motion abnormalities are pr esent.the left ventricular systolic function is normal with an estimated ejection fraction in the range of 55- 60%. RIGHT VENTRICLE Normal right ventricular size and systolic function. LEFT ATRIUM The left atrial size is normal. RIGHT ATRIUM The right atrial size is normal. ATRIAL SEPTUM Normal atrial septal thickness without atrial level shunting by limited color doppler interrogation. AORTA The aortic root and proximal ascending aorta are normal in size on limited imaging. MITRAL VALVE Structurally normal mitral valve. Trace mitral valve regurgitation. AORTIC VALVE Trileaflet aortic valve. No aortic valve stenosis or regurgitation. TRICUSPID VALVE Structurally normal tricuspid valve. There is trace tricuspid valve regurgitation. The estimated pulmonary arterial pressure is 22 mmHg. PULMONARY VALVE No pulmonary valve regurgitation or stenosis. VESSELS The inferior vena cava is normal in size. PERICARDIUM No pericardial effusion. Tavares Carey MD (Electronically Signed) Final Date:27 January 2018 17:07
--- NOTE | 2018-01-27 17:11 | CT ---
EXAM DATE: 01/27/2018 4:17 PM EDT AGE/SEX: 42 years / Female INDICATIONS: Aneurysm. Head and neck pain. CLINICAL DATA: This is the patient's initial encounter. Patient reports that signs and symptoms have been present for 1 day and indicates a pain score of 5/10. MEDICAL/SURGICAL HISTORY: Pancreatitis. Herniated disc. . [place] in head. RADIATION DOSE: 10.07 CTDI (mGy) COMPARISON: [facility] [place] W & W/O CONTRAST, 01/27/2018. C, CT HEAD W/O CONTRAST, 01/26/2018. [facility] [place]A NECK W CONTRAST W 3D, 01/27/2018. . TECHNIQUE: Volumetric scanning was performed using a multi-row detector CT scanner during bolus infu cornel of 75 ml Omnipaque 350 (iohexol) nonionic water-soluble contrast as a cumulative dose for multi ple exams. The data was post processed with a variety of visualization algorithms including full vo lume maximum intensity projection, multi-planar sliding thin slab reformation, curved planar reformat ion, and surface rendering techniques. Using automated exposure control and adjustment of the mA and /or kV according to patient size, radiation dose was kept as low as reasonably achievable to obtain o ptimal diagnostic quality images. DICOM format image data is available electronically for review and comparison. FINDINGS: There is excellent visualization of the major intracranial arteries out to the second-order branch ve ssels. There is no evidence for aneurysm, vessel truncation or stenosis, and no evidence for vascula r malformation. Bilateral thyroid nodules are noted and incompletely evaluated on this study. CONCLUSION: 1. No evidence for aneurysm, stenosis or occlusion. 2. Thyroid nodules. Electronically signed by: Omer Gutierrez MD 01/27/2018 5:10 PM EDT
--- NOTE | 2018-01-27 17:22 | CT ---
EXAM DATE: 01/27/2018 4:17 PM EDT AGE/SEX: 42 years / Female INDICATIONS: Aneurysm. Head and neck pain. CLINICAL DATA: This is the patient's initial encounter. Patient reports that signs and symptoms have been present for 1 day and indicates a pain score of 5/10. MEDICAL/SURGICAL HISTORY: Pancreatitis. Herniated disc. . [place] in head. RADIATION DOSE: 10.22 CTDI (mGy) ; Combined studies COMPARISON: [facility], MR HEAD W & W/O CONTRAST, 01/27/2018. [facility], CT HEAD W/O CONTRAST, 01/26/2018. [facility], CTA HEAD W CONTRAST W 3D, 01/27/2018. . TECHNIQUE: Volumetric scanning was performed using a multirow detector CT scanner during bolus infus ion of 75 ml Omnipaque 350 (iohexol) nonionic water-soluble contrast as a cumulative dose for multip le exams. The data was postprocessed with a variety of visualization algorithms including full-volu me maximum intensity projection, multiplanar sliding thin-slab reformation, curved-planar reformation , and surface-rendering techniques. Using automated exposure control and adjustment of the mA and/or kV according to patient size, radiation dose was kept as low as reasonably achievable to obtain opti mal diagnostic quality images. DICOM format image data is available electronically for review and co mparison. Percent stenosis is calculated using the diameter of the stenotic region over the diameter of the nor mal distal internal carotid artery. FINDINGS: There are bilateral thyroid nodules identified including a hypodense right thyroid nodule measuring 9.4 mm, and a partially solid and cystic appearing mass measuring 1.8 cm on the left. Aortic Arch: There is a three-vessel origin of the great vessels from the aorta. No evidence of ost ial narrowing Right Carotid: The common carotid artery is intact. The carotid bulb has a normal configuration wit hout ulceration or narrowing. The internal carotid artery lumen is smooth without stenosis. The ext ernal carotid artery is intact. Left Carotid: The common carotid artery is intact. The carotid bulb has a normal configuration with out ulceration or narrowing. The internal carotid artery lumen is smooth without stenosis. The exte rnal carotid artery is intact. Vertebrals: The vertebral arteries have a symmetric diameter. No stenotic lesions are seen. CONCLUSION: 1. Negative CTA Carotid. 2. Bilateral thyroid nodules. Electronically signed by: Omer Gutierrez MD 01/27/2018 5:20 PM EDT
--- NOTE | 2018-01-27 19:00 | P.CONNS ---
History of Present Illness Service: Neurosurgery Consult date: 01/27/18 Requesting Physician: Edgardo Bacon Reason for Consult: subdural hematoma Primary Care Provider: No Primary Care Physician Chief Complaint: SYncope History of Present Illness: This is a 42-year-old female who was on her break at work at [employer], fainted and hit her head against the concrete floor. No seizure activity reported. No tongue bitting. No incontinence of stool or urine. She does not recall feeling any prodromal or presyncopal type symptoms such as lightheadedness dizziness headache visual changes chest pain shortness of breath back pain abdominal pain. She does not recall the episode. Workers heard a loud sound and attempted to open the door she was laying down against it, it pushed the door open and call 911 and get the patient to turn over. According to witnesses the patient was not shaking or having any tonic-clonic type of activity, she was just simply on the floor had her eyes open and was staring around looking confused for approximately 10-15 seconds. She was moving all 4 extremities. She denies any focal weakness. She denies senosry loss. She denies incontinence of stool or urine. CTof the brain showed Right-sided scalp hematoma with scattered subarachnoid hemorrhage bilaterally extending into the left middle cranial fossa. Probable small amount of subdural hemorrhage anteriorly at the interhemispheric fissure and also in the middle cranial fossa without significant mass effect. Small hemorrhagic contusions in the left temporal lobe and possibly also anterior right frontal lobe. Neurosurgical consultation was requested Her family history wads revided and was non contributory Review of Systems Constitutional: Denies anorexia, Denies body ache(s), Denies chills, Denies daytime sleepiness, Denies excessive sweating, Denies fatigue, Denies fever(s), Denies headache(s), Denies increased appetite, Denies lack of energy, Denies malaise, Denies night sweats, Denies weakness, Denies weight gain, Denies weight loss, Denies other Eyes: Denies blind spots, Denies blurry vision, Denies bulging eyes, Denies change in vision, Denies double vision, Denies discharge, Denies dry eyes, Denies floaters, Denies irritation, Denies itchy eyes, Denies loss of vision, Denies pain, Denies requires corrective lenses, Denies sensitivity to light, Denies other Ears, Nose, Mouth, and Throat: Denies abnormal hearing, Denies bleeding gums, Denies bad breath, Denies change in voice, Denies dental pain, Denies difficulty swallowing, Denies dizziness, Denies dry mouth, Denies ear discharge , Denies ear pain, Denies facial pain, Denies headache(s), Denies hearing loss, Denies hoarseness, Denies lip swelling, Denies nosebleed, Denies mouth lesions, Denies mouth pain, Denies nasal congestion, Denies nasal discharge, Denies nasal obstruction, Denies nasal trauma, Denies neck lump, Denies neck pain, Denies nose pain, Denies pain with swallowing, Denies poor balance, Denies post nasal drip, Denies ringing in the ears, Denies sinus pain, Denies sinus pressure , Denies sore throat, Denies throat swelling, Denies tongue swelling, Denies other Cardiovascular: Denies chest pain, Denies chest pain at rest, Denies chest pain with activity, Denies excessive sweating, Denies fainting, Denies fast heart rate, Denies foot swelling, Denies generalized swelling, Denies irregular heart rhythm, Denies leg pain with activity, Denies leg sores, Denies leg swelling, Denies lightheadedness, Denies radiating jaw, neck or arm pain, Denies rapid, pounding, or irregular heartbeat, Denies shortness of breath, Denies shortness of breath with activity, Denies shortness of breath when lying down, Denies shortness of breath causing sudden awakening, Denies slow heart rate, Denies other Respiratory: Denies change in phlegm color, Denies chest congestion, Denies cough, Denies coughing up blood, Denies excessive phlegm production, Denies pain on inspiration, Denies pain with cough, Denies shortness of breath, Denies shortness of breath with activity, Denies snoring, Denies stridor, Denies wheezing, Denies other Gastrointestinal: Denies abdominal pain, Denies belching, Denies black, tarry stools, Denies bloating, Denies bright, red blood in stools, Denies change in bowel habits, Denies constant urge to pass stool, Denies change in stools, Denies coffee ground vomit, Denies constipation, Denies cramping, Denies difficulty swallowing, Denies excessive passing of gas, Denies feeling full early, Denies heartburn, Denies incontinent of stools, Denies loose stools, Denies nausea, Denies pain with swallowing, Denies vomiting, Denies vomiting blood, Denies other Genitourinary: Denies abnormal periods, Denies abnormal vaginal bleeding, Denies absent period, Denies bleeding between periods, Denies blood in urine, Denies difficulty starting urination, Denies difficulty urinating, Denies dribbling after urination, Denies frequent nighttime urination, Denies genital itching, Denies genital lesions, Denies heavy periods, Denies hot flashes, Denies light periods, Denies nipple discharge, Denies painful intercourse, Denies painful periods, Denies painful urination, Denies pelvic pain, Denies prolapse symptoms, Denies sexual problems, Denies side pain, Denies urinary incontinence, Denies urinary urgency, Denies vaginal discharge, Denies vaginal dryness, Denies vaginal odor, Denies vaginal itching, Denies other Musculoskeletal: Denies abnormal walking, Denies back pain, Denies body aches, Denies decreased muscle mass, Denies deformity, Denies joint pain, Denies joint swelling, Denies limited joint movement, Denies loss of height, Denies muscle cramps, Denies muscle weakness, Denies neck pain, Denies numbness, Denies radiating pain into limb, Denies stiffness, Denies tingling, Denies other Skin/Breast: Denies acne, Denies bleeding lesions, Denies boil, Denies breast swelling, Denies breast skin changes, Denies breast pain, Denies breast lump, Denies change in breast shape, Denies change in hair, Denies change in skin color, Denies changing lesions, Denies dry skin, Denies excessive hair growth, Denies hair loss, Denies itching, Denies lesions, Denies nail changes, Denies new lesions, Denies nipple discharge, Denies non-healing lesions, Denies redness , Denies sensitivity to light, Denies rash, Denies skin pain, Denies skin ulcer , Denies sores, Denies stretch yousif, Denies unusual bruising, Denies wounds, Denies yellowing of the skin, Denies other Neurologic: Reports memory loss, Denies abnormal hearing, Denies abnormal movements, Denies abnormal speech, Denies abnormal walking, Denies behavioral changes, Denies burning sensations, Denies confusion, Denies dizziness, Denies fainting, Denies frequent falls, Denies headache(s), Denies lack of coordination , Denies localized weakness, Denies loss of vision, Denies numbness, Denies other visual disturbances, Denies radiating pain, Denies restless legs, Denies convulsions, Denies seizure-like activity, Denies sensory deficit, Denies tingling, Denies tingling/numbness/burning sensations, Denies tremor(s), Denies unsteadiness, Denies weakness, Denies other Psychiatric: Denies abnormal sleep pattern, Denies anxiety, Denies behavioral changes, Denies change in appetite, Denies change in sex drive, Denies confusion , Denies depression, Denies difficulty concentrating, Denies hearing things others do not hear, Denies hopelessness, Denies irritability, Denies lack of enjoyment, Denies memory loss, Denies mood swings, Denies panic attacks, Denies paranoia, Denies seeing things others do not see, Denies sensing things others do not sense, Denies tactile hallucinations, Denies thoughts of hurting/killing others, Denies thoughts of hurting/killing yourself, Denies other Endocrine: Denies cold intolerance, Denies excessive sweating, Denies flushing, Denies heat intolerance, Denies increased hunger, Denies increased thirst, Denies increased urination, Denies rapid, pounding, or irregular heartbeat, Denies other Hematologic/Lymphatic: Denies easy bleeding, Denies easy bruising, Denies enlarged lymph nodes, Denies other Allergic/Immunologic: Denies GI upset with certain foods, Denies hives, Denies itchy eyes, Denies lip swelling, Denies seasonal runny nose, Denies throat swelling, Denies tongue swelling, Denies wheezing, Denies other PMFSH - History History Provided By: Patient - Medical History Medical History: Medical History (Last Reviewed 01/27/18 @ 18:56 by Reinier Suarez MD) ETOH abuse (Acute) Pancreatitis (Acute) Hypothyroidism (Acute) Herniated disc (Acute) - Surgical History Surgical History: Surgical History (Last Reviewed 01/27/18 @ 18:56 by Reinier Suarez MD) No history of previous surgery - Tobacco History Second Hand Smoke Exposure: No Tobacco Use In Past 30 Days: Yes Smoking Status: Current every day smoker Tobacco Type: Cigarettes - Alcohol History How Often Do You Have a Drink Containing Alcohol: 2 to 4 times a month - Substance Use History Substance History: No History of Abuse - Travel History Recent Travel in the [place] Within the Last 8 Weeks: No Recent Travel Out of the Country Within the Last 8 Weeks: No - Immunization History Tetanus Immunization: Unsure Medications and Allergies Active Medications: Active Medications Acetaminophen (Tylenol) 650 mg PO Q6H PRN PRN Reason: PAIN 1-5 AND/OR FEVER >101F Al Hydroxide/Mg Hydroxide (Milk Of Magnshaista Liq) 30 ml PO Q12H PRN PRN Reason: Mild Constipation Albuterol (Duoneb Neb (Prn)) 1 ampul NEB Q2HR NEB PRN PRN Reason: WHEEZING Bisacodyl (Dulcolax Supp) 10 mg RECTAL DAILY PRN PRN Reason: SEVERE CONSITIPATION Chlorhexidine Gluconate (Chlorhexidine 2% Cloth) 3 pack TOPICAL DAILY@0400 [facility] Stop: 02/01/18 03:59 Last Admin: 01/27/18 06:19 Dose: 3 pack Chlorhexidine Gluconate (Chlorhexidine 2% Cloth) 3 pack TOPICAL DAILY@0400 PRN PRN Reason: Extra cloth needed Stop: 02/01/18 03:59 Flumazenil (Romazecon Inj) 0.2 mg IV.PUSH Q1M PRN PRN Reason: OVERSEDATION Folic Acid (Folic Acid) 1 mg PO DAILY [facility] Stop: 02/01/18 12:44 Last Admin: 01/27/18 16:46 Dose: Not Given Haloperidol Lactate (Haldol Inj) 1 mg IV.PUSH Q15M PRN PRN Reason: for severe agitation Levetiracetam 500 mg/ Sodium (Chloride) 105 mls @ 400 mls/hr IV.SIG Q12H [facility] Last Infusion: 01/27/18 11:55 Dose: Infused Sodium Chloride (Ns Inj) 1,000 mls @ 84 mls/hr IV.CONT .[id number] [facility] Last Admin: 01/27/18 16:45 Dose: 84 mls/hr Magnesium Sulfate 4 gm/ Sodium (Chloride) 100 mls @ 50 mls/hr IV.SIG UNSCH PRN PRN Reason: For Magnesium 0.9 - 1.1 mg/dL Magnesium Sulfate 2 gm/ Sodium (Chloride) 100 mls @ 50 mls/hr IV.SIG UNSCH PRN PRN Reason: For Magnesium 1.2 - 1.6 mg/dL Potassium Chloride (Kcl 40 Meq Premix Inj) 40 meq in 100 mls @ 25 mls/hr IV.SIG Q2H PRN PRN Reason: For Potassium 2.8 - 3.2 mEq/L Potassium Chloride (Kcl 20 Meq Premix Inj) 20 meq in 100 mls @ 50 mls/hr IV.SIG Q2H PRN PRN Reason: For Potassium 3.3 - 3.5 mEq/L Potassium Chloride (Kcl 40 Meq Premix Inj) 40 meq in 100 mls @ 25 mls/hr IV.SIG UNSCH PRN PRN Reason: For Potassium 3.3 - 3.5 mEq/L Potassium Chloride (Kcl 20 Meq Premix Inj) 20 meq in 100 mls @ 50 mls/hr IV.SIG Q2H PRN PRN Reason: For Potassium 2.8 - 3.2 mEq/L Last Infusion: 01/27/18 17:37 Dose: Infused Potassium Phosphate 30 mmol/ (Sodium Chloride) 260 mls @ 42 mls/hr IV.SIG UNSCH PRN PRN Reason: SEE LABEL COMMENTS Sodium Phosphate 30 mmol/ (Sodium Chloride) 260 mls @ 42 mls/hr IV.SIG UNSCH PRN PRN Reason: For Phosphorus < 2.5 mg/dL Lactulose (Lactulose Liq) 30 ml PO DAILY PRN PRN Reason: SEVERE CONSITIPATION Levothyroxine Sodium (Synthroid) 75 mcg PO DAILY@0600 [facility] Last Admin: 01/27/18 05:26 Dose: 75 mcg Lorazepam (Ativan) 1 mg PO Q4H PRN PRN Reason: for CIWA 8-10 Lorazepam (Ativan) 2 mg PO Q2H PRN PRN Reason: for CIWA 11-14 Lorazepam (Ativan Inj) 2 mg IV.PUSH Q2H PRN PRN Reason: for CIWA 11-14 Lorazepam (Ativan Inj) 2 mg IV.PUSH Q1H PRN PRN Reason: for CIWA 15-20 Lorazepam (Ativan Inj) 2 mg IV.PUSH Q15M PRN PRN Reason: for CIWA > 20 Lorazepam (Ativan Inj) 1 mg IV.PUSH Q4H PRN PRN Reason: for CIWA 8-10 Magnesium Oxide (Mag-Ox) 800 mg PO UNSCH PRN PRN Reason: For Magnesium 1.2 - 1.6 mg/dL Morphine Sulfate (Morphine Inj) 2 mg IV.PUSH Q2H PRN PRN Reason: PAIN SCALE 6 TO 10 Last Admin: 01/27/18 16:45 Dose: 2 mg Multivitamins/Minerals (Theragran-M) 1 tab PO DAILY [facility] Stop: 02/01/18 12:44 Last Admin: 01/27/18 16:46 Dose: Not Given Ondansetron HCl (Zofran Inj) 4 mg IV.PUSH Q6H PRN PRN Reason: NAUSEA OR VOMITING Last Admin: 01/27/18 01:03 Dose: 4 mg Potassium Bicarb/Potassium Chloride (K-Lyte Cl Eff) 50 meq PO UNSCH PRN PRN Reason: For Potassium 3.3 - 3.5 mEq/L Potassium Phosphate (K-Phos Original) 2,000 mg PO Q4H PRN PRN Reason: Phosphorus Less Than 2.5 mg/dL Potassium Phosphate (K-Phos Original) 2,000 mg PO UNSCH PRN PRN Reason: SEE LABEL COMMENTS Senna/Docusate Sodium (Aylin-Colace) 1 tab PO BID [facility] Last Admin: 01/27/18 12:18 Dose: 1 tab Sennosides (Senokot) 17.2 mg PO Q12H PRN PRN Reason: Moderate Constipation Sodium Chloride (Ns Flush) 2 ml IV.FLUSH BID [facility] Last Admin: 01/27/18 12:18 Dose: 2 ml Sodium Chloride (Ns Flush) 2 ml IV.FLUSH PRN PRN PRN Reason: FLUSH AFTER USING IV ACCESS Thiamine HCl (Vitamin B1) 100 mg PO DAILY [facility] Last Admin: 01/27/18 16:47 Dose: Not Given Allergies Allergy/AdvReac Type Severity Reaction Status Date / Time No Known Allergies Allergy Verified 11/11/17 08:28 Home Medications Medication Instructions Recorded Confirmed Type levothyroxine 75 mcg PO DAILY 11/11/17 01/26/18 History Exam Vital signs: Vital Signs 01/26/18 21:26 01/26/18 21:38 01/26/18 21:40 Temperature 97 F L Pulse Rate 86 95 H 98 H Respiratory Rate 18 20 Blood Pressure 121/83 Pulse Oximetry 100 98 98 01/27/18 00:00 01/27/18 00:06 01/27/18 00:07 Temperature 98.4 F Pulse Rate 82 Respiratory Rate 22 Blood Pressure 159/80 H 159/80 H Pulse Oximetry 100 100 100 01/27/18 00:34 01/27/18 01:00 01/27/18 01:04 Temperature Pulse Rate 70 85 87 Respiratory Rate 20 21 26 H Blood Pressure 120/80 131/83 Pulse Oximetry 100 100 100 01/27/18 01:34 01/27/18 02:00 01/27/18 02:04 Temperature Pulse Rate 89 86 90 Respiratory Rate 18 18 17 Blood Pressure 114/70 114/79 112/66 Pulse Oximetry 100 100 99 01/27/18 02:34 01/27/18 03:00 01/27/18 04:00 Temperature 98.6 F Pulse Rate 90 105 H 93 H Respiratory Rate 18 31 H 17 Blood Pressure 113/67 118/79 99/61 L Pulse Oximetry 99 100 98 01/27/18 04:59 01/27/18 05:00 01/27/18 05:28 Temperature Pulse Rate 94 H 94 H Respiratory Rate 27 H 22 20 Blood Pressure 100/71 131/76 Pulse Oximetry 100 100 01/27/18 05:59 01/27/18 06:00 01/27/18 06:59 Temperature Pulse Rate 94 H 96 H 88 Respiratory Rate 45 H 38 H 17 Blood Pressure 131/76 131/72 101/67 Pulse Oximetry 100 100 100 01/27/18 07:00 01/27/18 07:59 01/27/18 08:00 Temperature 98.3 F Pulse Rate 87 91 H 88 Respiratory Rate 16 20 20 Blood Pressure 100/63 Pulse Oximetry 99 98 98 01/27/18 08:59 01/27/18 09:00 01/27/18 09:10 Temperature Pulse Rate 73 72 88 Respiratory Rate 21 20 32 H Blood Pressure 92/61 L 120/78 Pulse Oximetry 97 97 100 01/27/18 09:59 01/27/18 10:00 01/27/18 10:59 Temperature Pulse Rate 77 85 83 Respiratory Rate 29 H 23 37 H Blood Pressure 115/70 120/74 Pulse Oximetry 99 100 100 01/27/18 11:00 01/27/18 11:59 01/27/18 12:00 Temperature 98.3 F Pulse Rate 84 79 78 Respiratory Rate 34 H 30 H 23 Blood Pressure 115/68 Pulse Oximetry 100 100 100 01/27/18 12:59 01/27/18 13:00 01/27/18 13:19 Temperature Pulse Rate 66 65 100 H Respiratory Rate 17 16 42 H Blood Pressure 84/55 L 94/65 L Pulse Oximetry 100 100 98 01/27/18 13:56 01/27/18 13:59 01/27/18 14:00 Temperature Pulse Rate 88 91 H 88 Respiratory Rate 32 H 34 H 31 H Blood Pressure 100/62 108/62 Pulse Oximetry 01/27/18 14:04 01/27/18 14:05 01/27/18 14:59 Temperature Pulse Rate 92 H 96 H 82 Respiratory Rate 34 H 37 H 28 H Blood Pressure 105/63 111/70 107/72 Pulse Oximetry 01/27/18 15:00 01/27/18 16:10 01/27/18 17:00 Temperature 98.3 F Pulse Rate 85 75 75 Respiratory Rate 29 H 23 29 H Blood Pressure Pulse Oximetry 100 100 01/27/18 17:07 01/27/18 18:00 Temperature Pulse Rate 75 69 Respiratory Rate 17 18 Blood Pressure 120/75 92/61 L Pulse Oximetry 98 98 Intake & Output 01/26/18 01/27/18 01/27/18 18:59 06:59 18:59 Intake Total 1105 / 1105 2230 / 2230 Output Total 400 / 400 Balance 705 / 705 2230 / 2230 Weight 61.6 kg Intake: IV 1105 / 1105 1505 / 1505 NS Inj 1,000 ML @ 84 mls/hr IV. 1000 / 1000 CONT .[id number] ERROL Rx#:[id number] KCl 20 mEq Premix Inj 20 meq In 400 / 400 100 ml @ 50 mls/hr IV.SIG Q2H PRN Rx#:[id number] NS Inj 1,000 ML @ Wide Open IV. 1000 / 1000 SIG BOLUS ONE Rx#:[id number] Keppra Inj 500 MG In NS Inj 100 105 / 105 105 / 105 ML @ 400 mls/hr IV.SIG Q12H ERROL Rx#:[id number] Oral 725 / 725 Output: Urine 400 / 400 Other: # Voids 1 2 Weight On Admission 61.6 kg Narrative: The patient is alert, awake. Comfortable, in no acute distress. Speech is fluent. Cranial nerve examination: pupils to be equal, round and reactive to light. Extra-ocular movements are intact. Facial motor and sensory function are normal and symmetrical. Gross hearing appears intact. Sternocleidomastoid and trapezius muscles are symmetrical. Other cranial nerves are intact. Neck is soft and supple with a good range of motion without pain. Muscle strength is normal in all muscle groups of both upper and lower extremities. Sensory examination is intact to light touch and pin prick in both the upper and lower extremities. Deep tendon reflexes are symmetrical in both upper and lower extremities. There is a bilateral plantar flexion response. Cerebellar examination is unremarkable, without deficits. Lungs are clear Heart regular rhythm is regular rate Skin warm and dry Results - Laboratory Findings CBC and BMP: 01/27/18 03:22 01/28/18 05:17 Abnormal lab findings: Abnormal Labs 01/26/18 01/26/18 01/26/18 21:30 21:30 21:30 RBC 3.96 L MCV 108.3 H MCH 38.0 H RDW 19.0 H Plt Count 147 L Neut % (Auto) Lymph % (Auto) [place] % (Auto) 9.8 H Lymph # (Auto) APTT Sodium 134 L Potassium 2.9 L* Chloride 97 L Carbon Dioxide 20.1 L Anion Gap 17 H POC Glucose Random Glucose 156 H Calcium Total Bilirubin AST ALT Troponin I Less than 0.02 L TSH 5.430 H Urine Opiates Screen U Cannabinoids Screen 01/26/18 01/27/18 01/27/18 21:34 03:22 03:22 RBC 3.60 L MCV 110.1 H MCH 37.6 H RDW 18.8 H Plt Count 118 L Neut % (Auto) 83.0 H Lymph % (Auto) 8.7 L [place] % (Auto) Lymph # (Auto) 0.7 L APTT 22.5 L Sodium Potassium Chloride Carbon Dioxide Anion Gap POC Glucose 165 H Random Glucose Calcium Total Bilirubin AST ALT Troponin I TSH Urine Opiates Screen U Cannabinoids Screen 01/27/18 01/27/18 01/27/18 03:22 12:03 12:30 RBC MCV MCH RDW Plt Count Neut % (Auto) Lymph % (Auto) [place] % (Auto) Lymph # (Auto) APTT Sodium Potassium 3.2 L Chloride Carbon Dioxide Anion Gap POC Glucose Random Glucose Calcium 8.3 L D Total Bilirubin 3.8 H AST 82 H ALT 56 H Troponin I Less than 0.02 L Less than 0.02 L TSH Urine Opiates Screen Pos H U Cannabinoids Screen Pos H Assessment and Plan - Plan I have reviewed the clinical and radiological findings Head CT 01/26/18 21:25 CONCLUSION: 1. Right-sided scalp hematoma with scattered subarachnoid hemorrhage bilaterally extending into the left middle cranial fossa. Probable small amount of subdural hemorrhage anteriorly at the interhemispheric fissure and also in the middle cranial fossa without significant mass effect. Small hemorrhagic contusions in the left temporal lobe and possibly also anterior right frontal lobe. . Right-sided scalp hematoma Traumatic subarachnoid hemorrhage bilaterally Small subdural hemorrhage Small hemorrhagic contusions in the left temporal lobe and anterior right frontal lobe -Keppra seizure prophylaxis -Neuro checks in serial fashion -Neurosurgical consultation -No surgical intervention indicated at this time -Fall and seizure precaution Syncope -Telemetry -Neurology consultation Echocardiogram Caritiud Duplex EEG Orthostatic blood pressure Small right frontal meningioma Likely unrelated to her syncope Monitor Anemia -Microcytic anemia -B12 and folic acid level -TSH -Transfuse if hemoglobin less than 7 Hypothyroidism -Levothyroxine Hypokalemia and hyponatremia -Electrolyte replacement per ICU protocol Folow up BMP -TSH and cortisol level DVT GI prophylaxis -Teds SCDs -No pharmacological DVT prophylaxis due to acute intracranial bleed Caprini VTE Risk Assessment Caprini VTE Risk Assessment: No/Low Risk (score <= 1) Caprini Risk Assessment Model: Point Value = 1 Point Value = 2 Point Value = 3 Point Value = 5 Age 41-60 Minor surgery BMI > 25 kg/m2 Swollen legs Varicose veins or History of unexplained or recurrent spontaneous Oral contraceptives or hormone replacement Sepsis (< 1 month) Serious lung disease, including pneumonia (< 1 month) Abnormal pulmonary function Acute myocardial infarction Congestive heart failure (< 1 month) History of inflammatory bowel disease Medical patient at bed rest Age 61-74 Arthroscopic surgery Major open surgery (> 45 min) Laparoscopic surgery (> 45 min) Malignancy Confined to bed (> 72 hours) Immobilizing plaster cast Central venous access Age >= 75 History of VTE Family history of VTE Factor V Leiden Prothrombin [id number] Lupus anticoagulant Anticardiolipin antibodies Elevated serum homocysteine Heparin-induced thrombocytopenia Other congenital or acquired thrombophilia Stroke (< 1 month) Elective arthroplasty Hip, pelvis, or leg fracture Acute spinal cord injury (< 1 month) Prophylaxis Regimen: Total Risk Factor Score Risk Level Prophylaxis Regimen 0-1 Low Early ambulation 2 Moderate Order ONE of the following: *Sequential Compression Device (SCD) *Heparin 5000 units SQ BID 3-4 Higher Order ONE of the following medications: *Heparin 5000 units SQ TID *Enoxaparin/Lovenox 40 mg SQ daily (WT < 150 kg, CrCl > 30 mL/min) *Enoxaparin/Lovenox 30 mg SQ daily (WT < 150 kg, CrCl > 10-29 mL/min) *Enoxaparin/Lovenox 30 mg SQ BID (WT < 150 kg, CrCl > 30 mL/min) AND/OR *Sequential Compression Device (SCD) 5 or more Highest Order ONE of the following medications: *Heparin 5000 units SQ TID (Preferred with Epidurals) *Enoxaparin/Lovenox 40 mg SQ daily (WT < 150 kg, CrCl > 30 mL/min) *Enoxaparin/Lovenox 30 mg SQ daily (WT < 150 kg, CrCl > 10-29 mL/min) *Enoxaparin/Lovenox 30 mg SQ BID (WT < 150 kg, CrCl > 30 mL/min) AND *Sequential Compression Device (SCD)
--- NOTE | 2018-01-27 20:16 | ECG ---
Date Performed: 01/26/2018 Time Performed: 21:33:39 PTAGE: 42 years EKG: Sinus rhythm SEPTAL Q-WAVES, CONSIDER LEAD POSITION VERSUS MYOCARDIAL INFARCTION, AGE INDETERMINATE ABNORMAL ECG PREVIOUS TRACING : 03/10/2017 21.25 Since the previous tracing, no significant change noted DOCTOR: Tod Cui Interpretating Date/Time 01/27/2018 20:14:46
--- NOTE | 2018-01-27 21:36 | MG ---
cc: Jatinder Hilario MD EEG RECORD NUMBER: [id number] FINDINGS: Increased fast frequencies noted throughout the recording, increased beta. Alpha beta frequency in background 10-20 microvolts. Intermittent myogenic artifact occurring at T3. Mild slowing background at times suggestive of drowsy state. Eye blink artifact. Good EEG variability reactivity. Appropriate driving with photic stimulation. Single lead EKG showing sinus rhythm. INTERPRETATION: Normal awake, drowsy electroencephalogram with increased fast frequencies. Clinical correlation. MD RYAN Zapata/yany , 08:52 PM , 08:57 PM
[2018-01-27] MEDS: Acetaminophen 325 MG Tablet PO PRN (23:47)
[2018-01-28] MEDS: Morphine Sulfate Inj 2 MG/ML Vial IV.PUSH PRN ×2 (00:56→09:35)
[2018-01-28] MEDS: Chlorhexidine Gluconate 2% 1 Pack (2 Cloths) TOPICAL SCH (04:14)
[2018-01-28] MEDS: Sod Chloride 0.9% Inj 1,000 ML IV.CONT SCH ×2 (05:31→11:30)
[2018-01-28] MEDS: Levothyroxine 75 MCG Tablet PO SCH (05:31)
[2018-01-28 06:02] LABS: Anion Gap 7 meq/L (5-15); Blood Urea Nitrogen 4 mg/dL (7-18); Calcium 7.9 mg/dL (8.5-10.1); Carbon Dioxide 24.4 meq/L (21.0-32.0); Chloride 106 meq/L (98-107); Glomerular Filtration Rate Greater Than 89 mL/min (>89); Glucose,Random 103 mg/dL (74-106); Magnesium 1.7 mg/dL (1.5-2.5); Sodium 137 meq/L (136-145)
[2018-01-28 06:19] VITALS: O2SAT 99
--- NOTE | 2018-01-28 07:38 | P.PNNEU ---
Subjective Subjective Comments: mild cotter Active Medications: Active Medications Acetaminophen (Tylenol) 650 mg PO Q6H PRN PRN Reason: PAIN 1-5 AND/OR FEVER >101F Last Admin: 01/27/18 23:47 Dose: 650 mg Al Hydroxide/Mg Hydroxide (Milk Of Ab Libruce) 30 ml PO Q12H PRN PRN Reason: Mild Constipation Albuterol (Duoneb Neb (Prn)) 1 ampul NEB Q2HR NEB PRN PRN Reason: WHEEZING Bisacodyl (Dulcolax Supp) 10 mg RECTAL DAILY PRN PRN Reason: SEVERE CONSITIPATION Chlorhexidine Gluconate (Chlorhexidine 2% Cloth) 3 pack TOPICAL DAILY@0400 [facility] Stop: 02/01/18 03:59 Last Admin: 01/28/18 04:14 Dose: 3 pack Chlorhexidine Gluconate (Chlorhexidine 2% Cloth) 3 pack TOPICAL DAILY@0400 PRN PRN Reason: Extra cloth needed Stop: 02/01/18 03:59 Flumazenil (Romazecon Inj) 0.2 mg IV.PUSH Q1M PRN PRN Reason: OVERSEDATION Folic Acid (Folic Acid) 1 mg PO DAILY [facility] Stop: 02/01/18 12:44 Last Admin: 01/27/18 16:46 Dose: Not Given Haloperidol Lactate (Haldol Inj) 1 mg IV.PUSH Q15M PRN PRN Reason: for severe agitation Levetiracetam 500 mg/ Sodium (Chloride) 105 mls @ 400 mls/hr IV.SIG Q12H [facility] Last Infusion: 01/28/18 04:14 Dose: Infused Sodium Chloride (Ns Inj) 1,000 mls @ 84 mls/hr IV.CONT .[id number] [facility] Last Admin: 01/28/18 05:31 Dose: 84 mls/hr Magnesium Sulfate 4 gm/ Sodium (Chloride) 100 mls @ 50 mls/hr IV.SIG UNSCH PRN PRN Reason: For Magnesium 0.9 - 1.1 mg/dL Magnesium Sulfate 2 gm/ Sodium (Chloride) 100 mls @ 50 mls/hr IV.SIG UNSCH PRN PRN Reason: For Magnesium 1.2 - 1.6 mg/dL Potassium Chloride (Kcl 40 Meq Premix Inj) 40 meq in 100 mls @ 25 mls/hr IV.SIG Q2H PRN PRN Reason: For Potassium 2.8 - 3.2 mEq/L Potassium Chloride (Kcl 20 Meq Premix Inj) 20 meq in 100 mls @ 50 mls/hr IV.SIG Q2H PRN PRN Reason: For Potassium 3.3 - 3.5 mEq/L Potassium Chloride (Kcl 40 Meq Premix Inj) 40 meq in 100 mls @ 25 mls/hr IV.SIG UNSCH PRN PRN Reason: For Potassium 3.3 - 3.5 mEq/L Potassium Chloride (Kcl 20 Meq Premix Inj) 20 meq in 100 mls @ 50 mls/hr IV.SIG Q2H PRN PRN Reason: For Potassium 2.8 - 3.2 mEq/L Last Infusion: 01/27/18 17:37 Dose: Infused Potassium Phosphate 30 mmol/ (Sodium Chloride) 260 mls @ 42 mls/hr IV.SIG UNSCH PRN PRN Reason: SEE LABEL COMMENTS Sodium Phosphate 30 mmol/ (Sodium Chloride) 260 mls @ 42 mls/hr IV.SIG UNSCH PRN PRN Reason: For Phosphorus < 2.5 mg/dL Lactulose (Lactulose Liq) 30 ml PO DAILY PRN PRN Reason: SEVERE CONSITIPATION Levothyroxine Sodium (Synthroid) 75 mcg PO DAILY@0600 ERROL Last Admin: 01/28/18 05:31 Dose: 75 mcg Lorazepam (Ativan) 1 mg PO Q4H PRN PRN Reason: for CIWA 8-10 Lorazepam (Ativan) 2 mg PO Q2H PRN PRN Reason: for CIWA 11-14 Lorazepam (Ativan Inj) 2 mg IV.PUSH Q2H PRN PRN Reason: for CIWA 11-14 Lorazepam (Ativan Inj) 2 mg IV.PUSH Q1H PRN PRN Reason: for CIWA 15-20 Lorazepam (Ativan Inj) 2 mg IV.PUSH Q15M PRN PRN Reason: for CIWA > 20 Lorazepam (Ativan Inj) 1 mg IV.PUSH Q4H PRN PRN Reason: for CIWA 8-10 Magnesium Oxide (Mag-Ox) 800 mg PO UNSCH PRN PRN Reason: For Magnesium 1.2 - 1.6 mg/dL Morphine Sulfate (Morphine Inj) 2 mg IV.PUSH Q2H PRN PRN Reason: PAIN SCALE 6 TO 10 Last Admin: 01/28/18 00:56 Dose: 2 mg Multivitamins/Minerals (Theragran-M) 1 tab PO DAILY [facility] Stop: 02/01/18 12:44 Last Admin: 01/27/18 16:46 Dose: Not Given Ondansetron HCl (Zofran Inj) 4 mg IV.PUSH Q6H PRN PRN Reason: NAUSEA OR VOMITING Last Admin: 01/28/18 00:13 Dose: 4 mg Potassium Bicarb/Potassium Chloride (K-Lyte Cl Eff) 50 meq PO UNSCH PRN PRN Reason: For Potassium 3.3 - 3.5 mEq/L Potassium Phosphate (K-Phos Original) 2,000 mg PO Q4H PRN PRN Reason: Phosphorus Less Than 2.5 mg/dL Potassium Phosphate (K-Phos Original) 2,000 mg PO UNSCH PRN PRN Reason: SEE LABEL COMMENTS Senna/Docusate Sodium (Aylin-Colace) 1 tab PO BID [facility] Last Admin: 01/27/18 20:26 Dose: 1 tab Sennosides (Senokot) 17.2 mg PO Q12H PRN PRN Reason: Moderate Constipation Sodium Chloride (Ns Flush) 2 ml IV.FLUSH BID [facility] Last Admin: 01/27/18 20:26 Dose: 2 ml Sodium Chloride (Ns Flush) 2 ml IV.FLUSH PRN PRN PRN Reason: FLUSH AFTER USING IV ACCESS Thiamine HCl (Vitamin B1) 100 mg PO DAILY [facility] Last Admin: 01/27/18 16:47 Dose: Not Given Allergies/Adverse Reactions: Allergies Allergy/AdvReac Type Severity Reaction Status Date / Time No Known Allergies Allergy Verified 11/11/17 08:28 Physical Exam Vital signs: Vital Signs 01/27/18 07:59 01/27/18 08:00 01/27/18 08:59 Temperature 98.3 F Pulse Rate 91 H 88 73 Respiratory Rate 20 20 21 Blood Pressure 100/63 92/61 L Pulse Oximetry 98 98 97 01/27/18 09:00 01/27/18 09:10 01/27/18 09:59 Temperature Pulse Rate 72 88 77 Respiratory Rate 20 32 H 29 H Blood Pressure 120/78 115/70 Pulse Oximetry 97 100 99 01/27/18 10:00 01/27/18 10:59 01/27/18 11:00 Temperature Pulse Rate 85 83 84 Respiratory Rate 23 37 H 34 H Blood Pressure 120/74 Pulse Oximetry 100 100 100 01/27/18 11:59 01/27/18 12:00 01/27/18 12:59 Temperature 98.3 F Pulse Rate 79 78 66 Respiratory Rate 30 H 23 17 Blood Pressure 115/68 84/55 L Pulse Oximetry 100 100 100 01/27/18 13:00 01/27/18 13:19 01/27/18 13:56 Temperature Pulse Rate 65 100 H 88 Respiratory Rate 16 42 H 32 H Blood Pressure 94/65 L 100/62 Pulse Oximetry 100 98 01/27/18 13:59 01/27/18 14:00 01/27/18 14:04 Temperature Pulse Rate 91 H 88 92 H Respiratory Rate 34 H 31 H 34 H Blood Pressure 108/62 105/63 Pulse Oximetry 01/27/18 14:05 01/27/18 14:59 01/27/18 15:00 Temperature Pulse Rate 96 H 82 85 Respiratory Rate 37 H 28 H 29 H Blood Pressure 111/70 107/72 Pulse Oximetry 01/27/18 16:10 01/27/18 17:00 01/27/18 17:07 Temperature 98.3 F Pulse Rate 75 75 75 Respiratory Rate 23 29 H 17 Blood Pressure 120/75 Pulse Oximetry 100 100 98 01/27/18 18:00 01/27/18 19:00 01/27/18 20:00 Temperature Pulse Rate 69 84 83 Respiratory Rate 18 20 22 Blood Pressure 92/61 L 115/70 101/63 Pulse Oximetry 98 99 98 01/27/18 21:00 01/27/18 22:00 01/27/18 23:00 Temperature Pulse Rate 75 76 74 Respiratory Rate 19 19 17 Blood Pressure 92/70 L 99/54 L 98/55 L Pulse Oximetry 99 98 98 01/28/18 00:00 01/28/18 00:17 01/28/18 00:58 Temperature Pulse Rate 79 Respiratory Rate 13 13 13 Blood Pressure 131/80 Pulse Oximetry 99 01/28/18 01:00 01/28/18 02:00 01/28/18 03:00 Temperature Pulse Rate 55 L 60 71 Respiratory Rate 13 13 11 L Blood Pressure 116/72 108/68 93/54 L Pulse Oximetry 96 98 99 01/28/18 04:00 01/28/18 05:00 01/28/18 06:00 Temperature 97.8 F Pulse Rate 77 64 66 Respiratory Rate 17 14 19 Blood Pressure 111/75 117/68 106/64 Pulse Oximetry 99 98 99 01/28/18 07:00 Temperature Pulse Rate 67 Respiratory Rate 20 Blood Pressure 126/71 Pulse Oximetry 99 Intake & Output 01/27/18 01/28/18 01/28/18 18:59 06:59 18:59 Intake Total 2230 / 2230 1105 / 1105 Balance 2230 / 2230 1105 / 1105 Weight 63.8 kg Intake: IV 1505 / 1505 1105 / 1105 NS Inj 1,000 ML @ 84 mls/hr IV. 1000 / 1000 1000 / 1000 CONT .[id number] ERROL Rx#:[id number] KCl 20 mEq Premix Inj 20 meq In 400 / 400 100 ml @ 50 mls/hr IV.SIG Q2H PRN Rx#:[id number] Keppra Inj 500 MG In NS Inj 100 105 / 105 105 / 105 ML @ 400 mls/hr IV.SIG Q12H ERROL Rx#:[id number] Oral 725 / 725 Other: # Voids 2 4 Narrative: standing bp ok gait steady mild dizzy no vertigo Objective Laboratory Results - last 24 hr 01/26/18 01/27/18 01/27/18 21:30 03:22 12:03 Sodium Potassium Chloride Carbon Dioxide Anion Gap BUN Creatinine Estimated GFR Random Glucose Calcium Magnesium Troponin I Less than 0.02 L TSH 5.430 H Free T4 Cortisol 22.9 Urine Opiates Screen Ur Barbiturates Screen Ur Amphetamines Screen U Benzodiazepines Scrn Urine Cocaine Screen U Cannabinoids Screen 01/27/18 01/27/18 01/28/18 12:03 12:30 05:17 Sodium 137 Potassium 4.0 D Chloride 106 Carbon Dioxide 24.4 Anion Gap 7 BUN 4 L Creatinine 0.49 L Estimated GFR Greater than 89 Random Glucose 103 Calcium 7.9 L Magnesium 1.7 Troponin I TSH 0.889 Free T4 1.13 Cortisol Urine Opiates Screen Pos H Ur Barbiturates Screen Neg Ur Amphetamines Screen Neg U Benzodiazepines Scrn Neg Urine Cocaine Screen Neg U Cannabinoids Screen Pos H Review/Management - Review/Management Plan: imp cta x 2 neg labs ok eeg nl sr mri small meningioma left temporal contusion small wagner sah plan neuro landeros she could dc not to drive until further notice nor swim or bath i dw her await eyewitness report consider cards for syncope
[2018-01-28] MEDS: Folic Acid 1 MG Tablet PO SCH (08:18)
[2018-01-28] MEDS: Senna/Docusate Sodium 8.6/50 MG Tablet PO SCH (08:18)
[2018-01-28] MEDS: Multivitamin/Minerals Therapeutic Tablet PO SCH (08:18)
--- NOTE | 2018-01-28 12:01 | P.PNNS ---
Subjective Interval history: Doing well overnight Physical Exam Vital signs: Vital Signs 01/27/18 12:59 01/27/18 13:00 01/27/18 13:19 Temperature Pulse Rate 66 65 100 H Respiratory Rate 17 16 42 H Blood Pressure 84/55 L 94/65 L Pulse Oximetry 100 100 98 01/27/18 13:56 01/27/18 13:59 01/27/18 14:00 Temperature Pulse Rate 88 91 H 88 Respiratory Rate 32 H 34 H 31 H Blood Pressure 100/62 108/62 Pulse Oximetry 01/27/18 14:04 01/27/18 14:05 01/27/18 14:59 Temperature Pulse Rate 92 H 96 H 82 Respiratory Rate 34 H 37 H 28 H Blood Pressure 105/63 111/70 107/72 Pulse Oximetry 01/27/18 15:00 01/27/18 16:10 01/27/18 17:00 Temperature 98.3 F Pulse Rate 85 75 75 Respiratory Rate 29 H 23 29 H Blood Pressure Pulse Oximetry 100 100 01/27/18 17:07 01/27/18 18:00 01/27/18 19:00 Temperature Pulse Rate 75 69 94 H Respiratory Rate 17 18 38 H Blood Pressure 120/75 92/61 L 115/70 Pulse Oximetry 98 98 100 01/27/18 20:00 01/27/18 21:00 01/27/18 21:04 Temperature Pulse Rate 93 H 72 76 Respiratory Rate 28 H 20 20 Blood Pressure 101/63 75/55 L 92/70 L Pulse Oximetry 99 99 100 01/27/18 22:00 01/27/18 23:00 01/28/18 00:00 Temperature Pulse Rate 79 77 69 Respiratory Rate 17 14 18 Blood Pressure 99/54 L 98/55 L 131/80 Pulse Oximetry 98 98 98 01/28/18 00:17 01/28/18 00:48 01/28/18 00:58 Temperature Pulse Rate 79 Respiratory Rate 13 20 13 Blood Pressure 123/82 Pulse Oximetry 98 01/28/18 01:00 01/28/18 02:00 01/28/18 03:00 Temperature Pulse Rate 66 70 75 Respiratory Rate 20 15 19 Blood Pressure 116/72 108/68 93/54 L Pulse Oximetry 98 98 99 01/28/18 03:14 01/28/18 04:00 01/28/18 04:02 Temperature 97.8 F Pulse Rate 70 70 67 Respiratory Rate 13 13 14 Blood Pressure 93/54 L 111/75 111/75 Pulse Oximetry 99 97 98 01/28/18 05:00 01/28/18 06:00 01/28/18 06:06 Temperature Pulse Rate 74 65 75 Respiratory Rate 14 19 24 Blood Pressure 117/68 106/64 106/64 Pulse Oximetry 99 100 100 01/28/18 07:00 01/28/18 07:26 01/28/18 08:00 Temperature 97.8 F Pulse Rate 73 87 64 Respiratory Rate 17 37 H 17 Blood Pressure 126/71 123/97 H 111/76 Pulse Oximetry 99 98 99 01/28/18 09:00 01/28/18 10:00 01/28/18 11:00 Temperature Pulse Rate 80 85 80 Respiratory Rate 33 H 15 17 Blood Pressure 118/81 100/66 110/70 Pulse Oximetry Intake & Output 01/27/18 01/28/18 01/28/18 18:59 06:59 18:59 Intake Total 2230 / 2230 1105 / 1105 Balance 2230 / 2230 1105 / 1105 Weight 63.8 kg Intake: IV 1505 / 1505 1105 / 1105 NS Inj 1,000 ML @ 84 mls/hr IV. 1000 / 1000 1000 / 1000 CONT .[id number] ERROL Rx#:[id number] KCl 20 mEq Premix Inj 20 meq In 400 / 400 100 ml @ 50 mls/hr IV.SIG Q2H PRN Rx#:[id number] Keppra Inj 500 MG In NS Inj 100 105 / 105 105 / 105 ML @ 400 mls/hr IV.SIG Q12H ERROL Rx#:[id number] Oral 725 / 725 Other: # Voids 2 4 Assessment and Plan - Plan 42yoF with scattered SAH from fall. Neurologically stable. Keppra x 7d Ok for d/c or transfer when approved by other services and workup complete.
--- NOTE | 2018-01-28 12:50 | P.PN ---
Subjective Interval history: Follow-up syncope and intracranial hemorrhage. Patient is doing well denies any symptoms including headache, neck pain, chest pain and shortness of breath. She is aware that she is not allowed to drive, climb heights, swim alone and carry young children. She would be on Keppra. She also was made aware of the findings of meningioma. Discussed with neurosurgery, observation for now and patient is cleared for discharge with Keppra for 7 days. Neurology also cleared this patient for discharge but recommended cardiology input prior to sending her home. EKG unremarkable. Physical Exam Vital signs: Vital Signs 01/27/18 12:59 01/27/18 13:00 01/27/18 13:19 Temperature Pulse Rate 66 65 100 H Respiratory Rate 17 16 42 H Blood Pressure 84/55 L 94/65 L Pulse Oximetry 100 100 98 01/27/18 13:56 01/27/18 13:59 01/27/18 14:00 Temperature Pulse Rate 88 91 H 88 Respiratory Rate 32 H 34 H 31 H Blood Pressure 100/62 108/62 Pulse Oximetry 01/27/18 14:04 01/27/18 14:05 01/27/18 14:59 Temperature Pulse Rate 92 H 96 H 82 Respiratory Rate 34 H 37 H 28 H Blood Pressure 105/63 111/70 107/72 Pulse Oximetry 01/27/18 15:00 01/27/18 16:10 01/27/18 17:00 Temperature 98.3 F Pulse Rate 85 75 75 Respiratory Rate 29 H 23 29 H Blood Pressure Pulse Oximetry 100 100 01/27/18 17:07 01/27/18 18:00 01/27/18 19:00 Temperature Pulse Rate 75 69 94 H Respiratory Rate 17 18 38 H Blood Pressure 120/75 92/61 L 115/70 Pulse Oximetry 98 98 100 01/27/18 20:00 01/27/18 21:00 01/27/18 21:04 Temperature Pulse Rate 93 H 72 76 Respiratory Rate 28 H 20 20 Blood Pressure 101/63 75/55 L 92/70 L Pulse Oximetry 99 99 100 01/27/18 22:00 01/27/18 23:00 01/28/18 00:00 Temperature Pulse Rate 79 77 69 Respiratory Rate 17 14 18 Blood Pressure 99/54 L 98/55 L 131/80 Pulse Oximetry 98 98 98 01/28/18 00:17 01/28/18 00:48 01/28/18 00:58 Temperature Pulse Rate 79 Respiratory Rate 13 20 13 Blood Pressure 123/82 Pulse Oximetry 98 01/28/18 01:00 01/28/18 02:00 01/28/18 03:00 Temperature Pulse Rate 66 70 75 Respiratory Rate 20 15 19 Blood Pressure 116/72 108/68 93/54 L Pulse Oximetry 98 98 99 01/28/18 03:14 01/28/18 04:00 01/28/18 04:02 Temperature 97.8 F Pulse Rate 70 70 67 Respiratory Rate 13 13 14 Blood Pressure 93/54 L 111/75 111/75 Pulse Oximetry 99 97 98 01/28/18 05:00 01/28/18 06:00 01/28/18 06:06 Temperature Pulse Rate 74 65 75 Respiratory Rate 14 19 24 Blood Pressure 117/68 106/64 106/64 Pulse Oximetry 99 100 100 01/28/18 07:00 01/28/18 07:26 01/28/18 08:00 Temperature 97.8 F Pulse Rate 73 87 64 Respiratory Rate 17 37 H 17 Blood Pressure 126/71 123/97 H 111/76 Pulse Oximetry 99 98 99 01/28/18 09:00 01/28/18 10:00 01/28/18 11:00 Temperature Pulse Rate 80 85 80 Respiratory Rate 33 H 15 17 Blood Pressure 118/81 100/66 110/70 Pulse Oximetry Intake & Output 01/27/18 01/28/18 01/28/18 18:59 06:59 18:59 Intake Total 2230 / 2230 1105 / 1105 Balance 2230 / 2230 1105 / 1105 Weight 63.8 kg Intake: IV 1505 / 1505 1105 / 1105 NS Inj 1,000 ML @ 84 mls/hr IV. 1000 / 1000 1000 / 1000 CONT .[id number] ERROL Rx#:[id number] KCl 20 mEq Premix Inj 20 meq In 400 / 400 100 ml @ 50 mls/hr IV.SIG Q2H PRN Rx#:[id number] Keppra Inj 500 MG In NS Inj 100 105 / 105 105 / 105 ML @ 400 mls/hr IV.SIG Q12H ERROL Rx#:[id number] Oral 725 / 725 Other: # Voids 2 4 Narrative: GENERAL: Well-developed, well-nourished in no distress SKIN: Warm and dry. HEAD: Stapled laceration right temporal EYES: Pupils equal and round. No scleral icterus. No injection or drainage. NECK: Trachea midline. No JVD. CARDIOVASCULAR: Regular rate and rhythm. RESPIRATORY: No accessory muscle use. Clear to auscultation. Breath sounds equal bilaterally. GASTROINTESTINAL: Abdomen soft, non-tender, nondistended. MUSCULOSKELETAL: Extremities without clubbing, cyanosis, or edema. No obvious deformities. NEUROLOGICAL: Awake and alert. No obvious cranial nerve deficits. Motor grossly within normal limits. Five out of 5 muscle strength in the arms and legs. Normal speech. PSYCHIATRIC: Appropriate mood and affect; insight and judgment normal. Results - Labs CBC & Chem 7: 01/27/18 03:22 01/28/18 05:17 Laboratory Results - last 24 hr 01/26/18 01/27/18 01/27/18 21:30 12:03 12:03 Sodium Potassium Chloride Carbon Dioxide Anion Gap BUN Creatinine Estimated GFR Random Glucose Calcium Magnesium Troponin I Less than 0.02 L TSH 5.430 H 0.889 Free T4 1.13 Urine Opiates Screen Ur Barbiturates Screen Ur Amphetamines Screen U Benzodiazepines Scrn Urine Cocaine Screen U Cannabinoids Screen 01/27/18 01/28/18 12:30 05:17 Sodium 137 Potassium 4.0 D Chloride 106 Carbon Dioxide 24.4 Anion Gap 7 BUN 4 L Creatinine 0.49 L Estimated GFR Greater than 89 Random Glucose 103 Calcium 7.9 L Magnesium 1.7 Troponin I TSH Free T4 Urine Opiates Screen Pos H Ur Barbiturates Screen Neg Ur Amphetamines Screen Neg U Benzodiazepines Scrn Neg Urine Cocaine Screen Neg U Cannabinoids Screen Pos H - Imaging Impressions ITS Impressions Head CT 01/26/18 21:25 CONCLUSION: 1. Right-sided scalp hematoma with scattered subarachnoid hemorrhage bilaterally extending into the left middle cranial fossa. Probable small amount of subdural hemorrhage anteriorly at the interhemispheric fissure and also in the middle cranial fossa without significant mass effect. Small hemorrhagic contusions in the left temporal lobe and possibly also anterior right frontal lobe. . Head CTA 01/27/18 00:00 CONCLUSION: 1. No evidence for aneurysm, stenosis or occlusion. 2. Thyroid nodules. Neck CTA 01/27/18 00:00 CONCLUSION: 1. Negative CTA Carotid. 2. Bilateral thyroid nodules. Head MRI 01/27/18 09:29 The examination demonstrates subarachnoid hemorrhage in the bilateral frontal sulci and left high parietal sulci, a small amount of interhemispheric blood in the right frontal region, as well as subdural hemorrhage bilaterally most pronounced on the left extending from the left frontal through the occipital regions. A maximal transverse thickness of approximately 3.5 mm is noted. There is no midline shift or mass effect. There is a right temporal subdural hemorrhage measuring 1.9 mm in maximal thickness. There is a left temporal hemorrhagic contusion with a small amount of associated edema seen best on axial image 8 of series 9 measuring 2.6 cm in AP dimension. In the right frontal region abutting the falx is a 1.4 x 2 cm mass which is isointense to jenkins matter on T1-weighted images, heterogeneously hypointense on T2-weighted images, and demonstrates avid enhancement. A meningioma is suspected. No additional masses are seen. No evidence for infarct. CONCLUSION: 1. Right frontal meningioma. 2. Intra-axial and extra-axial hemorrhage identified as described above. 3. No mass effect or midline shift. - Procedures Scalp laceration repair Assessment and Plan - Plan Right-sided scalp hematoma Traumatic subarachnoid hemorrhage bilaterally Small subdural hemorrhage Small hemorrhagic contusions in the left temporal lobe and anterior right frontal lobe Meningioma, right frontal -Keppra seizure prophylaxis -Neuro checks per ICU protocol -Neurosurgery has cleared patient for discharge with Keppra for 7 days -Fall and seizure precaution. She is neurology intact ambulating without assistive device. Syncope, workup unremarkable -Telemetry -Neurology consultation. Syncope workup which included UDS echocardiogram, EEG , CTA of the head and neck and MRI of the head. -Neurology recommended cardiology eval prior to discharge. EKG unremarkable Anemia -Macrocytic anemia -MMA -B12 and folic acid within normal limits -Transfuse if hemoglobin less than 7 Hypothyroidism Thyroid nodule -Levothyroxine. Therapeutic TSH -Outpatient follow-up needed for thyroid nodule Hypokalemia and hyponatremia -Electrolyte replacement per ICU protocol -Follow-up cortisol level within normal limits Chronic transaminitis with a history of alcohol abuse. Counseled. [facility] protocol FEN -Tolerating diet DVT GI prophylaxis -Teds SCDs -No pharmacological DVT prophylaxis due to acute intracranial bleed -GI prophylaxis not indicated Discharge Planning: Discharge patient to home Condition on discharge: Improved Regular Diet as tolerated Ad Jolly activity, no driving, swimming alone, climbing heights and carrying young children Rx written: Arielle Follow-up with primary care physician and neurology. Needs staple removal in 5- 7 days
[2018-01-28] MEDS: Acetaminophen 325 MG Tablet PO PRN (13:00)
[2018-01-28 13:26] VITALS: BP 103/68; TEMP 98.3
[2018-01-28 14:27] VITALS: PULSE 82; RESP 25
--- NOTE | 2018-01-28 16:07 | P.CONCA ---
History of Present Illness Service: Cardiology Consult date: 01/28/18 Requesting Physician: Edgardo Bacon Reason for Consult: Syncope Primary Care Provider: No Primary Care Physician Chief Complaint: SYncope History of Present Illness: This is a 42-year-old female with a past medical history of ETOH abuse , pancreatitis, hypothyroidism and herniated disc. She states, that while she was at work on her break, she fainted and hit her head on concrete floor. She denies any symptoms prior to the syncopal episode, she states that it came suddenly and the only thing that she remembers is looking up from the floor. She was brought in to the Emergency Department via [facility] for further evaluation. Currently, she denies any chest pain, pressure, palpitations, dizziness, edema or shortness of breath. Review of Systems All other systems reviewed negative except as stated in [facility] - History History Provided By: Patient - Medical History Medical History: Medical History (Last Reviewed 01/27/18 @ 18:56 by Reinier Suarez MD) ETOH abuse (Acute) Pancreatitis (Acute) Hypothyroidism (Acute) Herniated disc (Acute) - Surgical History Surgical History: Surgical History (Last Reviewed 01/27/18 @ 18:56 by Reinier Suarez MD) No history of previous surgery - Tobacco History Second Hand Smoke Exposure: No Tobacco Use In Past 30 Days: Yes Smoking Status: Current every day smoker Tobacco Type: Cigarettes - Alcohol History How Often Do You Have a Drink Containing Alcohol: 2 to 4 times a month - Substance Use History Substance History: No History of Abuse - Travel History Recent Travel in the [place] Within the Last 8 Weeks: No Recent Travel Out of the Country Within the Last 8 Weeks: No - Immunization History Tetanus Immunization: Unsure Medications and Allergies Allergies Allergy/AdvReac Type Severity Reaction Status Date / Time No Known Allergies Allergy Verified 11/11/17 08:28 Home Medications Medication Instructions Recorded Confirmed Type levothyroxine 75 mcg PO DAILY 11/11/17 01/26/18 History Exam Vital signs: Vital Signs 01/27/18 16:10 01/27/18 17:00 01/27/18 17:07 Temperature 98.3 F Pulse Rate 75 75 75 Respiratory Rate 23 29 H 17 Blood Pressure 120/75 Pulse Oximetry 100 100 98 01/27/18 18:00 01/27/18 19:00 01/27/18 20:00 Temperature Pulse Rate 69 94 H 93 H Respiratory Rate 18 38 H 28 H Blood Pressure 92/61 L 115/70 101/63 Pulse Oximetry 98 100 99 01/27/18 21:00 01/27/18 21:04 01/27/18 22:00 Temperature Pulse Rate 72 76 79 Respiratory Rate 20 20 17 Blood Pressure 75/55 L 92/70 L 99/54 L Pulse Oximetry 99 100 98 01/27/18 23:00 01/28/18 00:00 01/28/18 00:17 Temperature Pulse Rate 77 69 Respiratory Rate 14 18 13 Blood Pressure 98/55 L 131/80 Pulse Oximetry 98 98 01/28/18 00:48 01/28/18 00:58 01/28/18 01:00 Temperature Pulse Rate 79 66 Respiratory Rate 20 13 20 Blood Pressure 123/82 116/72 Pulse Oximetry 98 98 01/28/18 02:00 01/28/18 03:00 01/28/18 03:14 Temperature Pulse Rate 70 75 70 Respiratory Rate 15 19 13 Blood Pressure 108/68 93/54 L 93/54 L Pulse Oximetry 98 99 99 01/28/18 04:00 01/28/18 04:02 01/28/18 05:00 Temperature 97.8 F Pulse Rate 70 67 74 Respiratory Rate 13 14 14 Blood Pressure 111/75 111/75 117/68 Pulse Oximetry 97 98 99 01/28/18 06:00 01/28/18 06:06 01/28/18 07:00 Temperature Pulse Rate 65 75 73 Respiratory Rate 19 24 17 Blood Pressure 106/64 106/64 126/71 Pulse Oximetry 100 100 99 01/28/18 07:26 01/28/18 08:00 01/28/18 09:00 Temperature 97.8 F Pulse Rate 87 64 80 Respiratory Rate 37 H 17 33 H Blood Pressure 123/97 H 111/76 118/81 Pulse Oximetry 98 99 01/28/18 10:00 01/28/18 11:00 01/28/18 12:00 Temperature 98.3 F Pulse Rate 85 80 91 H Respiratory Rate 15 17 20 Blood Pressure 100/66 110/70 103/68 Pulse Oximetry 99 01/28/18 13:05 01/28/18 14:00 Temperature Pulse Rate 78 82 Respiratory Rate 10 L 25 H Blood Pressure Pulse Oximetry Intake & Output 01/27/18 01/28/18 01/28/18 18:59 06:59 18:59 Intake Total 2230 / 2230 1105 / 1105 105 / 105 Balance 2230 / 2230 1105 / 1105 105 / 105 Weight 63.8 kg Intake: IV 1505 / 1505 1105 / 1105 105 / 105 NS Inj 1,000 ML @ 84 mls/hr IV. 1000 / 1000 1000 / 1000 CONT .[id number] ERROL Rx#:[id number] KCl 20 mEq Premix Inj 20 meq In 400 / 400 100 ml @ 50 mls/hr IV.SIG Q2H PRN Rx#:[id number] Keppra Inj 500 MG In NS Inj 100 105 / 105 105 / 105 105 / 105 ML @ 400 mls/hr IV.SIG Q12H ERROL Rx#:[id number] Oral 725 / 725 Other: # Voids 2 4 - Constitutional no acute distress - Routine HEENT Exam Head: Present: normocephalic Eye: Present: PERRL ENT: Present: mucous membranes moist Comments: Repaired laceration on the posterior head. - Routine Neck Exam Present: full ROM - Routine Respiratory Exam Present: CTA bilaterally - Routine Cardiovascular Exam Present: S1, S2. Absent: murmur, gallop, rubs - Routine Abdominal Exam Present: normoactive bowel sounds - Routine Extremities Exam Present: full ROM, pulses intact, normal capillary refill - Routine Skin Exam Present: intact - Routine Neurological Exam Present: oriented X3 Results 01/27/18 03:22 01/28/18 05:17 Cardiac Enzymes 01/26/18 01/26/18 01/27/18 Range/Units 21:30 21:30 03:22 AST 82 H (15-37) U/L Troponin I Less than 0.02 L Less than 0.02 L (0.02-0.05) ng/mL B-Natriuretic Peptide 13 (0-100) pg/mL 01/27/18 Range/Units 12:03 AST (15-37) U/L Troponin I Less than 0.02 L (0.02-0.05) ng/mL B-Natriuretic Peptide (0-100) pg/mL Coagulation 01/26/18 01/27/18 Range/Units 21:30 03:22 PT 11.3 (9.8-11.6) sec APTT 22.5 L (24.3-30.1) sec B-Natriuretic Peptide 13 (0-100) pg/mL CBC 01/26/18 01/27/18 Range/Units 21:30 03:22 WBC 8.7 7.6 (4.0-11.0) th/mm3 RBC 3.96 L 3.60 L (4.00-5.30) mil/mm3 Hgb 15.1 13.6 (11.6-15.3) gm/dL Hct 42.9 39.7 (35.0-46.0) % Plt Count 147 L 118 L (150-450) th/mm3 Neut # (Auto) 5.2 6.3 (1.8-7.7) th/mm3 Lymph # (Auto) 2.4 0.7 L (1.0-4.8) th/mm3 [place] # (Auto) 0.9 0.6 (0.0-0.9) th/mm3 Eos # (Auto) 0.1 0.0 (0.0-0.4) th/mm3 Baso # (Auto) 0.1 0.0 (0.0-0.2) th/mm3 Comprehensive Metabolic Panel 01/26/18 01/27/18 01/28/18 Range/Units 21:30 03:22 05:17 Sodium 134 L 138 137 (136-145) meq/L Potassium 2.9 L* 3.2 L 4.0 D (3.5-5.1) meq/L Chloride 97 L 102 106 (98-107) meq/L Carbon Dioxide 20.1 L 22.5 24.4 (21.0-32.0) meq/L BUN 8 7 4 L (7-18) mg/dL Creatinine 0.71 0.53 0.49 L (0.50-1.00) mg/dL Calcium 9.1 8.3 L D 7.9 L (8.5-10.1) mg/dL AST 82 H (15-37) U/L ALT 56 H (10-53) U/L Alkaline Phosphatase 89 (45-117) U/L Total Protein 6.4 (6.4-8.2) g/dL Albumin 3.6 (3.4-5.0) g/dL Intake and Output 01/28/18 01/28/18 01/28/18 06:59 14:59 22:59 Intake Total 1105 / 1105 105 / 105 Balance 1105 / 1105 105 / 105 Intake: IV 1105 / 1105 105 / 105 NS Inj 1,000 ML @ 84 mls/hr IV. 1000 / 1000 CONT .[id number] ERROL Rx#:[id number] Keppra Inj 500 MG In NS Inj 100 105 / 105 105 / 105 ML @ 400 mls/hr IV.SIG Q12H ERROL Rx#:[id number] Other: # Voids 4 Weight 63.8 kg - Imaging and Cardiology Imaging: Impressions Head CT 01/26/18 21:25 CONCLUSION: 1. Right-sided scalp hematoma with scattered subarachnoid hemorrhage bilaterally extending into the left middle cranial fossa. Probable small amount of subdural hemorrhage anteriorly at the interhemispheric fissure and also in the middle cranial fossa without significant mass effect. Small hemorrhagic contusions in the left temporal lobe and possibly also anterior right frontal lobe. . Head CTA 01/27/18 00:00 CONCLUSION: 1. No evidence for aneurysm, stenosis or occlusion. 2. Thyroid nodules. Neck CTA 01/27/18 00:00 CONCLUSION: 1. Negative CTA Carotid. 2. Bilateral thyroid nodules. Head MRI 01/27/18 09:29 The examination demonstrates subarachnoid hemorrhage in the bilateral frontal sulci and left high parietal sulci, a small amount of interhemispheric blood in the right frontal region, as well as subdural hemorrhage bilaterally most pronounced on the left extending from the left frontal through the occipital regions. A maximal transverse thickness of approximately 3.5 mm is noted. There is no midline shift or mass effect. There is a right temporal subdural hemorrhage measuring 1.9 mm in maximal thickness. There is a left temporal hemorrhagic contusion with a small amount of associated edema seen best on axial image 8 of series 9 measuring 2.6 cm in AP dimension. In the right frontal region abutting the falx is a 1.4 x 2 cm mass which is isointense to jenkins matter on T1-weighted images, heterogeneously hypointense on T2-weighted images, and demonstrates avid enhancement. A meningioma is suspected. No additional masses are seen. No evidence for infarct. CONCLUSION: 1. Right frontal meningioma. 2. Intra-axial and extra-axial hemorrhage identified as described above. 3. No mass effect or midline shift. Assessment and Plan - Assessment (1) Syncope and collapse Code(s): R55 - Syncope and collapse Status: Acute (2) Intracranial hemorrhage Code(s): I62.9 - Nontraumatic intracranial hemorrhage, unspecified Status: Acute (3) Laceration of scalp Code(s): S01.01XA - Laceration without foreign body of scalp, initial encounter Status: Acute (4) Acute hypokalemia Code(s): E87.6 - Hypokalemia Status: Acute (5) ETOH abuse Code(s): F10.10 - Alcohol abuse, uncomplicated Status: Acute (6) Pancreatitis Code(s): K85.90 - Acute pancreatitis without necrosis or infection, unspecified Status: Acute (7) Hypothyroidism Code(s): E03.9 - Hypothyroidism, unspecified Status: Acute (8) Herniated disc Status: Acute - Plan 2D echo obtained, no evidence of structural abnormalities, normal left ventricular function. Troponin levels are not trending and EKG shows no acute process. There is no evidence of cardiac source for the syncope. Patient is being evaluated for possible seizures, neurology evaluation in progress. We will clear patient for discharge from cardiac standpoint. Patient was seen and evaluated by Dr. Herrera who participated in care, management and decision-making. - Attending Attestation Patient seen and examined. I reviewed and agree with the evaluation and plan as presented. Cardiac evaluation unremarkable. No evidence for cardiac cause of syncope. Discharge home as planned. (3) Laceration of scalp Qualifiers: Encounter type: initial encounter Qualified Code(s): S01.01XA - Laceration without foreign body of scalp, initial encounter (6) Pancreatitis Qualifiers: Chronicity: acute Pancreatitis type: unspecified pancreatitis type Acute pancreatitis complication: unspecified Qualified Code(s): K85.90 - Acute pancreatitis without necrosis or infection, unspecified
== END 2018-01-28 15:05 | disposition home or self-care (01) ==
LOC: NEPE 21:18 → NEDA 23:10 → N03 01-27 00:07
PROVIDERS: ADMIT Internal Medicine; ATTEND Internal Medicine